=== PATIENT | female | born 1955 | race Caucasian/White ===

== ENCOUNTER 2020-03-07 14:26 | Outpatient (REF) | payer MEDICAID, SELFPAY ==
--- NOTE | 2020-03-07 14:34 | XR_ITS ---
EXAMINATION: XR CHEST CLINICAL INFORMATION: COPD. COMPARISON: Prior chest radiographs, most recently 04/24/2019; CT chest dated 03-22. TECHNIQUE: Frontal and lateral views of the chest were obtained. FINDINGS: The heart, great vessels, pulmonary vasculature and mediastinum are stable. No pulmonary vascular congestion or overt pulmonary edema are seen. There is hyperinflation, consistent with the provided history of COPD. Breast artifact again projects over the bases. There are again prominent bilateral pericardial fat pads, consistent with the prior CT findings (6:21 and 4:299). No new infiltrate, effusion or pneumothorax is seen. There is no acute osseous abnormality. There is multi-level thoracic spondylosis. IMPRESSION: 1. Findings are consistent with the provided history of COPD. 2. No new focal infiltrate or congestive heart failure is seen.
== END 2020-03-07 14:27 | disposition home or self-care (01) ==
LOC: HO.HMGCX 14:26
PROVIDERS: PCP Nurse Practitioner Family; Visit Provider Nurse Practitioner Family
DX: J44.1 Chronic obstructive pulmonary disease with (acute) exacerbation (principal)
CPT/HCPCS: 71046

== ENCOUNTER 2020-04-03 10:29 | Outpatient (REF) | payer MEDICAID, SELFPAY | END 2020-04-03 10:30 | disposition home or self-care (01) | LOC: HO.LAB 10:29 | PROVIDERS: Visit Provider Nurse Practitioner Family | DX: Z20.828 Contact with and (suspected) exposure to other viral communicable diseases (principal) | CPT/HCPCS: 87635 ==

== ENCOUNTER 2020-04-03 11:14 | Outpatient (REF) | payer MEDICAID, SELFPAY ==
[2020-04-03 13:54] LABS: MANUAL DIFF FLAG NO
[2020-04-03 13:58] LABS: Basophils Percent Auto 0.4 % (0-2); Eosinophils Absolute Auto 0.5 X10*3/uL (0.0-0.4); Eosinophils Percent Auto 5.2 % (0-4); Hematocrit 40.8 % (37-47); Hemoglobin 13.1 g/dl (12.0-16.0); Imm Gran Abs Auto 0.03 X10*3/uL (0.00-0.03); Imm Gran Pct Auto 0.3 % (0.0-0.4); Lymphocytes Absolute Auto 2.1 X10*3/uL (1.2-4.9); Mean Corpuscular HGB Conc 32.1 g/dl (31.0-35.0); Mean Corpuscular Hemoglobin 32.6 pg (27.0-33.0); Mean Corpuscular Volume 101.5 fL (80-98); Mean Platelet Volume 10.4 fL (9.4-12.3); Monocytes Absolute Auto 0.6 X10*3/uL (0.1-1.2); Monocytes Percent Auto 7.1 % (2-11); Neutrophils Absolute Auto 5.7 X10*3/uL (2.0-8.3); Platelet Count 257 X10*3/uL (160-400); Red Blood Count 4.02 X10*6/uL (4.20-5.50); Red Cell Distribution Width 13.2 % (11.0-16.0); White Blood Count 8.9 X10*3/uL (4.8-10.8)
[2020-04-03 14:25] LABS: Alanine Aminotransferase 13 U/L (0-31); Albumin Level 3.8 g/dL (3.5-5.0); Alkaline Phosphatase 98 U/L (39-117); Anion Gap 11 (12-20); Aspartate Amino Transferase 13 U/L (5-31); Bilirubin Direct 0.2 mg/dL (0.0-0.5); Bilirubin Total 0.7 mg/dL (0.0-1.0); Blood Urea Nitrogen 18 mg/dL (9-16); Calcium 8.7 mg/dL (8.4-10.2); Carbon Dioxide 38 mmol/L (22-29); Chloride 96 mmol/L (96-108); Estimated Glomerular Filt Rate > 60; Glucose Random 126 mg/dL (60-115); Potassium 3.9 mmol/l (3.3-5.1); Sodium 141 mmol/L (135-145); Total Protein 6.9 g/dL (6.5-8.0)
[2020-04-04 15:57] LABS: Absolute CD3 Count 1626 cells/uL (840-3060); Absolute CD4 Count 587 cells/uL (490-1740); Absolute CD8 Count 1110 cells/uL (180-1170); Absolute Lymphocytes 2070 cells/uL (850-3900); CD4 CD8 Ratio 0.53 (0.86-5.00); Percent CD3 Cells 79 % (57-85); Percent CD4 Cells 28 % (30-61); Percent CD8 Cells 54 % (12-42)
[2020-04-05 16:12] LABS: HIV RNA PCR Qn Copies <20 NOT DETECTED copies/mL (NOT DETECTED); HIV RNA PCR Qn Log Copies <1.30 NOT DETECTED (NOT DETECTED)
== END 2020-04-03 11:15 | disposition home or self-care (01) ==
LOC: HO.HMGCLDS 11:14
PROVIDERS: PCP Nurse Practitioner Family; Visit Provider Internal Medicine
DX: B20 Human immunodeficiency virus [HIV] disease (principal)
CPT/HCPCS: 36415; 80048; 80076; 85025; 86359; 86360; 87536

== ENCOUNTER → 2020-04-15 11:23 | Outpatient (BNVA) | payer MEDICAID, SELFPAY | PROVIDERS: PCP Nurse Practitioner Family; Referring Provider Nurse Practitioner Family; Visit Provider Internal Medicine | DX: J44.1 Chronic obstructive pulmonary disease with (acute) exacerbation (principal); J96.91 Respiratory failure, unspecified with hypoxia; G47.33 Obstructive sleep apnea (adult) (pediatric); E66.01 Morbid (severe) obesity due to excess calories; Z68.41 Body mass index [BMI] 40.0-44.9, adult; F17.210 Nicotine dependence, cigarettes, uncomplicated; Z99.81 Dependence on supplemental oxygen | CPT/HCPCS: 99212 ==

== ENCOUNTER → 2020-04-25 10:39 | Outpatient (REF) | payer MEDICAID, SELFPAY ==
--- NOTE | 2020-04-25 10:43 | CA_ITS ---
Transthoracic Echocardiogram Patient (Last, First, Middle): Elida Barry, Gender: Female Date of : 1955 Age: 64 Procedure Date: 04/25/2020 Procedure Type: Transthoracic Echocardiogram Location: OP Height: 177.8 cm Weight: 127.01 kg BSA: 2.41 m2 Heart Rate: bpm BP: 144 / 82 mmHg [employer] Supervisor: AZUL Referring MD: Garret Interiano [facility] Symptoms: R60.0 - Localized edema Study Quality: Fair on Apical views ECG Rhythm: Sinus Conclusions: - The left ventricular systolic function is normal. The visually estimated ejection fraction is between 65-70%. - No obvious valvular pathology seen on this study. - There is mild dilatation of the ascending aorta measuring 4.10 cm. Findings Left Ventricle Normal left ventricular cavity size. There is moderately increased left ventricular wall thickness. The left ventricular systolic function is normal. The visually estimated ejection fraction is between 65-70%. There is no evidence of regional wall motion abnormalities. E/E prime ratio is <8, consistent with normal filling pressures. Evidence suggests grade I (mild) diastolic dysfunction. Right Ventricle Normal right ventricular cavity size and systolic function. Atria Both atria are normal in size. Aortic Valve The aortic valve was not well visualized. There is no aortic valve stenosis. There is no aortic valve regurgitation. Slightly increased aortic valve gradients likely from increased stroke volume. Mitral Valve The mitral valve appears normal. There is no mitral valve regurgitation. There is no mitral valve stenosis. Pulmonic Valve The pulmonic valve was not well visualized. Tricuspid Valve There is trace tricuspid valve regurgitation. The pulmonary artery systolic pressure is normal. Great Vessels There is mild dilatation of the ascending aorta measuring 4.10 cm. Venous The inferior vena cava is normal in size and collapses greater than 50% with inspiration. Pericardium/Pleural There is no evidence of pericardial effusion. Prior Study Comparison No significant change compared to prior study dated: 12/22/2018. Recommendations, Care & Conclusions No obvious valvular pathology seen on this study. Measurements 2D Linear Measurements IVSd: 1.55 0.6-0.9/0.6-1.0 cm LVIDd: 5.13 3.9-5.3/4.2-5.9 cm LVIDd Index: 2.13 2.4-3.2/2.2-3.1 cm/m2 LVIDs: 3.29 2.0-3.6 cm LVPWd: 1.45 0.7-1.1 cm Ao Root: 3.60 2.1-3.5 cm LA Diam: 4.50 2.7-3.8/3.0-4.0 cm LAIDs Index: 1.87 1.5-2.3 cm/m2 LV Mass: 418.46 67-162/88-224 g LV Mass Index: 173.63 43-95/49-115 g/m2 LVOT Diam: 2.30 3.0+(-)1.3 cm 2D Systolic Function EF 4C: 74.70 >55% EF 2C: 61.50 >55% EF BiP: 68.30 >55% Mitral Valve MV Pk E: 0.48 MV PK A: 1.02 MV Decel Time: 289.00 E/A: 0.50 E'Lateral: 9.86 E'Medial: 7.35 E/E' Med: 6.50 E/E' Lat: 4.80 PHT: 85.00 MVA PHT: 2.59 Decel [place]: 1.65 Aortic Valve AoV Pk Rashaun: 2.08 AoV Mn Rashaun: 1.43 AoV VTI: 0.43 AoV Pk Grad: 17.00 Aov Mn Grad: 10.00 ANSHUL Cont.VTI: 3.05 LVOT LVOT Pk [place]asha[place]: 1.47 LVOT Mn Rashaun: 0.98 LVOT VTI: 0.32 LVOT Pk Grad: 9.00 LVOT Mn Grad: 5.00 LVOT Diam: 2.30 LVOT Area: 4.15 Diastolic Function MV Pk E: 0.48 MV Pk A: 1.02 E/A: 0.50 E'Medial: 7.35 E/E' Med: 6.50 E' Laterial: 9.86 E/E' Lat: 4.80 Tricuspid Valve TR Pk Rashaun: 2.23 TR Pk Grad: 20.00 RA Press: 3.00 RVSP: 23.00 Great Vessels Aorta Ao Root-2D: 3.60 2.0-3.7 cm Ao Asc: 4.10 2.1-3.4 cm Pulmonary Valve PV Pk Rashaun: 1.14 Peak PV Grad: 5.00 Updated in Other Vendor System with Status of Final Bolivar Mariee MD electronically signed on 04/27/2020 9:53:34 AM with status of Final
== END ==
LOC: HO.CARD 10:39
PROVIDERS: PCP Nurse Practitioner Family; Visit Provider Nurse Practitioner Family
DX: R60.0 Localized edema (principal)
CPT/HCPCS: 93306

== ENCOUNTER 2020-05-16 09:27 | Outpatient (REF) | payer MEDICARE, MEDICAID, SELFPAY ==
--- NOTE | 2020-05-16 09:34 | XR_ITS ---
EXAMINATION: XR CHEST CLINICAL INFORMATION: COPD COMPARISON: Previous chest x-ray most recent March 2020 TECHNIQUE: 2 views of the chest were obtained. FINDINGS: The cardiac and mediastinal contours are stable. The lung volumes are low. There is scarring or subsegmental atelectasis at the lung bases that appears unchanged. There is no pleural effusion or pneumothorax. There is increased thoracic kyphosis and degenerative changes of the spine. XR/XR chest 2V IMPRESSION: Low lung volumes and scarring or subsegmental atelectasis at the lung bases. No evidence for acute disease in the chest.
== END 2020-05-16 09:28 | disposition home or self-care (01) ==
LOC: HO.HMGCX 09:27
PROVIDERS: PCP Nurse Practitioner Family; Visit Provider Hospitalist
DX: J44.1 Chronic obstructive pulmonary disease with (acute) exacerbation (principal)
CPT/HCPCS: 71046; U0003

== ENCOUNTER 2020-05-16 09:51 | Outpatient (REF) | payer MEDICARE, MEDICAID, SELFPAY | END 2020-05-16 09:52 | disposition home or self-care (01) | LOC: HO.LAB 09:51 | PROVIDERS: Visit Provider Hospitalist | DX: Z20.828 Contact with and (suspected) exposure to other viral communicable diseases (principal) | CPT/HCPCS: U0003 ==

== ENCOUNTER → 2020-05-27 11:01 | Outpatient (BNVA) | payer MEDICARE, MEDICAID, SELFPAY | PROVIDERS: PCP Nurse Practitioner Family; Visit Provider Surgery Vascular Surgery | DX: I83.12 Varicose veins of left lower extremity with inflammation (principal) | CPT/HCPCS: 99212 ==

== ENCOUNTER → 2020-06-09 11:19 | Outpatient (BNVA) | payer MEDICARE, MEDICAID, SELFPAY | PROVIDERS: PCP Nurse Practitioner Family; Visit Provider Internal Medicine | DX: J44.1 Chronic obstructive pulmonary disease with (acute) exacerbation (principal); J96.91 Respiratory failure, unspecified with hypoxia; E66.01 Morbid (severe) obesity due to excess calories; Z68.41 Body mass index [BMI] 40.0-44.9, adult; G47.33 Obstructive sleep apnea (adult) (pediatric); F17.210 Nicotine dependence, cigarettes, uncomplicated; Z99.81 Dependence on supplemental oxygen | CPT/HCPCS: 99212 ==

== ENCOUNTER → 2020-06-23 11:03 | Outpatient (BNVA) | payer MEDICARE, MEDICAID, SELFPAY | PROVIDERS: Visit Provider Internal Medicine | DX: B20 Human immunodeficiency virus [HIV] disease (principal) | CPT/HCPCS: 99212 ==

== ENCOUNTER 2020-06-24 12:25 | Outpatient (REF) | payer MEDICARE, MEDICAID, SELFPAY ==
--- NOTE | 2020-06-24 12:29 | US_ITS ---
EXAMINATION: RIGHT LOWER EXTREMITY VENOUS ULTRASOUND (Reflux Exam) CLINICAL INDICATION: Varicose veins and inflammation COMPARISON: Previous exam December 2018 TECHNIQUE: Color flow triplex imaging and compression Doppler was performed to evaluate both the deep and the superficial systems bilaterally. To evaluate the superficial system, the examination was performed in the upright position. Color-flow Doppler ultrasound and compression ultrasound were utilized. In addition, maneuvers were utilized to demonstrate reflux. FINDINGS: 1. DEEP VENOUS ULTRASOUND OF THE RIGHT LOWER EXTREMITY: Respiratory variation, normal compression and augmented flow are noted in the right common femoral vein as well as the right popliteal vein and there is no evidence of deep venous thrombosis at these locations. There is no evidence of reflux in the deep system in either the common femoral vein or the popliteal vein. There is no evidence of a Muñiz's cyst. 2. SUPERFICIAL ULTRASOUND WITH DOPPLER OF RIGHT LOWER EXTREMITY: The right great saphenous vein at the saphenofemoral junction measures 10 mm, at the mid thigh 7 mm, dikdl-[id number]-[id number] 6 5 mm, wekqh-soj-sofy 5 mm, at mid calf 4 mm and at the ankle measures 3 mm. There is a right greater saphenous vein reflux measuring 2.9 seconds in the proximal thigh, 3 seconds in the mid thigh, 2.5 seconds above the knee and 0.8 seconds at the ankle. There is an accessory lateral greater saphenous vein that measures 6 mm and does not demonstrate reflux. The right small saphenous vein measures 4-5 mm. There is a left lesser saphenous vein reflux measuring between 1.7 and 2.3 seconds. There are perforators in the thigh and calf that measure 2 and 4 mm and do not demonstrate reflux. There are varicosities in the thigh and calf measuring between 3 and 6 millimeters and do not demonstrate reflux. There is right inguinal lymphadenopathy. US/US venous duplex LE BI IMPRESSION: 1. No evidence of reflux or thrombus in the right common femoral or popliteal veins. 2. Right greater saphenous vein reflux. Right lesser saphenous vein reflux.
== END 2020-06-24 12:26 | disposition home or self-care (01) ==
LOC: HO.US 12:25
PROVIDERS: Visit Provider Surgery Vascular Surgery
DX: I83.12 Varicose veins of left lower extremity with inflammation (principal); I83.893 Varicose veins of bilateral lower extremities with other complications
CPT/HCPCS: 93970

== ENCOUNTER → 2020-06-26 10:44 | Outpatient (BNVA) | payer MEDICAID, SELFPAY | PROVIDERS: Visit Provider Surgery Vascular Surgery ==

== ENCOUNTER 2020-07-09 | Outpatient (REF) | payer MEDICARE, MEDICAID, SELFPAY | END 2020-07-09 00:01 | disposition home or self-care (01) | LOC: HO.VC | PROVIDERS: Visit Provider Internal Medicine | DX: Z23 Encounter for immunization (principal) | CPT/HCPCS: 0011A ==

== ENCOUNTER → 2020-07-10 13:49 | Outpatient (BNVA) | payer MEDICARE, MEDICAID, SELFPAY | PROVIDERS: PCP Nurse Practitioner Family; Visit Provider Surgery Vascular Surgery | DX: I83.11 Varicose veins of right lower extremity with inflammation (principal) | CPT/HCPCS: 99212 ==

== ENCOUNTER → 2020-07-18 08:25 | Outpatient (BNVA) | payer MEDICARE, MEDICAID, SELFPAY | PROVIDERS: PCP Nurse Practitioner Family; Visit Provider Surgery Vascular Surgery | DX: I83.11 Varicose veins of right lower extremity with inflammation (principal) | CPT/HCPCS: 36482 ==

== ENCOUNTER 2020-07-21 08:53 | Outpatient (REF) | payer MEDICARE, MEDICAID, SELFPAY ==
--- NOTE | ~2020-07-21 | US_ITS ---
EXAMINATION: US VENOUS ULTRASOUND WITH DOPPLER LOWER EXTREMITY, RIGHT CLINICAL INFORMATION: Right leg pain post venaseal procedure COMPARISON: Previous exam June 2020 TECHNIQUE: Ultrasound of the deep veins is performed from the hip to the calf with compression sonography and color and pulse Doppler assessment. Spectral analysis with color-flow imaging is performed. FINDINGS: There is normal venous compression and respiratory variation and augmented flow. The visualized common femoral vein, superficial femoral vein, profunda femoral vein, popliteal vein, and the trifurcation region shows no evidence of deep venous thrombosis. There is hyperechoic material consistent with thrombus seen in the right greater saphenous vein. This is 4 cm from the saphenofemoral junction. There is a 5.8 x 1.4 x 3 cm complex Muñiz's cyst. US/US venous duplex LE RT IMPRESSION: No DVT demonstrated in the right lower extremity. Echogenic material in the right greater saphenous vein 4 cm from the saphenofemoral junction post venaseal procedure. 5.8 x 1.4 x 3 cm complex Muñiz's cyst.
== END 2020-07-21 08:54 | disposition home or self-care (01) ==
LOC: HO.US 08:53
PROVIDERS: Visit Provider Surgery Vascular Surgery
DX: M79.604 Pain in right leg (principal)
CPT/HCPCS: 93971

== ENCOUNTER 2020-07-29 10:37 | Outpatient (REF) | payer MEDICARE, MEDICAID, SELFPAY ==
--- NOTE | ~2020-07-29 | MM_ITS ---
EXAMINATION: MM SCREENING DIGITAL BREAST TOMOSYNTHESIS, BILATERAL CLINICAL INFORMATION: Screening. Asymptomatic. The lifetime risk of breast cancer based on the Tyrer-Cuzick Model is 8%. COMPARISON: Mammography: 06/27/2018, 01/05/2017 TECHNIQUE: Digital breast tomosynthesis is performed in both the craniocaudal and mediolateral oblique views along with computer-aided detection (CAD). Synthesized 2D images are generated from the tomosynthesis. FINDINGS: There are scattered areas of fibroglandular density (ACR BI-RADS breast composition Category b). There are no significant masses, abnormal calcifications, or other abnormalities. There are some ectatic draining veins upper right breast similar to prior exam. Scattered benign round and dermal calcifications again noted posterior medial breasts. No significant changes. MM/MM tomosynthesis screening BI IMPRESSION: No mammographic evidence of malignancy. ASSESSMENT: BI-RADS 2: Benign RECOMMENDATION: Routine annual mammography screening. This patient's information was entered into a reminder system with a target due date for their next mammogram.
== END 2020-07-29 10:38 | disposition home or self-care (01) ==
LOC: HO.MAMMO 10:37
PROVIDERS: PCP Nurse Practitioner Family; Visit Provider Nurse Practitioner Family
DX: I83.11 Varicose veins of right lower extremity with inflammation (principal); I89.0 Lymphedema, not elsewhere classified; Z12.31 Encounter for screening mammogram for malignant neoplasm of breast
CPT/HCPCS: 77063; 77067; 99212

== ENCOUNTER 2020-08-05 | Outpatient (REF) | payer MEDICARE, MEDICAID, SELFPAY | END 2020-08-05 00:01 | disposition home or self-care (01) | LOC: HO.VC | PROVIDERS: Visit Provider Internal Medicine | DX: Z23 Encounter for immunization (principal) | CPT/HCPCS: 0012A ==

== ENCOUNTER → 2020-08-13 11:01 | Outpatient (BNVA) | payer MEDICARE, MEDICAID, SELFPAY | PROVIDERS: PCP Nurse Practitioner Family; Visit Provider Internal Medicine | DX: J44.9 Chronic obstructive pulmonary disease, unspecified (principal); J96.91 Respiratory failure, unspecified with hypoxia; E66.2 Morbid (severe) obesity with alveolar hypoventilation; Z68.41 Body mass index [BMI] 40.0-44.9, adult; J31.0 Chronic rhinitis; Z71.3 Dietary counseling and surveillance; Z87.891 Personal history of nicotine dependence; Z79.899 Other long term (current) drug therapy; Z79.51 Long term (current) use of inhaled steroids; Z99.81 Dependence on supplemental oxygen | CPT/HCPCS: 99212 ==

== ENCOUNTER → 2020-09-09 13:14 | Outpatient (BNVA) | payer MEDICARE, MEDICAID, SELFPAY | PROVIDERS: PCP Nurse Practitioner Family; Visit Provider Surgery Vascular Surgery | DX: I83.12 Varicose veins of left lower extremity with inflammation (principal); I89.0 Lymphedema, not elsewhere classified | CPT/HCPCS: 99212 ==

== ENCOUNTER → 2020-10-10 07:21 | Outpatient (BNVA) | payer MEDICARE, MEDICAID, SELFPAY | PROVIDERS: PCP Nurse Practitioner Family; Visit Provider Surgery Vascular Surgery | DX: I83.12 Varicose veins of left lower extremity with inflammation (principal) | CPT/HCPCS: 37765 ==

== ENCOUNTER → 2020-10-23 09:42 | Outpatient (BNVA) | payer MEDICARE, MEDICAID, SELFPAY | PROVIDERS: PCP Nurse Practitioner Family; Visit Provider Surgery Vascular Surgery | DX: Z98.890 Other specified postprocedural states (principal); Z87.891 Personal history of nicotine dependence | CPT/HCPCS: 99212 ==

== ENCOUNTER 2020-11-14 09:28 | Outpatient (REF) | payer MEDICARE, MEDICAID, SELFPAY ==
[2020-11-14 11:32] LABS: Hematocrit 40.5 % (37-47); Hemoglobin 12.9 g/dl (12.0-16.0); Mean Corpuscular HGB Conc 31.9 g/dl (31.0-35.0); Mean Corpuscular Hemoglobin 31.6 pg (27.0-33.0); Mean Corpuscular Volume 99.3 fL (80-98); Mean Platelet Volume 9.9 fL (9.4-12.3); Platelet Count 305 X10*3/uL (160-400); Red Blood Count 4.08 X10*6/uL (4.20-5.50); Red Cell Distribution Width 13.2 % (11.0-16.0); White Blood Count 8.2 X10*3/uL (4.8-10.8)
[2020-11-14 12:16] LABS: TSH reflex Free T4 0.32 uIU/mL (0.32-4.0)
[2020-11-14 12:33] LABS: Alanine Aminotransferase 12 U/L (0-31); Albumin Level 3.7 g/dL (3.5-5.0); Alkaline Phosphatase 116 U/L (39-117); Anion Gap 12 (12-20); Aspartate Amino Transferase 16 U/L (5-31); Bilirubin Direct 0.2 mg/dL (0.0-0.5); Bilirubin Total 0.4 mg/dL (0.0-1.0); Blood Urea Nitrogen 16 mg/dL (9-16); Calcium 8.6 mg/dL (8.4-10.2); Carbon Dioxide 35 mmol/L (22-29); Chloride 98 mmol/L (96-108); Estimated Glomerular Filt Rate > 60; Glucose Fasting 119 mg/dL (60-99); Potassium 4.3 mmol/L (3.3-5.1); Sodium 141 mmol/L (135-145); Total Protein 7.3 g/dL (6.5-8.0)
[2020-11-15 12:31] LABS: HIV RNA PCR Qn Copies <20 DETECTED copies/mL (NOT DETECTED); HIV RNA PCR Qn Log Copies <1.30 DETECTED (NOT DETECTED)
[2020-11-17 03:47] LABS: ~HepC Num1 1.95 S/CO (0.00-0.79); ~Hepatitis C Antibody Reactive (Nonreactive)
[2020-11-17 13:52] LABS: Absolute CD3 Count 791 cells/uL (840-3060); Absolute CD4 Count 283 cells/uL (490-1740); Absolute CD8 Count 540 cells/uL (180-1170); Absolute Lymphocytes 1113 cells/uL (850-3900); CD4 CD8 Ratio 0.52 (0.86-5.00); Percent CD3 Cells 71 % (57-85); Percent CD4 Cells 25 % (30-61); Percent CD8 Cells 48 % (12-42)
== END 2020-11-14 09:29 | disposition home or self-care (01) ==
LOC: HO.HMGCLDS 09:28
PROVIDERS: PCP Nurse Practitioner Family; Visit Provider Internal Medicine
DX: B20 Human immunodeficiency virus [HIV] disease (principal); R60.0 Localized edema
CPT/HCPCS: 36415; 80048; 80053; 80076; 82248; 84443; 85027; 86359; 86360; 86803; 87536

== ENCOUNTER 2020-11-28 10:26 | Outpatient (REF) | payer MEDICARE, MEDICAID, SELFPAY ==
--- NOTE | ~2020-11-28 | XR_ITS ---
EXAMINATION: XR KNEE, BILATERAL CLINICAL INFORMATION: Bilateral knee pain. COMPARISON: 09/08/2016 TECHNIQUE: AP and lateral views of each knee. FINDINGS: LEFT KNEE: There is severe disease of the medial joint space compartment with loss of joint space and marginal spurring and sclerosis. No significant narrowing of the lateral joint space compartment is seen where there is mild marginal spurring. There is some degenerative change with spurring seen involving the patellofemoral joint inferiorly. No effusion is appreciated. Calcific density seen in the region of the popliteal fossa consistent with loose body. RIGHT KNEE: There is a small right knee effusion. There is some moderate narrowing of the medial joint space compartment with mild spurring and some sclerosis. There is some spurring seen about the inferior aspect of the patellofemoral joint. No acute fracture or dislocation evident. XR/XR knee RT 2V IMPRESSION: Degenerative change of both knees without significant change from study of 09/08/2016.
--- NOTE | ~2020-11-28 | XR_ITS ---
EXAMINATION: XR KNEE, BILATERAL CLINICAL INFORMATION: Bilateral knee pain. COMPARISON: 09/08/2016 TECHNIQUE: AP and lateral views of each knee. FINDINGS: LEFT KNEE: There is severe disease of the medial joint space compartment with loss of joint space and marginal spurring and sclerosis. No significant narrowing of the lateral joint space compartment is seen where there is mild marginal spurring. There is some degenerative change with spurring seen involving the patellofemoral joint inferiorly. No effusion is appreciated. Calcific density seen in the region of the popliteal fossa consistent with loose body. RIGHT KNEE: There is a small right knee effusion. There is some moderate narrowing of the medial joint space compartment with mild spurring and some sclerosis. There is some spurring seen about the inferior aspect of the patellofemoral joint. No acute fracture or dislocation evident. XR/XR knee LT 2V IMPRESSION: Degenerative change of both knees without significant change from study of 09/08/2016.
== END 2020-11-28 10:27 | disposition home or self-care (01) ==
LOC: HO.HMGCX 10:26
PROVIDERS: PCP Nurse Practitioner Family; Visit Provider Nurse Practitioner Family
DX: M25.561 Pain in right knee (principal); M25.562 Pain in left knee
CPT/HCPCS: 73560

== ENCOUNTER → 2020-12-15 10:46 | Outpatient (BNVA) | payer MEDICARE, MEDICAID, SELFPAY | PROVIDERS: Visit Provider Physician Assistant | DX: M17.0 Bilateral primary osteoarthritis of knee (principal) | CPT/HCPCS: 20610; 99202; J1040 ==

== ENCOUNTER → 2021-02-06 13:01 | Outpatient (BNVA) | payer MEDICARE, MEDICAID, SELFPAY | PROVIDERS: Visit Provider Internal Medicine | DX: B20 Human immunodeficiency virus [HIV] disease (principal) | CPT/HCPCS: 99212 ==

== ENCOUNTER → 2021-03-03 14:34 | Outpatient (BNVA) | payer MEDICARE, MEDICAID, SELFPAY | PROVIDERS: PCP Nurse Practitioner Family; Visit Provider Surgery Vascular Surgery | DX: I83.12 Varicose veins of left lower extremity with inflammation (principal) | CPT/HCPCS: 99212 ==

== ENCOUNTER 2021-03-23 12:50 | Outpatient (REF) | payer MEDICARE, MEDICAID, SELFPAY ==
--- NOTE | ~2021-03-23 | US_ITS ---
EXAMINATION: US LOWER EXTREMITY VENOUS ULTRASOUND (REFLUX EXAM), BILATERAL CLINICAL INDICATION: Varicose veins left lower extremity with inflammation. Status post right VenaSeal. COMPARISON: 07/21/2020, 06/24/2020 and 07/02/2016 TECHNIQUE: Color-flow triplex imaging and compression Doppler was performed to evaluate both the deep and the superficial systems bilaterally. To evaluate the superficial system, the examination was performed in the upright position. Color-flow Doppler ultrasound and compression ultrasound were utilized. In addition, maneuvers were utilized to demonstrate reflux. FINDINGS: 1. DEEP VENOUS ULTRASOUND OF THE RIGHT LOWER EXTREMITY: Respiratory variation, normal compression and augmented flow are noted in the right common femoral vein as well as the right popliteal vein, and there is no evidence of deep venous thrombosis at these locations. There is no evidence of reflux in the deep system in either the common femoral vein or the popliteal vein. There is a right popliteal fossa cyst measuring approximately 5.4 x 1.9 x 2.5 cm in size. 2. SUPERFICIAL ULTRASOUND WITH DOPPLER OF RIGHT LOWER EXTREMITY: The right great saphenous vein at the saphenofemoral junction measures 6 mm, at the midthigh and knee there is occlusion from ablation, oydvd-dlg-lkfo 4 mm, at mid calf 4 mm and at the ankle measures 3 mm. The only reflux seen in the greater saphenous vein is at the ankle with reflux times of approximately 1.7 seconds. The right small saphenous vein measures 4 mm and demonstrates reflux within the mid calf and distal calf of up to approximately 3 seconds' duration. Varicosities and perforators within the right leg are 3 mm or smaller in size. 3. DEEP VENOUS ULTRASOUND OF THE LEFT LOWER EXTREMITY: Respiratory variation, normal compression and augmented flow are noted in the left common femoral vein as well as the left popliteal vein, and there is no evidence of deep venous thrombosis at these locations. There is evidence of reflux in the deep system in the popliteal vein up to 3 seconds in duration. There is no evidence of a Muñiz's cyst. No popliteal artery aneurysm. 4. SUPERFICIAL ULTRASOUND WITH DOPPLER OF LEFT LOWER EXTREMITY: Left great saphenous vein at the saphenofemoral junction measures 11 mm, at the midthigh 3 mm, htthr-zmv-tgqu 4 mm, oflfl-ykq-cfls 4 mm, at mid calf 3 mm and at the ankle measures 3 mm. There is reflux demonstrated within the mid calf and ankle greater than 3 seconds in duration. The left small saphenous vein measures 5 mm and shows reflux at the saphenofemoral junction of greater than 3 seconds' duration. Within the left mid calf region, there is a varicose vein with reflux within it greater than 3 seconds' duration. US/US venous duplex LE BI IMPRESSION: 1. No evidence of acute deep venous thrombosis within the deep venous systems bilaterally. 2. Deep left venous insufficiency seen in the popliteal vein of greater than 3 seconds' duration. 3. Greater saphenous vein reflux at the ankle on the right of approximately 1.7 seconds' duration. 4. Greater saphenous venous insufficiency seen in the mid calf and ankle of greater than 3 seconds' duration. 5. No reflux is seen at either the right or left saphenofemoral junctions.
== END 2021-03-23 12:51 | disposition home or self-care (01) ==
LOC: HO.US 12:50
PROVIDERS: PCP Nurse Practitioner Family; Visit Provider Surgery Vascular Surgery
DX: I83.893 Varicose veins of bilateral lower extremities with other complications (principal); I83.12 Varicose veins of left lower extremity with inflammation
CPT/HCPCS: 93970

== ENCOUNTER → 2021-03-30 12:56 | Outpatient (BNVA) | payer MEDICARE, MEDICAID, SELFPAY | PROVIDERS: PCP Nurse Practitioner Family; Visit Provider Internal Medicine | DX: J44.9 Chronic obstructive pulmonary disease, unspecified (principal); J96.91 Respiratory failure, unspecified with hypoxia; J31.0 Chronic rhinitis; G47.33 Obstructive sleep apnea (adult) (pediatric); E66.2 Morbid (severe) obesity with alveolar hypoventilation | CPT/HCPCS: 99212 ==

== ENCOUNTER → 2021-04-02 14:05 | Outpatient (BNVA) | payer MEDICARE, MEDICAID, SELFPAY | PROVIDERS: PCP Nurse Practitioner Family; Visit Provider Surgery Vascular Surgery | DX: I83.12 Varicose veins of left lower extremity with inflammation (principal) | CPT/HCPCS: 99212 ==

== ENCOUNTER 2021-04-03 16:12 | Outpatient (REF) | payer MEDICARE, MEDICAID, SELFPAY ==
[2021-04-03 17:06] LABS: Influenza A PCR NEGATIVE (Negative); Influenza B PCR NEGATIVE (Negative); Resp Syncy Virus RNA Qual PCR NEGATIVE (Negative); SARS COV2 PCR INHOUSE NEGATIVE (Negative)
== END 2021-04-03 16:13 | disposition home or self-care (01) ==
LOC: HO.LNP 16:12
PROVIDERS: Visit Provider Internal Medicine
DX: Z20.822 Contact with and (suspected) exposure to COVID-19 (principal); R43.9 Unspecified disturbances of smell and taste
CPT/HCPCS: 0241U

== ENCOUNTER 2021-04-17 | Outpatient (REF) | payer MEDICARE, MEDICAID, SELFPAY | END 2021-04-17 00:01 | disposition home or self-care (01) | LOC: CF | PROVIDERS: Visit Provider Surgery Vascular Surgery | DX: I83.12 Varicose veins of left lower extremity with inflammation (principal); E66.2 Morbid (severe) obesity with alveolar hypoventilation; J96.11 Chronic respiratory failure with hypoxia; I50.30 Unspecified diastolic (congestive) heart failure; B20 Human immunodeficiency virus [HIV] disease; F17.210 Nicotine dependence, cigarettes, uncomplicated; Z68.41 Body mass index [BMI] 40.0-44.9, adult | CPT/HCPCS: 36482 ==

== ENCOUNTER 2021-04-20 14:46 | Outpatient (REF) | payer MEDICARE, MEDICAID, SELFPAY ==
--- NOTE | ~2021-04-20 | US_ITS ---
EXAMINATION: US VENOUS ULTRASOUND WITH DOPPLER LOWER EXTREMITY, LEFT CLINICAL INFORMATION: Pain and swelling left lower leg. Status post VenaSeal. COMPARISON: None TECHNIQUE: Ultrasound of the deep veins is performed from the hip to the calf with compression sonography and color and pulse Doppler assessment. Spectral analysis with color-flow imaging is performed. FINDINGS: There is normal venous compression and respiratory variation and augmented flow. The visualized common femoral vein, superficial femoral vein, profunda femoral vein, popliteal vein, and the trifurcation region shows no evidence of deep venous thrombosis. There is no significant popliteal fossa cyst. The peroneal vein is not well visualized. There is a VenaSeal/thrombus visualized left greater saphenous femoral vein just before the confluence to common femoral artery. There is a small popliteal fossa cyst. If the patient's symptoms persist, followup ultrasound in 5-7 days might be of value to exclude proximal propagation from a non-visualized calf vein. US/US venous duplex LE LT IMPRESSION: No DVT demonstrated in the left lower extremity. Left peroneal vein is not completely visualized due to body habitus. Thrombus visualized in greater saphenous vein status post VenaSeal approximately 0.39 cm from the common femoral venous junction.
== END 2021-04-20 14:47 | disposition home or self-care (01) ==
LOC: HO.HMGCX 14:46
PROVIDERS: PCP Nurse Practitioner Family; Visit Provider Surgery Vascular Surgery
DX: M79.605 Pain in left leg (principal)
CPT/HCPCS: 93971

== ENCOUNTER → 2021-05-05 08:55 | Outpatient (BNVA) | payer MEDICARE, MEDICAID, SELFPAY | PROVIDERS: PCP Nurse Practitioner Family; Visit Provider Surgery Vascular Surgery | DX: I83.12 Varicose veins of left lower extremity with inflammation (principal) | CPT/HCPCS: 99212 ==

== ENCOUNTER → 2021-05-22 10:20 | Outpatient (BNVA) | payer MEDICARE, MEDICAID, SELFPAY | PROVIDERS: PCP Nurse Practitioner Family; Visit Provider Physician Assistant | DX: M17.0 Bilateral primary osteoarthritis of knee (principal) | CPT/HCPCS: 20610; 99212; J7318 ==

== ENCOUNTER 2021-07-21 07:10 | Outpatient (REF) | payer MEDICARE, MEDICAID, SELFPAY ==
--- NOTE | ~2021-07-21 | XR_ITS ---
EXAMINATION: BILATERAL KNEE X-RAY CLINICAL INFORMATION: Pain COMPARISON: Previous x-rays most recent November 2020 TECHNIQUE: Standing, lateral and sunrise views of both knees FINDINGS: Right: There is varus angulation. Bone alignment is otherwise normal. No fracture or dislocation is seen. There is arthritis at the medial femoral tibial and patellofemoral joints. There is a large joint effusion. Left: There is varus angulation. Bone alignment is otherwise normal. No fracture or dislocation is seen. There is arthritis at the femoral tibial and patellofemoral joints. There is a small joint effusion. XR/XR knee RT 2V IMPRESSION: Bilateral varus angulation and arthritis. Large right joint effusion. Small left joint effusion.
--- NOTE | ~2021-07-21 | XR_ITS ---
EXAMINATION: BILATERAL KNEE X-RAY CLINICAL INFORMATION: Pain COMPARISON: Previous x-rays most recent November 2020 TECHNIQUE: Standing, lateral and sunrise views of both knees FINDINGS: Right: There is varus angulation. Bone alignment is otherwise normal. No fracture or dislocation is seen. There is arthritis at the medial femoral tibial and patellofemoral joints. There is a large joint effusion. Left: There is varus angulation. Bone alignment is otherwise normal. No fracture or dislocation is seen. There is arthritis at the femoral tibial and patellofemoral joints. There is a small joint effusion. XR/XR knee standing BI IMPRESSION: Bilateral varus angulation and arthritis. Large right joint effusion. Small left joint effusion.
--- NOTE | ~2021-07-21 | XR_ITS ---
EXAMINATION: BILATERAL KNEE X-RAY CLINICAL INFORMATION: Pain COMPARISON: Previous x-rays most recent November 2020 TECHNIQUE: Standing, lateral and sunrise views of both knees FINDINGS: Right: There is varus angulation. Bone alignment is otherwise normal. No fracture or dislocation is seen. There is arthritis at the medial femoral tibial and patellofemoral joints. There is a large joint effusion. Left: There is varus angulation. Bone alignment is otherwise normal. No fracture or dislocation is seen. There is arthritis at the femoral tibial and patellofemoral joints. There is a small joint effusion. XR/XR knee LT 2V IMPRESSION: Bilateral varus angulation and arthritis. Large right joint effusion. Small left joint effusion.
== END 2021-07-21 07:11 | disposition home or self-care (01) ==
LOC: HO.HOSX 07:10
PROVIDERS: Visit Provider Physician Assistant
DX: M17.0 Bilateral primary osteoarthritis of knee (principal)
CPT/HCPCS: 73560; 73565; 99212

== ENCOUNTER → 2021-07-28 10:16 | Outpatient (BNVA) | payer MEDICARE, MEDICAID, SELFPAY | PROVIDERS: PCP Nurse Practitioner Family; Visit Provider Physician Assistant | DX: M17.0 Bilateral primary osteoarthritis of knee (principal) | CPT/HCPCS: 20610; J1040 ==

== ENCOUNTER 2021-07-30 10:56 | Outpatient (REF) | payer MEDICARE, MEDICAID, SELFPAY ==
--- NOTE | ~2021-07-30 | MM_ITS ---
EXAMINATION: MM SCREENING DIGITAL BREAST TOMOSYNTHESIS, BILATERAL CLINICAL INFORMATION: Screening. Asymptomatic. The lifetime risk of breast cancer based on the Tyrer-Cuzick Model is 7.6%. COMPARISON: Mammography: July 29, 2020 and studies dating back to September 27, 2012 TECHNIQUE: Digital breast tomosynthesis is performed in both the craniocaudal and mediolateral oblique views along with computer-aided detection (CAD). Synthesized 2D images are generated from the tomosynthesis. Additional cleavage view performed. FINDINGS: There are scattered areas of fibroglandular density (ACR BI-RADS breast composition Category b). There are no significant masses, abnormal calcifications, or other abnormalities. MM/MM tomosynthesis screening BI IMPRESSION: There are no significant changes from prior study. ASSESSMENT: BI-RADS 1: Negative RECOMMENDATION: Routine annual mammography screening. This patient's information was entered into a reminder system with a target due date for their next mammogram.
== END 2021-07-30 10:57 | disposition home or self-care (01) ==
LOC: HO.MAMMO 10:56
PROVIDERS: PCP Nurse Practitioner Family; Visit Provider Nurse Practitioner Family
DX: Z12.31 Encounter for screening mammogram for malignant neoplasm of breast (principal)
CPT/HCPCS: 77063; 77067

== ENCOUNTER 2021-08-07 12:55 | Outpatient (REF) | payer MEDICARE, MEDICAID, SELFPAY ==
[2021-08-07 14:51] LABS: Alanine Aminotransferase 14 U/L (0-31); Albumin Level 3.6 g/dL (3.5-5.0); Alkaline Phosphatase 92 U/L (39-117); Aspartate Amino Transferase 12 U/L (5-31); Bilirubin Direct 0.2 mg/dL (0.0-0.5); Bilirubin Total 0.4 mg/dL (0.0-1.0); Total Protein 6.6 g/dL (6.5-8.0)
[2021-08-08 15:11] LABS: Absolute CD3 Count 1658 cells/uL (840-3060); Absolute CD4 Count 655 cells/uL (490-1740); Absolute CD8 Count 1056 cells/uL (180-1170); Absolute Lymphocytes 2151 cells/uL (850-3900); CD4 CD8 Ratio 0.62 (0.86-5.00); Percent CD3 Cells 77 % (57-85); Percent CD4 Cells 30 % (30-61); Percent CD8 Cells 49 % (12-42)
[2021-08-11 15:12] LABS: HIV RNA PCR Qn Copies <20 DETECTED copies/mL (NOT DETECTED); HIV RNA PCR Qn Log Copies <1.30 DETECTED (NOT DETECTED)
[2021-08-12 09:01] LABS: HCV Log PCR <1.18 NOT DETECTED Log IU/mL (NOT DETECTED); HepC Viral Load <15 NOT DETECTED IU/mL (NOT DETECTED)
== END 2021-08-07 12:56 | disposition home or self-care (01) ==
LOC: HO.LAB 12:55
PROVIDERS: PCP Nurse Practitioner Family; Visit Provider Internal Medicine
DX: B20 Human immunodeficiency virus [HIV] disease (principal)
CPT/HCPCS: 36415; 80076; 86359; 86360; 87522; 87536; 99212

== ENCOUNTER → 2021-08-17 10:41 | Outpatient (BNVA) | payer MEDICARE, MEDICAID, SELFPAY | PROVIDERS: PCP Nurse Practitioner Family; Visit Provider Internal Medicine | DX: M17.0 Bilateral primary osteoarthritis of knee (principal) | CPT/HCPCS: 99202 ==

== ENCOUNTER → 2021-08-19 12:52 | Outpatient (BNVA) | payer MEDICARE, MEDICAID, SELFPAY | PROVIDERS: PCP Nurse Practitioner Family; Visit Provider Internal Medicine | DX: B20 Human immunodeficiency virus [HIV] disease (principal) | CPT/HCPCS: 99212 ==

== ENCOUNTER 2021-09-02 05:57 | Outpatient (REF) | payer MEDICARE, MEDICAID, SELFPAY | END 2021-09-02 05:58 | disposition home or self-care (01) | LOC: HO.RADIR 05:57 | PROVIDERS: Visit Provider Internal Medicine | DX: M25.561 Pain in right knee (principal) | CPT/HCPCS: 64450 ==

== ENCOUNTER → 2021-09-04 10:50 | Outpatient (BNVA) | payer MEDICARE, MEDICAID, SELFPAY | PROVIDERS: PCP Nurse Practitioner Family; Visit Provider Internal Medicine | DX: M17.0 Bilateral primary osteoarthritis of knee (principal) | CPT/HCPCS: Q3014 ==

== ENCOUNTER → 2021-09-09 13:49 | Outpatient (BNVA) | payer MEDICARE, MEDICAID, SELFPAY | PROVIDERS: PCP Nurse Practitioner Family; Referring Provider Nurse Practitioner Family; Visit Provider Nurse Practitioner Family | DX: I11.0 Hypertensive heart disease with heart failure (principal); I50.30 Unspecified diastolic (congestive) heart failure; I77.810 Thoracic aortic ectasia; E66.01 Morbid (severe) obesity due to excess calories; G47.33 Obstructive sleep apnea (adult) (pediatric) | CPT/HCPCS: 99212 ==

== ENCOUNTER 2021-09-22 14:13 | Outpatient (REF) | payer MEDICARE, MEDICAID, SELFPAY ==
--- NOTE | ~2021-09-22 | MM_ITS ---
EXAMINATION: BONE DENSITOMETRY CLINICAL INDICATION: Menopause. COMPARISON: This is the patient's baseline examination. TECHNIQUE: Using a LATTO DXA System (software version: 13.1) manufactured by [employer], dual-energy x-ray absorptiometry was performed of the lumbar spine and left hip. The images are of good technical quality. Summary results are attached. FINDINGS: AP SPINE L2-L3 (excluding L1 and L4): The data of L1-L4 has been changed to exclude the L1 and L4 vertebral bodies, because degenerative changes at these levels may cause overestimation of lumbar spine density. BMD 1.420 g/cm2, Z-score 2.3, T-score 1.8, normal. LEFT FEMUR, NECK: BMD 0.786 g/cm2, Z-score -1.1, T-score -1.8, osteopenia. LEFT FEMUR, TOTAL: BMD 0.763 g/cm2, Z-score -1.5, T-score -1.9, osteopenia. IDENTIFIED RISK FACTORS: Menopause, rheumatoid arthritis, Thiazide, tobacco use (current smoker). HISTORY OF FRACTURE: None listed. MEDICATIONS: Vitamin D. MM/XR DEXA axial skeleton IMPRESSION: 1. DIAGNOSIS: Osteopenia based on the lowest T-score value of -1.9 in the total femur applying World Health Organization criteria. 2. 10-YEAR FRACTURE RISK PREDICTION, FRAX: Major osteoporotic fracture (clinical spine, forearm, hip or shoulder) 12.1%. Hip fracture 2.8%. 3. Treatment Recommendations: NOF guidelines recommend consideration for treatment in postmenopausal women and men age 50 and older presenting with the following: -A hip or vertebral (clinical or morphometric) fracture. -T-score less than or equal to -2.5 at the femoral neck or spine after appropriate evaluation to exclude secondary causes. -Low bone mass at the hip or spine and a 10-year fracture probability by FRAX of greater than or equal to 3% for hip fracture or greater than or equal to 20% for major osteoporotic fracture based on the [place] adapted WHO algorithm. 4. Other Recommendations: All treatment decisions require clinical judgment and consideration of individual patient factors, including patient preferences, comorbidities, previous drug use, risk factors not captured in the FRAX model (e.g. frailty, falls, vitamin D deficiency, increased bone turnover, interval significant decline in bone density) and possible under or overestimation of fracture risk by FRAX. Additional medical evaluation for secondary cause of low bone mineral density may be appropriate. FUTURE SCAN RECOMMENDATION: People with diagnosed cases of osteoporosis or at high risk for fracture should have regular bone mineral density tests. For patients eligible for Medicare, routine testing is allowed once every 2 years. The testing frequency can be increased to one year for patients who have rapidly progressing disease, those who are receiving or discontinuing medical therapy to restore bone mass, or have additional risk factors.
== END 2021-09-22 14:14 | disposition home or self-care (01) ==
LOC: HO.MAMMO 14:13
PROVIDERS: Visit Provider Nurse Practitioner Family
DX: Z13.820 Encounter for screening for osteoporosis (principal); Z78.0 Asymptomatic menopausal state; M85.80 Other specified disorders of bone density and structure, unspecified site
CPT/HCPCS: 77080

== ENCOUNTER → 2021-09-29 12:55 | Outpatient (BNVA) | payer MEDICARE, MEDICAID, SELFPAY | PROVIDERS: PCP Nurse Practitioner Family; Visit Provider Internal Medicine | DX: J44.9 Chronic obstructive pulmonary disease, unspecified (principal); G47.33 Obstructive sleep apnea (adult) (pediatric); E66.2 Morbid (severe) obesity with alveolar hypoventilation; J31.0 Chronic rhinitis; F17.210 Nicotine dependence, cigarettes, uncomplicated; Z79.899 Other long term (current) drug therapy; Z99.81 Dependence on supplemental oxygen | CPT/HCPCS: 99212 ==

== ENCOUNTER 2021-10-21 06:12 | Outpatient (REF) | payer MEDICARE, MEDICAID, SELFPAY | END 2021-10-21 06:13 | disposition home or self-care (01) | LOC: HO.RADIR 06:12 | PROVIDERS: Visit Provider Internal Medicine | DX: M17.0 Bilateral primary osteoarthritis of knee (principal); M25.562 Pain in left knee; F17.210 Nicotine dependence, cigarettes, uncomplicated | CPT/HCPCS: 64447 ==

== ENCOUNTER → 2021-10-26 13:09 | Outpatient (BNVA) | payer MEDICARE, MEDICAID, SELFPAY | PROVIDERS: PCP Nurse Practitioner Family; Visit Provider Internal Medicine | DX: M25.561 Pain in right knee (principal) | CPT/HCPCS: Q3014 ==

== ENCOUNTER → 2021-10-29 13:44 | Outpatient (BNVA) | payer MEDICARE, MEDICAID, SELFPAY | PROVIDERS: PCP Nurse Practitioner Family; Visit Provider Surgery Vascular Surgery | DX: I89.0 Lymphedema, not elsewhere classified (principal) | CPT/HCPCS: 99212 ==

== ENCOUNTER 2021-12-01 14:50 | Outpatient (REF) | payer MEDICARE, MEDICAID, SELFPAY ==
--- NOTE | ~2021-12-01 | US_ITS ---
EXAMINATION: US VENOUS ULTRASOUND WITH DOPPLER LOWER EXTREMITY, RIGHT CLINICAL INFORMATION: Edema. Calf pain. History of right-sided venoseal COMPARISON: Venous Doppler ultrasound exam 03/23/2021 TECHNIQUE: Ultrasound of the deep veins is performed from the hip to the calf with compression sonography and color and pulse Doppler assessment. Spectral analysis with color-flow imaging is performed. FINDINGS: Exam limited by body habitus. There is normal venous compression and respiratory variation and augmented flow. The visualized common femoral vein, superficial femoral vein, profunda femoral vein, popliteal vein, and the trifurcation region shows no evidence of deep venous thrombosis. The calf veins are not well seen. Right-sided popliteal fossa cyst measuring 6 x 2.3 cm. If the patient's symptoms persist, followup ultrasound in 5 days 7 days might be of value to exclude proximal propagation from a non-visualized calf vein. US/US venous duplex LE RT IMPRESSION: No DVT demonstrated in the right lower extremity.
== END 2021-12-01 14:51 | disposition home or self-care (01) ==
LOC: HO.HMGCX 14:50
PROVIDERS: Visit Provider Nurse Practitioner Family
DX: M79.661 Pain in right lower leg (principal); M79.89 Other specified soft tissue disorders
CPT/HCPCS: 93971

== ENCOUNTER 2022-01-02 11:19 | Outpatient (REF) | payer MEDICARE, MEDICAID, SELFPAY ==
[2022-01-02 12:27] LABS: Influenza A PCR NEGATIVE (Negative); Influenza B PCR NEGATIVE (Negative); Resp Syncy Virus RNA Qual PCR NEGATIVE (Negative); SARS COV2 PCR INHOUSE NEGATIVE (Negative)
== END 2022-01-02 11:20 | disposition home or self-care (01) ==
LOC: HO.LNP 11:19
PROVIDERS: Visit Provider Physician Assistant Medical
DX: Z20.822 Contact with and (suspected) exposure to COVID-19 (principal); R05.9 Cough, unspecified
CPT/HCPCS: 0241U

== ENCOUNTER 2022-01-26 09:16 | Outpatient (REF) | payer MEDICARE, MEDICAID, SELFPAY ==
[2022-01-28 13:56] LABS: HIV RNA PCR Qn Copies NOT DETECTED copies/mL (NOT DETECTED); HIV RNA PCR Qn Log Copies NOT DETECTED (NOT DETECTED)
[2022-01-28 14:32] LABS: Absolute CD3 Count 823 cells/uL (840-3060); Absolute CD4 Count 340 cells/uL (490-1740); Absolute CD8 Count 515 cells/uL (180-1170); Absolute Lymphocytes 1100 cells/uL (850-3900); CD4 CD8 Ratio 0.66 (0.86-5.00); Percent CD3 Cells 75 % (57-85); Percent CD4 Cells 31 % (30-61); Percent CD8 Cells 47 % (12-42)
== END 2022-01-26 09:17 | disposition home or self-care (01) ==
LOC: HO.LAB 09:16
PROVIDERS: PCP Nurse Practitioner Family; Visit Provider Internal Medicine
DX: B20 Human immunodeficiency virus [HIV] disease (principal)
CPT/HCPCS: 36415; 86359; 86360; 87536

== ENCOUNTER 2022-02-03 11:07 | Day surgery (SDC) | payer MEDICARE, MEDICAID, SELFPAY ==
[2022-02-03 12:01] VITALS: BP 141/77; PULSE 73; RESP 22; TEMP 36.9; O2SAT 90; BMI 40.1
[2022-02-03 13:43] VITALS: BP 174/95; PULSE 76; RESP 20; TEMP 36.6; O2SAT 97
--- NOTE | 2022-02-05 12:08 | MHC.SHP ---
Pre-Procedural Eval Section A Date of Service: 02/03/22 The patient is an INPATIENT: No Changes since office visit: Yes New Medical Problems and Yes Patient answered all questions The History & Physical has been completed within 30 days and I have reviewed it.: No Section B Chief Complaint: Chronic right knee pain Relevant Family History (Specify if Yes): No Relevant Social History: None Present Medications: see Short Stay Collaborative assessment Medical History: Significant History (Patient has developed significant lymphedema since last visit) Allergies: Allergies Allergy/AdvReac Type Severity Reaction Status Date / Time Horse/Equine Containing Allergy Intermediate SWELLING Verified 01/20/22 13:07 Products [Horse/Equine Product Derivatives] Iodinated Contrast Media Allergy Unknown HIVES Verified 01/20/22 13:07 [IV CONTRAST] Review of Systems Sugical H&P ROS: Negative: Constitution, Cardiovascular and Respiratory Review of Systems Comment: Plan for pressure wrap application for lymphedema. Will plan to place PNS device superior to the most proximal extent of lymphedema based on palpation Exam Surgical H&P Exam: Normal: HEENT, Normal: Heart and Normal: Lungs and Significant Findings: Extremities (Lymphedema) Plan Diagnosis/Plan: Unchanged I have reviewed the history and physical and performed a pertinent physical examination on my patient. No changes have occurred unless specified.
--- NOTE | 2022-02-05 12:09 | PM.OP ---
Brief Operative Note Date of Service: 02/03/22 Pre-op diagnosis: Chronic right knee pain Post-op diagnosis: same Procedure: Temporary peripheral nerve stimulator placement at the right saphenous nerve at the level of the adductor canal Implants: Sprint temporary peripheral nerve stimulator system placement Surgeon: Guerrero Aguirre MD Anesthesia: local Was an Assessment Director used for this Procedure?: No Estimated blood loss (mL): 2 Pathology: none sent Condition: stable Disposition: same day
--- NOTE | 2022-02-05 12:10 | P.OP_ITS ---
Operative Note Operative Note Date of Service: 02/03/22 Narrative: Peripheral Nerve Stimulation Temporary Lead Placement, Ultrasound-Guided, Saphenous Nerve, Right ? After the risks, benefits and alternatives were discussed with the patient and informed consentwas obtained, patient was placed in the supine position and padded to foster comfort. Appropriate skin and bony landmarks were identified, and pertinent vascular structures were located. The skin overlying the needle entry site was prepped and draped in sterile fashion. Ultrasound was used to identify the femoral artery, the femoral vein and the saphenous nerve. After identifying and marking the intended target along the course of the Saphenous nerve, the skin around the planned entry point and the subcutaneous tissues was injected with local anesthetic. An introducer needle and stimulating probe were assembled, inserted and advanced along the intended course of the saphenous; nerve, taking care to maintain the proper depth of insertion as the introducer was advanced under ultrasound guidance. The introducer needle was delivered to a location in proximity to the nerve taking care not to puncture the femoral artery or the vein. Multiple stimulation parameters were used to deliver stimulation to the saphenous nerve in concert with stimulating at multiple positions around the nerve. Nerve target acquisition was confirmed noting generation of sensory and mild motor effects (paresthesia, muscle tension, etc) in the medial knee, leg and ankle; corresponding to the distribution of the saphenous nerve. Various electrical parameter combinations were tested, and the lead location was adjusted (physica lly relocated under ultrasound guidance) until the patient indicated medial knee paresthesia and tension overlapping the distribution of the patient?s typical region of pain. The stimulating probe was removed from the introducer and a percutaneous lead was guided through the needle and delivered to a location in similar proximity to the nerve. Final location was verified with electrical stimulation and documented. The introducer needle was removed, and the exposed end of the percutaneous lead was attached to an external stimulator unit. Various electrical parameter combinations were again tested until the patient indicated paresthesia and muscle tension overlapping the distribution of the patient?s typical region of pain. After confirming that lead impedance was in the normal range, the external unit was detached, the needle was removed, and the lead was anchored at the skin. The lead was threaded into the connector block and electrical continuity and desired patient response was confirmed. The connector block was attached to the external stimulator unit. The site was covered with a sterile occlusive dressing. A final ultrasound image was taken to document final placement. The patient was observed for stability of vital signs and comfort.
== END 2022-02-03 14:27 | disposition home or self-care (01) ==
PROVIDERS: PCP Nurse Practitioner Family; Visit Provider Internal Medicine
PROC: (CPT 64555; principal; 2022-02-03 12:40)
DX: M25.561 Pain in right knee (principal); G89.29 Other chronic pain; B20 Human immunodeficiency virus [HIV] disease; J44.9 Chronic obstructive pulmonary disease, unspecified; I50.30 Unspecified diastolic (congestive) heart failure; E66.2 Morbid (severe) obesity with alveolar hypoventilation; E78.5 Hyperlipidemia, unspecified; Z79.899 Other long term (current) drug therapy; F11.90 Opioid use, unspecified, uncomplicated; Z91.041 Radiographic dye allergy status; F17.210 Nicotine dependence, cigarettes, uncomplicated
CPT/HCPCS: 64555; C1778

== ENCOUNTER → 2022-02-12 08:21 | Outpatient (BNVA) | payer MEDICARE, MEDICAID, SELFPAY | PROVIDERS: PCP Nurse Practitioner Family; Visit Provider Internal Medicine | DX: Z96.82 Presence of neurostimulator (principal) | CPT/HCPCS: 99212 ==

== ENCOUNTER → 2022-02-15 13:17 | Outpatient (BNVA) | payer MEDICARE, MEDICAID, SELFPAY | PROVIDERS: Visit Provider Internal Medicine | DX: B20 Human immunodeficiency virus [HIV] disease (principal); Z79.899 Other long term (current) drug therapy | CPT/HCPCS: 99212 ==

== ENCOUNTER 2022-03-25 12:22 | Outpatient (REF) | payer MEDICARE, MEDICAID, SELFPAY ==
[2022-03-25 13:02] LABS: Influenza A PCR NEGATIVE (Negative); Influenza B PCR NEGATIVE (Negative); Resp Syncy Virus RNA Qual PCR NEGATIVE (Negative); SARS COV2 PCR INHOUSE NEGATIVE (Negative)
== END 2022-03-25 12:23 | disposition home or self-care (01) ==
LOC: HO.LNP 12:22
PROVIDERS: Visit Provider Internal Medicine
DX: Z20.822 Contact with and (suspected) exposure to COVID-19 (principal); R09.89 Other specified symptoms and signs involving the circulatory and respiratory systems
CPT/HCPCS: 0241U

== ENCOUNTER → 2022-03-26 09:54 | Outpatient (BNVA) | payer MEDICARE, MEDICAID, SELFPAY | PROVIDERS: PCP Nurse Practitioner Family; Visit Provider Internal Medicine | DX: M17.0 Bilateral primary osteoarthritis of knee (principal) | CPT/HCPCS: Q3014 ==

== ENCOUNTER → 2022-03-30 13:14 | Outpatient (BNVA) | payer MEDICARE, MEDICAID, SELFPAY | PROVIDERS: PCP Nurse Practitioner Family; Visit Provider Internal Medicine | DX: J44.1 Chronic obstructive pulmonary disease with (acute) exacerbation (principal); J96.91 Respiratory failure, unspecified with hypoxia; G47.33 Obstructive sleep apnea (adult) (pediatric); R06.89 Other abnormalities of breathing; J31.0 Chronic rhinitis; F17.210 Nicotine dependence, cigarettes, uncomplicated; Z71.6 Tobacco abuse counseling | CPT/HCPCS: 99212 ==

== ENCOUNTER → 2022-04-09 13:02 | Outpatient (BNVA) | payer MEDICARE, MEDICAID, SELFPAY | PROVIDERS: PCP Nurse Practitioner Family; Visit Provider Physician Assistant | DX: M17.0 Bilateral primary osteoarthritis of knee (principal) | CPT/HCPCS: 20610; J7323 ==

== ENCOUNTER → 2022-04-16 10:59 | Outpatient (BNVA) | payer MEDICARE, MEDICAID, SELFPAY | PROVIDERS: PCP Nurse Practitioner Family; Visit Provider Physician Assistant | DX: M17.0 Bilateral primary osteoarthritis of knee (principal); E66.01 Morbid (severe) obesity due to excess calories | CPT/HCPCS: 20610; J7323 ==

== ENCOUNTER → 2022-04-23 13:14 | Outpatient (BNVA) | payer MEDICARE, MEDICAID, SELFPAY | PROVIDERS: PCP Nurse Practitioner Family; Visit Provider Physician Assistant | DX: M17.0 Bilateral primary osteoarthritis of knee (principal) | CPT/HCPCS: 20610; J7323 ==

== ENCOUNTER 2022-05-04 11:15 | Outpatient (REF) | payer MEDICARE, MEDICAID, SELFPAY ==
--- NOTE | ~2022-05-04 | XR_ITS ---
EXAMINATION: XR FEMUR, RIGHT CLINICAL INFORMATION: Presence of neurostimulator COMPARISON: None TECHNIQUE: AP and lateral views of the right femur were obtained. FINDINGS: There is arthritis at the hip, patellofemoral and medial femoral tibial joints. No fracture or dislocation. Small knee joint effusion. Soft tissue calcification projecting over the the upper lateral thigh or buttock. XR/XR femur RT 2V IMPRESSION: Arthritis at the knee and right hip joints.
== END 2022-05-04 11:16 | disposition home or self-care (01) ==
LOC: HO.HMGCX 11:15
PROVIDERS: PCP Nurse Practitioner Family; Visit Provider Internal Medicine
DX: J44.9 Chronic obstructive pulmonary disease, unspecified (principal); E66.2 Morbid (severe) obesity with alveolar hypoventilation; F17.200 Nicotine dependence, unspecified, uncomplicated; Z96.82 Presence of neurostimulator
CPT/HCPCS: 73552; 99212

== ENCOUNTER 2022-05-24 14:30 | Outpatient (RCR) | payer MEDICARE, MEDICAID, SELFPAY ==
--- NOTE | 2021-11-25 16:08 | MHC.OT.OLE ---
[address] [phone] F: [phone] Occupational Therapy Lymphedema Evaluation Diagnosis: Bilateral LE lymphedema Date of Onset: 04/20/22 Attending Provider: Dr. Merida Prescribed Treatment: Gloria and ricki MD Follow Up Appointment: History of Current Condition: Pt has multiple issues leading to her lower extremity swelling inclusive of morbid obesity, COPD and fluid overload. She report worsening of LE edema and recent onset of small lymph blisters on the right lower leg. She report using the pneumatic compression pump , but it is less effective. She is waiting for a call back from the [employer]. She reports non compliance with compression knee highs because they dig into her leg below the knee. Significant Medical History: Precautions/Contraindications: Patient Goals: To walk without pain (knee OA) Hand Dominance: Right Observations: Outcome Measures: Prior Level of Function and Occupation Living Situation: 2 story home, bedroom on first floor Family and/or Social Report: Nephew lives with her. Sister in law is close by and supportive Self-Mcc Support: Reports indep with all ADL with modifications. 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 Wearing slip ons and no socks Inc difficulty walking and lifting legs Inc difficulty putting foot on knee today , bilaterally Employment Status: NA Leisure Activites/Hobbies: Inc difficulty with mobility Driving: Sleeping: Vision: Balance: Pain Assessment Pain Score: 7 Pain Scale Used: Numeric (0 - 10) Pain Location and Description: 7-10 left knee Aggravating Factors: Alleviating Factors: Skin and Soft Tissue Assessment Skin and Soft Tissue: Fibrosis Hair Growth Nail Changes Trophic Changes Comments: Bilateral lower legs Nerve assessment Ulnar Nerve: Median Nerve: Radial Nerve: Comments: Sensory Assessment Temperature: Light Touch: Proprioception: Vibration: Comments: Edema foot to below knee R 265 cm L 245 cm Edema Assessment Upper Extremity: Lower Extremity: Right Impaired Left Impaired Comments: See edema form RLE vol 265 cm , LLE 245 cm Dexterity Assessment Dexterity: WFL Comments: Special Tests Comments: AROM (PROM) Strength Lower Extremity Hip Flexion: Knee Flexion: Knee Extension: Ankle Dorsiflexion: Ankle Plantarflexion: Ankle Eversion: Ankle Inversion: Comments: Difficulty reaching feet due to body habitus and COPD sx Cervical Flexion: Extension: Lateral Flexion: Rotation: Comments: Shoulder Flexion: Extension: Abduction: Internal Rotation: External Rotation: Comments: Flexion: Extension: Abduction: Internal Rotation: External Rotation: Comments: WFL Elbow Flexion: Extension: Forearm Pronation: Forearm Supination: Comments: Flexion: Extension: Forearm Pronation: Forearm Supination: Comments: Wrist Flexion: Extension: Ulnar Deviation: Radial Deviation: Comments: Flexion: Extension: Ulnar Deviation: Radial Deviation: Comments: Thumb Thumb CMC Flexion: Thumb MCP Flexion: Thumb IP Flexion: Radial Abduction: Palmar Abduction: Opposition: Comments: Digits Index MCP: PIP: DIP: Long MCP: PIP: DIP: Ring MCP: PIP: DIP: Small MCP: PIP: DIP: Comments: Gross Grasp: Lateral Pinch: Two-Point Pinch: Three-Jaw Pee: Comments: WFL Patient Education Primary Language: Scottish Senior Consultant Required: No Current Knowledge: Minimal, needs reinforcement Teaching Method: Handouts Education Needs Identified on Evaluation: ADL's Disease Information Exercise How did patient/family demonstrate learning? Patient demonstrates Patient verbalizes Family/SO verbalizes Barriers to Learning: None Readiness for Learning: Accepting Who was educated? Patient Comments: Plan of Care Assessment: Pt is a 66 yo female with worsening bilateral lower extremity edema over the past 4 yrs with DVT ro with doppler US. Pt reports she is essentially non ambulatory over the past 3 months. Pt now on 2 L via nasal canula and using a walker in the home and a wheelchair for distances. She has a good support system however self management of LE lymphedema will be difficult due to pt body habitus , COPD and ho OA affecting multiple joints. Pt will benefit from lymphedema treatment with modification using a velcro closure compression wrap for ease in application. STG Duration: 2 wks Short Term Goals: Pt and her caregiver with understand lymphedema precautions to decrease the risk of infection worsening of lymphedema Pt with develop tolerance for velcro closure compression wrap to facilitate limb decongestion Pt with perform HEP with minimal assistance to help improve lymphatic flow and venous return Reduce leg circumference by 10 cm LTG Duration: 4 wks Pasting Machine Operator Goals: Pt and her caregiver with be indep with compression wrap and or compression stockings for continued volume reduction and prevention of re accumulation of lulu fluid Reduce leg circumference by 20 cm Pt will report inc ease with mobility Pt and her day care assistant will be indep with HEP and lymphedema management to help prevent edema relapse and reduce risk of infection Frequency and Duration: The patient will be seen 3x wk x 4 wks Treatment Plan: Treatment Plan Comments: Lymphedema Treatment Plan: Compression Bandaging Exercise: Stretching, strengthening, manual therapy Manual Lymphatic Drainage Referral for compression garment and instructions for donning/doffing Self Care Training: bandaging, skin care, self massage Skin Care Education Lymphedema Treatment Plan Comments: Pt agreeable to velcro closure wrap thigh high for RLE and progress to thigh high compression stocking Electronically Signed By: Bernie Stokes OT CHT CLT Reviewed/agree with student documentation: N/A Therapist: Please sign and return to therapist, thank you for your referral.
--- NOTE | 2022-05-24 16:46 | MHC.OT.OP ---
[address] [phone] F: [phone] Occupational Therapy Progress Note Diagnosis: Bilateral lower extremity lymphedema Date of Surgery: Date of Evaluation: 11/20/21 Treatments to Date: 11 Cancellations to Date: No Shows to Date: Subjective: Pt requesting transition from Farrow wraps to compression thigh highs for day wear Pain Score: 5 Pain Location: Right niee Objective Measures: See edema form LLIS 11/20/21 89 points 05/11/22 30 points Status: Progressing Assessment: See edema form RLE vol 265 cm , LLE 245 cm Patient has been seen with a diagnosis of bilateral lower extremity secondary Lymphedema (Q82.0). In addition she has a complicated medical history ,including Morbid obesity , COPD , OA, Diastolic heart failure. She continues to wear her compression garments daily , Farrow wraps, elevates her legs and adheres to a HEP including MDL. Pt reports some discomfort with Farrow wraps and now requesting Rx for compression knee highs for day wear. Short Term Goals: Pt and her caregiver with understand lymphedema precautions to decrease the risk of infection worsening of lymphedema MET Pt with develop tolerance for velcro closure compression wrap to facilitate limb decongestion MET Pt with perform HEP with minimal assistance to help improve lymphatic flow and venous return MET Reduce leg circumference by 10 cm MET Field Spec Goals: Pt and her caregiver with be indep with compression wrap and or compression stockings for continued volume reduction and prevention of re accumulation of lulu fluid MET Reduce leg circumference by 20 cm MET Pt will report inc ease with mobility MEt Pt and her care associate will be indep with HEP and lymphedema management to help prevent edema relapse and reduce risk of infection Frequency and Duration: The patient will be seen 1x wk x 2 wks Treatment Plan: Home Exercise Program Weaning to self management Pt waiting for new pneumatic compression pump Requesting for RX for compression thigh highs 30-40 mmHG (2 pairs) Electronically Signed By: Bernie Stokes OT CHT CLT Reviewed/agree with student documentation: N/A Therapist:
--- NOTE | 2022-06-11 13:55 | MHC.OT.DC ---
[address] [phone] F: [phone] Occupational Therapy Discharge Note Provider: Chaitanya Merida Diagnosis: Bilateral lower extremity lymphedema Date of Surgery: Date of Evaluation: 11/20/21 Date of Discharge: 06/11/22 Treatments to Date: 11 Cancellations to Date: 1 No Shows to Date: 0 Discharge Status: Achieved Goals Improved Function Independent with HEP Discharge Summary: RLE vol 265 cm , LLE 245 cm Patient has been seen with a diagnosis of bilateral lower extremity secondary Lymphedema (Q82.0). In addition she has a complicated medical history ,including Morbid obesity , COPD , OA, Diastolic heart failure. She continues to wear her compression garments daily , Farrow wraps, elevates her legs and adheres to a HEP . Flexitouch sequential pneumatic pump was delivered and the co rep will set up and train Malia next week Pt plans to purchase the compression thigh highs due to insurance denial Electronically Signed By: Bernie Stokes OT CHT CLT Reviewed/agree with student documentation: N/A Therapist: Please Sign and return to therapist, thank you for your referral.
== END 2023-03-30 10:41 | disposition home or self-care (01) ==
LOC: HO.OT 14:30
PROVIDERS: Visit Provider Surgery Vascular Surgery
DX: I89.0 Lymphedema, not elsewhere classified (principal)
CPT/HCPCS: 97140; 97535

== ENCOUNTER 2022-06-04 11:48 | Outpatient (REF) | payer MEDICARE, MEDICAID, SELFPAY ==
[2022-06-04 14:05] LABS: Estimated Average Glucose 126 mg/dL
[2022-06-04 14:17] LABS: Alanine Aminotransferase 13 U/L (0-31); Albumin Level 3.8 g/dL (3.5-5.0); Alkaline Phosphatase 93 U/L (39-117); Anion Gap 10 (12-20); Aspartate Amino Transferase 13 U/L (5-31); Bilirubin Total 0.4 mg/dL (0.0-1.0); Blood Urea Nitrogen 14 mg/dL (9-16); Carbon Dioxide 35 mmol/L (22-29); Chloride 101 mmol/L (96-108); Cholesterol 135 mg/dL; Estimated Glomerular Filt Rate > 60; Glucose Fasting 103 mg/dL (60-99); HDL Cholesterol 46 mg/dL; LDL Cholesterol Calculated 76 mg/dl; Potassium 4.1 mmol/L (3.3-5.1); Sodium 142 mmol/L (135-145); Triglycerides 66 mg/dL
[2022-06-04 14:36] LABS: TSH reflex Free T4 0.26 uIU/mL (0.32-4.0); Vitamin D 25-OH Total 20.6 ng/mL (>30)
[2022-06-04 15:44] LABS: Free T4 (Free Thyroxine) 0.97 ng/dL (0.71-1.85)
[2022-06-04 16:43] LABS: Appearance Urine Clear; Color Urine Yellow; Glucose Urine UA Negative (Negative); Leukocyte Esterase Urine Small (1+) (Negative); Nitrite Urine Negative (Negative); Specific Gravity - Urine 1.015 (1.005-1.025); UMIC TRIGGER UACC YES; Urine Blood Negative (Negative); Urine Ketones Negative (Negative); Urine Protein Trace mg/dL (Neg-Trace)
[2022-06-04 16:53] LABS: Bacteria Urine None Seen (None Seen); Creatinine Urine 84.56 mg/dL; Hyaline Casts Urine 0-2 /LPF (0-2); Microalbum/Creatinine Ratio Ur 56.7 ug/mg cr; RBC Urine 0-2 /HPF (0-2); UACC Culture Trigger YES; WBC Urine 0-5 /HPF (0-5)
== END 2022-06-04 11:49 | disposition home or self-care (01) ==
LOC: HO.HMGCLDS 11:48
PROVIDERS: PCP Nurse Practitioner Family; Visit Provider Nurse Practitioner Family
DX: I10 Essential (primary) hypertension (principal); E11.9 Type 2 diabetes mellitus without complications; Z78.0 Asymptomatic menopausal state
CPT/HCPCS: 36415; 80053; 80061; 81001; 82043; 82306; 83036; 84439; 84443; 87086

== ENCOUNTER 2022-06-12 13:44 | Outpatient (REF) | payer MEDICARE, MEDICAID, SELFPAY ==
--- NOTE | ~2022-06-12 | XR_ITS ---
EXAMINATION: XR CHEST CLINICAL INFORMATION: Cough. COMPARISON: None TECHNIQUE: 2 views of the chest were obtained. FINDINGS: The lungs are well-expanded and clear of acute pneumonic process. The heart size and pulmonary vascularity is normal. No gross bony abnormality seen. XR/XR chest 2V IMPRESSION: Unremarkable chest exam.
[2022-06-12 16:34] LABS: Influenza A PCR NEGATIVE (Negative); Influenza B PCR NEGATIVE (Negative); Resp Syncy Virus RNA Qual PCR NEGATIVE (Negative); SARS COV2 PCR INHOUSE POSITIVE (Negative)
== END 2022-06-12 13:45 | disposition home or self-care (01) ==
LOC: HO.HMGCX 13:44
PROVIDERS: PCP Nurse Practitioner Family; Visit Provider Physician Assistant Medical
DX: Z20.822 Contact with and (suspected) exposure to COVID-19 (principal); R05.9 Cough, unspecified
CPT/HCPCS: 0241U; 71046

== ENCOUNTER 2022-06-12 14:03 | Outpatient (REF) | payer MEDICARE, MEDICAID, SELFPAY | END 2022-06-12 14:04 | disposition home or self-care (01) | LOC: HO.LAB 14:03 | PROVIDERS: Visit Provider Physician Assistant Medical | DX: Z13.89 Encounter for screening for other disorder (principal) ==

== ENCOUNTER 2022-08-24 14:00 | Outpatient (RCR) | payer MEDICARE, MEDICAID, SELFPAY ==
--- NOTE | 2022-07-28 15:03 | MHC.PT.EP ---
[facility] [place] Office [place] Office [place] Office [address] Ayan Cordoba [address] [phone] F: [phone] F: [phone] F: [phone] F: [phone] Physical Therapy Plan of Care Date of Evaluation: Date of Surgery: n/a Diagnosis: B primary OA of knee Assessment: Patient is a 67 year old female presenting to PT with complaints of pain in her B knees. Pt reports onset of pain began about 2 years ago due to insidious onset. She presents today with impairments in pain, knee ROM, knee strength, hip strength, gait mechanics. Pt's current occupation is none, with baseline physical activities including ambulating, ADLs. Pt expresses supervisor intermediates goal of reducing pain, and is motivated to work towards this in PT. Clinical presentation today is most consistent with signs and sx associated with B knee arthritis and pt will benefit from skilled PT 2 week x 4 weeks to address the following problems and impairments noted upon evaluation: pain, knee ROM, knee strength, hip strength, gait mechanics. Her rehab potential is fair due high pain levels, severe functional limitations and due to multiple unsuccessful pain management techniques at this time including pain stimulator and injections. These problems limit the patient with the following functional activities: ADLs, ambulating. The prescribed treatment plan of care is medically necessary. Co-morbidities of methadone use, HIV, diastolic HF, COPD, respiratory failure with hypoxia, on oxygen were identified and taken into considerations of plan of care. Pt was educated on HEP, role of PT, prognosis, POC. Frequency and Duration: The patient will be seen 2 x week x 4 weeks Short Term Goals: Pt will demonstrate ability to move through available ROM with minimal pain in 2 weeks. Pt will demonstrate improved knee MMT strength by 1/3 grade in 2 weeks. Pt will demonstrate compliance with initial HEP in 2 visits. Care Home Goals: Pt will demonstrate improved LEFI score by 9 points in 4 weeks for improved functional mobility. Pt will demonstrate ability to ambulate with minimal pain in 4 weeks for improved access to her home. Pt will demonstrate ability to complete ADLs with less difficulty and pain in 4 weeks for improved return to independence. Treatment Plan: Modalities to reduce pain, spasms and effusion. Manual therapy to restore motion and function. Therapeutic exercise to improve strength and flexibility. Neuromuscular re-education for posture and balance. Therapeutic activities to return to functional activities of daily living. Electronically signed by: Vaishnavi Robert PT, DPT, ATC Please sign and return to therapist. Thank you for your referral.
--- NOTE | 2022-09-07 07:59 | MHC.PT.DC ---
[facility] [place] Office [place] Office [place] Office [address] Ayan Cordoba [address] [phone] F: [phone] F: [phone] F: [phone] F: [phone] Physical Therapy Discharge Report Diagnosis: B primary OA of knee Date of Surgery: n/a Date of Evaluation: 07/28/22 Date of Discharge: 09/07/22 Treatments to Date: 5 Cancellations to Date: 2 No Shows to Date: Discharge Status: Visit Non-compliance Discharge Summary: Pt self d/c from skilled PT. Electronically signed by: Vaishnavi Robert, PT, DPT, ATC Please sign and return to therapist. Thank you for your referral.
== END 2022-09-07 07:59 | disposition home or self-care (01) ==
LOC: HO.PTCHIC 14:00
PROVIDERS: PCP Nurse Practitioner Family; Visit Provider Physician Assistant
DX: M17.0 Bilateral primary osteoarthritis of knee (principal)
CPT/HCPCS: 97110; 97162

== ENCOUNTER 2022-08-25 12:38 | Outpatient (REF) | payer MEDICARE, MEDICAID, SELFPAY ==
[2022-08-25 13:29] LABS: Appearance Urine Clear; Color Urine Yellow; Glucose Urine UA Negative (Negative); Leukocyte Esterase Urine Small (1+) (Negative); Nitrite Urine Negative (Negative); PH 5.5 (5.0-9.0); UMIC TRIGGER UACC YES; Urine Blood Negative (Negative); Urine Ketones Negative (Negative); Urine Protein Trace mg/dL (Neg-Trace)
[2022-08-25 14:00] LABS: Alanine Aminotransferase 15 U/L (0-31); Albumin Level 3.8 g/dL (3.5-5.0); Alkaline Phosphatase 87 U/L (39-117); Aspartate Amino Transferase 15 U/L (5-31); Bilirubin Direct 0.2 mg/dL (0.0-0.5); Bilirubin Total 0.5 mg/dL (0.0-1.0); Total Protein 7.8 g/dL (6.5-8.0)
[2022-08-25 14:02] LABS: Bacteria Urine None Seen (None Seen); Calcium Oxalate Crystals Urine Present; Hyaline Casts Urine 0-2 /LPF (0-2); UACC Culture Trigger YES; WBC Urine 0-5 /HPF (0-5)
[2022-08-25 14:09] LABS: TSH reflex Free T4 0.35 uIU/mL (0.32-4.0)
[2022-08-27 01:40] LABS: Triiodothyronine T3 Free 3.5 pg/mL (2.3-4.2)
[2022-08-27 15:29] LABS: HIV RNA PCR Qn Copies NOT DETECTED copies/mL (NOT DETECTED); HIV RNA PCR Qn Log Copies NOT DETECTED (NOT DETECTED)
[2022-08-27 15:33] LABS: Absolute CD3 Count 1317 cells/uL (840-3060); Absolute CD4 Count 513 cells/uL (490-1740); Absolute CD8 Count 858 cells/uL (180-1170); Absolute Lymphocytes 1744 cells/uL (850-3900); Percent CD3 Cells 76 % (57-85); Percent CD4 Cells 29 % (30-61); Percent CD8 Cells 49 % (12-42)
[2022-08-28 21:43] LABS: HCV Log PCR <1.18 NOT DETECTED Log IU/mL (NOT DETECTED); HepC Viral Load <15 NOT DETECTED IU/mL (NOT DETECTED)
[2022-08-29 19:43] LABS: Thyrotropin Receptor Antibody <1.00 IU/L (<=2.00)
[2022-08-31 11:25] LABS: Thyroid Peroxidase Antibodies 1 IU/mL (<9)
== END 2022-08-25 12:39 | disposition home or self-care (01) ==
LOC: HO.LAB 12:38
PROVIDERS: Absent Provider Internal Medicine; PCP Nurse Practitioner Family; Visit Provider Nurse Practitioner Family
DX: R79.89 Other specified abnormal findings of blood chemistry (principal); B20 Human immunodeficiency virus [HIV] disease; Z79.899 Other long term (current) drug therapy
CPT/HCPCS: 36415; 80076; 81001; 83520; 84443; 84481; 86359; 86360; 86376; 87086; 87522; 87536

== ENCOUNTER → 2022-08-31 13:17 | Outpatient (BNVA) | payer MEDICARE, MEDICAID, SELFPAY | PROVIDERS: PCP Nurse Practitioner Family; Visit Provider Internal Medicine | DX: J44.9 Chronic obstructive pulmonary disease, unspecified (principal); E66.2 Morbid (severe) obesity with alveolar hypoventilation; J96.91 Respiratory failure, unspecified with hypoxia; G47.33 Obstructive sleep apnea (adult) (pediatric); F17.210 Nicotine dependence, cigarettes, uncomplicated; Z68.34 Body mass index [BMI] 34.0-34.9, adult; Z99.81 Dependence on supplemental oxygen | CPT/HCPCS: 99212 ==

== ENCOUNTER → 2022-09-06 13:52 | Outpatient (REF) | payer MEDICARE, MEDICAID, SELFPAY ==
--- NOTE | 2022-09-06 13:55 | CA_ITS ---
Transthoracic Echocardiogram Patient (Last, First, Middle): Elida Barry, Gender: Female Date of : 1955 Age: 67 Procedure Date: 09/06/2022 Procedure Type: Transthoracic Echocardiogram Location: OP Height: 177.8 cm Weight: 109.77 kg BSA: 2.26 m2 Heart Rate: 70 bpm BP: 165 / 90 mmHg Middleware Systems Architect: DON Referring MD: Meli Solorio [employer] TE[employer] Symptoms: I77.810 - Thoracic aortic ectasia Study Quality: Technically Difficult ECG Rhythm: Sinus Conclusions: - The left ventricular systolic function is normal. The calculated ejection fraction is 62% by biplane method. - No obvious valvular pathology seen on this study. - The aorta was not well visualized. Findings Left Ventricle Normal left ventricular cavity size. There is mildly increased left ventricular wall thickness. The left ventricular systolic function is normal. The calculated ejection fraction is 62% by biplane method. There is no evidence of regional wall motion abnormalities. Evidence suggests grade I (mild) diastolic dysfunction. Right Ventricle Normal right ventricular cavity size and systolic function. Atria Both atria are normal in size. Aortic Valve The aortic valve was not well visualized. There is no aortic valve stenosis. There is no aortic valve regurgitation. Mitral Valve The mitral valve appears normal. There is no mitral valve regurgitation. There is no mitral valve stenosis. Pulmonic Valve The pulmonic valve is likely normal. Tricuspid Valve There is no tricuspid valve regurgitation. Tricuspid regurgitation envelope is inadequate for calculation of right ventricular systolic pressure. Great Vessels The aorta was not well visualized. Venous The inferior vena cava is normal in size and collapses greater than 50% with inspiration. Pericardium/Pleural There is no evidence of pericardial effusion. Prior Study Comparison No significant change compared to prior study dated: 04/25/2020. If clinically indicated, consider CTA or non-contrast CT to assess ascending aortic size. Recommendations, Care & Conclusions No obvious valvular pathology seen on this study. Measurements 2D Linear Measurements IVSd: 1.25 0.6-0.9/0.6-1.0 cm LVIDd: 5.58 3.9-5.3/4.2-5.9 cm LVIDd Index: 2.47 2.4-3.2/2.2-3.1 cm/m2 LVIDs: 4.72 2.0-3.6 cm LVPWd: 1.07 0.7-1.1 cm LA Diam: 3.90 2.7-3.8/3.0-4.0 cm LAIDs Index: 1.73 1.5-2.3 cm/m2 LV Mass: 332.07 67-162/88-224 g LV Mass Index: 146.93 43-95/49-115 g/m2 LVOT Diam: 2.20 3.0+(-)1.3 cm 2D Systolic Function EF 4C: 61.30 >55% EF 2C: 64.80 >55% EF BiP: 62.00 >55% Mitral Valve MV Pk E: 0.88 MV PK A: 1.26 MV Decel Time: 308.00 E/A: 0.70 E'Lateral: 9.68 E'Medial: 7.07 E/E' Med: 12.40 E/E' Lat: 9.00 PHT: 90.00 MVA PHT: 2.44 Decel Garrett: 2.84 Aortic Valve AoV Pk Rashaun: 1.94 AoV Mn Rashaun: 1.43 AoV VTI: 0.40 AoV Pk Grad: 15.00 Aov Mn Grad: 9.00 ANSHUL Cont.VTI: 2.81 LVOT LVOT Pk Rashaun: 1.42 LVOT Mn Rashaun: 1.11 LVOT VTI: 0.30 LVOT Pk Grad: 8.00 LVOT Mn Grad: 5.00 LVOT Diam: 2.20 LVOT Area: 3.80 Diastolic Function MV Pk E: 0.88 MV Pk A: 1.26 E/A: 0.70 E'Medial: 7.07 E/E' Med: 12.40 E' Laterial: 9.68 E/E' Lat: 9.00 Right Ventricle TAPSE (mm): 19.90 TVS' Rashaun: 11.90 Tricuspid Valve RA Press: 3.00 Great Vessels Aorta Sinus of Valsalva: 3.60 2.0-3.5 cm Ao Asc: 3.70 2.1-3.4 cm Pulmonary Valve PV Pk Rashaun: 1.10 Peak PV Grad: 5.00 Updated in Other Vendor System with Status of Final Bolivar Mariee MD electronically signed on 09/07/2022 12:23:13 PM with status of Final
== END ==
LOC: HO.CARD 13:52
PROVIDERS: PCP Nurse Practitioner Family; Visit Provider Nurse Practitioner Family
DX: I51.89 Other ill-defined heart diseases (principal); I77.810 Thoracic aortic ectasia; I51.7 Cardiomegaly; B20 Human immunodeficiency virus [HIV] disease
CPT/HCPCS: 93306; 99212

== ENCOUNTER 2022-09-11 12:03 | Outpatient (REF) | payer MEDICARE, MEDICAID, SELFPAY ==
--- NOTE | ~2022-09-11 | XR_ITS ---
EXAMINATION: XR shoulder RT min 2V, XR shoulder LT min 2V CLINICAL INFORMATION: Reason for Exam M25.511 - Pain in right shoulder COMPARISON: None. TECHNIQUE: Two views of the bilateral shoulders XR/XR shoulder RT min 2V FINDINGS/IMPRESSION: * No acute fracture or dislocation. * Mild bilateral degenerative changes of the acromioclavicular joints. * No soft tissue abnormality.
--- NOTE | ~2022-09-11 | XR_ITS ---
EXAMINATION: XR shoulder RT min 2V, XR shoulder LT min 2V CLINICAL INFORMATION: Reason for Exam M25.511 - Pain in right shoulder COMPARISON: None. TECHNIQUE: Two views of the bilateral shoulders XR/XR shoulder LT min 2V FINDINGS/IMPRESSION: * No acute fracture or dislocation. * Mild bilateral degenerative changes of the acromioclavicular joints. * No soft tissue abnormality.
== END 2022-09-11 12:04 | disposition home or self-care (01) ==
LOC: HO.HMGCX 12:03
PROVIDERS: PCP Nurse Practitioner Family; Visit Provider Nurse Practitioner Family
DX: M25.511 Pain in right shoulder (principal); M25.512 Pain in left shoulder
CPT/HCPCS: 73030

== ENCOUNTER → 2022-09-13 13:39 | Outpatient (BNVA) | payer MEDICARE, MEDICAID, SELFPAY | PROVIDERS: PCP Nurse Practitioner Family; Referring Provider Nurse Practitioner Family; Visit Provider Internal Medicine Cardiovascular Disease | DX: I11.0 Hypertensive heart disease with heart failure (principal); I50.30 Unspecified diastolic (congestive) heart failure | CPT/HCPCS: 93005; 99212 ==

== ENCOUNTER 2022-09-17 15:30 | Outpatient (REF) | payer MEDICARE, MEDICAID, SELFPAY ==
--- NOTE | ~2022-09-17 | MM_ITS ---
EXAMINATION: MM SCREENING DIGITAL BREAST TOMOSYNTHESIS, BILATERAL CLINICAL INFORMATION: Screening. Asymptomatic. The lifetime risk of breast cancer based on the Tyrer-Cuzick Model is 10%. COMPARISON: Mammography: July 30, 2021 and studies dating back to March 04, 2015 TECHNIQUE: Digital breast tomosynthesis is performed in both the craniocaudal and mediolateral oblique views along with computer-aided detection (CAD). Synthesized 2D images are generated from the tomosynthesis. FINDINGS: There are scattered areas of fibroglandular density (ACR BI-RADS breast composition Category b). There are no significant masses, abnormal calcifications, or other abnormalities. MM/MM tomosynthesis screening BI IMPRESSION: No significant changes from prior exam. ASSESSMENT: BI-RADS 1: Negative RECOMMENDATION: Routine annual mammography screening. This patient's information was entered into a reminder system with a target due date for their next mammogram.
== END 2022-09-17 15:31 | disposition home or self-care (01) ==
LOC: HO.MAMMO 15:30
PROVIDERS: PCP Nurse Practitioner Family; Visit Provider Nurse Practitioner Family
DX: Z12.31 Encounter for screening mammogram for malignant neoplasm of breast (principal)
CPT/HCPCS: 77063; 77067

== ENCOUNTER 2022-09-24 12:46 | Outpatient (REF) | payer MEDICARE, MEDICAID, SELFPAY ==
--- NOTE | ~2022-09-24 | CT_ITS ---
EXAMINATION: CT CHEST WITHOUT CONTRAST CLINICAL INFORMATION: Ectatic aorta COMPARISON: Previous chest CT from 2016 and chest x-ray June 2022 and thyroid ultrasound May 2019 TECHNIQUE: Multidetector volumetric CT imaging of the chest was done. Axial MIP volume rendering provided. Sagittal and coronal reformatted images were obtained. This CT examination was performed using dose optimization techniques as appropriate, variously including the following: *Automated exposure control *Adjustment of mA and/or kV according to patient size (this includes techniques or standardized protocols for targeted exams where dose is matched to indication/reason for exam; i.e. extremities or head) *Use of iterative reconstruction technique DLP: 271 mGy-cm FINDINGS: LUNGS: Emphysema. Scarring or subsegmental atelectasis at the lung bases, right greater than left. Otherwise clear. MEDIASTINUM: The thyroid gland is enlarged, particularly the left lobe There is calcification in the left lobe and question nodule. This displaces the trachea to the right. This does not appear appreciably changed from previous exams. The proximal ascending thoracic aorta is normal in caliber measuring 3.9 cm. The distal ascending thoracic aorta is slightly dilated measuring up to 4.3 cm. The aortic arch and descending thoracic aorta are normal in caliber. The thoracic aorta is tortuous. The heart size is normal. No aortic valve calcification seen. No coronary artery calcification. No enlarged hilar or mediastinal lymph nodes. CORONARY ARTERY CALCIFICATION: None visualized on this study. PLEURA: There is no pleural effusion. No pleural mass or thickening. AXILLA: No lymphadenopathy. UPPER ABDOMEN: Bilateral renal cysts. Small calcification in the cortex of the upper pole of the right kidney. Fatty infiltration of the pancreas. Contracted gallbladder and question of gallstones. OSSEOUS STRUCTURES: Degenerative changes of the spine and scoliosis.. L1 vertebral body compression fracture.. CT/CT chest wo IV con IMPRESSION: Slightly dilated distal aortic arch measuring 4.3 cm. This does not appear appreciably changed from 2017 exam. The remainder of the thoracic aorta is normal in caliber. The thoracic aorta is tortuous. Emphysema. Scarring or subsegmental atelectasis at the lung bases. Fleischner guidelines were followed.
== END 2022-09-24 12:47 | disposition home or self-care (01) ==
LOC: HO.CT 12:46
PROVIDERS: PCP Nurse Practitioner Family; Visit Provider Nurse Practitioner Family
DX: I77.819 Aortic ectasia, unspecified site (principal)
CPT/HCPCS: 71250

== ENCOUNTER → 2022-10-14 13:59 | Outpatient (BNVA) | payer MEDICARE, MEDICAID, SELFPAY | PROVIDERS: PCP Nurse Practitioner Family; Visit Provider Orthopaedic Surgery | DX: M17.0 Bilateral primary osteoarthritis of knee (principal); J44.9 Chronic obstructive pulmonary disease, unspecified; F17.210 Nicotine dependence, cigarettes, uncomplicated; Z99.81 Dependence on supplemental oxygen | CPT/HCPCS: 20610; 99212; J7323 ==

== ENCOUNTER → 2022-10-21 13:46 | Outpatient (BNVA) | payer MEDICARE, MEDICAID, SELFPAY | PROVIDERS: PCP Nurse Practitioner Family; Visit Provider Orthopaedic Surgery | DX: M17.0 Bilateral primary osteoarthritis of knee (principal) | CPT/HCPCS: 20610; 99212; J7323 ==

== ENCOUNTER 2022-10-22 10:53 | Outpatient (REF) | payer MEDICARE, MEDICAID, SELFPAY | END 2022-10-22 10:54 | disposition home or self-care (01) | LOC: HO.MRI 10:53 | PROVIDERS: PCP Nurse Practitioner Family; Visit Provider Nurse Practitioner Family | DX: Z13.89 Encounter for screening for other disorder (principal) ==

== ENCOUNTER → 2022-10-28 14:03 | Outpatient (BNVA) | payer MEDICARE, MEDICAID, SELFPAY | PROVIDERS: PCP Nurse Practitioner Family; Visit Provider Orthopaedic Surgery | DX: M17.0 Bilateral primary osteoarthritis of knee (principal) | CPT/HCPCS: 20610; 99212; J7323 ==

== ENCOUNTER 2022-12-15 13:55 | Outpatient (AMB) | payer MEDICARE, MEDICAID, SELFPAY ==
[2022-12-15 14:03] VITALS: BP 160/92; PULSE 76; O2SAT 94
--- NOTE | 2022-12-15 14:03 | MHC.PC.OV ---
Vital Signs 12/15/22 14:03 Height 5 ft 10 in BMI Reason not done Patient refused/unable BP 160/92 H Blood Pressure Location Lt brachial Position Sitting Pulse 76 Pulse Source Pulse Oximeter Pulse Oximetry (%) 94 Oxygen Delivery Method Nasal Cannula Intake Visit Reasons: 3m follow up Allergies Horse/Equine Containing Products [Horse/Equine Product Derivatives] Allergy (Intermediate, Verified 12/15/22 14:05) SWELLING Iodinated Contrast Media [IV CONTRAST] Allergy (Unknown, Verified 12/15/22 14:05) HIVES Medication List - Last Reconciled 12/15/22 by Garret Interiano, AMPOULE EXAMINER- albuterol sulfate 2.5 mg inhalation Q6H PRN albuterol sulfate 90 mcg/actuation inhalation Anoro Ellipta 62.5-25 mcg/actuation (umeclidinium-vilanterol) 1 ea PO DAILY NS atorvastatin 40 mg PO DAILY 90 days sacaxcjrr-eqldvwvm-tnuadys ala 50-200-25 mg (Biktarvy) 1 tab PO DAILY 30 days blood pressure kit med and lrg Use to check blood pressure daily calcium carbonate-vitamin D3 600 mg-10 mcg (400 unit) (Calcium with Vitamin D) 1 tab PO BID 90 days diclofenac sodium 75 mg PO BID PRN 30 days fluticasone propionate 50 mcg/actuation 2 sprays intranasal DAILY furosemide (Lasix) 40 mg PO DAILY ibuprofen 800 mg PO TID PRN 30 days lisinopril 20 mg PO DAILY 90 days methadone 70 mg PO Q12H Oxygen Home Use 2lpm via NC at night and PRN sob Tobacco use date assessed: 12/15/22 Fall risk assessment: No Falls in past year Last assessed Fall Risk: 12/15/22 Dental Screening Dental Screen Date: 12/15/22 Did you have a dental visit in the last 12 months?: No Did you have a dental problem in the last 6 months where you did not have access to dental care?: No Was dental information given to patient?: Patient has dentist HPI 3m follow up HPI Details HTN: Blood pressure is managed with lisinopril 20mg, will increase to 40mg. Pt does not check her blood pressure at home, encouraged her to do so, writing down values for me. Denies chest pain, shortness of breath, headache, dizziness, and blurred vision. Pt reports ongoing bilat shoulder pain. Awaiting MRIs of bilat shoulders. PFSH Medical History Aortic dilatation COPD (chronic obstructive pulmonary disease) Diastolic heart failure HIV (human immunodeficiency virus infection) HIV (human immunodeficiency virus infection) Hyperlipidemia Hypoventilation associated with obesity Hypoventilation syndrome Lower extremity edema Methadone use Morbid obesity Morbid obesity LAURENCE (obstructive sleep apnea) Respiratory failure with hypoxia Retinopathy Rhinitis Smoker Surgical History History of colonoscopy History of tonsillectomy Family History Father No problems noted. Mother No problems noted. Brother Asthma Maternal Grandfather No problems noted. Maternal Grandmother No problems noted. Paternal Grandfather No problems noted. Paternal Grandmother No problems noted. Brother No problems noted. Brother Substance use disorder Social History Housing: House Alcohol intake: never Patient Tobacco Use Status: Current someday Tobacco user Tobacco use type: Cigarette Cigarette Packs Per Day: 0.5 Cigarettes Per Day: 10 Years Smoked: 30 +/- Packs Per Year: 0 Packs per year/per ci.00 e-Cigarette/Vaping Use: Never Used Second Hand Smoke Exposure: Yes service: No Current occupational status: disabled Current occupation: rt hand Cognitive needs: No Hearing needs: No Vision needs: No Questionnaire Thrive Questionnaire Date Thrive assessed: 06/22/22 JAJA-7 AMB Questionnaire JAJA-7 Date JAJA - 7 assessed: 06/22/22 Source: Developed by Drs. Artem Juarez, Aishwarya Voss, Jorge Schilling and colleagues, with an educational shawn from [employer]. Review of Systems Const Reports as per HPI Physical exam (Primary Care) Vital Signs: Last Vital Signs Pulse 76 12/15/22 14:03 BP 160/92 H 12/15/22 14:03 Pulse Ox 94 12/15/22 14:03 Oxygen Delivery Method Nasal Cannula 12/15/22 14:03 Tobacco/Smoking Status: Tobacco use Status Tobacco use date assessed 12/15/22 12/15/22 14:09 Patient Tobacco Use Status Current someday Tobacco 12/15/22 14:09 Tobacco use type Cigarette 12/15/22 14:09 e-Cigarette/Vaping Use Never Used 12/15/22 14:09 Thrive Assessment: Date of Thrive Assessment Date Thrive assessed 06/22/22 12/15/22 14:09 Const General: cooperative Orientation/consciousness: patient oriented x3 Limitations: ambulation with walker Resp Effort & Inspection: normal respiratory effort Auscultation: diminished lung sounds Cardio Rate: regular rate Rhythm: regular rhythm Heart sounds: S1 normal heart sound present, S2 normal heart sound present and Murmur heart sound present systolic Neuro General: patient oriented x3 Psych Appearance: grossly normal Mental Status: mental status grossly normal Speech and movement: Normal speech and movement present Affect: normal affect Attitude: cooperative Thought process: Normal thought process present Thought content: Normal thought content present Insight: Good insight present (Psych) Judgement: Good judgement present (Psych) Assessment and Plan Assessment & Plan (1) Bilateral shoulder pain: Code(s): M25.511 - Pain in right shoulder; M25.512 - Pain in left shoulder (2) HTN (hypertension): Code(s): I10 - Essential (primary) hypertension Plan: monitor BP at home (3) Vitamin D deficiency: Code(s): E55.9 - Vitamin D deficiency, unspecified Orders: Orders Comprehensive [place]. Panel Fast Today I10 - Essential (primary) hypertension Lipid Panel Today I10 - Essential (primary) hypertension TSH reflex Free T4 Today I10 - Essential (primary) hypertension Complete Blood Count Auto Diff Today I10 - Essential (primary) hypertension UA CC w/rflx Micro + Cult Today I10 - Essential (primary) hypertension Vitamin D 25-OH Total Today E55.9 - Vitamin D deficiency, unspecified Medications: New lidocaine 4% 1 patch topical DAILY PRN 15 ea 1RF pain Changed From lisinopril 20 mg PO DAILY 90 days 90 tabs 0RF To lisinopril 40 mg PO DAILY 90 tabs 0RF 90 days Coding Level of Care Code Est Pt Level 3 (97462) Diagnoses Bilateral shoulder pain M25.511; M25.512 HTN (hypertension) I10 Vitamin D deficiency E55.9
== END 2022-12-15 15:06 | disposition home or self-care (01) ==
PROVIDERS: Visit Provider Nurse Practitioner Family
DX: M25.511 Pain in right shoulder (principal); M25.512 Pain in left shoulder; I10 Essential (primary) hypertension; E55.9 Vitamin D deficiency, unspecified
CPT/HCPCS: 99213

== ENCOUNTER 2022-12-27 10:49 | Outpatient (REF) | payer MEDICARE, MEDICAID, SELFPAY ==
--- NOTE | ~2022-12-27 | XR_ITS ---
EXAMINATION: XR SHOULDER, RIGHT CLINICAL INFORMATION: Right shoulder pain. COMPARISON: None available. TECHNIQUE: Three views of the right shoulder. FINDINGS: There is maintained AC and glenohumeral joint space without bony erosive changes. No visible acute fracture, dislocation or subluxation seen. There is a small bone fragment or soft tissue calcification in the lateral humeral head since the previous study. 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 On crosstable lateral view, there is suspicion for irregularity involving the humeral head. XR/XR shoulder RT min 2V IMPRESSION: 1. No visible acute fracture or dislocation. 2. There is soft tissue calcification lateral to the proximal humerus likely myositis ossificans. 3. There is a small bone fragment or soft tissue calcification lateral to the humeral head since the previous study. Question avulsion fracture. 4. On crosstable lateral view there is suspicion for irregularity involving humeral head. If patient has continuous right shoulder pain, a CT or MRI of the right shoulder can be performed.
== END 2022-12-27 10:50 | disposition home or self-care (01) ==
LOC: HO.HOSX 10:49
PROVIDERS: Visit Provider Physician Assistant
DX: M19.011 Primary osteoarthritis, right shoulder (principal)
CPT/HCPCS: 20610; 73030

== ENCOUNTER 2022-12-28 09:30 | Outpatient (AMB) | payer MEDICARE, MEDICAID, SELFPAY ==
[2022-12-28 09:32] VITALS: BMI 34.4
--- NOTE | 2022-12-28 09:32 | A.OFFVIS_ITS ---
Intake Vital Signs 12/28/22 09:32 Height 5 ft 10 in Weight 240 lb BMI 34.4 Handedness Right Intake Visit Reasons: New prob- B/L shoulder pain Intake Note: Elida is a 67 year old right hand dominant female who presents today for a evaluation for her bilateral knee pain, DOI 06/2022. No hx of injections. No hx of PT. Patient reports having ongoing pain since her injruy. She states she tripped over her oxygen tube and landed on her right shoulder. Her right shoulder is worse than her left shoulder per patient. Patient states that her ROM is limited. Pain is more focuesd on the anterior aspect of the shoulder and it moves down to her elbow. Allergies Horse/Equine Containing Products [Horse/Equine Product Derivatives] Allergy (Intermediate, Verified 12/28/22 09:47) SWELLING Iodinated Contrast Media [IV CONTRAST] Allergy (Unknown, Verified 12/28/22 09:47) HIVES HPI New prob- B/L shoulder pain HPI Details 67-year-old right hand dominant female who presents in the office today for an evaluation of right shoulder pain. The patient confirms an injury in 06/2022, with ongoing pain. She states she tripped over her oxygen tube and landed on her right shoulder. She confirms the right shoulder is worse then the left shoulder. She claims her ROM is limited due to pain. She states the pain is on the anterior aspect of the right shoulder that radiates to her elbow. Patient denies a history of cortisone injection. Patient denies a history of physical therapy. PFSH Medical History Aortic dilatation COPD (chronic obstructive pulmonary disease) Diastolic heart failure HIV (human immunodeficiency virus infection) HIV (human immunodeficiency virus infection) Hyperlipidemia Hypoventilation associated with obesity Hypoventilation syndrome Lower extremity edema Methadone use Morbid obesity Morbid obesity LAURENCE (obstructive sleep apnea) Respiratory failure with hypoxia Retinopathy Rhinitis Smoker Surgical History History of colonoscopy History of tonsillectomy Family History Father No problems noted. Mother No problems noted. Brother Asthma Maternal Grandfather No problems noted. Maternal Grandmother No problems noted. Paternal Grandfather No problems noted. Paternal Grandmother No problems noted. Brother No problems noted. Brother Substance use disorder Social History Housing: House Alcohol intake: never Patient Tobacco Use Status: Current someday Tobacco user Tobacco use type: Cigarette Cigarette Packs Per Day: 0.5 Cigarettes Per Day: 10 Years Smoked: 30 +/- e-Cigarette/Vaping Use: Never Used Second Hand Smoke Exposure: Yes service: No Current occupational status: disabled Current occupation: rt hand Cognitive needs: No Hearing needs: No Vision needs: No Review of Systems Const All systems reviewed & are unremarkable except as noted in HPI and below Physical Exam Vital Signs: BMI result Body Mass Index 34.4 Const General: cooperative, healthy appearing, comfortable, no acute distress, well developed and alert Orientation/consciousness: patient oriented x3 HEENT Head: Yes normal to inspection, Yes normocephalic and Yes atraumatic Eyes General: appearance normal, both eyes and all related structures Resp Effort & Inspection: normal respiratory effort and able to speak in complete sentences Cardio Rate: regular rate Peripheral pulses: Peripheral pulses 2+ throughout GI Palpation (GI): Soft to palpation Skin Lesions: no lesions Rashes: no rashes Neuro General: patient oriented x3 Extrem Other: Right shoulder: 90 degrees forward flexion and abduction. Pain with cross-body reach. Unable to adequately assess empty can and drop arm due to pain. NVI. Office Procedures Joint Injection/Drain Joint Injection/Drain Primary Site: right shoulder Prep: site was prepped using aseptic technique, ethochloride spray was applied and injection warnings given Injected: 80 mg of, DepoMedrol, with 8 mL of (2% plain lido) and in the subcromial space Approach Used: posterolateral Procedure: The patient tolerated the procedure well, but had some pain with the injection and there was some relief with the local anesthesia Coding 24901 - Large joint Procedure code (CPT) selection complete Results Reviewed Results Reviewed: 12/28/22 10:01 Lidocaine HCl 2 % MPF [Xylocaine 2 % MPF] 5 ml .ROUTE .STK-MED ONE methylPREDNISolone acetate [DEPO-MedroL] 80 mg .ROUTE .STK-MED ONE Assessment & Plan Assessment & Plan (1) Osteoarthritis of right shoulder: Code(s): M19.011 - Primary osteoarthritis, right shoulder Plan Ms. Barry is a 67-year-old right hand dominant female who presents in the office today for an evaluation of right shoulder pain. The patient confirms an injury in 06/2022, with ongoing pain. She states she tripped over her oxygen tube and landed on her right shoulder. She confirms the right shoulder is worse then the left shoulder. She claims her ROM is limited due to pain. She states the pain is on the anterior aspect of the right shoulder that radiates to her elbow. Patient denies a history of cortisone injection. Patient denies a history of physical therapy. The patient was offered a cortisone injection in the right shoulder with 80 mg of DepoMedrol. The patient was explained the risk, benefits, and alternatives to receiving this injection. After receiving consent for the injection, the patient had the procedure done while in office today. The patient tolerated the procedure well with no complications. In the event this injection does not give the patient relief then we will order a cortisone injection under ultrasound guidance. Follow up will be PRN, or sooner if needed. X-rays of the right shoulder which were obtained while in the office today and were reviewed by me, Alysha Youngblood PA-C, revealed right shoulder osteoart hritis. Patient Instructions: Scribed for Alysha Youngblood PA-C by Karine Guzman medical record librarians teacher, on 12/28/2022 at 9:37 am, EST. Your attestation Coding Level of Care Code Est Pt Level 3 (58952) Diagnoses Osteoarthritis of right shoulder M19.011 CPT Codes Coding - 19885 Large joint: 72380 - Large joint ([id number])
== END 2022-12-28 11:46 | disposition home or self-care (01) ==
PROVIDERS: PCP Nurse Practitioner Family; Visit Provider Physician Assistant
DX: M19.011 Primary osteoarthritis, right shoulder (principal)
CPT/HCPCS: 20610; 99214

== ENCOUNTER 2023-01-05 06:19 | Outpatient (REF) | payer MEDICARE, MEDICAID, SELFPAY ==
[2023-01-05 11:26] LABS: MANUAL DIFF FLAG NO
[2023-01-05 11:45] LABS: Appearance Urine Cloudy; Color Urine Yellow; Glucose Urine UA Negative (Negative); Leukocyte Esterase Urine Negative (Negative); Nitrite Urine Negative (Negative); PH 6.5 (5.0-9.0); Specific Gravity - Urine >= 1.030 (1.005-1.025); UMIC TRIGGER UACC YES; Urine Blood Negative (Negative); Urine Ketones Negative (Negative); Urine Protein 30 (1+) mg/dL (Neg-Trace)
[2023-01-05 11:48] LABS: Basophils Absolute Auto 0.1 X10*3/uL (0.0-0.2); Basophils Percent Auto 0.5 % (0-2); Eosinophils Absolute Auto 0.7 X10*3/uL (0.0-0.4); Eosinophils Percent Auto 6.5 % (0-4); Hemoglobin 13.6 g/dl (12.0-16.0); Imm Gran Abs Auto 0.03 X10*3/uL (0.00-0.03); Imm Gran Pct Auto 0.3 % (0.0-0.4); Lymphocytes Absolute Auto 2.4 X10*3/uL (1.2-4.9); Lymphocytes Percent Auto 21.4 % (20-40); Mean Corpuscular HGB Conc 31.6 g/dl (31.0-35.0); Mean Corpuscular Hemoglobin 30.9 pg (27.0-33.0); Mean Corpuscular Volume 97.7 fL (80.0-98.0); Mean Platelet Volume 10.4 fL (9.4-12.3); Monocytes Percent Auto 8.6 % (2-11); Neutrophils Absolute Auto 6.9 x10*3/uL (2.0-8.3); Neutrophils Percent Auto 62.7 % (45-73); Platelet Count 303 X10*3/uL (160-400); Red Cell Distribution Width 13.9 % (11.0-16.0)
[2023-01-05 12:11] LABS: Bacteria Urine None Seen (None Seen); Calcium Oxalate Crystals Urine Present; Hyaline Casts Urine 0-2 /LPF (0-2); RBC Urine 0-2 /HPF (0-2); WBC Urine 0-5 /HPF (0-5)
[2023-01-05 12:18] LABS: Alanine Aminotransferase 21 U/L (0-31); Albumin Level 3.7 g/dL (3.5-5.0); Alkaline Phosphatase 99 U/L (39-117); Anion Gap 17 (12-20); Aspartate Amino Transferase 18 U/L (5-31); Bilirubin Total 0.4 mg/dL (0.0-1.0); Blood Urea Nitrogen 23 mg/dL (9-16); Calcium 9.1 mg/dL (8.4-10.2); Carbon Dioxide 26 mmol/L (22-29); Chloride 103 mmol/L (96-108); Cholesterol 121 mg/dL; Estimated Glomerular Filt Rate > 60; Glucose Fasting 95 mg/dL (60-99); HDL Cholesterol 48 mg/dL; LDL Cholesterol Calculated 64 mg/dl; Sodium 142 mmol/L (135-145); Total Protein 7.6 g/dL (6.5-8.0); Triglycerides 47 mg/dL
[2023-01-05 12:23] LABS: Vitamin D 25-OH Total 17.9 ng/mL (>30)
== END 2023-01-05 06:20 | disposition home or self-care (01) ==
LOC: HO.HMGCLDS 06:19
PROVIDERS: PCP Nurse Practitioner Family; Visit Provider Nurse Practitioner Family
DX: I10 Essential (primary) hypertension (principal); E55.9 Vitamin D deficiency, unspecified
CPT/HCPCS: 36415; 80053; 80061; 81001; 82306; 84443; 85025

== ENCOUNTER 2023-01-24 13:52 | Outpatient (AMB) | payer MEDICARE, MEDICAID, SELFPAY ==
[2023-01-24 14:14] VITALS: BP 158/80; PULSE 72; O2SAT 94; BMI 34.2
--- NOTE | 2023-01-24 14:14 | A.OFFVIS_ITS ---
Intake Vital Signs 01/24/23 14:14 Height 5 ft 10 in Weight 238 lb 1.588 oz BMI 34.2 BP 158/80 H Blood Pressure Location Lt brachial Position Sitting Pulse 72 Pulse Source Pulse Oximeter Pulse Oximetry (%) 94 Oxygen Delivery Method Nasal Cannula Oxygen Flow Rate 2 Intake Visit Reasons: 3 mth fu Intake Note: 3 month follow up. Wood Processing Worker Required: No Accompanied by: Self / Same As Patient Allergies Horse/Equine Containing Products [Horse/Equine Product Derivatives] Allergy (Intermediate, Verified 01/24/23 14:16) SWELLING Iodinated Contrast Media [IV CONTRAST] Allergy (Unknown, Verified 01/24/23 14:16) HIVES Medication List - Last Reconciled 01/24/23 by Tal Danielle MD albuterol sulfate 2.5 mg inhalation Q6H PRN albuterol sulfate 90 mcg/actuation inhalation Anoro Ellipta 62.5-25 mcg/actuation (umeclidinium-vilanterol) 1 ea PO DAILY NS atorvastatin 40 mg PO DAILY 90 days nweqrfzqc-coozvowh-psphxts ala 50-200-25 mg (Biktarvy) 1 tab PO DAILY 30 days blood pressure kit med and lrg Use to check blood pressure daily calcium carbonate-vitamin D3 600 mg-10 mcg (400 unit) (Calcium with Vitamin D) 1 tab PO BID 90 days diclofenac sodium 75 mg PO BID PRN 30 days fluticasone propionate 50 mcg/actuation 2 sprays intranasal DAILY furosemide (Lasix) 40 mg PO DAILY ibuprofen 800 mg PO TID PRN 30 days lidocaine 4% 1 patch topical DAILY PRN lisinopril 40 mg PO DAILY 90 days methadone 70 mg PO Q12H Oxygen Home Use 2lpm via NC at night and PRN sob HPI HPI Comments History of Present Illness Details 67 female here for f/u. She has h/o HTN, ascending aorta dilation and severe COPD. Her BP is elevated. She was on HCTZ which was previously stopped and she was taking Lasix PRN which she is not using anymore. She has peripheral edema. She has arthritis. 01/24/23: She returns for follow-up. She is on lisinopril 40 mg and Lasix 40 mg daily. Blood pressure is 158/80. She has dyspnea due to severe COPD and she is on supplemental oxygen. She has significant arthritis involving the knees but she is not a surgical candidate. [facility] Medical History Aortic dilatation COPD (chronic obstructive pulmonary disease) Diastolic heart failure HIV (human immunodeficiency virus infection) HIV (human immunodeficiency virus infection) Hyperlipidemia Hypoventilation associated with obesity Hypoventilation syndrome Lower extremity edema Methadone use Morbid obesity Morbid obesity LAURENCE (obstructive sleep apnea) Respiratory failure with hypoxia Retinopathy Rhinitis Smoker Surgical History History of colonoscopy History of tonsillectomy Family History Father No problems noted. Mother No problems noted. Brother Asthma Maternal Grandfather No problems noted. Maternal Grandmother No problems noted. Paternal Grandfather No problems noted. Paternal Grandmother No problems noted. Brother No problems noted. Brother Substance use disorder Social History (Updated 01/24/23 @ 14:17 by RACHEL Ram) Housing: House Alcohol intake: never Patient Tobacco Use Status: Current everyday Tobacco user Tobacco use type: Cigarette Cigarette Packs Per Day: 0.5 Cigarettes Per Day: 10 Years Smoked: 30 +/- e-Cigarette/Vaping Use: Never Used Second Hand Smoke Exposure: Yes service: No Current occupational status: disabled Current occupation: rt hand Cognitive needs: No Hearing needs: No Vision needs: No Review of Systems Const Denies weakness ENT Denies dizziness Card Denies chest pain, Denies chest pain with activity, Denies syncope, Denies rapid heart rate, Denies pedal edema, Denies edema, Denies leg edema, Denies lightheadedness, Denies palpitations, Denies dyspnea, Denies dyspnea on exertion and Denies orthopnea Resp Denies cough, Denies dyspnea and Denies dyspnea on exertion GI Denies hematochezia and Denies change in stool character Musc Denies abnormal gait, Denies muscle cramps, Denies muscle weakness, Denies numbness, Denies radiating pain into limb and Denies tingling Neuro Denies abnormal gait, Denies dizziness, Denies syncope, Denies numbness, Denies tingling and Denies weakness Endo Denies palpitations Physical Exam Vital Signs: Last Vital Signs Pulse 72 01/24/23 14:14 BP 158/80 H 01/24/23 14:14 Pulse Ox 94 01/24/23 14:14 Oxygen Delivery Method Nasal Cannula 01/24/23 14:14 Oxygen Flow Rate 2 01/24/23 14:14 BMI result Body Mass Index 34.2 GENERAL APPEARANCE: in no acute distress, pleasant. on supplemental oxygen SKIN: no suspicious lesions, warm and dry. HEART: no murmurs, regular rate and rhythm. LUNGS: clear to auscultation bilaterally. ABDOMEN: soft, nontender. EXTREMITIES: 1+ edema. Compression stockings. PERIPHERAL PULSES: equal. NEUROLOGIC: No gross deficits, AAO X 3 Assessment & Plan Assessment & Plan (1) Diastolic heart failure: Code(s): I50.30 - Unspecified diastolic (congestive) heart failure (2) HTN (hypertension): Code(s): I10 - Essential (primary) hypertension Plan 67-year-old female who is here for follow-up. She has severe COPD and she is on home oxygen. She also has background diastolic heart failure. Clinically appears to be stable. Blood pressure is elevated. She is taking lisinopril 40 mg Lasix 40 mg daily. She had lower extremity edema requiring David wraps in the past and she currently is wearing compression stocking so I will avoid calcium channel blockers. Adding carvedilol 6.25 mg twice a day. She was he is back in few months. Thank you for allowing me to participate in the care of your patient. Please feel free to contact me if you have any questions. Medications: New carvedilol must administer with a meal/food 6.25 mg PO Q12H 100 tabs 3RF I10 - Essential (primary) hypertension Coding Level of Care Code Est Pt Level 4 (29016) Diagnoses Diastolic heart failure I50.30 HTN (hypertension) I10
== END 2023-01-24 14:37 | disposition home or self-care (01) ==
PROVIDERS: PCP Nurse Practitioner Family; Referring Provider Nurse Practitioner Family; Visit Provider Internal Medicine Cardiovascular Disease
DX: I50.30 Unspecified diastolic (congestive) heart failure (principal); I10 Essential (primary) hypertension
CPT/HCPCS: 99214

== ENCOUNTER → 2023-01-24 13:52 | Outpatient (BNVA) | payer MEDICARE, MEDICAID, SELFPAY | PROVIDERS: PCP Nurse Practitioner Family; Referring Provider Nurse Practitioner Family; Visit Provider Internal Medicine Cardiovascular Disease | DX: I11.0 Hypertensive heart disease with heart failure (principal); I50.30 Unspecified diastolic (congestive) heart failure; I77.810 Thoracic aortic ectasia; J44.9 Chronic obstructive pulmonary disease, unspecified; R60.9 Edema, unspecified; B20 Human immunodeficiency virus [HIV] disease; Z99.81 Dependence on supplemental oxygen | CPT/HCPCS: 99212 ==

== ENCOUNTER 2023-01-25 13:52 | Outpatient (AMB) | payer MEDICARE, MEDICAID, SELFPAY ==
[2023-01-25 14:02] VITALS: BP 152/94; PULSE 77; O2SAT 96; BMI 34.6
--- NOTE | 2023-01-25 14:02 | MHC.PC.OV ---
Vital Signs 01/25/23 14:02 Height 5 ft 10 in Weight 241 lb 2 oz BMI 34.6 BP 152/94 H Blood Pressure Location Lt brachial Position Sitting Pulse 77 Pulse Source Pulse Oximeter Pulse Oximetry (%) 96 Oxygen Delivery Method Nasal Cannula Intake Visit Reasons: 3 month follow up Allergies Horse/Equine Containing Products [Horse/Equine Product Derivatives] Allergy (Intermediate, Verified 01/25/23 14:06) SWELLING Iodinated Contrast Media [IV CONTRAST] Allergy (Unknown, Verified 01/25/23 14:06) HIVES Tobacco use date assessed: 01/25/23 Fall risk assessment: 1 Fall in past year Last assessed Fall Risk: 01/25/23 Dental Screening Dental Screen Date: 01/25/23 Did you have a dental visit in the last 12 months?: No Did you have a dental problem in the last 6 months where you did not have access to dental care?: No Was dental information given to patient?: Patient has dentist HPI 3 month follow up HPI Details HTN: Blood pressure is managed with carvedilol 6.25mg bid, lasix 40mg, and lisinopril 40mg. Pt was started on carvedilol yesterday by her sustainability project manager, she has not started this yet. Denies chest pain, shortness of breath, headache, dizziness, and blurred vision. Pt had a right shoulder MRI but was unable to tolerate the procedure due to claustrophobia. Only axial sequence was obtained which showed advanced arthritic changes which are new since 09/11/22 as well as completely torn and retracted subscapularis tendon and likely supraspinatus tendon, large joint effusion and marked marrow edema, completely torn and retracted biceps tendon. Pt has an appointment with ortho on 02/03. PFSH Medical History Aortic dilatation COPD (chronic obstructive pulmonary disease) Diastolic heart failure HIV (human immunodeficiency virus infection) HIV (human immunodeficiency virus infection) Hyperlipidemia Hypoventilation associated with obesity Hypoventilation syndrome Lower extremity edema Methadone use Morbid obesity Morbid obesity LAURENCE (obstructive sleep apnea) Respiratory failure with hypoxia Retinopathy Rhinitis Smoker Surgical History History of colonoscopy History of tonsillectomy Family History Father No problems noted. Mother No problems noted. Brother Asthma Maternal Grandfather No problems noted. Maternal Grandmother No problems noted. Paternal Grandfather No problems noted. Paternal Grandmother No problems noted. Brother No problems noted. Brother Substance use disorder Social History Housing: House Alcohol intake: never Patient Tobacco Use Status: Current everyday Tobacco user Tobacco use type: Cigarette Cigarette Packs Per Day: 0.5 Cigarettes Per Day: 10 Years Smoked: 30 +/- e-Cigarette/Vaping Use: Never Used Second Hand Smoke Exposure: Yes service: No Current occupational status: disabled Current occupation: rt hand Cognitive needs: No Hearing needs: No Vision needs: No Questionnaire Thrive Questionnaire Date Thrive assessed: 06/22/22 JAJA-7 AMB Questionnaire JAJA-7 Date JAJA - 7 assessed: 06/22/22 Source: Developed by Drs. Artem Juarez, Aishwarya Voss, Jorge Schilling and colleagues, with an educational shawn from [employer]. Review of Systems Const Reports as per HPI Physical exam (Primary Care) Vital Signs: Last Vital Signs Pulse 77 01/25/23 14:02 BP 152/94 H 01/25/23 14:02 Pulse Ox 96 01/25/23 14:02 Oxygen Delivery Method Nasal Cannula 01/25/23 14:02 BMI result Body Mass Index 34.6 Tobacco/Smoking Status: Tobacco use Status Tobacco use date assessed 01/25/23 01/25/23 14:10 Patient Tobacco Use Status Current everyday Tobacco 01/25/23 14:10 Tobacco use type Cigarette 01/25/23 14:10 e-Cigarette/Vaping Use Never Used 01/25/23 14:10 Thrive Assessment: Date of Thrive Assessment Date Thrive assessed 06/22/22 01/25/23 14:10 Const Other: using rolling walker General: cooperative Nutritional Appearance: obese Orientation/consciousness: patient oriented x3 Limitations: ambulation with walker Resp Effort & Inspection: normal respiratory effort Auscultation: diminished lung sounds (left>right) Cardio Rate: regular rate Rhythm: regular rhythm Heart sounds: S1 normal heart sound present and S2 normal heart sound present Back/Spine/Pelvis Other: limited ROM to RUE Neuro General: patient oriented x3 Extrem Other: wearing compression stockings Right lower extremity: edema Details: 1+ Left lower extremity: edema Details: 1+ Psych Appearance: grossly normal Mental Status: mental status grossly normal Speech and movement: Normal speech and movement present Affect: normal affect Attitude: cooperative Thought process: Normal thought process present Thought content: Normal thought content present Insight: Good insight present (Psych) Judgement: Good judgement present (Psych) Assessment and Plan Assessment & Plan (1) Osteoarthritis of right shoulder: Code(s): M19.011 - Primary osteoarthritis, right shoulder (2) Left shoulder pain: Code(s): M25.512 - Pain in left shoulder (3) Rotator cuff tear, right: Code(s): M75.101 - Unspecified rotator cuff tear or rupture of right shoulder, not specified as traumatic Plan The patient agreed to the use of a medical affairs specialist for this encounter. Scribed for ADRIANA Hahn by Maureen Euceda medical affairs specialist, on 01/25/2023 at 14:20 EST. Coding Level of Care Code Est Pt Level 3 (89981) Diagnoses Osteoarthritis of right shoulder M19.011 Left shoulder pain M25.512 Rotator cuff tear, right M75.101
== END 2023-01-25 14:44 | disposition home or self-care (01) ==
PROVIDERS: PCP Nurse Practitioner Family; Visit Provider Nurse Practitioner Family
DX: M19.011 Primary osteoarthritis, right shoulder (principal); M25.512 Pain in left shoulder; M75.101 Unspecified rotator cuff tear or rupture of right shoulder, not specified as traumatic
CPT/HCPCS: 99213

== ENCOUNTER 2023-02-03 15:00 | Outpatient (AMB) | payer MEDICARE, MEDICAID, SELFPAY ==
--- NOTE | 2023-02-03 15:10 | A.OFFVIS_ITS ---
Intake Intake Visit Reasons: OV- RT Shoulder MRI Review Intake Note: Elida is a 67 year old female who presents today for an MRI follow up of her right shoulder. MRI was done at [facility], imaging was not complete due to claustrophobia. Last injection was done with Alysha on 12/28/22, 80MG Depo. Allergies Horse/Equine Containing Products [Horse/Equine Product Derivatives] Allergy (Intermediate, Verified 01/25/23 14:06) SWELLING Iodinated Contrast Media [IV CONTRAST] Allergy (Unknown, Verified 01/25/23 14:06) HIVES HPI OV- RT Shoulder MRI Review HPI Details Elida is a 67 year old woman who presents for an MRI review of her right shoulder pain. This was not fully completed due to patients' Claustrophobia. She complains of pain in her shoulder with daily activity, along with limited ROM. She says she injured her shoulder sometime in 06/2022 when she tripped over her home oxygen tube and fell onto her shoulder. Her arm was apparently doing better after this injury, but in the last few weeks she may have re-injured her shoulder when lifting something heavy She had a steroid injection on 12/28/22 by TRACY Youngblood, which she says was not helpful. She denies any other treatment except NSAIDs. She is on Lasix, methadone, and home oxygen use. PFSH Medical History Aortic dilatation COPD (chronic obstructive pulmonary disease) Diastolic heart failure HIV (human immunodeficiency virus infection) HIV (human immunodeficiency virus infection) Hyperlipidemia Hypoventilation associated with obesity Hypoventilation syndrome Lower extremity edema Methadone use Morbid obesity Morbid obesity LAURENCE (obstructive sleep apnea) Respiratory failure with hypoxia Retinopathy Rhinitis Smoker Surgical History History of colonoscopy History of tonsillectomy Family History Father No problems noted. Mother No problems noted. Brother Asthma Maternal Grandfather No problems noted. Maternal Grandmother No problems noted. Paternal Grandfather No problems noted. Paternal Grandmother No problems noted. Brother No problems noted. Brother Substance use disorder Social History Housing: House Alcohol intake: never Patient Tobacco Use Status: Current everyday Tobacco user Tobacco use type: Cigarette Cigarette Packs Per Day: 0.5 Cigarettes Per Day: 10 Years Smoked: 30 +/- e-Cigarette/Vaping Use: Never Used Second Hand Smoke Exposure: Yes service: No Current occupational status: disabled Current occupation: rt hand Cognitive needs: No Hearing needs: No Vision needs: No Review of Systems Const All systems reviewed & are unremarkable except as noted in HPI and below Physical Exam Const General: no acute distress, alert and awake Orientation/consciousness: patient oriented x3 HEENT Head: Yes normocephalic and Yes atraumatic Eyes EOM: EOMs intact bilaterally Resp Effort & Inspection: normal respiratory effort and able to speak in complete sentences Cardio Jugular venous distension: no JVD Skin General skin exam: turgor normal Rashes: no rashes Neuro General: patient oriented x3 Extrem Other: Right Shoulder: 15 deg ER and + drop arm Psych Appearance: grossly normal Affect: normal affect Attitude: cooperative Results Reviewed Results Reviewed: I personally reviewed relevant radiographs & MR images Only Axial sequence obtained due to patient claustrophobia Completely torn and retracted subscapularis tendon and likely supraspinatus tendon Completely torn and retracted biceps tendon Advanced arthritic changes Large joint effusion 1. No visible acute fracture or dislocation. 2. There is soft tissue calcification lateral to the proximal humerus likely myositis ossificans. 3. There is a small bone fragment or soft tissue calcification lateral to the humeral head since the previous study. Question avulsion fracture. 4. On crosstable lateral view there is suspicion for irregularity involving humeral head. If patient has continuous right shoulder pain, a CT or MRI of the right shoulder can be performed Assessment & Plan Assessment & Plan (1) Osteoarthritis of right shoulder: Code(s): M19.011 - Primary osteoarthritis, right shoulder Plan: This is a 67 year old woman with right shoulder OA & full-thickness tears of the subscapularis and biceps tendons, with retraction. She has pain with daily activity and I am concerned her shoulder may unstable. She is not a candidate for surgery but I would still recommend a CT. She fell onto her shoulder on 06/2022, and when comparing radiographs from 09/11/22 & 12/28/22, along with her MRI, there is a change in alignment. I ordered a CT scan of her shoulder, she will follow up when completed for review. (2) Rotator cuff tear, right: Code(s): M75.101 - Unspecified rotator cuff tear or rupture of right shoulder, not specified as traumatic (3) Diabetes: Code(s): E11.9 - Type 2 diabetes mellitus without complications (4) Severe chronic obstructive pulmonary disease: Code(s): J44.9 - Chronic obstructive pulmonary disease, unspecified (5) Methadone use: Code(s): F11.90 - Opioid use, unspecified, uncomplicated (6) HIV (human immunodeficiency virus infection): Comment: She is doing well She has no complaints Her CD4 count has increased and she takes Biktarvy regularly. Code(s): B20 - Human immunodeficiency virus [HIV] disease Plan Scribed for Luis Weber MD by Wilner Medina, medical records assistant, on 02/03/23 at 3:40 PM, EST. Orders: Orders CT shoulder RT wo IV con 02/03/23 M75.101 - Unspecified rotator cuff tear or rupture of right shoulder, not specified as traumatic Coding Level of Care Code Est Pt Level 4 (97635) Diagnoses Osteoarthritis of right shoulder M19.011 Rotator cuff tear, right M75.101 Diabetes E11.9 Severe chronic obstructive pulmonary disease J44.9 Methadone use F11.90 HIV (human immunodeficiency virus infection) B20
== END 2023-02-03 16:00 ==
PROVIDERS: PCP Nurse Practitioner Family; Visit Provider Orthopaedic Surgery
DX: M19.011 Primary osteoarthritis, right shoulder (principal); M75.101 Unspecified rotator cuff tear or rupture of right shoulder, not specified as traumatic
CPT/HCPCS: 99214

== ENCOUNTER → 2023-02-03 15:00 | Outpatient (BNVA) | payer MEDICARE, MEDICAID, SELFPAY | PROVIDERS: PCP Nurse Practitioner Family; Visit Provider Orthopaedic Surgery | DX: M19.011 Primary osteoarthritis, right shoulder (principal); M75.101 Unspecified rotator cuff tear or rupture of right shoulder, not specified as traumatic; E11.9 Type 2 diabetes mellitus without complications; J44.9 Chronic obstructive pulmonary disease, unspecified; B20 Human immunodeficiency virus [HIV] disease; F11.20 Opioid dependence, uncomplicated | CPT/HCPCS: 99212 ==

== ENCOUNTER 2023-02-16 13:43 | Outpatient (REF) | payer MEDICARE, MEDICAID, SELFPAY ==
[2023-02-17 10:03] LABS: Absolute CD3 Count 1034 cells/uL (840-3060); Absolute CD4 Count 382 cells/uL (490-1740); Absolute CD8 Count 675 cells/uL (180-1170); Absolute Lymphocytes 1476 cells/uL (850-3900); CD4 CD8 Ratio 0.57 (0.86-5.00); Percent CD3 Cells 70 % (57-85); Percent CD4 Cells 26 % (30-61); Percent CD8 Cells 46 % (12-42)
[2023-02-18 14:23] LABS: HIV RNA PCR Qn Copies NOT DETECTED copies/mL (NOT DETECTED); HIV RNA PCR Qn Log Copies NOT DETECTED (NOT DETECTED)
== END 2023-02-16 13:44 | disposition home or self-care (01) ==
LOC: HO.LAB 13:43
PROVIDERS: PCP Nurse Practitioner Family; Visit Provider Internal Medicine
DX: J44.9 Chronic obstructive pulmonary disease, unspecified (principal); J96.91 Respiratory failure, unspecified with hypoxia; G47.33 Obstructive sleep apnea (adult) (pediatric); F17.200 Nicotine dependence, unspecified, uncomplicated; J31.0 Chronic rhinitis; E66.01 Morbid (severe) obesity due to excess calories; B20 Human immunodeficiency virus [HIV] disease
CPT/HCPCS: 36415; 86359; 86360; 87536; 99212

== ENCOUNTER 2023-02-16 14:13 | Outpatient (AMB) | payer MEDICARE, MEDICAID, SELFPAY ==
--- NOTE | 2023-02-16 14:18 | MHC.OFFVIS ---
Intake Vital Signs 02/16/23 14:22 Height 5 ft 10 in BP 152/88 H Blood Pressure Location Lt brachial Position Sitting Pulse 66 Pulse Source Pulse Oximeter Pulse Oximetry (%) 95 Oxygen Delivery Method Nasal Cannula Oxygen Flow Rate 4 Intake Visit Reasons: COPD Intake Note: pt is here for follow up and states the weather gets to her, no wheezing or coughing, she is mostly 4 with walking and 2 with rest. Junior Accountant Required: No Allergies Horse/Equine Containing Products [Horse/Equine Product Derivatives] Allergy (Intermediate, Verified 02/16/23 14:55) SWELLING Iodinated Contrast Media [IV CONTRAST] Allergy (Unknown, Verified 02/16/23 14:55) HIVES Medication List - Last Reconciled 02/16/23 by Judy Sheridan MD albuterol sulfate 2.5 mg inhalation Q6H PRN albuterol sulfate 90 mcg/actuation inhalation Anoro Ellipta 62.5-25 mcg/actuation (umeclidinium-vilanterol) 1 ea PO DAILY NS atorvastatin 40 mg PO DAILY 90 days mylsfkbhm-yhlrknor-eezkdvi ala 50-200-25 mg (Biktarvy) 1 tab PO DAILY 30 days blood pressure kit med and lrg Use to check blood pressure daily calcium carbonate-vitamin D3 600 mg-10 mcg (400 unit) (Calcium with Vitamin D) 1 tab PO BID 90 days carvedilol 6.25 mg PO Q12H diclofenac sodium 75 mg PO BID PRN 30 days fluticasone propionate 50 mcg/actuation 2 sprays intranasal DAILY furosemide (Lasix) 40 mg PO DAILY ibuprofen 800 mg PO TID PRN 30 days lidocaine 4% 1 patch topical DAILY PRN lisinopril 40 mg PO DAILY 90 days methadone 70 mg PO Q12H Oxygen Home Use 2lpm via NC at night and PRN sob Do you need a note to return to daycare/school/sports/work: No HPI COPD HPI Details 67 YEARS OLD FEMALE MORBIDLY OBESE WITH DIAGNOSIS OF LAURENCE AND CHRONIC HYPOVENTILATION SYNDROME. SHE HAS CHRONIC RESPIRATORY FAILURE WITH HYPOXEMIA AND HYPERCAPNIA. PATIENT WAS NOT ABLE TO USE BIPAP SO SHE STAYS MOSTLY ON OXYGEN 2 L/MINUTE AT NIGHT. AND P.R.N. DURING THE DAYTIME. SHE IS MOSTLY CONFINED TO THE HOUSE DOES NOT WALK AROUND SO VERY DIFFICULT FOR HER TO LOSE WEIGHT. SHE HAS HER USUAL INTERMITTENT COUGH WITH SOME EXPECTORATION OFF AND ON. LUCKILY SHE HAS HAD NO RESPIRATORY INFECTION. SHE DOES DO THE BREATHING EXERCISES. [facility]LY [facility] Medical History Retinopathy Methadone use Morbid obesity HIV (human immunodeficiency virus infection) Rhinitis Hypoventilation associated with obesity COPD (chronic obstructive pulmonary disease) HIV (human immunodeficiency virus infection) Smoker Morbid obesity Aortic dilatation Hypoventilation syndrome LAURENCE (obstructive sleep apnea) Respiratory failure with hypoxia Lower extremity edema Diastolic heart failure Hyperlipidemia Surgical History History of colonoscopy History of tonsillectomy Family History Father No problems noted. Mother No problems noted. Brother Asthma Maternal Grandfather No problems noted. Maternal Grandmother No problems noted. Paternal Grandfather No problems noted. Paternal Grandmother No problems noted. Brother No problems noted. Brother Substance use disorder Social History Housing: House Alcohol intake: never Patient Tobacco Use Status: Current everyday Tobacco user Tobacco use type: Cigarette Cigarette Packs Per Day: 0.5 Cigarettes Per Day: 10 Years Smoked: 30 +/- e-Cigarette/Vaping Use: Never Used Second Hand Smoke Exposure: Yes service: No Current occupational status: disabled Current occupation: rt hand Cognitive needs: No Hearing needs: No Vision needs: No Review of Systems Const All systems reviewed & are unremarkable except as noted in HPI and below Eyes Reports no additional complaints ENT Reports no additional complaints and Reports nasal congestion (OFF AND ON) Card Denies chest pain, Reports leg edema and Reports dyspnea on exertion Resp Reports as per HPI and Reports dyspnea on exertion GI Reports no additional complaints Reports nocturia Musc Reports back pain and Reports arthralgias (BOTH KNEES) Skin/Breast Reports system reviewed and no additional complaints, except as documented Neuro Reports no additional complaints Psych Reports no additional complaints Physical Exam Vital Signs: Last Vital Signs Pulse 66 02/16/23 14:22 BP 152/88 H 02/16/23 14:22 Pulse Ox 95 02/16/23 14:22 Oxygen Delivery Method Nasal Cannula 02/16/23 14:22 Oxygen Flow Rate 4 02/16/23 14:22 Const General: comfortable (BUT SLOW IN WALKING), no acute distress, alert and awake Orientation/consciousness: patient oriented x3 HEENT Head: Yes normal to inspection General nose exam: No nasal polyps present and No nasal discharge present Face and sinus: Yes sinuses nontender Mouth: oropharynx abnormals (OROPHARYNX IS EXTREMELY CROWDED MALLAMPATI SCALE 4) Eyes General: appearance normal, both eyes and all related structures Neck Neck: Yes normal visual inspection, Yes no lymphadenopathy, Yes trachea midline and Yes no JVD Thyroid: Thyroid normal Chest Chest palpation & inspection: normal inspection of the chest, normal palpation of entire chest wall and no tenderness Resp Other: HER BREATH SOUNDS ARE DISTANT, WITH PROLONGED EXPIRATORY PHASE. There are a few wheezes that mid chest level on both sides. NO CREPITATIONS. Cardio Palpation: PMI not normal (NOT PALPABLE) Rate: regular rate Rhythm: regular rhythm Heart sounds: no gallops and no murmurs GI Palpation (GI): Soft to palpation, nontender, No hepatosplenomegaly present, Hernia present (VENTRAL HERNIATION), no masses and Other GI palpation findings present (ABDOMEN IS OBESE AND PROTUBERANT) Auscultation: normal bowel sounds Back/Spine/Pelvis Thoracic/Lumbar Spine: thoracic and lumbar spine normal to inspection and thoraco-lumbar ROM limited Skin General skin exam: no rashes or lesions noted Neuro General: patient oriented x3 and no focal motor deficits Cranial nerves: Yes CN's II-XII intact bilaterally Extrem General: Yes normal to inspection, Yes no calf tenderness and Yes edema (1+ EDEMA AROUND THE ANKLES) Psych Appearance: grossly normal Speech and movement: Normal speech and movement present Assessment & Plan Assessment & Plan (1) Morbid obesity: Comment: THIS IS A CHRONIC PROBLEM, SHE IS NOT VERY MOBILE, IT IS ON EXPECTED IN HER CASE TO LOSE WEIGHT. Code(s): E66.01 - Morbid (severe) obesity due to excess calories (2) Rhinitis: Comment: Has ongoing nasal congestion especially at nights , probably Allergic Rhinitis . Advised to use Flonase 2 sprays in each nostril daily , Code(s): J31.0 - Chronic rhinitis (3) Hypoventilation associated with obesity: Comment: Patient is known case of LAURENCE/hypoventilation syndrome. The Best treatment would be Weight reduction ,, and use of CPAP at night .but both are difficult to achieve . Advised to continue Deep Breathing exercises with Purse lip technique TID . Code(s): E66.2 - Morbid (severe) obesity with alveolar hypoventilation (4) COPD (chronic obstructive pulmonary disease): Comment: Patient has chronic and advanced obstructive pulmonary disease. She seems to be at her baseline at this time. TX : Anoro Ellipta 1 inhalation daily Albuterol solution in the nebulizer 2.5 mg Q 6 hours p.r.n.. Alternatively uses albuterol HFA 2 puffs Q 4-6 hours p.r.n. Code(s): J44.9 - Chronic obstructive pulmonary disease, unspecified (5) Smoker: Comment: Continues to smoke, currently bouts 3-4 cigarettes a day. Counseled to quit completely but in her case I do not think she is going to stop completely. Code(s): F17.200 - Nicotine dependence, unspecified, uncomplicated (6) Hypoventilation syndrome: Comment: This is in relation to UN-treated LAURENCE and continued morbid obesity. Avoid using any extra conc. of oxygen. Avoid using any narcotic meds. and do deep breathing exercises with pursed lip technique 2 to 3 times a day. Code(s): R06.89 - Other abnormalities of breathing (7) LAURENCE (obstructive sleep apnea): Comment: Known to have LAURENCE but unfortunately she has not been able to use CPAP. Uses oxygen 2 L/minute at .night advised to try to lose some weight, which does not seem to be possible in her case. Code(s): G47.33 - Obstructive sleep apnea (adult) (pediatric) (8) Respiratory failure with hypoxia: Comment: Continue to use oxygen 2 L/minute around the clock , May use up to 4 L/mt , when ambulating . Avoid any narcotic meds. Do deep breathing exercises during the daytime frequently, Code(s): J96.91 - Respiratory failure, unspecified with hypoxia Coding Level of Care Code Est Pt Level 4 (73223) Diagnoses Morbid obesity E66.01 Rhinitis J31.0 Hypoventilation associated with obesity E66.2 COPD (chronic obstructive pulmonary disease) J44.9 Smoker F17.200 Hypoventilation syndrome R06.89 LAURENCE (obstructive sleep apnea) G47.33 Respiratory failure with hypoxia J96.91
[2023-02-16 14:22] VITALS: BP 152/88; PULSE 66; O2SAT 95
== END 2023-02-16 14:54 | disposition home or self-care (01) ==
PROVIDERS: PCP Nurse Practitioner Family; Visit Provider Internal Medicine
DX: J44.9 Chronic obstructive pulmonary disease, unspecified (principal); F17.210 Nicotine dependence, cigarettes, uncomplicated; J96.91 Respiratory failure, unspecified with hypoxia; G47.33 Obstructive sleep apnea (adult) (pediatric); R06.89 Other abnormalities of breathing
CPT/HCPCS: 99214

== ENCOUNTER 2023-03-03 07:39 | Outpatient (REF) | payer MEDICARE, MEDICAID, SELFPAY ==
--- NOTE | ~2023-03-03 | CT_ITS ---
EXAMINATION: CT SHOULDER WITHOUT CONTRAST, RIGHT CLINICAL INFORMATION: Rotator cuff tendon tear. COMPARISON: Right shoulder radiographs dated 12/28/2022. TECHNIQUE: Contiguous axial CT images of the right shoulder were obtained without contrast. Multiplanar reformats were provided and reviewed. This CT examination was performed using dose optimization techniques as appropriate, variously including the following: *Automated exposure control *Adjustment of mA and/or kV according to patient size (this includes techniques or standardized protocols for targeted exams where dose is matched to indication/reason for exam; i.e. extremities or head) *Use of iterative reconstruction technique DLP: 601 mGy-cm FINDINGS: Chronic anterosuperior subluxation of the humeral head with associated bony remodeling including cortical impaction/step-off at the anterior aspect of the humeral head articular surface measuring up to 1.0 cm in ML dimension. Depression/bony remodeling of the anterior glenoid with underlying subchondral cystic change. Additional bony remodeling of the coracoid which is seen to articulate with the subluxed humeral head. Prominent marginal osteophytes throughout the glenohumeral joint. No acute fracture or dislocation. Mild acromioclavicular joint osteoarthritis. No concerning lytic or blastic osseous lesion. Significant attenuation of the supraspinatus and subscapularis tendons with associated muscle atrophy, likely indicating a high-grade partial versus complete tearing. Evaluation significantly limited on CT examination. Complex fluid collection in the region of the subacromial subdeltoid bursa with peripheral calcifications and associated calcification measuring up to 1.4 cm. Moderate glenohumeral joint effusion with faint peripheral calcifications. Findings likely represent a chronic joint effusion with chondrocalcinosis and dystrophic calcification. No additional soft tissue mass or fluid collection. No significant axillary lymphadenopathy. Emphysematous changes within the right lung. The visualized right lung apex is otherwise clear. CT/CT shoulder RT wo IV con IMPRESSION: Chronic anterosuperior subluxation of the humeral head with associated bony remodeling. Depression/bony remodeling of the anterior glenoid with underlying subchondral cystic change. Additional bony remodeling of the coracoid which is seen to articulate with the subluxed humeral head. Significant attenuation of the supraspinatus and subscapularis tendons with associated muscle atrophy, likely indicating a high-grade partial versus complete tearing. Evaluation significantly limited on CT examination. Complex fluid collection in the region of the subacromial subdeltoid bursa with peripheral calcifications measuring up to 1.4 cm. Findings likely represent a chronic joint effusion with chondrocalcinosis and dystrophic calcification. Mild acromioclavicular joint osteoarthritis. Emphysematous changes within the right lung.
== END 2023-03-03 07:40 | disposition home or self-care (01) ==
LOC: HO.CT 07:39
PROVIDERS: PCP Nurse Practitioner Family; Visit Provider Orthopaedic Surgery
DX: M75.101 Unspecified rotator cuff tear or rupture of right shoulder, not specified as traumatic (principal)
CPT/HCPCS: 73200

== ENCOUNTER 2023-03-07 10:52 | Outpatient (AMB) | payer MEDICARE, MEDICAID, SELFPAY ==
--- NOTE | 2023-03-07 11:04 | A.OFFVIS_ITS ---
Intake Vital Signs 03/07/23 11:05 Height 5 ft 10 in BP 138/78 Pulse 56 Pulse Oximetry (%) 97 Oxygen Delivery Method Nasal Cannula Intake Visit Reasons: F/U- 6 mth. Allergies Horse/Equine Containing Products [Horse/Equine Product Derivatives] Allergy (Intermediate, Verified 03/07/23 11:05) SWELLING Iodinated Contrast Media [IV CONTRAST] Allergy (Unknown, Verified 03/07/23 11:05) HIVES HPI F/U- 6 mth. HPI Details She is feeling well. She has no complaints She is taking Biktarvy and has viral load undetectable on 02/16 with CD4 count of 382. She has creatinine unremarkable. [facility] Medical History Retinopathy Methadone use Morbid obesity HIV (human immunodeficiency virus infection) Rhinitis Hypoventilation associated with obesity COPD (chronic obstructive pulmonary disease) HIV (human immunodeficiency virus infection) Smoker Morbid obesity Aortic dilatation Hypoventilation syndrome LAURENCE (obstructive sleep apnea) Respiratory failure with hypoxia Lower extremity edema Diastolic heart failure Hyperlipidemia Surgical History History of colonoscopy History of tonsillectomy Family History Father No problems noted. Mother No problems noted. Brother Asthma Maternal Grandfather No problems noted. Maternal Grandmother No problems noted. Paternal Grandfather No problems noted. Paternal Grandmother No problems noted. Brother No problems noted. Brother Substance use disorder Social History Housing: House Alcohol intake: never Patient Tobacco Use Status: Current everyday Tobacco user Tobacco use type: Cigarette Cigarette Packs Per Day: 0.5 Cigarettes Per Day: 10 Years Smoked: 30 +/- e-Cigarette/Vaping Use: Never Used Second Hand Smoke Exposure: Yes service: No Current occupational status: disabled Current occupation: rt hand Cognitive needs: No Hearing needs: No Vision needs: No Physical Exam Vital Signs: Last Vital Signs Pulse 56 03/07/23 11:05 BP 138/78 03/07/23 11:05 Pulse Ox 97 03/07/23 11:05 Oxygen Delivery Method Nasal Cannula 03/07/23 11:05 Const General: cooperative Orientation/consciousness: patient oriented x3 HEENT Head: Yes normal to inspection Mouth: Normal oral and palatal mucosa present Eyes General: appearance normal, both eyes and all related structures Pupils: Equal, round and reactive pupils present Resp Effort & Inspection: normal respiratory effort Cardio Rate: regular rate Rhythm: regular rhythm GI Palpation (GI): Soft to palpation and nontender General: Yes no CVA tenderness Back/Spine/Pelvis Back: no CVA tenderness Skin General skin exam: no rashes or lesions noted Neuro General: patient oriented x3 Cranial nerves: Yes CN's II-XII intact bilaterally and Yes Equal, round and reactive pupils present Extrem General: Yes normal to inspection Psych Appearance: grossly normal Assessment & Plan Assessment & Plan (1) HIV (human immunodeficiency virus infection): Comment: She is doing well She has no complaints Her CD4 count has increased and she takes Biktarvy regularly and viral load undetectable. Code(s): B20 - Human immunodeficiency virus [HIV] disease Plan: Continue Biktarvy. See in six months and Biktarvy renewed for six months and labs in. She was counseled to get flu shot,RSV shot and COVID shot . Orders: Orders HIV-1 RNA QN PCR Expanded 5 Months B20 - Human immunodeficiency virus [HIV] disease Lymphocyte Subset Panel 3 5 Months B20 - Human immunodeficiency virus [HIV] disease Complete Blood Count Auto Diff 5 Months B20 - Human immunodeficiency virus [HIV] disease Basic Metabolic Panel 5 Months B20 - Human immunodeficiency virus [HIV] disease Liver Panel 5 Months B20 - Human immunodeficiency virus [HIV] disease Medications: Refilled hopbfsuqs-iixyvjrj-qmvrxkn ala 50-200-25 mg (Biktarvy) 1 tab PO DAILY 30 days 30 tabs 5RF nlbzgqzkd-taxnfleg-ikioltw ala 50-200-25 mg (Biktarvy) 1 tab PO DAILY 30 days 30 tabs 5RF Coding Level of Care Code Est Pt Level 3 (41189) Diagnoses HIV (human immunodeficiency virus infection) B20
[2023-03-07 11:05] VITALS: BP 138/78; PULSE 56; O2SAT 97
== END 2023-03-07 11:45 | disposition home or self-care (01) ==
PROVIDERS: PCP Nurse Practitioner Family; Visit Provider Internal Medicine
DX: B20 Human immunodeficiency virus [HIV] disease (principal)
CPT/HCPCS: 99213

== ENCOUNTER → 2023-03-07 10:52 | Outpatient (BNVA) | payer MEDICARE, MEDICAID, SELFPAY | PROVIDERS: Visit Provider Internal Medicine | DX: Z21 Asymptomatic human immunodeficiency virus [HIV] infection status (principal); Z79.899 Other long term (current) drug therapy; Z79.891 Long term (current) use of opiate analgesic | CPT/HCPCS: 99212 ==

== ENCOUNTER 2023-03-17 11:13 | Outpatient (AMB) | payer MEDICARE, MEDICAID, SELFPAY ==
[2023-03-17 11:53] VITALS: BMI 35.6
--- NOTE | 2023-03-17 11:53 | A.OFFVIS_ITS ---
Intake Vital Signs 03/17/23 11:53 Height 5 ft 10 in Weight 248 lb BMI 35.6 Intake Visit Reasons: ov- CT Shoulder RT review Intake Note: 67 year old woman with right shoulder OA & full-thickness tears of the subscapularis and biceps tendons, with retraction. She presents today for a CT Scan Follow up to assess changes in alignment Allergies Horse/Equine Containing Products [Horse/Equine Product Derivatives] Allergy (Intermediate, Verified 03/17/23 11:53) SWELLING Iodinated Contrast Media [IV CONTRAST] Allergy (Unknown, Verified 03/17/23 11:53) HIVES HPI ov- CT Shoulder RT review HPI Details Elida is a 67 year old woman who presents for a CT scan review of her right shoulder OA and RTC tear. Her previous MRI was not fully completed due to patients' Claustrophobia. She continues to complain of pain in her shoulder with daily activity, along with limited ROM. She says she injured her shoulder sometime in 06/28 when she tripped over her home oxygen tube and fell onto her shoulder. She had a steroid injection on 12/28/22 by TRACY Youngblood, which she says was not helpful. She denies any other treatment except NSAIDs. She also complains of bilateral knee pain with activity. She has a hx of relief from gel injections and would like to repeat this. She is on Lasix, methadone, and home oxygen use. She has HIV and is on medication for this. [facility] Medical History (Updated 03/17/23 @ 15:49 by Luis Weber MD) Other instability, right shoulder Retinopathy Methadone use Morbid obesity HIV (human immunodeficiency virus infection) Rhinitis Hypoventilation associated with obesity COPD (chronic obstructive pulmonary disease) HIV (human immunodeficiency virus infection) Smoker Morbid obesity Aortic dilatation Hypoventilation syndrome LAURENCE (obstructive sleep apnea) Respiratory failure with hypoxia Lower extremity edema Diastolic heart failure Hyperlipidemia Surgical History History of colonoscopy History of tonsillectomy Family History Father No problems noted. Mother No problems noted. Brother Asthma Maternal Grandfather No problems noted. Maternal Grandmother No problems noted. Paternal Grandfather No problems noted. Paternal Grandmother No problems noted. Brother No problems noted. Brother Substance use disorder Social History Housing: House Alcohol intake: never Patient Tobacco Use Status: Current everyday Tobacco user Tobacco use type: Cigarette Cigarette Packs Per Day: 0.5 Cigarettes Per Day: 10 Years Smoked: 30 +/- e-Cigarette/Vaping Use: Never Used Second Hand Smoke Exposure: Yes service: No Current occupational status: disabled Current occupation: rt hand Cognitive needs: No Hearing needs: No Vision needs: No Review of Systems Const All systems reviewed & are unremarkable except as noted in HPI and below Physical Exam Vital Signs: BMI result Body Mass Index 35.6 Const General: no acute distress, alert and awake Orientation/consciousness: patient oriented x3 HEENT Head: Yes normocephalic and Yes atraumatic Eyes EOM: EOMs intact bilaterally Resp Effort & Inspection: normal respiratory effort and able to speak in complete sentences Cardio Jugular venous distension: no JVD Skin General skin exam: turgor normal Rashes: no rashes Neuro General: patient oriented x3 Extrem Other: Right Shoulder: 15 deg ER and + drop arm Psych Appearance: grossly normal Affect: normal affect Attitude: cooperative Office Procedures Joint Injection/Drain Joint Injection/Drain Details: Injected 1 mL of Decadron and 3 mL 1% lidocaine and 3 mL of 0.25% Marcaine. Site was prepped using aseptic technique. Patient tolerated the procedure well. Primary Site: right shoulder Approach Used: posterolateral Coding 58571 - Large joint Procedure code (CPT) selection complete Results Reviewed Results Reviewed: 03/17/23 12:06 BUPivacaine MPF 0.25 % [Sensorcaine-MPF 0.25% 10 ML] 10 ml .ROUTE .[facility]-MED ONE Lidocaine HCl 2 % MPF [Xylocaine 2 % MPF] 5 ml .ROUTE .[facility]-MED ONE dexAMETHasone sod phosphate [Decadron] 4 mg .ROUTE .STK-MED ONE I personally reviewed relevant radiographs, MR, and CT images Only Axial sequence obtained due to patient claustrophobia Completely torn and retracted subscapularis tendon and likely supraspinatus tendon Completely torn and retracted biceps tendon Advanced arthritic changes Large joint effusion 1. No visible acute fracture or dislocation. 2. There is soft tissue calcification lateral to the proximal humerus likely myositis ossificans. 3. There is a small bone fragment or soft tissue calcification lateral to the humeral head since the previous study. Question avulsion fracture. 4. On crosstable lateral view there is suspicion for irregularity involving humeral head. If patient has continuous right shoulder pain, a CT or MRI of the right shoulder can be performed Chronic anterosuperior subluxation of the humeral head with associated bony remodeling. Depression/bony remodeling of the anterior glenoid with underlying subchondral cystic change. Additional bony remodeling of the coracoid which is seen to articulate with the subluxed humeral head. Significant attenuation of the supraspinatus and subscapularis tendons with associated muscle atrophy, likely indicating a high-grade partial versus complete tearing. Evaluation significantly limited on CT examination. Complex fluid collection in the region of the subacromial subdeltoid bursa with peripheral calcifications measuring up to 1.4 cm. Findings likely represent a chronic joint effusion with chondrocalcinosis and dystrophic calcification. Mild acromioclavicular joint osteoarthritis. Emphysematous changes within the right lung. Assessment & Plan Assessment & Plan (1) Osteoarthritis of right shoulder: Code(s): M19.011 - Primary osteoarthritis, right shoulder Plan: This is a 67 year old woman with right shoulder OA & full-thickness tears of the subscapularis and biceps tendons, with retraction. She has pain with daily activity and has chronic subluxation. She is not a candidate for surgery and she is not interested in this option. She fell onto her shoulder on 06/28, and when comparing radiographs from 09/11/22 & 12/28/22, along with her MRI, there is a change in alignment. I injected her right shoulder today, which she tolerated well. She can follow up prn, and contact the clinic if she would like to attend PT. (2) Bilateral primary osteoarthritis of knee: Code(s): M17.0 - Bilateral primary osteoarthritis of knee Plan: This is a 67 year old woman with bilateral knee OA. She has pain with daily activity, and a hx of relief from viscosupplementation. She would like to repeat the Euflexxa injections. We will contact her insurance provider and she will follow up when approved. (3) Rotator cuff tear, right: Code(s): M75.101 - Unspecified rotator cuff tear or rupture of right shoulder, not specified as traumatic (4) Severe chronic obstructive pulmonary disease: Code(s): J44.9 - Chronic obstructive pulmonary disease, unspecified (5) Methadone use: Code(s): F11.90 - Opioid use, unspecified, uncomplicated (6) HIV (human immunodeficiency virus infection): Comment: She is doing well She has no complaints Her CD4 count has increased and she takes Biktarvy regularly and viral load undetectable. Code(s): B20 - Human immunodeficiency virus [HIV] disease Plan Scribed for Luis Weber MD by Wilner Medina, medical records library professor, on 03/17/23 at 12:10 PM, EST. Orders: Orders PT Evaluation and Treatment 03/17/23 M19.011 - Primary osteoarthritis, right shoulder, M25.311 - Other instability, right shoulder, M75.101 - Unspecified rotator cuff tear or rupture of right shoulder, not specified as traumatic Coding Level of Care Code Est Pt Level 4 (21255) Diagnoses Osteoarthritis of right shoulder M19.011 Bilateral primary osteoarthritis of knee M17.0 Rotator cuff tear, right M75.101 Severe chronic obstructive pulmonary disease J44.9 Methadone use F11.90 HIV (human immunodeficiency virus infection) B20 CPT Codes Coding - 08797 Large joint: 40914 - Large joint ([id number])
== END 2023-03-17 12:21 | disposition home or self-care (01) ==
PROVIDERS: PCP Nurse Practitioner Family; Visit Provider Orthopaedic Surgery
DX: M19.011 Primary osteoarthritis, right shoulder (principal); M75.101 Unspecified rotator cuff tear or rupture of right shoulder, not specified as traumatic; M17.0 Bilateral primary osteoarthritis of knee; B20 Human immunodeficiency virus [HIV] disease
CPT/HCPCS: 20610; 99214

== ENCOUNTER → 2023-03-17 11:13 | Outpatient (BNVA) | payer MEDICARE, MEDICAID, SELFPAY | PROVIDERS: PCP Nurse Practitioner Family; Visit Provider Orthopaedic Surgery | DX: M19.011 Primary osteoarthritis, right shoulder (principal); M75.101 Unspecified rotator cuff tear or rupture of right shoulder, not specified as traumatic; M17.0 Bilateral primary osteoarthritis of knee; J44.9 Chronic obstructive pulmonary disease, unspecified; B20 Human immunodeficiency virus [HIV] disease; F11.20 Opioid dependence, uncomplicated | CPT/HCPCS: 20610; 99212; J1100 ==

== ENCOUNTER 2023-04-11 13:17 | Outpatient (AMB) | payer MEDICARE, MEDICAID, SELFPAY ==
--- NOTE | 2023-04-11 13:24 | MHC.OFFVIS ---
Intake Intake Visit Reasons: OV - Bilateral Knee Euflexxa #1 Intake Note: Elida is a 67 year old female who presents today for Bilateral Knee Euflexxa #1 Allergies Horse/Equine Containing Products [Horse/Equine Product Derivatives] Allergy (Intermediate, Verified 03/17/23 11:53) SWELLING Iodinated Contrast Media [IV CONTRAST] Allergy (Unknown, Verified 03/17/23 11:53) HIVES HPI OV - Bilateral Knee Euflexxa #1 HPI Details Elida is a 67 year old woman who presents for bilateral Euflexxa injections. She denies any changes in her symptoms or medical history. [facility] Medical History (Updated 03/17/23 @ 15:49 by Luis Weber MD) Other instability, right shoulder Retinopathy Methadone use Morbid obesity HIV (human immunodeficiency virus infection) Rhinitis Hypoventilation associated with obesity COPD (chronic obstructive pulmonary disease) HIV (human immunodeficiency virus infection) Smoker Morbid obesity Aortic dilatation Hypoventilation syndrome LAURENCE (obstructive sleep apnea) Respiratory failure with hypoxia Lower extremity edema Diastolic heart failure Hyperlipidemia Surgical History History of colonoscopy History of tonsillectomy Family History Father No problems noted. Mother No problems noted. Brother Asthma Maternal Grandfather No problems noted. Maternal Grandmother No problems noted. Paternal Grandfather No problems noted. Paternal Grandmother No problems noted. Brother No problems noted. Brother Substance use disorder Social History Housing: House Alcohol intake: never Patient Tobacco Use Status: Current everyday Tobacco user Tobacco use type: Cigarette Cigarette Packs Per Day: 0.5 Cigarettes Per Day: 10 Years Smoked: 30 +/- e-Cigarette/Vaping Use: Never Used Second Hand Smoke Exposure: Yes service: No Current occupational status: disabled Current occupation: rt hand Cognitive needs: No Hearing needs: No Vision needs: No Review of Systems Const All systems reviewed & are unremarkable except as noted in HPI and below Physical Exam Const General: no acute distress, alert and awake Orientation/consciousness: patient oriented x3 HEENT Head: Yes normocephalic and Yes atraumatic Eyes EOM: EOMs intact bilaterally Resp Effort & Inspection: normal respiratory effort and able to speak in complete sentences Cardio Jugular venous distension: no JVD Skin General skin exam: turgor normal Rashes: no rashes Neuro General: patient oriented x3 Extrem Other: Bilateral Knees: Skin C/D/I No effusion Psych Appearance: grossly normal Affect: normal affect Attitude: cooperative Office Procedures Joint Injection/Drain Joint Injection/Drain Details: Injected Euflexxa. Site was prepped using aseptic technique. Patient tolerated the procedure well. Primary Site: right knee Secondary Site: left knee Coding - Large joint 17683 - Glenohumeral/Tronchanteric Bursa/Intraarticular Procedure code (CPT) selection complete Results Reviewed Results Reviewed: 04/11/23 13:17 Hyaluronate Sodium [Euflexxa] 20 mg INTRAARTIC .[facility] Assessment & Plan Assessment & Plan (1) Bilateral primary osteoarthritis of knee: Code(s): M17.0 - Bilateral primary osteoarthritis of knee Plan: This is a 67 year old woman with bilateral knee OA. She has pain with daily activity, and a hx of relief from viscosupplementation. I injected her bilateral knees with her first Euflexxa dose. She will follow up in 1 week for her 2nd bilateral dose. (2) Methadone use: Code(s): F11.90 - Opioid use, unspecified, uncomplicated (3) HIV (human immunodeficiency virus infection): Comment: She is doing well She has no complaints Her CD4 count has increased and she takes Biktarvy regularly and viral load undetectable. Code(s): B20 - Human immunodeficiency virus [HIV] disease Plan Scribed for Luis Weber MD by Wilner Medina, medical research tech, on 04/11/23 at 1:35 PM, EST. Coding Level of Care Code Est Pt Level 2 (23032) Diagnoses Bilateral primary osteoarthritis of knee M17.0 Methadone use F11.90 HIV (human immunodeficiency virus infection) B20 CPT Codes Coding - 78140 Large joint: 59190 - Large joint ([id number]) Coding - Joint 7: 71222 - Glenohumeral/Tronchanteric Bursa/Intraarticular ([id number])
== END 2023-04-11 14:22 | disposition home or self-care (01) ==
PROVIDERS: PCP Nurse Practitioner Family; Visit Provider Orthopaedic Surgery
DX: M17.0 Bilateral primary osteoarthritis of knee (principal); F11.90 Opioid use, unspecified, uncomplicated; B20 Human immunodeficiency virus [HIV] disease
CPT/HCPCS: 20610

== ENCOUNTER → 2023-04-11 13:17 | Outpatient (BNVA) | payer MEDICARE, MEDICAID, SELFPAY | PROVIDERS: PCP Nurse Practitioner Family; Visit Provider Orthopaedic Surgery | DX: M17.0 Bilateral primary osteoarthritis of knee (principal); B20 Human immunodeficiency virus [HIV] disease; F11.90 Opioid use, unspecified, uncomplicated | CPT/HCPCS: 20610; J7323 ==

== ENCOUNTER 2023-04-18 13:14 | Outpatient (AMB) | payer MEDICARE, MEDICAID, SELFPAY ==
--- NOTE | 2023-04-18 13:22 | A.OFFVIS_ITS ---
Intake Intake Visit Reasons: Bilateral Knee Euflexxa #2 Intake Note: Elida is a 67 year old female who presnets today for Bilateral Knee Euflexxa #2 Allergies Horse/Equine Containing Products [Horse/Equine Product Derivatives] Allergy (Intermediate, Verified 03/17/23 11:53) SWELLING Iodinated Contrast Media [IV CONTRAST] Allergy (Unknown, Verified 03/17/23 11:53) HIVES HPI Bilateral Knee Euflexxa #2 HPI Details Elida is a 67 year old woman who presents for her second bilateral Euflexxa injections. She denies any changes in her symptoms or medical history. [facility] Medical History (Updated 03/17/23 @ 15:49 by Luis Weber MD) Other instability, right shoulder Retinopathy Methadone use Morbid obesity HIV (human immunodeficiency virus infection) Rhinitis Hypoventilation associated with obesity COPD (chronic obstructive pulmonary disease) HIV (human immunodeficiency virus infection) Smoker Morbid obesity Aortic dilatation Hypoventilation syndrome LAURENCE (obstructive sleep apnea) Respiratory failure with hypoxia Lower extremity edema Diastolic heart failure Hyperlipidemia Surgical History History of colonoscopy History of tonsillectomy Family History Father No problems noted. Mother No problems noted. Brother Asthma Maternal Grandfather No problems noted. Maternal Grandmother No problems noted. Paternal Grandfather No problems noted. Paternal Grandmother No problems noted. Brother No problems noted. Brother Substance use disorder Social History Housing: House Alcohol intake: never Patient Tobacco Use Status: Current everyday Tobacco user Tobacco use type: Cigarette Cigarette Packs Per Day: 0.5 Cigarettes Per Day: 10 Years Smoked: 30 +/- e-Cigarette/Vaping Use: Never Used Second Hand Smoke Exposure: Yes service: No Current occupational status: disabled Current occupation: rt hand Cognitive needs: No Hearing needs: No Vision needs: No Physical Exam Const General: no acute distress, alert and awake Orientation/consciousness: patient oriented x3 HEENT Head: Yes normocephalic and Yes atraumatic Eyes EOM: EOMs intact bilaterally Resp Effort & Inspection: normal respiratory effort and able to speak in complete sentences Cardio Jugular venous distension: no JVD Skin General skin exam: turgor normal Rashes: no rashes Neuro General: patient oriented x3 Extrem Other: Bilateral Knees: Skin C/D/I No effusion Psych Appearance: grossly normal Affect: normal affect Attitude: cooperative Office Procedures Joint Injection/Drain Joint Injection/Drain Details: Euflexxa. Site was prepped using aseptic technique. Patient tolerated the procedure well. Primary Site: right knee Secondary Site: left knee Approach Used: anterolateral Coding - Large joint - Glenohumeral/Tronchanteric Bursa/Intraarticular Procedure code (CPT) selection complete Results Reviewed Results Reviewed: 04/18/23 13:14 Hyaluronate Sodium [Euflexxa] 20 mg INTRAARTIC .[facility] ONE Assessment & Plan Assessment & Plan (1) Bilateral primary osteoarthritis of knee: Code(s): M17.0 - Bilateral primary osteoarthritis of knee Plan: This is a 67 year old woman with bilateral knee OA. She has pain with daily activity, and a hx of relief from viscosupplementation. I injected her bilateral knees with her second Euflexxa dose. She will follow up in 1 week for her final bilateral dose. (2) Methadone use: Code(s): F11.90 - Opioid use, unspecified, uncomplicated (3) HIV (human immunodeficiency virus infection): Comment: She is doing well She has no complaints Her CD4 count has increased and she takes Biktarvy regularly and viral load undetectable. Code(s): B20 - Human immunodeficiency virus [HIV] disease Plan Scribed for Luis Weber MD by Wilner Medina, medical secretary teacher, on 04/18/23 at 1:35 PM, EST. Coding Level of Care Code Est Pt Level 2 (62915) Diagnoses Bilateral primary osteoarthritis of knee M17.0 Methadone use F11.90 HIV (human immunodeficiency virus infection) B20 CPT Codes Coding - Large joint: 56422 - Large joint ([id number]) Coding - Joint 7: 58849 - Glenohumeral/Tronchanteric Bursa/Intraarticular ([id number])
== END 2023-04-18 14:26 | disposition home or self-care (01) ==
PROVIDERS: PCP Nurse Practitioner Family; Visit Provider Orthopaedic Surgery
DX: M17.0 Bilateral primary osteoarthritis of knee (principal)
CPT/HCPCS: 20610

== ENCOUNTER → 2023-04-18 13:14 | Outpatient (BNVA) | payer MEDICARE, MEDICAID, SELFPAY | PROVIDERS: PCP Nurse Practitioner Family; Visit Provider Orthopaedic Surgery | DX: M17.0 Bilateral primary osteoarthritis of knee (principal); F11.20 Opioid dependence, uncomplicated; B20 Human immunodeficiency virus [HIV] disease | CPT/HCPCS: 20610; J7323 ==

== ENCOUNTER 2023-04-20 12:47 | Outpatient (RCR) | payer MEDICARE, MEDICAID, SELFPAY ==
--- NOTE | 2023-04-20 13:47 | MHC.PT.EP ---
[facility] [place] Office [place] Office [place] Office [address] Ayan [place] [address] [phone] F: [phone] F: [phone] F: [phone] F: [phone] Physical Therapy Plan of Care Date of Evaluation: 04/20/23 Date of Surgery: n/a Diagnosis: RC tear R Assessment: Patient is a 67 year old female presenting to PT with complaints of pain in R RC tear. Pt reports onset of pain began June 2022 due to falling on her arms. She presents today with impairments in pain, ROM, shoulder strength, posture. Pt's current occupation is none, with baseline physical activities including ADLs. Pt expresses prison goal of reducing pain, and is motivated to work towards this in PT. Clinical presentation today is most consistent with signs and sx associated with R RC tear and pt will benefit from skilled PT 2 week x 4 weeks to address the following problems and impairments noted upon evaluation: pain, ROM, shoulder strength, posture. Her rehab potential is poor due to multiple comorbidities as well as full thickness tears of subscapularis and biceps tendons with retraction. These problems limit the patient with the following functional activities: reaching, lifting, pulling pants up, ADLs, bathing. The prescribed treatment plan of care is medically necessary. Co-morbidities of methadone use, HIV, diastolic HF, COPD, respiratory failure with hypoxia oxygen were identified and taken into considerations of plan of care. Pt was educated on HEP, role of PT, prognosis, POC. Frequency and Duration: The patient will be seen 2 x week x 4 weeks Short Term Goals: Pt will demonstrate improved R shoulder AROM by 10 degrees in 2 weeks. Pt will demonstrate improved R shoulder MMT test by 1/3 grade in 2 weeks. Pt will demonstrate improved postural awareness by sitting with biomechanically correct posture without cues throughout session to improve overall postural function in 2 weeks. Mcfp Goals: Pt will demonstrate improved SPADI score by 13 points in 4 weeks for improved functional mobility. Pt will demonstrate improved ability to wash her hair and pull up her pants in 4 weeks for improved tolerance to ADLs. Pt will demonstrate improved ability to reach and lift house hold items with min to no pain/difficulty in 4 weeks for improved role at home. Treatment Plan: Modalities to reduce pain, spasms and effusion. Manual therapy to restore motion and function. Therapeutic exercise to improve strength and flexibility. Neuromuscular re-education for posture and balance. Therapeutic activities to return to functional activities of daily living. Electronically signed by: Vaishnavi Robert, PT, DPT, ATC Please sign and return to therapist. Thank you for your referral.
--- NOTE | 2023-05-05 14:04 | MHC.PT.DC ---
[facility] [place] Office [place] Office [place] Office [address] [place] [address] [phone] F: [phone] F: [phone] F: [phone] F: [phone] Physical Therapy Discharge Report Diagnosis: RC tear R Date of Surgery: n/a Date of Evaluation: 04/20/23 Date of Discharge: 05/05/23 Treatments to Date: 1 Cancellations to Date: 4 No Shows to Date: 0 Discharge Status: Patient Elected to Stop Discharge Summary: Pt called and stated she is not motivated to do PT and therefore does not want to attend. Pt to be d/c per her request. Electronically signed by: Vaishnavi Robert, PT, DPT, ATC Please sign and return to therapist. Thank you for your referral.
== END 2023-05-05 14:04 | disposition home or self-care (01) ==
LOC: HO.PTCHIC 12:47
PROVIDERS: PCP Nurse Practitioner Family; Visit Provider Orthopaedic Surgery
DX: M25.311 Other instability, right shoulder (principal); M75.101 Unspecified rotator cuff tear or rupture of right shoulder, not specified as traumatic; M19.011 Primary osteoarthritis, right shoulder
CPT/HCPCS: 97110; 97163

== ENCOUNTER 2023-04-25 13:09 | Outpatient (AMB) | payer MEDICARE, MEDICAID, SELFPAY ==
--- NOTE | 2023-04-25 13:23 | MHC.OFFVIS ---
Intake Intake Visit Reasons: OV - Bilateral Knee Euflexxa #3 Intake Note: Elida is a 67 year old female who presents today for bilateral knee euflexxa #3 Allergies Horse/Equine Containing Products [Horse/Equine Product Derivatives] Allergy (Intermediate, Verified 05/10/23 12:58) SWELLING Iodinated Contrast Media [IV CONTRAST] Allergy (Unknown, Verified 05/10/23 12:58) HIVES HPI OV - Bilateral Knee Euflexxa #3 HPI Details Elida is a 67 year old woman who presents for her third bilateral Euflexxa injections. She denies any changes in her symptoms or medical history. She says she is feeling slightly better, but has increased pain after PT or activities. She says her knees hurt more in inclimate weather. She is curious what her options are if these injections do not help her. [facility] Medical History Other instability, right shoulder Retinopathy Methadone use Morbid obesity HIV (human immunodeficiency virus infection) Rhinitis Hypoventilation associated with obesity COPD (chronic obstructive pulmonary disease) HIV (human immunodeficiency virus infection) Smoker Morbid obesity Aortic dilatation Hypoventilation syndrome LAURENCE (obstructive sleep apnea) Respiratory failure with hypoxia Lower extremity edema Diastolic heart failure Hyperlipidemia Surgical History History of colonoscopy History of tonsillectomy Family History Father No problems noted. Mother No problems noted. Brother Asthma Maternal Grandfather No problems noted. Maternal Grandmother No problems noted. Paternal Grandfather No problems noted. Paternal Grandmother No problems noted. Brother No problems noted. Brother Substance use disorder Social History Housing: House Alcohol intake: never Patient Tobacco Use Status: Current everyday Tobacco user Tobacco use type: Cigarette Cigarette Packs Per Day: 0.5 Cigarettes Per Day: 10 Years Smoked: 30 +/- e-Cigarette/Vaping Use: Never Used Second Hand Smoke Exposure: Yes service: No Current occupational status: disabled Current occupation: rt hand Cognitive needs: No Hearing needs: No Vision needs: No Physical Exam Const General: no acute distress, alert and awake Orientation/consciousness: patient oriented x3 HEENT Head: Yes normocephalic and Yes atraumatic Eyes EOM: EOMs intact bilaterally Resp Effort & Inspection: normal respiratory effort and able to speak in complete sentences Cardio Jugular venous distension: no JVD Skin General skin exam: turgor normal Rashes: no rashes Neuro General: patient oriented x3 Extrem Other: Bilateral Knees: Skin C/D/I No effusion Psych Appearance: grossly normal Affect: normal affect Attitude: cooperative Office Procedures Joint Injection/Drain Joint Injection/Drain Details: Injected Euflexxa. Site was prepped using aseptic technique. Patient tolerated the procedure well. Primary Site: right knee Secondary Site: left knee Coding - Large joint - Glenohumeral/Tronchanteric Bursa/Intraarticular Procedure code (CPT) selection complete Assessment & Plan Assessment & Plan (1) Bilateral primary osteoarthritis of knee: Code(s): M17.0 - Bilateral primary osteoarthritis of knee Plan: This is a 67 year old woman with bilateral knee OA. She has pain with daily activity, and a hx of relief from viscosupplementation. I injected her bilateral knees with her final Euflexxa dose. I do not think she is a good surgical candidate at this time. She should continue activity as tolerated, remain active, and be mindful to not push through pain. I discussed the possibility of PRP injections or interventional Pain Management if she finds no relief from viscosupplementation. She can follow up prn. (2) Methadone use: Code(s): F11.90 - Opioid use, unspecified, uncomplicated (3) HIV (human immunodeficiency virus infection): Comment: She is doing well She has no complaints Her CD4 count has increased and she takes Biktarvy regularly and viral load undetectable. Code(s): B20 - Human immunodeficiency virus [HIV] disease Plan Scribed for Luis Weber MD by Wilner Medina medical corps officer, on 04/25/23 at 1:35 PM, EST. Coding Level of Care Code Est Pt Level 2 (62179) Diagnoses Bilateral primary osteoarthritis of knee M17.0 Methadone use F11.90 HIV (human immunodeficiency virus infection) B20 CPT Codes Coding - Large joint: 26008 - Large joint ([id number]) Coding - Joint 7: 72071 - Glenohumeral/Tronchanteric Bursa/Intraarticular ([id number])
== END 2023-04-25 14:07 | disposition home or self-care (01) ==
PROVIDERS: PCP Nurse Practitioner Family; Visit Provider Orthopaedic Surgery
DX: M17.0 Bilateral primary osteoarthritis of knee (principal); F11.90 Opioid use, unspecified, uncomplicated; B20 Human immunodeficiency virus [HIV] disease
CPT/HCPCS: 20610

== ENCOUNTER → 2023-04-25 13:09 | Outpatient (BNVA) | payer MEDICARE, MEDICAID, SELFPAY | PROVIDERS: PCP Nurse Practitioner Family; Visit Provider Orthopaedic Surgery | DX: M17.0 Bilateral primary osteoarthritis of knee (principal); M25.311 Other instability, right shoulder; F11.20 Opioid dependence, uncomplicated; B20 Human immunodeficiency virus [HIV] disease | CPT/HCPCS: 20610; J7323 ==

== ENCOUNTER 2023-05-10 12:48 | Outpatient (AMB) | payer MEDICARE, MEDICAID, SELFPAY ==
--- NOTE | 2023-05-10 12:54 | MHC.PC.OV ---
Vital Signs 05/10/23 12:58 05/10/23 13:25 Height 5 ft 10 in Weight 251 lb BMI 36.0 BP 138/90 H 135/84 Blood Pressure Location Lt brachial Lt brachial Position Sitting Sitting Pulse 64 Pulse Source Pulse Oximeter Pulse Oximetry (%) 94 Oxygen Delivery Method Nasal Cannula Intake Visit Reasons: 3 month fu Allergies Horse/Equine Containing Products [Horse/Equine Product Derivatives] Allergy (Intermediate, Verified 05/10/23 12:58) SWELLING Iodinated Contrast Media [IV CONTRAST] Allergy (Unknown, Verified 05/10/23 12:58) HIVES Medication List - Last Reconciled 05/10/23 by Garret Interiano, AIRPORT CLERK-BC albuterol sulfate 2.5 mg inhalation Q6H PRN albuterol sulfate 90 mcg/actuation inhalation Anoro Ellipta 62.5-25 mcg/actuation (umeclidinium-vilanterol) 1 ea PO DAILY NS atorvastatin 40 mg PO DAILY 90 days azithromycin For 250 mg dose pack: take 500 mg today (day 1), then 250 mg for 4 days (days 2-5) PO hzahcgfur-gdezuhbg-afrhsmj ala 50-200-25 mg (Biktarvy) 1 tab PO DAILY 30 days blood pressure kit med and lrg Use to check blood pressure daily calcium carbonate-vitamin D3 600 mg-10 mcg (400 unit) (Calcium with Vitamin D) 1 tab PO BID 90 days carvedilol 6.25 mg PO Q12H diclofenac sodium 75 mg PO BID PRN fluticasone propionate 50 mcg/actuation 2 sprays intranasal DAILY furosemide (Lasix) 40 mg PO DAILY ibuprofen 800 mg PO TID PRN 30 days lidocaine 4% 1 patch topical DAILY PRN lisinopril 40 mg PO DAILY 90 days methadone 70 mg PO Q12H Oxygen Home Use 2lpm via NC at night and PRN sob [Scooter-motorized As directed] Tobacco use date assessed: 01/25/23 Fall risk assessment: 1 Fall in past year Last assessed Fall Risk: 05/10/23 Dental Screening Dental Screen Date: 05/10/23 Did you have a dental visit in the last 12 months?: No Did you have a dental problem in the last 6 months where you did not have access to dental care?: No Was dental information given to patient?: Patient has dentist HPI 3 month fu HPI Details Pt is a diabetic, on an DANIEL and a statin. Due for A1C and microalbumin, will order. Denies polyuria, polydipsia, and neuropathy. Pt denies any signs and symptoms of hypoglycemia and does know how to correct it. Pt does not check her blood sugar. She has been well-controlled in the past. Pt reports that she was diagnosed previously but does not believe she is a diabetic. Will also have her take her BP at home to monitor. [facility] Medical History Other instability, right shoulder Retinopathy Methadone use Morbid obesity HIV (human immunodeficiency virus infection) Rhinitis Hypoventilation associated with obesity COPD (chronic obstructive pulmonary disease) HIV (human immunodeficiency virus infection) Smoker Morbid obesity Aortic dilatation Hypoventilation syndrome LAURENCE (obstructive sleep apnea) Respiratory failure with hypoxia Lower extremity edema Diastolic heart failure Hyperlipidemia Surgical History History of colonoscopy History of tonsillectomy Family History Father No problems noted. Mother No problems noted. Brother Asthma Maternal Grandfather No problems noted. Maternal Grandmother No problems noted. Paternal Grandfather No problems noted. Paternal Grandmother No problems noted. Brother No problems noted. Brother Substance use disorder Social History Housing: House Alcohol intake: never Patient Tobacco Use Status: Current everyday Tobacco user Tobacco use type: Cigarette Cigarette Packs Per Day: 0.5 Cigarettes Per Day: 10 Years Smoked: 30 +/- e-Cigarette/Vaping Use: Never Used Second Hand Smoke Exposure: Yes service: No Current occupational status: disabled Current occupation: rt hand Cognitive needs: No Hearing needs: No Vision needs: No Questionnaire Thrive Questionnaire Date Thrive assessed: 06/22/22 JAJA-7 AMB Questionnaire JAJA-7 Date JAJA - 7 assessed: 06/22/22 Source: Developed by Drs. Artem Juarez, Aishwarya Voss, Jorge Schilling and colleagues, with an educational shawn from [employer]. Review of Systems Const Reports as per HPI Physical exam (Primary Care) Vital Signs: Last Vital Signs Pulse 64 05/10/23 12:58 BP 138/90 H 05/10/23 12:58 Pulse Ox 94 05/10/23 12:58 Oxygen Delivery Method Nasal Cannula 05/10/23 12:58 BMI result Body Mass Index 36.0 Tobacco/Smoking Status: Tobacco use Status Tobacco use date assessed 01/25/23 05/10/23 12:56 Patient Tobacco Use Status Current everyday Tobacco 05/10/23 12:56 Tobacco use type Cigarette 05/10/23 12:56 e-Cigarette/Vaping Use Never Used 05/10/23 12:56 Thrive Assessment: Date of Thrive Assessment Date Thrive assessed 06/22/22 05/10/23 12:56 Const Other: using walker and O2. General: cooperative Nutritional Appearance: obese Orientation/consciousness: patient oriented x3 Resp Other: lungs coarse and diminished Effort & Inspection: normal respiratory effort Cardio Rate: regular rate Rhythm: regular rhythm Heart sounds: S1 normal heart sound present, S2 normal heart sound present and Murmur heart sound present systolic (faint) Neuro General: patient oriented x3 Extrem Other: bilat feet: minimal sensation with use of monofilament, elongated toenails bilat with onychomycosis Psych Appearance: grossly normal Mental Status: mental status grossly normal Speech and movement: Normal speech and movement present Affect: normal affect Attitude: cooperative Thought process: Normal thought process present Thought content: Normal thought content present Insight: Good insight present (Psych) Judgement: Good judgement present (Psych) Assessment and Plan Assessment & Plan (1) Diabetes: Code(s): E11.9 - Type 2 diabetes mellitus without complications Plan: Labs ordered (2) Overgrown toenails: Code(s): L60.2 - Onychogryphosis Plan: Referred to podiatry Plan The patient agreed to the use of a certified medical aide for this encounter. Scribed for ADRIANA Hahn by Maureen Euceda certified medical aide, on 05/10/2023 at 13:05 EST. Orders: Orders Complete Blood Count Auto Diff Today E11.9 - Type 2 diabetes mellitus without complications Comprehensive [place]. Panel Fast Today E11.9 - Type 2 diabetes mellitus without complications TSH reflex Free T4 Today E11.9 - Type 2 diabetes mellitus without complications Hemoglobin A1c Today E11.9 - Type 2 diabetes mellitus without complications UA CC w/rflx Micro + Cult Today E11.9 - Type 2 diabetes mellitus without complications Lipid Panel Today E11.9 - Type 2 diabetes mellitus without complications Microalbumin, Random (w Creat) Today E11.9 - Type 2 diabetes mellitus without complications Referrals Podiatry Referral E11.9 - Type 2 diabetes mellitus without complications, L60.2 - Onychogryphosis Medications: New azithromycin For 250 mg dose pack: take 500 mg today (day 1), then 250 mg for 4 days (days 2-5) PO 6 tabs 2RF Coding Level of Care Code Est Pt Level 3 (01809) Diagnoses Diabetes E11.9 Overgrown toenails L60.2
[2023-05-10 12:58] VITALS: BP 138/90; PULSE 64; O2SAT 94; BMI 36.0
[2023-05-10 13:25] VITALS: BP 135/84
== END 2023-05-10 13:36 | disposition home or self-care (01) ==
PROVIDERS: PCP Nurse Practitioner Family; Visit Provider Nurse Practitioner Family
DX: E11.9 Type 2 diabetes mellitus without complications (principal); L60.2 Onychogryphosis
CPT/HCPCS: 99213

== ENCOUNTER 2023-06-14 13:56 | Outpatient (AMB) | payer MEDICARE, MEDICAID, SELFPAY ==
[2023-06-14 14:05] VITALS: BP 142/80; PULSE 69; O2SAT 96; BMI 34.7
--- NOTE | 2023-06-14 14:05 | MHC.OFFVIS ---
Intake Vital Signs 06/14/23 14:05 Height 5 ft 10 in Weight 242 lb BMI 34.7 BP 142/80 H Blood Pressure Location Rt brachial Position Sitting Pulse 69 Pulse Source Pulse Oximeter Pulse Oximetry (%) 96 Oxygen Delivery Method Nasal Cannula Oxygen Flow Rate 2 Intake Visit Reasons: COPD Intake Note: Pt reports feeling congested which is giving her difficulty breathing and is also coughing up newman and brown mucus. She finished a course of prednisone on 06/13/23 but feel that it did not work. Coating Line Worker Required: No Allergies Horse/Equine Containing Products [Horse/Equine Product Derivatives] Allergy (Intermediate, Verified 06/14/23 15:45) SWELLING Iodinated Contrast Media [IV CONTRAST] Allergy (Unknown, Verified 06/14/23 15:45) HIVES Medication List - Last Reconciled 06/14/23 by Judy Sheridan MD albuterol sulfate 2.5 mg inhalation Q6H PRN albuterol sulfate 90 mcg/actuation inhalation Anoro Ellipta 62.5-25 mcg/actuation (umeclidinium-vilanterol) 1 ea PO DAILY NS atorvastatin 40 mg PO DAILY 90 days azithromycin For 250 mg dose pack: take 500 mg today (day 1), then 250 mg for 4 days (days 2-5) PO hbnqtfzcm-qdqyghoh-bomyazi ala 50-200-25 mg (Biktarvy) 1 tab PO DAILY 30 days blood pressure kit med and lrg Use to check blood pressure daily calcium carbonate-vitamin D3 600 mg-10 mcg (400 unit) (Calcium with Vitamin D) 1 tab PO BID 90 days carvedilol 6.25 mg PO Q12H diclofenac sodium 75 mg PO BID PRN doxycycline hyclate 100 mg PO BID 10 days fluticasone propionate 50 mcg/actuation 2 sprays intranasal DAILY furosemide (Lasix) 40 mg PO DAILY ibuprofen 800 mg PO TID PRN 30 days lidocaine 4% 1 patch topical DAILY PRN lisinopril 40 mg PO DAILY 90 days methadone 70 mg PO Q12H Oxygen Home Use 2lpm via NC at night and PRN sob [Scooter-motorized As directed] Do you need a note to return to daycare/school/sports/work: No HPI COPD HPI Details This 68 years old female grossly obese, With chronic obstructive pulmonary disease, LAURENCE/HYPOVENTILATION SYNDROME , not able to use the CPAP/BiPAP. She is on O2 2 L/minute during the sleep and p.r.n. during the daytime. Recently had she had call the office with symptoms of chest congestion and increased shortness of breath. She was treated with a short course of prednisone and doxycycline. She got some better but still having some congestion with increased shortness of breath. She think she would benefit from taking extra prednisone. She has no fever or chills, She remains somewhat tired, She has history of chronic opioid abuse, now on methadone 70 mg daily. She is staying in the house most of the time, and uses large size wheelchair when she has to come out. [facility] Medical History Other instability, right shoulder Retinopathy Methadone use Morbid obesity HIV (human immunodeficiency virus infection) Rhinitis Hypoventilation associated with obesity COPD (chronic obstructive pulmonary disease) HIV (human immunodeficiency virus infection) Smoker Morbid obesity Aortic dilatation Hypoventilation syndrome LAURENCE (obstructive sleep apnea) Respiratory failure with hypoxia Lower extremity edema Diastolic heart failure Hyperlipidemia Surgical History History of colonoscopy History of tonsillectomy Family History Father No problems noted. Mother No problems noted. Brother Asthma Maternal Grandfather No problems noted. Maternal Grandmother No problems noted. Paternal Grandfather No problems noted. Paternal Grandmother No problems noted. Brother No problems noted. Brother Substance use disorder Social History Housing: House Alcohol intake: never Patient Tobacco Use Status: Current everyday Tobacco user Tobacco use type: Cigarette Cigarette Packs Per Day: 0.5 Cigarettes Per Day: 10 Years Smoked: 30 +/- e-Cigarette/Vaping Use: Never Used Second Hand Smoke Exposure: Yes service: No Current occupational status: disabled Current occupation: rt hand Cognitive needs: No Hearing needs: No Vision needs: No Review of Systems Const All systems reviewed & are unremarkable except as noted in HPI and below Eyes Reports no additional complaints ENT Reports no additional complaints and Reports nasal congestion (OFF AND ON) Card Denies chest pain, Reports leg edema and Reports dyspnea on exertion Resp Reports as per HPI and Reports dyspnea on exertion GI Reports no additional complaints Reports nocturia Musc Reports back pain and Reports arthralgias (BOTH KNEES) Skin/Breast Reports system reviewed and no additional complaints, except as documented Neuro Reports no additional complaints Psych Reports no additional complaints Physical Exam Vital Signs: Last Vital Signs Pulse 69 06/14/23 14:05 BP 142/80 H 06/14/23 14:05 Pulse Ox 96 06/14/23 14:05 Oxygen Delivery Method Nasal Cannula 06/14/23 14:05 Oxygen Flow Rate 2 06/14/23 14:05 BMI result Body Mass Index 34.7 Const General: comfortable (BUT SLOW IN WALKING), no acute distress, alert and awake Orientation/consciousness: patient oriented x3 HEENT Head: Yes normal to inspection General nose exam: No nasal polyps present and No nasal discharge present Face and sinus: Yes sinuses nontender Mouth: oropharynx abnormals (OROPHARYNX IS EXTREMELY CROWDED MALLAMPATI SCALE 4) Eyes General: appearance normal, both eyes and all related structures Neck Neck: Yes normal visual inspection, Yes no lymphadenopathy, Yes trachea midline and Yes no JVD Thyroid: Thyroid normal Chest Chest palpation & inspection: normal inspection of the chest, normal palpation of entire chest wall and no tenderness Resp Other: HER BREATH SOUNDS ARE DISTANT, WITH PROLONGED EXPIRATORY PHASE. There are a few wheezes that mid chest level on both sides. NO CREPITATIONS. Cardio Palpation: PMI not normal (NOT PALPABLE) Rate: regular rate Rhythm: regular rhythm Heart sounds: no gallops and no murmurs GI Palpation (GI): Soft to palpation, nontender, No hepatosplenomegaly present, Hernia present (VENTRAL HERNIATION), no masses and Other GI palpation findings present (ABDOMEN IS OBESE AND PROTUBERANT) Auscultation: normal bowel sounds Back/Spine/Pelvis Thoracic/Lumbar Spine: thoracic and lumbar spine normal to inspection and thoraco-lumbar ROM limited Skin General skin exam: no rashes or lesions noted Neuro General: patient oriented x3 and no focal motor deficits Cranial nerves: Yes CN's II-XII intact bilaterally Extrem General: Yes normal to inspection, Yes no calf tenderness and Yes edema (1+ EDEMA AROUND THE ANKLES) Psych Appearance: grossly normal Speech and movement: Normal speech and movement present Assessment & Plan Assessment & Plan (1) Severe chronic obstructive pulmonary disease: Comment: She has chronic obstructive pulmonary disease, relatively severe. Recent acute exacerbation, but not completely cleared. Code(s): J44.9 - Chronic obstructive pulmonary disease, unspecified Plan: Anoro Ellipta 1 inhalation daily Albuterol HFA 2 puffs Q 4-6 hours p.r.n. are alternatively albuterol solution in the nebulizer cues 4-6 hours p.r.n.. Prednisone 20 mg b.i.d.x 5 days ( to keep on hand for emergency use) (2) Morbid obesity: Comment: THIS IS A CHRONIC PROBLEM, SHE IS NOT VERY MOBILE, IT IS ON EXPECTED IN HER CASE TO LOSE WEIGHT. Code(s): E66.01 - Morbid (severe) obesity due to excess calories Plan: as above (3) Hypoventilation associated with obesity: Comment: Patient is known case of LAURENCE/hypoventilation syndrome. The Best treatment would be Weight reduction ,, and use of BIPAP at night .but both are difficult to achieve ( patient was not able to use BiPAP ) Advised to continue Deep Breathing exercises with Purse lip technique TID . Code(s): E66.2 - Morbid (severe) obesity with alveolar hypoventilation Plan: as above (4) Smoker: Comment: Continues to smoke, currently bouts 3-4 cigarettes a day. Counseled to quit completely but in her case I do not think she is going to stop completely. Code(s): F17.200 - Nicotine dependence, unspecified, uncomplicated Plan: as above (5) Morbid obesity: Comment: same as before , No scope of loosing weight . Code(s): E66.01 - Morbid (severe) obesity due to excess calories Plan: as above (6) LAURENCE (obstructive sleep apnea): Comment: Known to have LAURENCE but unfortunately she has not been able to use CPAP/BIPAP Uses oxygen 2 L/minute at .night advised to try to lose some weight, which does not seem to be possible in her case. Code(s): G47.33 - Obstructive sleep apnea (adult) (pediatric) Plan: as above (7) Respiratory failure with hypoxia: Comment: Code(s): J96.91 - Respiratory failure, unspecified with hypoxia Plan: Continue to use oxygen 2 L/minute around the clock , May use up to 4 L/mt , when ambulating . Avoid any narcotic meds. Do deep breathing exercises during the daytime frequently, (8) Hypoventilation syndrome: Comment: This is in relation to untreated LAURENCE and continued morbid obesity. Avoid using any extra conc. of oxygen. Avoid using any narcotic meds. and do deep breathing exercises with pursed lip technique 2 to 3 times a day. Code(s): R06.89 - Other abnormalities of breathing Plan: as above Coding Level of Care Code Est Pt Level 4 (93257) Diagnoses Severe chronic obstructive pulmonary disease J44.9 Morbid obesity E66.01 Hypoventilation associated with obesity E66.2 Smoker F17.200 LAURENCE (obstructive sleep apnea) G47.33 Respiratory failure with hypoxia J96.91 Hypoventilation syndrome R06.89
== END 2023-06-14 14:36 | disposition home or self-care (01) ==
PROVIDERS: PCP Nurse Practitioner Family; Visit Provider Internal Medicine
DX: J44.9 Chronic obstructive pulmonary disease, unspecified (principal); E66.2 Morbid (severe) obesity with alveolar hypoventilation; F17.200 Nicotine dependence, unspecified, uncomplicated; G47.33 Obstructive sleep apnea (adult) (pediatric); J96.91 Respiratory failure, unspecified with hypoxia; R06.89 Other abnormalities of breathing
CPT/HCPCS: 99214

== ENCOUNTER 2023-06-14 13:56 | Outpatient (REF) | payer MEDICARE, MEDICAID, SELFPAY ==
[2023-06-14 15:00] LABS: MANUAL DIFF FLAG NO
[2023-06-14 15:25] LABS: Basophils Percent Auto 0.4 % (0-2); Eosinophils Absolute Auto 0.5 X10*3/uL (0.0-0.4); Eosinophils Percent Auto 5.5 % (0-4); Hematocrit 41.6 % (37.0-47.0); Hemoglobin 13.7 g/dl (12.0-16.0); Imm Gran Abs Auto 0.05 X10*3/uL (0.00-0.03); Imm Gran Pct Auto 0.5 % (0.0-0.4); Lymphocytes Absolute Auto 2.6 X10*3/uL (1.2-4.9); Lymphocytes Percent Auto 25.9 % (20-40); Mean Corpuscular HGB Conc 32.9 g/dl (31.0-35.0); Mean Corpuscular Hemoglobin 32.3 pg (27.0-33.0); Mean Corpuscular Volume 98.1 fL (80.0-98.0); Mean Platelet Volume 9.6 fL (9.4-12.3); Monocytes Absolute Auto 0.8 X10*3/uL (0.1-1.2); Neutrophils Absolute Auto 5.9 x10*3/uL (2.0-8.3); Neutrophils Percent Auto 59.7 % (45-73); Platelet Count 298 X10*3/uL (160-400); Red Blood Count 4.24 X10*6/uL (4.20-5.50); Red Cell Distribution Width 13.4 % (11.0-16.0); White Blood Count 9.8 X10*3/uL (4.8-10.8)
[2023-06-14 15:39] LABS: Estimated Average Glucose 120 mg/dL; Hemoglobin A1c % 5.8 % (<6.0)
[2023-06-14 16:03] LABS: Alanine Aminotransferase 13 U/L (0-31); Albumin Level 3.7 g/dL (3.5-5.0); Alkaline Phosphatase 78 U/L (39-117); Anion Gap 11 (12-20); Aspartate Amino Transferase 13 U/L (5-31); Bilirubin Total 0.5 mg/dL (0.0-1.0); Blood Urea Nitrogen 17 mg/dL (9-16); Calcium 9.3 mg/dL (8.4-10.2); Carbon Dioxide 34 mmol/L (22-29); Chloride 100 mmol/L (96-108); Cholesterol 204 mg/dL (<200); Estimated Glomerular Filt Rate > 60; Glucose Fasting 100 mg/dL (60-99); HDL Cholesterol 66 mg/dL (>40); LDL Cholesterol Calculated 120 mg/dL (<100); Potassium 3.7 mmol/L (3.3-5.1); Sodium 141 mmol/L (135-145); Total Protein 6.9 g/dL (6.5-8.0); Triglycerides 91 mg/dL (<150)
[2023-06-14 16:18] LABS: TSH reflex Free T4 0.59 uIU/mL (0.32-4.0)
[2023-06-14 18:27] LABS: Appearance Urine Clear; Color Urine Yellow; Glucose Urine UA Negative (Negative); Leukocyte Esterase Urine Negative (Negative); Nitrite Urine Negative (Negative); Urine Blood Negative (Negative); Urine Ketones Negative (Negative); Urine Protein Negative (Neg-Trace)
[2023-06-14 18:37] LABS: Creatinine Urine 20.36 mg/dL; Microalbum/Creatinine Ratio Ur 103.1 ug/mg cr (<30)
== END 2023-06-14 13:57 | disposition home or self-care (01) ==
LOC: HO.LAB 13:56
PROVIDERS: PCP Nurse Practitioner Family; Referring Provider Internal Medicine; Visit Provider Internal Medicine
DX: E11.9 Type 2 diabetes mellitus without complications (principal); I10 Essential (primary) hypertension; J44.9 Chronic obstructive pulmonary disease, unspecified; E66.2 Morbid (severe) obesity with alveolar hypoventilation; F17.200 Nicotine dependence, unspecified, uncomplicated; G47.33 Obstructive sleep apnea (adult) (pediatric); R06.89 Other abnormalities of breathing; Z79.899 Other long term (current) drug therapy
CPT/HCPCS: 36415; 80053; 80061; 81003; 82043; 82570; 83036; 84443; 85025; 99212

== ENCOUNTER 2023-06-23 13:40 | Outpatient (AMB) | payer MEDICARE, MEDICAID, SELFPAY ==
--- NOTE | 2023-06-23 13:44 | MHC.OFFVIS ---
Intake Intake Visit Reasons: OV-B/L shoulder pain-discuss cortisone injection Intake Note: Elida is a 68 year old right hand dominant female who presents today with complaints of bilateral shoulder pain. Right shoulder injection done 03/17/23. Allergies Horse/Equine Containing Products [Horse/Equine Product Derivatives] Allergy (Intermediate, Verified 06/23/23 13:44) SWELLING Iodinated Contrast Media [IV CONTRAST] Allergy (Unknown, Verified 06/23/23 13:44) HIVES Medication List - Last Reconciled 06/23/23 by Laura Neal RN albuterol sulfate 2.5 mg inhalation Q6H PRN albuterol sulfate 90 mcg/actuation inhalation Anoro Ellipta 62.5-25 mcg/actuation (umeclidinium-vilanterol) 1 ea PO DAILY NS atorvastatin 40 mg PO DAILY 90 days azithromycin For 250 mg dose pack: take 500 mg today (day 1), then 250 mg for 4 days (days 2-5) PO yksqxtzof-dkbpiogl-rtcmoxy ala 50-200-25 mg (Biktarvy) 1 tab PO DAILY 30 days blood pressure kit med and lrg Use to check blood pressure daily calcium carbonate-vitamin D3 600 mg-10 mcg (400 unit) (Calcium with Vitamin D) 1 tab PO BID 90 days carvedilol 6.25 mg PO Q12H diclofenac sodium 75 mg PO BID PRN doxycycline hyclate 100 mg PO BID 10 days fluticasone propionate 50 mcg/actuation 2 sprays intranasal DAILY furosemide (Lasix) 40 mg PO DAILY ibuprofen 800 mg PO TID PRN 30 days lidocaine 4% 1 patch topical DAILY PRN lisinopril 40 mg PO DAILY 90 days methadone 70 mg PO Q12H Oxygen Home Use 2lpm via NC at night and PRN sob prednisone 20 mg PO BID 5 days [Scooter-motorized As directed] HPI OV-B/L shoulder pain-discuss cortisone injection HPI Details Elida is a 68 year old woman who returns to discuss her right shoulder OA pain. She also complains of worsening left shoulder pain. She complains of pain with daily activity, along with limited ROM. She last had a right shoulder injection on 03/17/23, which was helpful, and denies any prior treatment for her left shoulder. [facility] Medical History Other instability, right shoulder Retinopathy Methadone use Morbid obesity HIV (human immunodeficiency virus infection) Rhinitis Hypoventilation associated with obesity COPD (chronic obstructive pulmonary disease) HIV (human immunodeficiency virus infection) Smoker Morbid obesity Aortic dilatation Hypoventilation syndrome LAURENCE (obstructive sleep apnea) Respiratory failure with hypoxia Lower extremity edema Diastolic heart failure Hyperlipidemia Surgical History History of colonoscopy History of tonsillectomy Family History Father No problems noted. Mother No problems noted. Brother Asthma Maternal Grandfather No problems noted. Maternal Grandmother No problems noted. Paternal Grandfather No problems noted. Paternal Grandmother No problems noted. Brother No problems noted. Brother Substance use disorder Social History Housing: House Alcohol intake: never Patient Tobacco Use Status: Current everyday Tobacco user Tobacco use type: Cigarette Cigarette Packs Per Day: 0.5 Cigarettes Per Day: 10 Years Smoked: 30 +/- e-Cigarette/Vaping Use: Never Used Second Hand Smoke Exposure: Yes service: No Current occupational status: disabled Current occupation: rt hand Cognitive needs: No Hearing needs: No Vision needs: No Review of Systems Const All systems reviewed & are unremarkable except as noted in HPI and below Physical Exam Const General: no acute distress, alert and awake Orientation/consciousness: patient oriented x3 HEENT Head: Yes normocephalic and Yes atraumatic Eyes EOM: EOMs intact bilaterally Resp Effort & Inspection: normal respiratory effort and able to speak in complete sentences Cardio Jugular venous distension: no JVD Skin General skin exam: turgor normal Rashes: no rashes Neuro General: patient oriented x3 Extrem Other: poor posture with painful lo and neer bilaterally painful ec er to 40 deg bilaterally Psych Appearance: grossly normal Affect: normal affect Attitude: cooperative Office Procedures Joint Injection/Drain Joint Injection/Drain Details: Injected 1 mL of Decadron and 3 mL 1% lidocaine and 3 mL of 0.25% Marcaine. Site was prepped using aseptic technique. Patient tolerated the procedure well. Primary Site: right shoulder Secondary Site: left shoulder Approach Used: posterolateral Coding 68552 - Large joint 21880 - Glenohumeral/Tronchanteric Bursa/Intraarticular Procedure code (CPT) selection complete Assessment & Plan Assessment & Plan (1) Bilateral shoulder pain: Code(s): M25.511 - Pain in right shoulder; M25.512 - Pain in left shoulder Plan: Injected both shoulders today. Might be better served in pain management. We discussed this .She is already a patient there. (2) Rotator cuff tear, right: Code(s): M75.101 - Unspecified rotator cuff tear or rupture of right shoulder, not specified as traumatic Plan Prepared for Luis Weber MD by Wilner Medina, medical office asst, on 06/23/23 at 1:46 PM, EST. Coding Level of Care Code Est Pt Level 3 (34011) Diagnoses Bilateral shoulder pain M25.511; M25.512 Rotator cuff tear, right M75.101 CPT Codes Coding - Large joint: 49449 - Large joint ([id number]) Coding - Joint 7: 40373 - Glenohumeral/Tronchanteric Bursa/Intraarticular ([id number])
== END 2023-06-23 14:06 | disposition home or self-care (01) ==
PROVIDERS: PCP Nurse Practitioner Family; Visit Provider Orthopaedic Surgery
DX: M25.511 Pain in right shoulder (principal); M25.512 Pain in left shoulder; M75.101 Unspecified rotator cuff tear or rupture of right shoulder, not specified as traumatic
CPT/HCPCS: 20610; 99213

== ENCOUNTER → 2023-06-23 13:40 | Outpatient (BNVA) | payer MEDICARE, MEDICAID, SELFPAY | PROVIDERS: PCP Nurse Practitioner Family; Visit Provider Orthopaedic Surgery | DX: M25.511 Pain in right shoulder (principal); M25.512 Pain in left shoulder; M75.101 Unspecified rotator cuff tear or rupture of right shoulder, not specified as traumatic | CPT/HCPCS: 20610; 99212; J0665; J1100 ==

== ENCOUNTER 2023-07-11 13:55 | Outpatient (AMB) | payer MEDICARE, MEDICAID, SELFPAY ==
--- NOTE | 2023-07-11 14:31 | A.OFFVIS_ITS ---
Intake Vital Signs 07/11/23 14:33 BP 144/102 H Blood Pressure Location Lt brachial Position Sitting Pulse 86 Pulse Source Pulse Oximeter Temp 98.5 F Temp Source Temporal Artery Scan Pulse Oximetry (%) 93 Oxygen Delivery Method Nasal Cannula Oxygen Flow Rate 4 Intake Visit Reasons: short of breath Intake Note: pt is here for sick visit, short of breath started yesterday, something in chest, cannot swallow or spit, very dry mouth. breathing just doensn't feel right, cannot catch her breath with any exertion. Aeronautical Engineering Technologist Required: No Allergies Horse/Equine Containing Products [Horse/Equine Product Derivatives] Allergy (Intermediate, Verified 07/11/23 15:37) SWELLING Iodinated Contrast Media [IV CONTRAST] Allergy (Unknown, Verified 07/11/23 15:37) HIVES Medication List - Last Reconciled 07/11/23 by Judy Sheridan MD albuterol sulfate 2.5 mg inhalation Q6H PRN albuterol sulfate 90 mcg/actuation inhalation Anoro Ellipta 62.5-25 mcg/actuation (umeclidinium-vilanterol) 1 ea PO DAILY NS atorvastatin 40 mg PO DAILY 90 days iahcaskor-cklhihmu-jbezovp ala 50-200-25 mg (Biktarvy) 1 tab PO DAILY 30 days blood pressure kit med and lrg Use to check blood pressure daily calcium carbonate-vitamin D3 600 mg-10 mcg (400 unit) (Calcium with Vitamin D) 1 tab PO BID 90 days carvedilol 6.25 mg PO Q12H diclofenac sodium 75 mg PO BID PRN fluticasone propionate 50 mcg/actuation 2 sprays intranasal DAILY furosemide (Lasix) 40 mg PO DAILY ibuprofen 800 mg PO TID PRN 30 days lisinopril 40 mg PO DAILY 90 days methadone 70 mg PO Q12H Oxygen Home Use 2lpm via NC at night and PRN sob prednisone 10 mg PO BID 7 days [Scooter-motorized As directed] Do you need a note to return to daycare/school/sports/work: No HPI short of breath HPI Details CAIT IS 68 YEARS OLD FEMALE WITH SUPER MORBID OBESITY, LYMPHEDEMA OF THE LEGS, RELATIVELY IMMOBILE WILD, STAYING MOST LIKELY IN THE WHEELCHAIR, SHE HAS CHRONIC LAURENCE/HYPOVENTILATION SYNDROME. SHE ALSO HAS CHRONIC OBSTRUCTIVE PULMONARY DISEASE/RESTRICTIVE LUNG DISORDER. SHE IS PRONE TO HAVE FREQUENT ACUTE EXACERBATIONS SECONDARY TO CHEST CONGESTION OR CHEST INFECTION. SHE HAS HISTORY OF HIV INFECTION AND IS ON ANTIVIRAL TREATMENT BIKTARVY. SHE HAS CHRONIC BACK PAIN. DISCOMFORT IN THE LEGS AND FEET DUE TO CHRONIC SWELLING. SHE IS STAYING MOSTLY IN THE WHEELCHAIR. SHE DOES USE OXYGEN 2 L/MINUTE, SHE CONTINUES TO USE ANORO ELLIPTA 1 INHALATION DAILY AND ALBUTEROL SOLUTION IN THE NEBULIZER 2 TO 3 TIMES A DAY. JUST ABOUT A MONTH AGO SHE WAS TREATED FOR ACUTE EXACERBATION WITH A COURSE OF DOXYCYCLINE AND PREDNISONE. SINCE YESTERDAY SHE IS AGAIN HAVING INCREASED CHEST CONGESTION WITH COUGH AND MORE SHORTNESS OF BREATH. DOES SHE IS BEING SEEN ON AN URGENT BASIS. SHE DENIES FEVER OR CHILLS. COUNTS INCLUDE 234 BEDS AT THE [facility] Medical History Eosinophilia Bronchitis Other instability, right shoulder Retinopathy Methadone use Morbid obesity HIV (human immunodeficiency virus infection) Rhinitis Hypoventilation associated with obesity COPD (chronic obstructive pulmonary disease) HIV (human immunodeficiency virus infection) Smoker Morbid obesity Aortic dilatation Hypoventilation syndrome LAURENCE (obstructive sleep apnea) Respiratory failure with hypoxia Lower extremity edema Diastolic heart failure Hyperlipidemia Surgical History History of colonoscopy History of tonsillectomy Family History Father No problems noted. Mother No problems noted. Brother Asthma Maternal Grandfather No problems noted. Maternal Grandmother No problems noted. Paternal Grandfather No problems noted. Paternal Grandmother No problems noted. Brother No problems noted. Brother Substance use disorder Social History Housing: House Alcohol intake: never Patient Tobacco Use Status: Current everyday Tobacco user Tobacco use type: Cigarette Cigarette Packs Per Day: 0.5 Cigarettes Per Day: 5 Years Smoked: 30 +/- e-Cigarette/Vaping Use: Never Used Second Hand Smoke Exposure: Yes service: No Current occupational status: disabled Current occupation: rt hand Cognitive needs: No Hearing needs: No Vision needs: No Review of Systems Const All systems reviewed & are unremarkable except as noted in HPI and below Eyes Reports no additional complaints ENT Reports no additional complaints and Reports nasal congestion (OFF AND ON) Card Denies chest pain, Reports leg edema and Reports dyspnea on exertion Resp Reports as per HPI and Reports dyspnea on exertion GI Reports no additional complaints Reports nocturia Musc Reports back pain and Reports arthralgias (BOTH KNEES) Skin/Breast Reports system reviewed and no additional complaints, except as documented Neuro Reports no additional complaints Psych Reports no additional complaints Physical Exam Vital Signs: Last Vital Signs Temp 98.5 F 07/11/23 14:33 Pulse 86 07/11/23 14:33 BP 144/102 H 07/11/23 14:33 Pulse Ox 93 07/11/23 14:33 Oxygen Delivery Method Nasal Cannula 07/11/23 14:33 Oxygen Flow Rate 4 07/11/23 14:33 Const General: comfortable (BUT SLOW IN WALKING), no acute distress, alert and awake Orientation/consciousness: patient oriented x3 HEENT Head: Yes normal to inspection General nose exam: No nasal polyps present and No nasal discharge present Face and sinus: Yes sinuses nontender Mouth: oropharynx abnormals (OROPHARYNX IS EXTREMELY CROWDED MALLAMPATI SCALE 4) Eyes General: appearance normal, both eyes and all related structures Neck Neck: Yes normal visual inspection, Yes no lymphadenopathy, Yes trachea midline and Yes no JVD Thyroid: Thyroid normal Chest Chest palpation & inspection: normal inspection of the chest, normal palpation of entire chest wall and no tenderness Resp Other: HER BREATH SOUNDS ARE DISTANT, WITH PROLONGED EXPIRATORY PHASE. THERE ARE SCATTERED BILATERAL WHEEZES BUT NO CREPITATIONS. Cardio Palpation: PMI not normal (NOT PALPABLE) Rate: regular rate Rhythm: regular rhythm Heart sounds: no gallops and no murmurs GI Palpation (GI): Soft to palpation, nontender, No hepatosplenomegaly present, Hernia present (VENTRAL HERNIATION), no masses and Other GI palpation findings present (ABDOMEN IS OBESE AND PROTUBERANT) Auscultation: normal bowel sounds Back/Spine/Pelvis Thoracic/Lumbar Spine: thoracic and lumbar spine normal to inspection and thoraco-lumbar ROM limited Skin General skin exam: no rashes or lesions noted Neuro General: patient oriented x3 and no focal motor deficits Cranial nerves: Yes CN's II-XII intact bilaterally Extrem General: Yes normal to inspection, Yes no calf tenderness and Yes edema (1+ EDEMA AROUND THE ANKLES) Psych Appearance: grossly normal Speech and movement: Normal speech and movement present Results Reviewed Results Reviewed: REVIEWED HER PREVIOUS LAB VALUES. CBC, ON MULTIPLE DATES HAS SHOWN EOSINOPHILIA ON 06/14/2023 EIOSINOPHIL COUNT = 5.5 % ABSOLUTE COUNT = 0.5 hIGH Assessment & Plan Assessment & Plan (1) Severe chronic obstructive pulmonary disease: Comment: She has chronic obstructive pulmonary disease, relatively severe. Recurrent acute exacerbations, Code(s): J44.9 - Chronic obstructive pulmonary disease, unspecified Plan: Prednisone 10 mg b.i.d. for 1 week. Z-Atif 1 course. Continue regular treatment regimen. Because of her recurrent acute exacerbations, and high eosinophil count. I have ordered to check for IgE level. Patient may benefit from biologic treatment , discussed with her briefly , she does not understand it well and is going. To think about that (2) Morbid obesity: Comment: THIS IS A CHRONIC PROBLEM, SHE IS NOT VERY MOBILE, IT IS ON EXPECTED IN HER CASE TO LOSE WEIGHT. Code(s): E66.01 - Morbid (severe) obesity due to excess calories Plan: as above (3) Hypoventilation associated with obesity: Comment: Patient is known case of LAURENCE/hypoventilation syndrome. The Best treatment would be Weight reduction ,, and use of BIPAP at night .but both are difficult to achieve ( patient was not able to use BiPAP ) Code(s): E66.2 - Morbid (severe) obesity with alveolar hypoventilation Plan: Advised to continue doing deep breathing exercises 3 times a day with pursed lip breathing technique Venous blood gas study is ordered. (4) Smoker: Comment: Continues to smoke, currently bouts 3-4 cigarettes a day. Counseled to quit completely but in her case I do not think she is going to stop completely. Code(s): F17.200 - Nicotine dependence, unspecified, uncomplicated Plan: as above (5) Morbid obesity: Comment: same as before , No scope of loosing weight . Code(s): E66.01 - Morbid (severe) obesity due to excess calories Plan: as above Orders: Orders Immunoglobulin E Today D72.10 - Eosinophilia, unspecified, J44.9 - Chronic obstructive pulmonary disease, unspecified XR chest 2V Today J40 - Bronchitis, not specified as acute or chronic, J44.1 - Chronic obstructive pulmonary disease with (acute) exacerbation, J44.9 - Chronic obstructive pulmonary disease, unspecified, R06.89 - Other abnormalities of ursula athing Venous Blood Gas Today E66.2 - Morbid (severe) obesity with alveolar hypoventilation, J44.9 - Chronic obstructive pulmonary disease, unspecified Medications: New prednisone 10 mg PO BID 7 days 14 tabs 0RF Coding Level of Care Code Est Pt Level 3 (23877) Diagnoses Severe chronic obstructive pulmonary disease J44.9 Morbid obesity E66.01 Hypoventilation associated with obesity E66.2 Smoker F17.200
[2023-07-11 14:33] VITALS: BP 144/102; PULSE 86; TEMP 36.9; O2SAT 93
== END 2023-07-11 14:59 | disposition home or self-care (01) ==
PROVIDERS: PCP Nurse Practitioner Family; Visit Provider Internal Medicine
DX: J44.9 Chronic obstructive pulmonary disease, unspecified (principal); E66.2 Morbid (severe) obesity with alveolar hypoventilation; F17.210 Nicotine dependence, cigarettes, uncomplicated
CPT/HCPCS: 99213

== ENCOUNTER 2023-07-11 13:55 | Outpatient (REF) | payer MEDICARE, MEDICAID, SELFPAY ==
--- NOTE | ~2023-07-11 | XR_ITS ---
EXAMINATION: XR CHEST CLINICAL INFORMATION: Chronic obstructive pulmonary disease. COMPARISON: CT chest 09/24/2022. Chest radiograph 06/12/2022. TECHNIQUE: 2 views of the chest were obtained. FINDINGS: Stable prominence of the cardiomediastinal silhouette with unchanged asymmetric haziness overlying the right lower lobe/right middle lobe in keeping with a prominent epicardial fat pad. Diffuse interstitial coarsening/thickening is similar to slightly increased. Slightly increased bibasilar platelike opacities. No new focal consolidation. No pleural effusion or pneumothorax. Thoracic spondylosis. No acute osseous findings. XR/XR chest 2V IMPRESSION: 1. Diffuse interstitial coarsening/thickening is similar to slightly increased suggestive of acute small airways disease within a background of chronic COPD. 2. Bibasilar streaky opacities are mildly increased most suggestive of subsegmental atelectasis.
[2023-07-11 15:22] LABS: VBG Base Excess 14.2 mmol/L; VBG HCO3 40 mmol/L (22-26); VBG pCO2 57 mmHg; VBG pH 7.46 (7.32-7.43); VBG pO2 52 mmHg
[2023-07-11 15:33] LABS: Venous Blood Gas Refer to POC result
== END 2023-07-11 13:56 | disposition home or self-care (01) ==
LOC: HO.XRAY 13:55
PROVIDERS: PCP Nurse Practitioner Family; Visit Provider Internal Medicine
DX: J44.1 Chronic obstructive pulmonary disease with (acute) exacerbation (principal); J44.9 Chronic obstructive pulmonary disease, unspecified; J40 Bronchitis, not specified as acute or chronic; R06.89 Other abnormalities of breathing; E66.2 Morbid (severe) obesity with alveolar hypoventilation
CPT/HCPCS: 36415; 71046; 82803; 99212

== ENCOUNTER 2023-08-03 12:58 | Outpatient (AMB) | payer MEDICARE, MEDICAID, SELFPAY ==
--- NOTE | 2023-08-03 13:03 | MHC.OFFVIS ---
Intake Vital Signs 08/03/23 13:04 Height 5 ft 10 in BP 150/82 H Blood Pressure Location Lt brachial Position Sitting Pulse 67 Pulse Source Pulse Oximeter Pulse Oximetry (%) 95 Oxygen Delivery Method Nasal Cannula Oxygen Flow Rate 4 Intake Visit Reasons: copd Intake Note: pt is here for sick visit, unable to breath, especially in am. Director Workforce Management Required: No Allergies Horse/Equine Containing Products [Horse/Equine Product Derivatives] Allergy (Intermediate, Verified 08/03/23 16:02) SWELLING Iodinated Contrast Media [IV CONTRAST] Allergy (Unknown, Verified 08/03/23 16:02) HIVES Medication List - Last Reconciled 08/03/23 by Judy Sheridan MD albuterol sulfate 90 mcg/actuation inhalation albuterol sulfate 2.5 mg (3 mL) inhalation Q6H PRN Anoro Ellipta 62.5-25 mcg/actuation (umeclidinium-vilanterol) 1 ea PO DAILY NS atorvastatin 40 mg PO DAILY 90 days [id number]-zvrmivny-onleyvg ala 50-200-25 mg (Biktarvy) 1 tab PO DAILY 30 days blood pressure kit med and lrg Use to check blood pressure daily calcium carbonate-vitamin D3 600 mg-10 mcg (400 unit) (Calcium with Vitamin D) 1 tab PO BID 90 days carvedilol 6.25 mg PO Q12H diclofenac sodium 75 mg PO BID PRN fluticasone propionate 50 mcg/actuation 2 sprays intranasal DAILY furosemide (Lasix) 40 mg PO DAILY ibuprofen 800 mg PO TID PRN 30 days lisinopril 40 mg PO DAILY 90 days methadone 70 mg PO Q12H Oxygen Home Use 2lpm via NC at night and PRN sob prednisone 10 mg PO BID 7 days prednisone 10 mg PO DAILY 14 days MDD 10 MG [Scooter-motorized As directed] Do you need a note to return to daycare/school/sports/work: No HPI copd HPI Details Elida marroquin , 68 years old morbidly obese female, presents today for an urgent visit because she is having increased difficulty in breathing especially in the morning hours. She has had no acute infection at this time, gives history that as soon as she comes off prednisone she starts having increased cough and shortness of breath. This patient has difficulty in sleeping at night because of breathing episodes, even though she sleeps with O2 2 L/minute. During the daytime she remains very tired and sleepy. She is still smoking about 3-5 cigarettes a day , has not been able to quit and wants to try nicotine patch. Patient does have past history of hypoventilation syndrome and history of being intubated and on the vent support for treatment of acute on chronic respiratory failure. She had been prescribed BiPAP, treatment but she did not tolerate the face mask . Say is she felt claustrophobic . REPLACED BY [facility] Medical History (Updated 08/03/23 @ 16:17 by Judy Sheridan MD) Respiratory failure with hypoxia and hypercapnia Eosinophilia Bronchitis Other instability, right shoulder Retinopathy Methadone use Morbid obesity HIV (human immunodeficiency virus infection) Rhinitis Hypoventilation associated with obesity COPD (chronic obstructive pulmonary disease) HIV (human immunodeficiency virus infection) Smoker Morbid obesity Aortic dilatation Hypoventilation syndrome LAURENCE (obstructive sleep apnea) Respiratory failure with hypoxia Lower extremity edema Diastolic heart failure Hyperlipidemia Surgical History History of colonoscopy History of tonsillectomy Family History Father No problems noted. Mother No problems noted. Brother Asthma Maternal Grandfather No problems noted. Maternal Grandmother No problems noted. Paternal Grandfather No problems noted. Paternal Grandmother No problems noted. Brother No problems noted. Brother Substance use disorder Social History Housing: House Alcohol intake: never Patient Tobacco Use Status: Current everyday Tobacco user Tobacco use type: Cigarette Cigarette Packs Per Day: 0.5 Cigarettes Per Day: 5 Years Smoked: 30 +/- e-Cigarette/Vaping Use: Never Used Second Hand Smoke Exposure: Yes service: No Current occupational status: disabled Current occupation: rt hand Cognitive needs: No Hearing needs: No Vision needs: No Review of Systems Const All systems reviewed & are unremarkable except as noted in HPI and below Eyes Reports no additional complaints ENT Reports no additional complaints and Reports nasal congestion (OFF AND ON) Card Denies chest pain, Reports leg edema and Reports dyspnea on exertion Resp Reports as per HPI and Reports dyspnea on exertion GI Reports no additional complaints Reports nocturia Musc Reports back pain and Reports arthralgias (BOTH KNEES) Skin/Breast Reports system reviewed and no additional complaints, except as documented Neuro Reports no additional complaints Psych Reports no additional complaints Physical Exam Vital Signs: Last Vital Signs Pulse 67 08/03/23 13:04 BP 150/82 H 08/03/23 13:04 Pulse Ox 95 08/03/23 13:04 Oxygen Delivery Method Nasal Cannula 08/03/23 13:04 Oxygen Flow Rate 4 08/03/23 13:04 Const General: comfortable (BUT SLOW IN WALKING), no acute distress, alert and awake Orientation/consciousness: patient oriented x3 HEENT Head: Yes normal to inspection General nose exam: No nasal polyps present and No nasal discharge present Face and sinus: Yes sinuses nontender Mouth: oropharynx abnormals (OROPHARYNX IS EXTREMELY CROWDED MALLAMPATI SCALE 4) Eyes General: appearance normal, both eyes and all related structures Neck Neck: Yes normal visual inspection, Yes no lymphadenopathy, Yes trachea midline and Yes no JVD Thyroid: Thyroid normal Chest Chest palpation & inspection: normal inspection of the chest, normal palpation of entire chest wall and no tenderness Resp Other: HER BREATH SOUNDS ARE DISTANT, WITH PROLONGED EXPIRATORY PHASE. THERE ARE SCATTERED BILATERAL WHEEZES BUT NO CREPITATIONS. Cardio Palpation: PMI not normal (NOT PALPABLE) Rate: regular rate Rhythm: regular rhythm Heart sounds: no gallops and no murmurs GI Palpation (GI): Soft to palpation, nontender, No hepatosplenomegaly present, Hernia present (VENTRAL HERNIATION), no masses and Other GI palpation findings present (ABDOMEN IS OBESE AND PROTUBERANT) Auscultation: normal bowel sounds Back/Spine/Pelvis Thoracic/Lumbar Spine: thoracic and lumbar spine normal to inspection and thoraco-lumbar ROM limited Skin General skin exam: no rashes or lesions noted Neuro General: patient oriented x3 and no focal motor deficits Cranial nerves: Yes CN's II-XII intact bilaterally Extrem General: Yes normal to inspection, Yes no calf tenderness and Yes edema (1+ EDEMA AROUND THE ANKLES) Psych Appearance: grossly normal Speech and movement: Normal speech and movement present Results Reviewed Results Reviewed: Venous blood gas study on 07/11/2023. PH 7.46, PCO2 57, PO2 OF 52 C/W CHRONIC RESPIRATORY FAILURE Assessment & Plan Assessment & Plan (1) Severe chronic obstructive pulmonary disease: Comment: She has chronic obstructive pulmonary disease, relatively severe. Recurrent acute exacerbations, also has mild to moderate eosinophilia. Code(s): J44.9 - Chronic obstructive pulmonary disease, unspecified Plan: Prednisone 5 mg daily is ordered, to control reduce the frequency. Of acute exacerbations Continue Anoro Ellipta 1 inhalation daily Albuterol 2.5 mg in nebulizer Q 6 hours p.r.n., may use up to 3 times a day Alternatively may use albuterol HFA 2 puffs Q 4-6 hours p.r.n. (2) Hypoventilation associated with obesity: Comment: Patient is known case of LAURENCE/hypoventilation syndrome. The Best treatment would be Weight reduction ,, and use of BIPAP at night .but both are difficult to achieve ( patient was not able to use BiPAP ) Code(s): E66.2 - Morbid (severe) obesity with alveolar hypoventilation Plan: I explained to her that she needs to have noninvasive ventilatory support ( CPAP or BIPAP ) at night. She has agreed to accept the treatment. May need mild says sedation before she puts on the mask.. I will request a sleep study in the sleep lab, to check her for sleep apnea and then do the titration as needed. (3) Smoker: Comment: Continues to smoke, currently bouts 3-4 cigarettes a day. Code(s): F17.200 - Nicotine dependence, unspecified, uncomplicated Plan: Counseled to quit completely but in her case I do not think she is going to stop completely. SHE REQUEST NICOTINE PATCH AND I HAVE SENT PRESCRIPTION FOR NICOTINE PATCH 14 MCG DAILY. (4) Morbid obesity: Comment: same as before , No scope of loosing weight . Code(s): E66.01 - Morbid (severe) obesity due to excess calories Plan: ABOVE (5) Respiratory failure with hypoxia and hypercapnia: Comment: SHE HAS CHRONIC HYPERCAPNIA AND HYPOXEMIA. HYPOXEMIA IS CORRECTED. WITH USE OF O2 Code(s): J96.91 - Respiratory failure, unspecified with hypoxia; J96.92 - Respiratory failure, unspecified with hypercapnia Plan: FOR HYPERCAPNIA I INSTRUCTED HER TO DO DEEP BREATHING EXERCISES WITH PURSED LIP TECHNIQUE 3 TO 4 TIMES A DAY. TO BE EVALUATED IN THE SLEEP LAB FOR POSSIBILITY OF SLEEP APNEA AND THEN TO BE STARTED ON CPAP OR BIPAP THERAPY. Orders: Orders RT PSG in-lab sleep study Today E66.01 - Morbid (severe) obesity due to excess calories, G47.33 - Obstructive sleep apnea (adult) (pediatric) Medications: New nicotine 1 patch transdermal DAILY 28 days 28 ea 2RF SMOKING prednisone 5 mg PO DAILY 30 days 30 tabs 3RF COPD Coding Level of Care Code Est Pt Level 4 (53169) Diagnoses Severe chronic obstructive pulmonary disease J44.9 Hypoventilation associated with obesity E66.2 Smoker F17.200 Morbid obesity E66.01 Respiratory failure with hypoxia and hypercapnia J96.91; J96.92
[2023-08-03 13:04] VITALS: BP 150/82; PULSE 67; O2SAT 95
== END 2023-08-03 13:47 | disposition home or self-care (01) ==
PROVIDERS: PCP Nurse Practitioner Family; Visit Provider Internal Medicine
DX: J44.9 Chronic obstructive pulmonary disease, unspecified (principal); E66.2 Morbid (severe) obesity with alveolar hypoventilation; F17.210 Nicotine dependence, cigarettes, uncomplicated; J96.91 Respiratory failure, unspecified with hypoxia; J96.92 Respiratory failure, unspecified with hypercapnia
CPT/HCPCS: 99214

== ENCOUNTER → 2023-08-03 12:58 | Outpatient (BNVA) | payer MEDICARE, MEDICAID, SELFPAY | PROVIDERS: PCP Nurse Practitioner Family; Visit Provider Internal Medicine | DX: J44.9 Chronic obstructive pulmonary disease, unspecified (principal); J96.91 Respiratory failure, unspecified with hypoxia; J96.92 Respiratory failure, unspecified with hypercapnia; E66.2 Morbid (severe) obesity with alveolar hypoventilation; F17.210 Nicotine dependence, cigarettes, uncomplicated | CPT/HCPCS: 99212 ==

== ENCOUNTER 2023-08-22 13:28 | Outpatient (REF) | payer MEDICARE, MEDICAID, SELFPAY ==
[2023-08-22 13:47] LABS: MANUAL DIFF FLAG NO
[2023-08-22 14:14] LABS: Basophils Percent Auto 0.4 % (0-2); Eosinophils Absolute Auto 0.5 X10*3/uL (0.0-0.4); Eosinophils Percent Auto 5.3 % (0-4); Hematocrit 40.3 % (37.0-47.0); Hemoglobin 13.5 g/dl (12.0-16.0); Imm Gran Abs Auto 0.03 X10*3/uL (0.00-0.03); Imm Gran Pct Auto 0.3 % (0.0-0.4); Lymphocytes Absolute Auto 1.7 X10*3/uL (1.2-4.9); Lymphocytes Percent Auto 18.5 % (20-40); Mean Corpuscular HGB Conc 33.5 g/dl (31.0-35.0); Mean Corpuscular Hemoglobin 33.1 pg (27.0-33.0); Mean Corpuscular Volume 98.8 fL (80.0-98.0); Mean Platelet Volume 9.8 fL (9.4-12.3); Monocytes Absolute Auto 0.7 X10*3/uL (0.1-1.2); Monocytes Percent Auto 7.8 % (2-11); Neutrophils Percent Auto 67.7 % (45-73); Platelet Count 340 X10*3/uL (160-400); Red Blood Count 4.08 X10*6/uL (4.20-5.50); Red Cell Distribution Width 13.1 % (11.0-16.0); White Blood Count 8.9 X10*3/uL (4.8-10.8)
[2023-08-22 14:53] LABS: Alanine Aminotransferase 16 U/L (0-31); Albumin Level 3.8 g/dL (3.5-5.0); Alkaline Phosphatase 97 U/L (39-117); Anion Gap 12 (12-20); Aspartate Amino Transferase 14 U/L (5-31); Bilirubin Direct 0.2 mg/dL (0.0-0.5); Bilirubin Total 0.5 mg/dL (0.0-1.0); Blood Urea Nitrogen 14 mg/dL (9-16); Calcium 9.2 mg/dL (8.4-10.2); Carbon Dioxide 33 mmol/L (22-29); Chloride 100 mmol/L (96-108); Estimated Glomerular Filt Rate > 60; Glucose Random 93 mg/dL (60-115); Potassium 3.7 mmol/L (3.3-5.1); Sodium 141 mmol/L (135-145)
[2023-08-23 10:38] LABS: Absolute CD3 Count 1241 cells/uL (840-3060); Absolute CD4 Count 521 cells/uL (490-1740); Absolute CD8 Count 753 cells/uL (180-1170); Absolute Lymphocytes 1746 cells/uL (850-3900); CD4 CD8 Ratio 0.69 (0.86-5.00); Percent CD3 Cells 71 % (57-85); Percent CD4 Cells 30 % (30-61); Percent CD8 Cells 43 % (12-42)
[2023-08-24 17:24] LABS: HIV RNA PCR Qn Copies 33 copies/mL (NOT DETECTED); HIV RNA PCR Qn Log Copies 1.52 (NOT DETECTED)
== END 2023-08-22 13:29 | disposition home or self-care (01) ==
LOC: HO.LAB 13:28
PROVIDERS: PCP Nurse Practitioner Family; Visit Provider Internal Medicine
DX: B20 Human immunodeficiency virus [HIV] disease (principal); M17.0 Bilateral primary osteoarthritis of knee; F11.90 Opioid use, unspecified, uncomplicated; Z99.81 Dependence on supplemental oxygen
CPT/HCPCS: 36415; 80048; 80076; 85025; 86359; 86360; 87536; 99212

== ENCOUNTER 2023-08-22 14:51 | Outpatient (AMB) | payer MEDICARE, MEDICAID, SELFPAY ==
--- NOTE | 2023-08-22 14:53 | A.OFFVIS_ITS ---
Intake Vital Signs 08/22/23 14:57 Height 5 ft 10 in Weight 250 lb BMI 35.9 BP 181/85 H Blood Pressure Location Lt brachial Position Sitting Pulse 80 Pulse Source Pulse Oximeter Pulse Oximetry (%) 91 L Oxygen Delivery Method Nasal Cannula Oxygen Flow Rate 2 Intake Visit Reasons: Knee pain Intake Note: Pain today 03/15 Targeteer Required: No Accompanied by: Family/Other Allergies Horse/Equine Containing Products [Horse/Equine Product Derivatives] Allergy (Intermediate, Verified 08/22/23 14:58) SWELLING Iodinated Contrast Media [IV CONTRAST] Allergy (Unknown, Verified 08/22/23 14:58) HIVES HPI HPI Comments History of Present Illness Details Patient is a 68 years old female with complex medical medical history, O2 dependant, COPD, obesity, OA, methadone use presents today for follow up for bilateral knee pain. She was last seen in our office in 2021 with plans for gel injections which she completed in Orthopedic office on 04/25/23. She reports mild to moderate pain relief with minimal function improvement. Patient is not interested in repeating Sprint PNS trial. Her genicular RFA was previously denied by her insurance. Patient reports her will change in 2 days and she might reconsider genicular nerve blocks for potential RFA. She is really hoping to undergo bilateral knee replacement but was told she is candidate due to pulmonary status. Denies any recent cough, cold, infection, fever, any significant changes in her medical history, medications or recent hospitalizations. Patient reports she is currently at PT for exacerbation of right shoulder pain. She ambulates with walker which has been difficult to manage with right hand. She reports PT and HEP has been helpful. PRIOR Dr. Aguirre 03/26/22: Patient is a 66-year-old female presenting for a follow-up to discuss next steps. Patient reports she has not had her X-ray of the right femur done yet as she mistakenly thought she would receive a call to schedule it. She is interested in trialing Synvisc injections to her knees prior to trying any other therapy. Our previously planned intervention of genicular nerve blocks for consideration of genicular RFA was denied by her insurance. Past Procedures: 02/03/22: PNS Trial ? Failed trial due to inadvertent lead removal. 10/21/21: Left Diagnostic Saphenous Nerve Block ? 70% relief. 09/02/21: Right Diagnostic NB at Adductor Canal (lido 1%) ? 80% relief that is ongoing. [facility] Medical History Respiratory failure with hypoxia and hypercapnia Eosinophilia Bronchitis Other instability, right shoulder Retinopathy Methadone use Morbid obesity HIV (human immunodeficiency virus infection) Rhinitis Hypoventilation associated with obesity COPD (chronic obstructive pulmonary disease) HIV (human immunodeficiency virus infection) Smoker Morbid obesity Aortic dilatation Hypoventilation syndrome LAURENCE (obstructive sleep apnea) Respiratory failure with hypoxia Lower extremity edema Diastolic heart failure Hyperlipidemia Surgical History History of colonoscopy History of tonsillectomy Family History Father No problems noted. Mother No problems noted. Brother Asthma Maternal Grandfather No problems noted. Maternal Grandmother No problems noted. Paternal Grandfather No problems noted. Paternal Grandmother No problems noted. Brother No problems noted. Brother Substance use disorder Social History Housing: House Alcohol intake: never Patient Tobacco Use Status: Current everyday Tobacco user Tobacco use type: Cigarette Cigarette Packs Per Day: 0.5 Cigarettes Per Day: 5 Years Smoked: 30 +/- e-Cigarette/Vaping Use: Never Used Second Hand Smoke Exposure: Yes service: No Current occupational status: disabled Current occupation: rt hand Cognitive needs: No Hearing needs: No Vision needs: No Review of Systems Const All systems reviewed & are unremarkable except as noted in HPI and below Physical Exam General: Appears afebrile. Alert and oriented. Mood and affect appropriate. Follows and participates in conversation appropriately. Respiratory effort is unlabored. No cough. Able to transition from sit to stand with assistance of walker. O2 dependant @2L Ambulates with bilaterally normal heel strike and toe off, reports bilateral knee buckling and imbalance. Extrem General: Yes capillary refill normal, No no calf tenderness and Yes pedal edema Right lower extremity: knee (limited ROM due to pain) Details: tenderness Location: of the medial joint line and crepitus; no swelling, no ecchymosis and no unusual warmth Left lower extremity: knee (limited ROM due to pain) Details: tenderness Location: of the medial joint line and crepitus; no swelling, no ecchymosis and no unusual warmth Results Reviewed Results Reviewed: BILATERAL KNEE X-RAY 07/21/21 COMPARISON: Previous x-rays most recent November 2020 FINDINGS: Right: There is varus angulation. Bone alignment is otherwise normal. No fracture or dislocation is seen. There is arthritis at the medial femoral tibial and patellofemoral joints. There is a large joint effusion. Left: There is varus angulation. Bone alignment is otherwise normal. No fracture or dislocation is seen. There is arthritis at the femoral tibial and patellofemoral joints. There is a small joint effusion. IMPRESSION: Bilateral varus angulation and arthritis. Large right joint effusion. Small left joint effusion. Assessment & Plan Assessment & Plan (1) Left knee pain: Code(s): M25.562 - Pain in left knee (2) Right knee pain: Code(s): M25.561 - Pain in right knee (3) Chronic pain syndrome: Code(s): G89.4 - Chronic pain syndrome (4) Bilateral primary osteoarthritis of knee: Code(s): M17.0 - Bilateral primary osteoarthritis of knee (5) Methadone use: Code(s): F11.90 - Opioid use, unspecified, uncomplicated (6) Oxygen dependent: Code(s): Z99.81 - Dependence on supplemental oxygen Plan Discussed interventional treatments for chronic bilateral knee pain due to OA. She had good but temporary pain relief with viscosupplementation treatment last year. Patient failed Sprint PNS trial with us in 2021. Unfortunately, genicular RFA was denied by her insurance previously. Patient reports upcoming insurance change in a few days. We will reconsider genicular nerve blocks with her new insurance once patient updates us. In meantime, patient is planning to follow up with Dr. Weber to discuss potential TKA procedure with spinal anesthesia. She is aware she is not candidate for GA. She follows regularly with Crime Scene Evidence Technician Dr. Sheridan. Script provided for low dose gabapentin. Side effects, safety and precautions were discussed with patient in greater detail. Patient will inform her provider [facility] prior to filling this script. All questions and concerns have been answered and patient agreed with the plan. Follow up for medication review and sooner as needed. Medications: New gabapentin 100 mg PO TID 30 days PRN 90 caps 0RF pain G89.4 - Chronic pain syndrome, M17.0 - Bilateral primary osteoarthritis of knee, M25.561 - Pain in right knee, M25.562 - Pain in left knee Coding Level of Care Code Est Pt Level 4 (20232) Diagnoses Left knee pain M25.562 Right knee pain M25.561 Chronic pain syndrome G89.4 Bilateral primary osteoarthritis of knee M17.0 Methadone use F11.90 Oxygen dependent Z99.81
[2023-08-22 14:57] VITALS: BP 181/85; PULSE 80; O2SAT 91; BMI 35.9
== END 2023-08-22 15:44 | disposition home or self-care (01) ==
PROVIDERS: PCP Nurse Practitioner Family; Visit Provider Nurse Practitioner Family
DX: G89.4 Chronic pain syndrome (principal); M25.562 Pain in left knee; M25.561 Pain in right knee; Z79.891 Long term (current) use of opiate analgesic; M17.0 Bilateral primary osteoarthritis of knee; Z99.81 Dependence on supplemental oxygen
CPT/HCPCS: 99214

== ENCOUNTER → 2023-08-23 20:30 | Outpatient (REF) | payer MEDICARE, MEDICAID, SELFPAY | LOC: HO.SL 20:30 | PROVIDERS: PCP Nurse Practitioner Family; Visit Provider Internal Medicine | DX: G47.33 Obstructive sleep apnea (adult) (pediatric) (principal); R06.83 Snoring; G47.61 Periodic limb movement disorder; E66.01 Morbid (severe) obesity due to excess calories; Z99.81 Dependence on supplemental oxygen; Z79.899 Other long term (current) drug therapy | CPT/HCPCS: 95810 ==

== ENCOUNTER → 2023-08-23 20:30 | Outpatient (BNV) | payer MEDICARE, MEDICAID, SELFPAY | PROVIDERS: PCP Nurse Practitioner Family; Visit Provider Internal Medicine | DX: G47.33 Obstructive sleep apnea (adult) (pediatric) (principal); G47.61 Periodic limb movement disorder | CPT/HCPCS: 95810 ==

== ENCOUNTER 2023-09-01 13:28 | Outpatient (AMB) | payer MEDICARE, MEDICAID, SELFPAY ==
--- NOTE | 2023-09-01 13:30 | A.OFFVIS_ITS ---
Intake Intake Visit Reasons: ov- B/L knee OA - discuss TKA Intake Note: Elida is a 68 year old female who presents today for a follow up of bilateral knee OA. Last Euflexxa injection administered to both knees on 04/25/23. She presents today to discuss TKA, but is aware she is not candidate for general anesthesia. Spinal anesthesia is an option she would like to discuss. Allergies Horse/Equine Containing Products [Horse/Equine Product Derivatives] Allergy (Intermediate, Verified 08/22/23 14:58) SWELLING Iodinated Contrast Media [IV CONTRAST] Allergy (Unknown, Verified 08/22/23 14:58) HIVES HPI ov- B/L knee OA - discuss TKA HPI Details Elida returns toay continuing to complain of bilateral knee pain. She continues to be unable to ambulate. She is frustrated as she wants to be more ambulatory and I have previously discouraged her from arthroplasty because of her comorbidities. She reports taht her knees do not allow her to walk without severe pain. She does have severe knee OA [facility] Medical History Respiratory failure with hypoxia and hypercapnia Eosinophilia Bronchitis Other instability, right shoulder Retinopathy Methadone use Morbid obesity HIV (human immunodeficiency virus infection) Rhinitis Hypoventilation associated with obesity COPD (chronic obstructive pulmonary disease) HIV (human immunodeficiency virus infection) Smoker Morbid obesity Aortic dilatation Hypoventilation syndrome LAURENCE (obstructive sleep apnea) Respiratory failure with hypoxia Lower extremity edema Diastolic heart failure Hyperlipidemia Surgical History History of colonoscopy History of tonsillectomy Family History Father No problems noted. Mother No problems noted. Brother Asthma Maternal Grandfather No problems noted. Maternal Grandmother No problems noted. Paternal Grandfather No problems noted. Paternal Grandmother No problems noted. Brother No problems noted. Brother Substance use disorder Social History Housing: House Alcohol intake: never Patient Tobacco Use Status: Current everyday Tobacco user Tobacco use type: Cigarette Cigarette Packs Per Day: 0.5 Cigarettes Per Day: 5 Years Smoked: 30 +/- e-Cigarette/Vaping Use: Never Used Second Hand Smoke Exposure: Yes service: No Current occupational status: disabled Current occupation: rt hand Cognitive needs: No Hearing needs: No Vision needs: No Physical Exam Const General: cooperative Nutritional Appearance: obese Extrem Other: Varus thrust with gait 2+ varus instability Assessment & Plan Assessment & Plan (1) Respiratory failure with hypoxia and hypercapnia: Comment: SHE HAS CHRONIC HYPERCAPNIA AND HYPOXEMIA. HYPOXEMIA IS CORRECTED. WITH USE OF O2 Code(s): J96.91 - Respiratory failure, unspecified with hypoxia; J96.92 - Respiratory failure, unspecified with hypercapnia Plan: (2) Osteoarthritis of knees, bilateral: Code(s): M17.0 - Bilateral primary osteoarthritis of knee Plan: 68 yo F with severe bilateral knee OA. She is unable to ambulate and in the absence of comorbidities arthroplasty would be indicated. At this point in time however I recommend continued weight loss and strengthening as she is not currently a surgical candidate. (3) HIV (human immunodeficiency virus infection): Comment: She is doing well She has no complaints Her CD4 count has increased and she takes Biktarvy regularly and viral load undetectable. Code(s): B20 - Human immunodeficiency virus [HIV] disease Plan: (4) Severe chronic obstructive pulmonary disease: Comment: She has chronic obstructive pulmonary disease, relatively severe. Recurrent acute exacerbations, also has mild to moderate eosinophilia. Code(s): J44.9 - Chronic obstructive pulmonary disease, unspecified Plan: (5) Chronic pain syndrome: Code(s): G89.4 - Chronic pain syndrome Plan: (6) Morbid obesity: Comment: THIS IS A CHRONIC PROBLEM, SHE IS NOT VERY MOBILE, IT IS ON EXPECTED IN HER CASE TO LOSE WEIGHT. Code(s): E66.01 - Morbid (severe) obesity due to excess calories Plan: Coding Level of Care Code Est Pt Level 4 (23369) Diagnoses Respiratory failure with hypoxia and hypercapnia J96.91; J96.92 Osteoarthritis of knees, bilateral M17.0 HIV (human immunodeficiency virus infection) B20 Severe chronic obstructive pulmonary disease J44.9 Chronic pain syndrome G89.4 Morbid obesity E66.01
== END 2023-09-01 14:19 | disposition home or self-care (01) ==
PROVIDERS: PCP Nurse Practitioner Family; Visit Provider Orthopaedic Surgery
DX: M17.0 Bilateral primary osteoarthritis of knee (principal); J96.91 Respiratory failure, unspecified with hypoxia; J96.92 Respiratory failure, unspecified with hypercapnia; B20 Human immunodeficiency virus [HIV] disease; J44.9 Chronic obstructive pulmonary disease, unspecified; G89.4 Chronic pain syndrome
CPT/HCPCS: 99214

== ENCOUNTER → 2023-09-01 13:28 | Outpatient (BNVA) | payer MEDICARE, MEDICAID, SELFPAY | PROVIDERS: PCP Nurse Practitioner Family; Visit Provider Orthopaedic Surgery | DX: M17.0 Bilateral primary osteoarthritis of knee (principal); G89.4 Chronic pain syndrome; E66.01 Morbid (severe) obesity due to excess calories; J96.91 Respiratory failure, unspecified with hypoxia; J96.92 Respiratory failure, unspecified with hypercapnia; J44.9 Chronic obstructive pulmonary disease, unspecified; B20 Human immunodeficiency virus [HIV] disease | CPT/HCPCS: 99212 ==

== ENCOUNTER 2023-09-05 11:28 | Outpatient (AMB) | payer MEDICARE, MEDICAID, SELFPAY ==
--- NOTE | 2023-09-05 11:32 | MHC.OFFVIS ---
Intake Vital Signs 09/05/23 11:37 Height 5 ft 10 in Pulse 78 Pulse Source Pulse Oximeter Pulse Oximetry (%) 91 L Intake Visit Reasons: 6 mth ,f/u,Lab Allergies Horse/Equine Containing Products [Horse/Equine Product Derivatives] Allergy (Intermediate, Verified 09/05/23 11:38) SWELLING Iodinated Contrast Media [IV CONTRAST] Allergy (Unknown, Verified 09/05/23 11:38) HIVES HPI 6 mth ,f/u,Lab HPI Details She is doing well. She has CD4 count of 521 and viral load 33. She has been following with PCP. [facility] Medical History Respiratory failure with hypoxia and hypercapnia Eosinophilia Bronchitis Other instability, right shoulder Retinopathy Methadone use Morbid obesity HIV (human immunodeficiency virus infection) Rhinitis Hypoventilation associated with obesity COPD (chronic obstructive pulmonary disease) HIV (human immunodeficiency virus infection) Smoker Morbid obesity Aortic dilatation Hypoventilation syndrome LAURENCE (obstructive sleep apnea) Respiratory failure with hypoxia Lower extremity edema Diastolic heart failure Hyperlipidemia Surgical History History of colonoscopy History of tonsillectomy Family History Father No problems noted. Mother No problems noted. Brother Asthma Maternal Grandfather No problems noted. Maternal Grandmother No problems noted. Paternal Grandfather No problems noted. Paternal Grandmother No problems noted. Brother No problems noted. Brother Substance use disorder Social History Housing: House Alcohol intake: never Patient Tobacco Use Status: Current everyday Tobacco user Tobacco use type: Cigarette Cigarette Packs Per Day: 0.5 Cigarettes Per Day: 5 Years Smoked: 30 +/- e-Cigarette/Vaping Use: Never Used Second Hand Smoke Exposure: Yes service: No Current occupational status: disabled Current occupation: rt hand Cognitive needs: No Hearing needs: No Vision needs: No Review of Systems Const All systems reviewed & are unremarkable except as noted in HPI and below Physical Exam Vital Signs: Last Vital Signs Pulse 78 09/05/23 11:37 Pulse Ox 91 L 09/05/23 11:37 Const General: cooperative Orientation/consciousness: patient oriented x3 HEENT Head: Yes normal to inspection Mouth: Normal oral and palatal mucosa present Eyes General: appearance normal, both eyes and all related structures Pupils: Equal, round and reactive pupils present Resp Effort & Inspection: normal respiratory effort Cardio Rate: regular rate Rhythm: regular rhythm GI Palpation (GI): Soft to palpation and nontender General: Yes no CVA tenderness Back/Spine/Pelvis Back: no CVA tenderness Skin General skin exam: no rashes or lesions noted Neuro General: patient oriented x3 Cranial nerves: Yes CN's II-XII intact bilaterally and Yes Equal, round and reactive pupils present Extrem General: Yes normal to inspection Psych Appearance: grossly normal Assessment & Plan Assessment & Plan (1) HIV (human immunodeficiency virus infection): Comment: She is doing well She has no complaints She has slightly elevated viral load ?adherence but only 33 and CD4 count 521 on 08/21. Code(s): B20 - Human immunodeficiency virus [HIV] disease Plan: Continue Biktarvy. See in six months. Labs and refills done. Adherence stressed. Follow with PCP. (2) HIV (human immunodeficiency virus infection): Comment: She is doing well and taking Biktarvy regularly I told her she is not at much risk for osteoporosis from HIV medication She takes oxygen for COPD Code(s): B20 - Human immunodeficiency virus [HIV] disease Plan: na Orders: Orders HIV-1 RNA QN PCR Expanded 5 Months B20 - Human immunodeficiency virus [HIV] disease Lymphocyte Subset Panel 3 5 Months B20 - Human immunodeficiency virus [HIV] disease Complete Blood Count Auto Diff 5 Months B20 - Human immunodeficiency virus [HIV] disease Basic Metabolic Panel 5 Months B20 - Human immunodeficiency virus [HIV] disease Liver Panel 5 Months B20 - Human immunodeficiency virus [HIV] disease Hepatitis C Viral Load 5 Months B20 - Human immunodeficiency virus [HIV] disease Medications: Refilled nfkcljcho-koxhajia-kaovgdf ala 50-200-25 mg (Biktarvy) 1 tab PO DAILY 30 days 30 tabs 5RF Coding Level of Care Code Est Pt Level 4 (88053) Diagnoses HIV (human immunodeficiency virus infection) B20
[2023-09-05 11:37] VITALS: PULSE 78; O2SAT 91
== END 2023-09-05 13:03 | disposition home or self-care (01) ==
PROVIDERS: PCP Nurse Practitioner Family; Visit Provider Internal Medicine
DX: B20 Human immunodeficiency virus [HIV] disease (principal)
CPT/HCPCS: 99214

== ENCOUNTER → 2023-09-05 11:28 | Outpatient (BNVA) | payer MEDICARE, MEDICAID, SELFPAY | PROVIDERS: PCP Nurse Practitioner Family; Visit Provider Internal Medicine | DX: B20 Human immunodeficiency virus [HIV] disease (principal) | CPT/HCPCS: 99212 ==

== ENCOUNTER 2023-09-27 14:21 | Outpatient (AMB) | payer MEDICARE, SELFPAY ==
--- NOTE | 2023-09-27 14:58 | A.OFFVIS_ITS ---
Vital Signs 09/27/23 14:59 Height 5 ft 10 in BP 144/100 H Blood Pressure Location Lt brachial Position Sitting Pulse 62 Pulse Source Pulse Oximeter Pulse Oximetry (%) 93 Oxygen Delivery Method Nasal Cannula Oxygen Flow Rate 2 Intake Visit Reasons: COPD Intake Note: pt is here for follow up and states she is suffering from knee pain, her breathing is about the same, and shoulder issue. 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 Allergies Horse/Equine Containing Products [Horse/Equine Product Derivatives] Allergy (Intermediate, Verified 09/27/23 15:32) SWELLING Iodinated Contrast Media [IV CONTRAST] Allergy (Unknown, Verified 09/27/23 15:32) HIVES Medication List - Last Reconciled 09/27/23 by Judy Sheridan MD albuterol sulfate 90 mcg/actuation inhalation albuterol sulfate 2.5 mg (3 mL) inhalation Q6H PRN Anoro Ellipta 62.5-25 mcg/actuation (umeclidinium-vilanterol) 1 ea PO DAILY NS atorvastatin 40 mg PO DAILY 90 days ipdjziiax-uzejrovz-iujcjnq ala 50-200-25 mg (Biktarvy) 1 tab PO DAILY 30 days calcium carbonate-vitamin D3 600 mg-10 mcg (400 unit) (Calcium with Vitamin D) 1 tab PO BID 90 days carvedilol 6.25 mg PO Q12H fluticasone propionate 50 mcg/actuation 2 sprays intranasal DAILY furosemide (Lasix) 40 mg PO DAILY gabapentin 100 mg PO TID PRN 30 days ibuprofen 800 mg PO TID PRN 30 days lisinopril 40 mg PO DAILY 90 days methadone 70 mg PO Q12H Oxygen Home Use 2lpm via NC at night and PRN sob [Scooter-motorized As directed] Do you need a note to return to daycare/school/sports/work: No HPI HPI COPD: Details: 68 years old Elida, morbidly obese, with chronic obstructive pulmonary disorder/ chronic restrictive lung disease. And chronic respiratory failure/ hypoventilation syndrome. Comes after 2 months for follow-up . In the meantime she has had a sleep lab based polysomnogram study. Surprisingly her sleep study was negative for sleep apnea, but she had nocturnal hypoxemia for which she needs O2 2 L/minute Today her main complaint is that she has not able to walk due to painful knees, she has advanced degenerative arthritis. She wants to undergo bilateral knees surgery, she is being followed by orthopedist Dr. Weber, who has told her that she is a poor surgical risk. Breathing patricia she is holding stable. She has had no acute exacerbation. As she does not do much walking she is not aware of any shortness of breath on exertion. She does have mild intermittent cough., but no wheezing. [facility] Medical History Respiratory failure with hypoxia and hypercapnia Eosinophilia Bronchitis Other instability, right shoulder Retinopathy Methadone use Morbid obesity HIV (human immunodeficiency virus infection) Rhinitis Hypoventilation associated with obesity COPD (chronic obstructive pulmonary disease) HIV (human immunodeficiency virus infection) Smoker Morbid obesity Aortic dilatation Hypoventilation syndrome LAURENCE (obstructive sleep apnea) Respiratory failure with hypoxia Lower extremity edema Diastolic heart failure Hyperlipidemia Surgical History History of colonoscopy History of tonsillectomy Family History Father No problems noted. Mother No problems noted. Brother Asthma Maternal Grandfather No problems noted. Maternal Grandmother No problems noted. Paternal Grandfather No problems noted. Paternal Grandmother No problems noted. Brother No problems noted. Brother Substance use disorder Social History Housing: House Alcohol intake: never Patient Tobacco Use Status: Current everyday Tobacco user Tobacco use type: Cigarette Cigarette Packs Per Day: 0.5 Cigarettes Per Day: 5 Years Smoked: 30 +/- e-Cigarette/Vaping Use: Never Used Second Hand Smoke Exposure: Yes service: No Current occupational status: disabled Current occupation: rt hand Cognitive needs: No Hearing needs: No Vision needs: No Review of Systems Const All systems reviewed & are unremarkable except as noted in HPI and below Eyes Reports no additional complaints ENT Reports no additional complaints and Reports nasal congestion (OFF AND ON) Card Denies chest pain, Reports leg edema and Reports dyspnea on exertion Resp Reports as per HPI and Reports dyspnea on exertion GI Reports no additional complaints Reports nocturia Musc Reports back pain and Reports arthralgias (BOTH KNEES) Skin/Breast Reports system reviewed and no additional complaints, except as documented Neuro Reports no additional complaints Psych Reports no additional complaints Physical Exam Vital Signs: Last Vital Signs Pulse 62 09/27/23 14:59 BP 144/100 H 09/27/23 14:59 Pulse Ox 93 09/27/23 14:59 Oxygen Delivery Method Nasal Cannula 09/27/23 14:59 Oxygen Flow Rate 2 09/27/23 14:59 Const General: comfortable (BUT SLOW IN WALKING), no acute distress, alert and awake Orientation/consciousness: patient oriented x3 HEENT Head: Yes normal to inspection General nose exam: No nasal polyps present and No nasal discharge present Face and sinus: Yes sinuses nontender Mouth: oropharynx abnormals (OROPHARYNX IS EXTREMELY CROWDED MALLAMPATI SCALE 4) Eyes General: appearance normal, both eyes and all related structures Neck Neck: Yes normal visual inspection, Yes no lymphadenopathy, Yes trachea midline and Yes no JVD Thyroid: Thyroid normal Chest Chest palpation & inspection: normal inspection of the chest, normal palpation of entire chest wall and no tenderness Resp Other: HER BREATH SOUNDS ARE DISTANT, WITH PROLONGED EXPIRATORY PHASE. THERE ARE SCATTERED BILATERAL WHEEZES BUT NO CREPITATIONS. Cardio Palpation: PMI not normal (NOT PALPABLE) Rate: regular rate Rhythm: regular rhythm Heart sounds: no gallops and no murmurs GI Palpation (GI): Soft to palpation, nontender, No hepatosplenomegaly present, Hernia present (VENTRAL HERNIATION), no masses and Other GI palpation findings present (ABDOMEN IS OBESE AND PROTUBERANT) Auscultation: normal bowel sounds Back/Spine/Pelvis Thoracic/Lumbar Spine: thoracic and lumbar spine normal to inspection and thoraco-lumbar ROM limited Skin General skin exam: no rashes or lesions noted Neuro General: patient oriented x3 and no focal motor deficits Cranial nerves: Yes CN's II-XII intact bilaterally Extrem General: Yes normal to inspection, Yes no calf tenderness and Yes edema (1+ EDEMA AROUND THE ANKLES) Psych Appearance: grossly normal Speech and movement: Normal speech and movement present Results Reviewed Results Reviewed: Polysomnogram study on 08/23/2023. No sleep apnea. And there was no snoring Periodic limb movements 151 in number but PLM arousal index only 2.4 which is not significant. She was hypoxemic during the night the O2 sat below 88% for 4.5 minutes she did okay with O2 supplementation at 3 L/minute. End tidal CO2 level was in normal range Assessment & Plan Assessment & Plan (1) Severe chronic obstructive pulmonary disease: Comment: She has chronic obstructive pulmonary disease, relatively severe. Recurrent acute exacerbations, also has mild to moderate eosinophilia. At present her respiratory status is fairly stable. Code(s): J44.9 - Chronic obstructive pulmonary disease, unspecified Category: Medical Plan: Anoro Ellipta 1 inhalation daily Albuterol HFA 2 puffs Q 6 hours p.r.n. alternatively may use albuterol solution in the nebulizer. (2) Morbid obesity: Comment: THIS IS A CHRONIC PROBLEM, SHE IS NOT VERY MOBILE, IT IS ON EXPECTED IN HER CASE TO LOSE WEIGHT. Code(s): E66.01 - Morbid (severe) obesity due to excess calories Category: Medical Plan: No potential to lose weight Some of weight problem is due to fluid retention in the lower extremities due to her chronic stasis edema/lymphedema. (3) Hypoventilation associated with obesity: Comment: Patient is known case of LAURENCE/hypoventilation syndrome. The Best treatment would be Weight reduction Checked for possibility of sleep apnea and that was negative. Code(s): E66.2 - Morbid (severe) obesity with alveolar hypoventilation Category: Medical Plan: Deep breathing exercises with pursed lip technique. She She is explained about this again and urged to do deep breathing exercises every 2-3 hours while awake Plan * FAR UNDERGOING BILATERAL KNEE SURGERY, SHE IS A POOR RISK FOR GENERAL ANESTHESIA, POTENTIAL FOR POSTOP RESPIRATORY FAILURE. HOWEVER THERE IS NO ABSOLUTE CONTRAINDICATION. IF SURGICAL PROCEDURE IS CONTEMPLATED AND UNDERTAKEN THEN POSTOPERATIVELY SHE MAY NEED TO BE ON VENT SUPPORT FOR A FEW DAYS Coding Level of Care Code Est Pt Level 4 (74908) Diagnoses Severe chronic obstructive pulmonary disease J44.9 Morbid obesity E66.01 Hypoventilation associated with obesity E66.2
[2023-09-27 14:59] VITALS: BP 144/100; PULSE 62; O2SAT 93
== END 2023-09-27 15:32 | disposition home or self-care (01) ==
PROVIDERS: PCP Nurse Practitioner Family; Visit Provider Internal Medicine
DX: J44.9 Chronic obstructive pulmonary disease, unspecified (principal); E66.2 Morbid (severe) obesity with alveolar hypoventilation
CPT/HCPCS: 99214

== ENCOUNTER → 2023-09-27 14:21 | Outpatient (BNVA) | payer MEDICARE, SELFPAY | PROVIDERS: PCP Nurse Practitioner Family; Visit Provider Internal Medicine | DX: J44.9 Chronic obstructive pulmonary disease, unspecified (principal); E66.2 Morbid (severe) obesity with alveolar hypoventilation | CPT/HCPCS: 99212 ==

== ENCOUNTER 2023-09-30 13:44 | Outpatient (REF) | payer MEDICARE, SELFPAY ==
--- NOTE | ~2023-09-30 | MM_ITS ---
EXAMINATION: MM SCREENING DIGITAL BREAST TOMOSYNTHESIS, BILATERAL CLINICAL INFORMATION: Screening. Asymptomatic. COMPARISON: Mammography: This study is compared with prior exams dating back to 2019. TECHNIQUE: Digital breast tomosynthesis is performed in both the craniocaudal and mediolateral oblique views along with computer-aided detection (CAD). Synthesized 2D images are generated from the tomosynthesis. FINDINGS: There are scattered areas of fibroglandular density (ACR BI-RADS breast composition Category b). There are no significant masses, abnormal calcifications, or other abnormalities. There is an unchanged prominent venous pattern in the upper outer quadrant of the right breast. This is been present over several years. MM/MM tomosynthesis screening BI IMPRESSION: No mammographic evidence of malignancy. ASSESSMENT: BI-RADS BI-RADS 1 - Negative RECOMMENDATION: Routine annual mammography screening. 1 year F/U This examination should not preclude the clinical evaluation of a suspicious palpable abnormality. This patient's information was entered into a reminder system with a target due date for their next mammogram.
== END 2023-09-30 13:45 | disposition home or self-care (01) ==
LOC: HO.MAMMO 13:44
PROVIDERS: PCP Nurse Practitioner Family; Visit Provider Nurse Practitioner Family
DX: Z12.31 Encounter for screening mammogram for malignant neoplasm of breast (principal)
CPT/HCPCS: 77063; 77067

== ENCOUNTER → 2023-09-30 14:15 | Outpatient (BNV) | payer MEDICARE, SELFPAY | PROVIDERS: PCP Nurse Practitioner Family; Visit Provider Radiology Diagnostic Radiology | DX: Z12.31 Encounter for screening mammogram for malignant neoplasm of breast (principal) | CPT/HCPCS: 77063; 77067 ==

== ENCOUNTER 2023-10-10 14:20 | Outpatient (AMB) | payer MEDICARE, SELFPAY ==
--- NOTE | 2023-10-10 14:26 | MHC.OFFVIS ---
Vital Signs 10/10/23 14:30 Height 5 ft 10 in Weight 260 lb BMI 37.3 BP 177/96 H Blood Pressure Location Lt brachial Position Sitting Pulse 72 Pulse Source Pulse Oximeter Pulse Oximetry (%) 92 Oxygen Delivery Method Nasal Cannula Oxygen Flow Rate 2 Intake Visit Reasons: BILATERAL KNEE PAIN Intake Note: Pain today 03/15 Inspector Balance Bridge Required: No Accompanied by: Friend Allergies Horse/Equine Containing Products [Horse/Equine Product Derivatives] Allergy (Intermediate, Verified 10/10/23 15:15) SWELLING Iodinated Contrast Media [IV CONTRAST] Allergy (Unknown, Verified 10/10/23 15:15) HIVES HPI Comments Details: Patient presents today for follow up for chronic bilateral knee pain due to severe OA. We previously discussed diagnostic genicular nerve blocks for potential RFA procedures. She had good but temporary pain relief with viscosupplementation treatment last year. Patient failed Sprint PNS trial with us in 2021. Unfortunately, genicular RFA was denied by her insurance previously. Patient reports her insurance coverage has recently changed and she would like to proceed with GNB injections. She was deemed non-surgical for TKR at this time and was encouraged to continue loose weight and continue PT and home exercise program which patient finds very difficult to accomplish due to significant knee pain. She is currently undergoing PT at [facility] for right shoulder pain with partial improvement in her ROM. Patient also presents with bilateral lower leg edema with bulky dressing around her left lower leg due to fluid seepage. Denies any recent trauma, injury, falls or insects bites. Reports edema for > 3 weeks. Both lower extremities present with swelling, warm to touch, local tenderness, and redness. She reports not feeling well for the past few days and easily fatigued. Patient was urged to go to ER for cellulites treatment. Patient prefers to go to Urgent Clinic and reports she has upcoming follow up with her PCP this . She is aware her cellulites presentation is more than mild and she might require IV antibiotics. Denies any fever, chills, shortness of breaths (more than usual), chest pain, nausea, dizziness, diaphoresis, myalgias, burning, tingling, bladder or bowel dysfunction or saddle anesthesia. PRIOR: Patient is a 68 years old female with complex medical medical history, O2 dependant, COPD, obesity, OA, methadone use presents today for follow up for bilateral knee pain. She was last seen in our office in 2021 with plans for gel injections which she completed in Orthopedic office on 04/25/23. She reports mild to moderate pain relief with minimal function improvement. Patient is not interested in repeating Sprint PNS trial. Her genicular RFA was previously denied by her insurance. Patient reports her will change in 2 days and she might reconsider genicular nerve blocks for potential RFA. She is really hoping to undergo bilateral knee replacement but was told she is candidate due to pulmonary status. Denies any recent cough, cold, infection, fever, any significant changes in her medical history, medications or recent hospitalizations. Patient reports she is currently at PT for exacerbation of right shoulder pain. She ambulates with walker which has been difficult to manage with right hand. She reports PT and HEP has been helpful. PRIOR Dr. Aguirre 03/26/22: Patient is a 66-year-old female presenting for a follow-up to discuss next steps. Patient reports she has not had her X-ray of the right femur done yet as she mistakenly thought she would receive a call to schedule it. She is interested in trialing Synvisc injections to her knees prior to trying any other therapy. Our previously planned intervention of genicular nerve blocks for consideration of genicular RFA was denied by her insurance. Past Procedures: 02/03/22: PNS Trial ? Failed trial due to inadvertent lead removal. 10/21/21: Left Diagnostic Saphenous Nerve Block ? 70% relief. 09/02/21: Right Diagnostic NB at Adductor Canal (lido 1%) ? 80% relief that is ongoing. [facility] Medical History Respiratory failure with hypoxia and hypercapnia Eosinophilia Bronchitis Other instability, right shoulder Retinopathy Methadone use Morbid obesity HIV (human immunodeficiency virus infection) Rhinitis Hypoventilation associated with obesity COPD (chronic obstructive pulmonary disease) HIV (human immunodeficiency virus infection) Smoker Morbid obesity Aortic dilatation Hypoventilation syndrome LAURENCE (obstructive sleep apnea) Respiratory failure with hypoxia Lower extremity edema Diastolic heart failure Hyperlipidemia Surgical History History of colonoscopy History of tonsillectomy Family History Father No problems noted. Mother No problems noted. Brother Asthma Maternal Grandfather No problems noted. Maternal Grandmother No problems noted. Paternal Grandfather No problems noted. Paternal Grandmother No problems noted. Brother No problems noted. Brother Substance use disorder Social History Housing: House Alcohol intake: never Patient Tobacco Use Status: Current everyday Tobacco user Tobacco use type: Cigarette Cigarette Packs Per Day: 0.5 Cigarettes Per Day: 5 Years Smoked: 30 +/- e-Cigarette/Vaping Use: Never Used Second Hand Smoke Exposure: Yes service: No Current occupational status: disabled Current occupation: rt hand Cognitive needs: No Hearing needs: No Vision needs: No Review of Systems Const All systems reviewed & are unremarkable except as noted in HPI and below Physical Exam Vital Signs: Last Vital Signs Pulse 72 10/10/23 14:30 BP 177/96 H 10/10/23 14:30 Pulse Ox 92 10/10/23 14:30 Oxygen Delivery Method Nasal Cannula 10/10/23 14:30 Oxygen Flow Rate 2 10/10/23 14:30 BMI result Body Mass Index 37.3 General: Appears afebrile. Alert and oriented. Mood and affect appropriate. Follows and participates in conversation appropriately. Respiratory effort is unlabored. No cough. Able to transition from sit to stand with assistance of walker. O2 dependant @2L Ambulates with bilaterally normal heel strike and toe off, reports bilateral knee buckling and imbalance. Skin Other: Bilateral lower extremities: +2 edema, redness, swelling, warm to touch, localized tenderness, RLE with dressing, LLE mild drainage of serous fluid, no foul odor. Extrem General: Yes capillary refill normal, No no calf tenderness, Yes edema (bilateral +2 lower legs, +1 ankle and pedal) and Yes pedal edema Right lower extremity: knee (limited ROM due to pain) Details: tenderness Location: of the medial joint line and crepitus; no swelling, no ecchymosis and no unusual warmth Left lower extremity: knee (limited ROM due to pain) Details: tenderness Location: of the medial joint line and crepitus; no swelling, no ecchymosis and no unusual warmth Results Reviewed Results Reviewed: BILATERAL KNEE X-RAY 07/21/21 COMPARISON: Previous x-rays most recent November 2020 FINDINGS: Right: There is varus angulation. Bone alignment is otherwise normal. No fracture or dislocation is seen. There is arthritis at the medial femoral tibial and patellofemoral joints. There is a large joint effusion. Left: There is varus angulation. Bone alignment is otherwise normal. No fracture or dislocation is seen. There is arthritis at the femoral tibial and patellofemoral joints. There is a small joint effusion. IMPRESSION: Bilateral varus angulation and arthritis. Large right joint effusion. Small left joint effusion. Assessment & Plan Assessment & Plan (1) Chronic pain syndrome: Code(s): G89.4 - Chronic pain syndrome Category: Medical (2) Bilateral primary osteoarthritis of knee: Code(s): M17.0 - Bilateral primary osteoarthritis of knee Category: Medical (3) Oxygen dependent: Code(s): Z99.81 - Dependence on supplemental oxygen Category: Medical (4) Cellulitis: Code(s): L03.90 - Cellulitis, unspecified Category: Medical (5) Bilateral knee pain: Code(s): M25.561 - Pain in right knee; M25.562 - Pain in left knee Category: Medical Plan Schedule Diagnostic Bilateral Genicular Nerve Blocks with local and fluoroscopy. Expectations, risks and benefits were reviewed. Patient is aware she will be contacted to schedule this procedure. Discussed genicular RFA if positive response to GNB injections. Refill provided for gabapentin at patient's request. Patient strongly urged to go to ER for further evaluation and treatment of BLE cellulitis. Patient prefers Urgent Clinic and reports she has follow up with her PCP on . Patient is aware to call 911 or go to ER for any worsening or new symptoms. All questions and concerns have been answered and patient agreed with the plan. Follow up after injections and sooner as needed. Medications: Refilled gabapentin 100 mg PO TID 30 days PRN 90 caps 0RF pain G89.4 - Chronic pain syndrome, M17.0 - Bilateral primary osteoarthritis of knee, M25.561 - Pain in right knee, M25.562 - Pain in left knee Coding Level of Care Code Est Pt Level 4 (64420) Diagnoses Chronic pain syndrome G89.4 Bilateral primary osteoarthritis of knee M17.0 Oxygen dependent Z99.81 Cellulitis L03.90 Bilateral knee pain M25.561; M25.562
[2023-10-10 14:30] VITALS: BP 177/96; PULSE 72; O2SAT 92; BMI 37.3
== END 2023-10-10 14:48 | disposition home or self-care (01) ==
PROVIDERS: PCP Nurse Practitioner Family; Visit Provider Nurse Practitioner Family
DX: G89.4 Chronic pain syndrome (principal); M17.0 Bilateral primary osteoarthritis of knee; Z99.81 Dependence on supplemental oxygen; L03.116 Cellulitis of left lower limb
CPT/HCPCS: 99215

== ENCOUNTER → 2023-10-10 14:20 | Outpatient (BNVA) | payer MEDICARE, SELFPAY | PROVIDERS: PCP Nurse Practitioner Family; Visit Provider Nurse Practitioner Family | DX: M17.0 Bilateral primary osteoarthritis of knee (principal); M25.561 Pain in right knee; M25.562 Pain in left knee; G89.4 Chronic pain syndrome; L03.116 Cellulitis of left lower limb; L03.115 Cellulitis of right lower limb; Z99.81 Dependence on supplemental oxygen | CPT/HCPCS: 99212 ==

== ENCOUNTER 2023-10-10 15:13 | Outpatient (AMB) | payer MEDICARE, SELFPAY ==
[2023-10-10 15:15] VITALS: BP 144/86; PULSE 91; O2SAT 98; BMI 37.3
--- NOTE | 2023-10-10 15:15 | AM.OFFWIN_ITS ---
Intake Vital Signs 10/10/23 15:15 Height 5 ft 10 in Weight 260 lb BMI 37.3 BP 144/86 H Blood Pressure Location Rt brachial Position Sitting Pulse 91 Pulse Source Pulse Oximeter Pulse Oximetry (%) 98 Oxygen Delivery Method Room Air Intake Visit Reasons: EP cellulitis Intake Note: pt is here for cellulitis Patient Tobacco Use Status: Current everyday Tobacco user Allergies Horse/Equine Containing Products [Horse/Equine Product Derivatives] Allergy (Intermediate, Verified 10/10/23 15:15) SWELLING Iodinated Contrast Media [IV CONTRAST] Allergy (Unknown, Verified 10/10/23 15:15) HIVES Do you need a note to return to daycare/school/sports/work: No HPI HPI Comments History of Present Illness Details Patient presents to the walk-in today for sick visit Complaining of swelling, redness to bilateral lower extremities. This has been going on for approximately 3 weeks. Patient was seen at pain management today and referred to the ER for evaluation management. She did not want to go to the emergency room stool she presented to the walk-in Denies any injury to the lower extremities, states the right lower extremity has been weeping. She has been keeping interesting over right lower extremity and applying bacitracin daily Denies fevers, chills, nausea, vomiting, diarrhea, fatigue, chest pain, dizziness, syncope, weakness PFSH Medical History Respiratory failure with hypoxia and hypercapnia Eosinophilia Bronchitis Other instability, right shoulder Retinopathy Methadone use Morbid obesity HIV (human immunodeficiency virus infection) Rhinitis Hypoventilation associated with obesity COPD (chronic obstructive pulmonary disease) HIV (human immunodeficiency virus infection) Smoker Morbid obesity Aortic dilatation Hypoventilation syndrome LAURENCE (obstructive sleep apnea) Respiratory failure with hypoxia Lower extremity edema Diastolic heart failure Hyperlipidemia Surgical History History of colonoscopy History of tonsillectomy Family History Father No problems noted. Mother No problems noted. Brother Asthma Maternal Grandfather No problems noted. Maternal Grandmother No problems noted. Paternal Grandfather No problems noted. Paternal Grandmother No problems noted. Brother No problems noted. Brother Substance use disorder Social History Housing: House Alcohol intake: never Patient Tobacco Use Status: Current everyday Tobacco user Tobacco use type: Cigarette Cigarette Packs Per Day: 0.5 Cigarettes Per Day: 5 Years Smoked: 30 +/- e-Cigarette/Vaping Use: Never Used Second Hand Smoke Exposure: Yes service: No Current occupational status: disabled Current occupation: rt hand Cognitive needs: No Hearing needs: No Vision needs: No Review of Systems Const All systems reviewed & are unremarkable except as noted in HPI and below Physical Exam Vital Signs: Last Vital Signs Pulse 91 10/10/23 15:15 BP 144/86 H 10/10/23 15:15 Pulse Ox 98 10/10/23 15:15 Oxygen Delivery Method Room Air 10/10/23 15:15 BMI result Body Mass Index 37.3 General: awake, alert, oriented. Answers questions appropriately. Fully engaged in examination. Skin: Redness, warmth noted bilateral lower legs. Right lower leg +serous drai nage. 2+ pitting edema bilaterally. HEENT: Normocephalic. Hearing intact. Cardiac: External chest normal in appearance. Respiratory: No cough, audible wheezing or stridor. Abdomen: without gross distension. Neurological: Oriented to person, place, time and situation. Thought process intact. No gait abnormalities appreciated. Psychiatric: Appropriate mood and affect. Good judgment and insight. Assessment & Plan Assessment & Plan (1) Cellulitis: Code(s): L03.90 - Cellulitis, unspecified (2) Venous insufficiency of both lower extremities: Code(s): I87.2 - Venous insufficiency (chronic) (peripheral) Plan Dressing applied to right lower extremity Doxycycline 100 mg p.o. b.i.d. times 10 days. Take with food. Follow up with PCP this week as planned. Message was sent to primary care doctor requesting consideration for referral to vascular and wound care. Follow up with primary care doctor or return here for any new or worsening symptoms Patient advised on red flag symptoms and when to seek treatment in the emergency room. Medications: New doxycycline hyclate 100 mg PO BID 20 caps 0RF 10 days Coding Level of Care Code Est Pt Level 3 (15240) Diagnoses Cellulitis L03.90 Venous insufficiency of both lower extremities I87.2
== END 2023-10-10 16:15 | disposition home or self-care (01) ==
PROVIDERS: PCP Nurse Practitioner Family; Visit Provider Registered Nurse Emergency
DX: L03.90 Cellulitis, unspecified (principal); I87.2 Venous insufficiency (chronic) (peripheral)
CPT/HCPCS: 99213

== ENCOUNTER 2023-10-13 14:58 | Outpatient (AMB) | payer MEDICARE, MEDICAID, SELFPAY ==
--- NOTE | 2023-10-13 15:18 | A.OFFPC_ITS ---
Vital Signs 10/13/23 15:22 Height 5 ft 10 in BMI Reason not done Patient refused/unable BP 122/80 Blood Pressure Location Rt brachial Position Sitting Pulse 66 Pulse Source Pulse Oximeter Pulse Oximetry (%) 98 Oxygen Delivery Method Nasal Cannula Intake Visit Reasons: 5 month fu Intake Note: Patient here to follow up on [place] visit, bilat leg swelling and weeping. pt states she was put on antibiotics which are not helping. Allergies Horse/Equine Containing Products [Horse/Equine Product Derivatives] Allergy (Intermediate, Verified 10/13/23 17:04) SWELLING Iodinated Contrast Media [IV CONTRAST] Allergy (Unknown, Verified 10/13/23 17:04) HIVES Medication List - Last Reconciled 10/13/23 by Garret Interiano, [employer] CONSULTANT-BC albuterol sulfate 2.5 mg (3 mL) inhalation Q6H PRN Anoro Ellipta 62.5-25 mcg/actuation (umeclidinium-vilanterol) 1 ea PO DAILY NS atorvastatin 40 mg PO DAILY 90 days isxnqrhad-vgzhsplz-aktfamb ala 50-200-25 mg (Biktarvy) 1 tab PO DAILY 30 days calcium carbonate-vitamin D3 600 mg-10 mcg (400 unit) (Calcium with Vitamin D) 1 tab PO BID 90 days carvedilol 6.25 mg PO Q12H doxycycline hyclate 100 mg PO BID 10 days fluticasone propionate 50 mcg/actuation 2 sprays intranasal DAILY furosemide (Lasix) 40 mg PO DAILY gabapentin 100 mg PO TID PRN 30 days ibuprofen 800 mg PO TID PRN 30 days lisinopril 40 mg PO DAILY 90 days methadone 70 mg PO Q12H Oxygen Home Use 2lpm via NC at night and PRN sob [Scooter-motorized As directed] Tobacco use date assessed: 10/13/23 Fall risk assessment: No Falls in past year Last assessed Fall Risk: 10/13/23 Dental Screening Dental Screen Date: 10/13/23 Did you have a dental visit in the last 12 months?: No Did you have a dental problem in the last 6 months where you did not have access to dental care?: No Was dental information given to patient?: No HPI 5 month fu HPI Details Pt is a diabetic, on an DANIEL and a statin. A1C in office today is . Microalbumin is up to date. Denies polyuria, polydipsia, and neuropathy. Pt denies any signs and symptoms of hypoglycemia and does know how to correct it. Eye exam is scheduled. Pt has ongoing lymphedema. Will refer back to lymphedema clinic. Pt follows up with pulmonology, pain management, ortho, and infectious disease. [facility] Medical History Respiratory failure with hypoxia and hypercapnia Eosinophilia Bronchitis Other instability, right shoulder Retinopathy Methadone use Morbid obesity HIV (human immunodeficiency virus infection) Rhinitis Hypoventilation associated with obesity COPD (chronic obstructive pulmonary disease) HIV (human immunodeficiency virus infection) Smoker Morbid obesity Aortic dilatation Hypoventilation syndrome LAURENCE (obstructive sleep apnea) Respiratory failure with hypoxia Lower extremity edema Diastolic heart failure Hyperlipidemia Surgical History History of colonoscopy History of tonsillectomy Family History Father No problems noted. Mother No problems noted. Brother Asthma Maternal Grandfather No problems noted. Maternal Grandmother No problems noted. Paternal Grandfather No problems noted. Paternal Grandmother No problems noted. Brother No problems noted. Brother Substance use disorder Social History Housing: House Alcohol intake: never Patient Tobacco Use Status: Current everyday Tobacco user Tobacco use type: Cigarette Cigarette Packs Per Day: 0.5 Cigarettes Per Day: 4 Years Smoked: 30 +/- e-Cigarette/Vaping Use: Never Used Second Hand Smoke Exposure: Yes service: No Current occupational status: disabled Current occupation: rt hand Cognitive needs: No Hearing needs: No Vision needs: No Questionnaire Thrive Questionnaire Date Thrive assessed: 06/22/22 AUDIT C Alcohol Use Questionnaire (AUDIT-C) 1. How often do you have a drink containing alcohol?: Never 3. How often do you have six or more drinks on one occasion?: Never Total Score: 0 Score Reviewed/Action Taken: No JAJA-7 AMB Questionnaire JAJA-7 Date JAJA - 7 assessed: 06/22/22 Source: Developed by Drs. Artem Juarez, Aishwarya BJorge Pineda and colleagues, with an educational shawn from [employer]. Review of Systems Const Reports as per HPI Physical exam (Primary Care) Vital Signs: Last Vital Signs Pulse 66 10/13/23 15:22 BP 122/80 10/13/23 15:22 Pulse Ox 98 10/13/23 15:22 Oxygen Delivery Method Nasal Cannula 10/13/23 15:22 Tobacco/Smoking Status: Tobacco use Status Tobacco use date assessed 10/13/23 10/13/23 15:27 Patient Tobacco Use Status Current everyday Tobacco 10/13/23 15:19 Tobacco use type Cigarette 10/13/23 15:19 e-Cigarette/Vaping Use Never Used 10/13/23 15:19 Thrive Assessment: Date of Thrive Assessment Date Thrive assessed 06/22/22 10/13/23 15:19 Const General: cooperative Orientation/consciousness: patient oriented x3 Resp Effort & Inspection: normal respiratory effort Auscultation: diminished lung sounds (to bilat bases) Cardio Rate: regular rate Rhythm: regular rhythm Heart sounds: S1 normal heart sound present, S2 normal heart sound present and Murmur heart sound present systolic Neuro General: patient oriented x3 Extrem Other: bilat feet: onychomycosis, + sensation with use of monofilament (more sensation to left foot), feet intact, lymphedema to BLE from knees down, compression wraps in place, CDI. Psych Appearance: grossly normal Mental Status: mental status grossly normal Speech and movement: Normal speech and movement present Affect: normal affect Attitude: cooperative Thought process: Normal thought process present Thought content: Normal thought content present Insight: Good insight present (Psych) Judgement: Good judgement present (Psych) Results AMB Hemoglobin A1c AMB Hemoglobin A1c 6.0 % Last Edit by KISHAN Carcamo on 10/13/23 15 :44 Results Reviewed Results Reviewed: Laboratory Last Values Hgb A1c (Clinic) 6.0 % (4.0-6.0) 10/13/23 15:44 Assessment and Plan Assessment & Plan (1) Diabetes: Code(s): E11.9 - Type 2 diabetes mellitus without complications Plan: Labs ordered (2) Lymph edema: Code(s): I89.0 - Lymphedema, not elsewhere classified Plan The patient agreed to the use of a director of graduate medical education for this encounter. Scribed for EVGENY HahnBC by Maureen Euceda director of graduate medical education, on 10/13/2023 at 15:40 EST. Orders: Orders Complete Blood Count Auto Diff Today E11.9 - Type 2 diabetes mellitus without complications Comprehensive [place]. Panel Fast Today E11.9 - Type 2 diabetes mellitus without complications Lipid Panel Today E11.9 - Type 2 diabetes mellitus without complications AMB Hemoglobin A1c Today Z13.9 - Encounter for screening, unspecified TSH reflex Free T4 Today E11.9 - Type 2 diabetes mellitus without complications UA CC w/rflx Micro + Cult Today E11.9 - Type 2 diabetes mellitus without complications Referrals Lymphedema Clinic Referral I89.0 - Lymphedema, not elsewhere classified Coding Level of Care Code Est Pt Level 3 (63623) Diagnoses Diabetes E11.9 Lymph edema I89.0
[2023-10-13 15:22] VITALS: BP 122/80; PULSE 66; O2SAT 98
== END 2023-10-13 15:57 | disposition home or self-care (01) ==
PROVIDERS: PCP Nurse Practitioner Family; Visit Provider Nurse Practitioner Family
DX: E11.9 Type 2 diabetes mellitus without complications (principal); I89.0 Lymphedema, not elsewhere classified
CPT/HCPCS: 83036; 99213

== ENCOUNTER 2023-10-24 10:28 | Outpatient (AMB) | payer MEDICARE, SELFPAY ==
--- NOTE | 2023-10-24 10:33 | A.OFFVIS_ITS ---
Vital Signs 10/24/23 10:36 Height 5 ft 10 in Weight 247 lb BMI 35.4 BP 140/65 H Blood Pressure Location Lt brachial Position Sitting Respiration 14 Pulse 60 Pulse Source Pulse Oximeter Pulse Oximetry (%) 89 L Oxygen Delivery Method Room Air Intake Visit Reasons: Right Dx GNB Allergies Horse/Equine Containing Products [Horse/Equine Product Derivatives] Allergy (Intermediate, Verified 10/24/23 16:20) SWELLING Iodinated Contrast Media [IV CONTRAST] Allergy (Unknown, Verified 10/24/23 16:20) HIVES HPI HPI Right Dx GNB: Details: 68-year-old female who presents today to the office for a right diagnostic GNB. Denies any recent cough, cold, infection, fever or other significant changes in medical history since last office visit.? Past Procedures: 02/03/22: PNS Trial ? Failed trial due to inadvertent lead removal. 10/21/21: Left Diagnostic Saphenous Nerve Block ? 70% relief.09/02/21: Right Diagnostic NB at Adductor Canal (lido 1%) ? 80% relief that is ongoing.??? [facility] Medical History Respiratory failure with hypoxia and hypercapnia Eosinophilia Bronchitis Other instability, right shoulder Retinopathy Methadone use Morbid obesity HIV (human immunodeficiency virus infection) Rhinitis Hypoventilation associated with obesity COPD (chronic obstructive pulmonary disease) HIV (human immunodeficiency virus infection) Smoker Morbid obesity Aortic dilatation Hypoventilation syndrome LAURENCE (obstructive sleep apnea) Respiratory failure with hypoxia Lower extremity edema Diastolic heart failure Hyperlipidemia Surgical History History of colonoscopy History of tonsillectomy Family History Father No problems noted. Mother No problems noted. Brother Asthma Maternal Grandfather No problems noted. Maternal Grandmother No problems noted. Paternal Grandfather No problems noted. Paternal Grandmother No problems noted. Brother No problems noted. Brother Substance use disorder Social History Housing: House Alcohol intake: never Patient Tobacco Use Status: Current everyday Tobacco user Tobacco use type: Cigarette Cigarette Packs Per Day: 0.5 Cigarettes Per Day: 4 Years Smoked: 30 +/- e-Cigarette/Vaping Use: Never Used Second Hand Smoke Exposure: Yes service: No Current occupational status: disabled Current occupation: rt hand Cognitive needs: No Hearing needs: No Vision needs: No Review of Systems Const All systems reviewed & are unremarkable except as noted in HPI and below Physical Exam Vital Signs: Last Vital Signs Pulse 60 10/24/23 10:36 Resp 14 10/24/23 10:36 BP 140/65 H 10/24/23 10:36 Pulse Ox 89 L 10/24/23 10:36 Oxygen Delivery Method Room Air 10/24/23 10:36 BMI result Body Mass Index 35.4 General: Appears afebrile. Alert and oriented. Mood and affect appropriate. Follows and participates in conversation appropriately. Respiratory effort is unlabored. Able to transition from sit to stand unassisted. Ambulates with bilaterally normal heel strike and toe off. Office Procedures Nerve Block Details: Genicular Nerves, right ultrasound guided - suprapatellar, prepatellar, superior lateral genicular nerve block After obtaining written consent, pre-procedure blood pressure and heart rate were stable and recorded in the nursing record. Standard monitors were applied. The patient was placed supine on the table. The area overlying the peripheral nerves was widely prepped with chloraprep, allowed to dry and sterilely draped. Using fluoroscopy, the appropriate landmarks were identified. A 25 gauge 1.5 inch hypodermic needle was advanced under ultrasound guidance to the appropriate landmark of each peripheral nerve. Aspiration was negative for heme and synovial fluid. 1 cc of ropivacaine 0.5% was injected around each targeted nerve. The needles were removed, skin cleansed and a sterile bandage was applied. The patient tolerated the procedure well and no complications were encountered. Following the procedure the patient's vital signs were stable. The patient was discharged home in good condition with post-procedural instructions. Time Out: Immediately prior to the procedure, the following was verbally confirmed that there is a signed consent form and that the correct patient, planned procedure, site and side are consistent with documentation and that necessary equipment and/or blood products are available prior to the start of the case. Complications: none EBL: <5 cc An ultrasound image of the injection was taken and stored in the permanent record. 28259-[id number] Nerve Block (right, US guided) Procedure code (CPT) selection complete Results Reviewed Results Reviewed: No imaging is available for review. Assessment & Plan Assessment & Plan (1) Right knee pain: Code(s): M25.561 - Pain in right knee Category: Medical Plan Patient is status post right diagnostic genicular nerve block, US guided. Patient tolerated procedure well and was discharged home in stable condition with discharge instructions. All questions were answered. The patient will follow-up on 10/28/2023 as scheduled for left sided GNB. Scribed for Dr. Aguirre by Mj Cormier, medical doctor nuclear medicine, on 10/24/2023. I, Dr. Aguirre, have personally reviewed and agree with the information entered by the scribe. Coding Level of Care Code Procedure Only Diagnoses Right knee pain M25.561 CPT Codes Nerve Block - Nerve Block: 70156-[id number] Nerve Block ([id number])
[2023-10-24 10:36] VITALS: BP 140/65; PULSE 60; RESP 14; O2SAT 89; BMI 35.4
== END 2023-10-24 11:01 | disposition home or self-care (01) ==
PROVIDERS: PCP Nurse Practitioner Family; Visit Provider Internal Medicine
DX: M25.561 Pain in right knee (principal)
CPT/HCPCS: 64454

== ENCOUNTER → 2023-10-24 10:28 | Outpatient (BNVA) | payer MEDICARE, SELFPAY | PROVIDERS: PCP Nurse Practitioner Family; Visit Provider Internal Medicine | DX: M25.561 Pain in right knee (principal) | CPT/HCPCS: 64454; J2795 ==

== ENCOUNTER 2023-10-24 14:49 | Outpatient (AMB) | payer MEDICARE, SELFPAY ==
[2023-10-24 15:43] VITALS: BP 130/72; BMI 35.6
--- NOTE | 2023-10-24 15:43 | AM.OFFWIN_ITS ---
Intake Vital Signs 10/24/23 15:43 Height 5 ft 10 in Weight 248 lb BMI 35.6 BP 130/72 Blood Pressure Location Lt brachial Position Sitting Intake Visit Reasons: ep/ here last week both legs pain Patient Tobacco Use Status: Current everyday Tobacco user Allergies Horse/Equine Containing Products [Horse/Equine Product Derivatives] Allergy (Intermediate, Verified 10/24/23 16:20) SWELLING Iodinated Contrast Media [IV CONTRAST] Allergy (Unknown, Verified 10/24/23 16:20) HIVES Medication List - Last Reconciled 10/24/23 by Vicente Pedraza MD albuterol sulfate 2.5 mg (3 mL) inhalation Q6H PRN Anoro Ellipta 62.5-25 mcg/actuation (umeclidinium-vilanterol) 1 ea PO DAILY NS atorvastatin 40 mg PO DAILY 90 days msmamzyol-nmdlrvgw-qzjovab ala 50-200-25 mg (Biktarvy) 1 tab PO DAILY 30 days calcium carbonate-vitamin D3 600 mg-10 mcg (400 unit) (Calcium with Vitamin D) 1 tab PO BID 90 days carvedilol 6.25 mg PO Q12H cephalexin 500 mg PO BID fluticasone propionate 50 mcg/actuation 2 sprays intranasal DAILY furosemide (Lasix) 40 mg PO DAILY gabapentin 100 mg PO TID PRN 30 days ibuprofen 800 mg PO TID PRN 30 days lisinopril 40 mg PO DAILY 90 days methadone 70 mg PO Q12H Oxygen Home Use 2lpm via NC at night and PRN sob [Scooter-motorized As directed] Do you need a note to return to daycare/school/sports/work: No HPI ep/ here last week both legs pain HPI Details 68 yr old female presents to the office for a sick visit. Patient is reporting burning sensation in the right leg. She has lymphedema and noticed some pus. Able to walk . [facility] Medical History Respiratory failure with hypoxia and hypercapnia Eosinophilia Bronchitis Other instability, right shoulder Retinopathy Methadone use Morbid obesity HIV (human immunodeficiency virus infection) Rhinitis Hypoventilation associated with obesity COPD (chronic obstructive pulmonary disease) HIV (human immunodeficiency virus infection) Smoker Morbid obesity Aortic dilatation Hypoventilation syndrome LAURENCE (obstructive sleep apnea) Respiratory failure with hypoxia Lower extremity edema Diastolic heart failure Hyperlipidemia Surgical History (Reviewed 10/13/23 @ 17:05 by Garret Interiano [facility] History of colonoscopy History of tonsillectomy Family History Father No problems noted. Mother No problems noted. Brother Asthma Maternal Grandfather No problems noted. Maternal Grandmother No problems noted. Paternal Grandfather No problems noted. Paternal Grandmother No problems noted. Brother No problems noted. Brother Substance use disorder Social History Housing: House Alcohol intake: never Patient Tobacco Use Status: Current everyday Tobacco user Tobacco use type: Cigarette Cigarette Packs Per Day: 0.5 Cigarettes Per Day: 4 Years Smoked: 30 +/- e-Cigarette/Vaping Use: Never Used Second Hand Smoke Exposure: Yes service: No Current occupational status: disabled Current occupation: rt hand Cognitive needs: No Hearing needs: No Vision needs: No Physical Exam Vital Signs: Last Vital Signs BP 130/72 10/24/23 15:43 BMI result Body Mass Index 35.6 Extrem Other: Lower ext: In bandage, surrounding erythema. Assessment & Plan Assessment & Plan (1) Cellulitis: Code(s): L03.90 - Cellulitis, unspecified Plan: Cephalexin called in. Keep foot elevated. If sx not better to follow up here. Medications: New cephalexin 500 mg PO BID 14 caps 0RF Coding Level of Care Code Est Pt Level 3 (67508) Diagnoses Cellulitis L03.90
== END 2023-10-24 16:34 | disposition home or self-care (01) ==
PROVIDERS: PCP Nurse Practitioner Family; Visit Provider Internal Medicine
DX: L03.90 Cellulitis, unspecified (principal)
CPT/HCPCS: 99213

== ENCOUNTER 2023-10-28 11:26 | Outpatient (AMB) | payer MEDICARE, SELFPAY ==
[2023-10-28 11:33] VITALS: BP 147/70; PULSE 66; RESP 15; O2SAT 93
--- NOTE | 2023-10-28 11:33 | A.OFFVIS_ITS ---
Vital Signs 10/28/23 11:33 Height 5 ft 10 in BP 147/70 H Blood Pressure Location Lt brachial Position Sitting Respiration 15 Pulse 66 Pulse Source Pulse Oximeter Pulse Oximetry (%) 93 Oxygen Delivery Method Room Air Intake Visit Reasons: Left Dx GNB Allergies Horse/Equine Containing Products [Horse/Equine Product Derivatives] Allergy (Intermediate, Verified 11/01/23 14:47) SWELLING Iodinated Contrast Media [IV CONTRAST] Allergy (Unknown, Verified 11/01/23 14:47) HIVES Medication List - Last Reconciled 10/28/23 by Debo Herndon LPN albuterol sulfate 2.5 mg (3 mL) inhalation Q6H PRN Anoro Ellipta 62.5-25 mcg/actuation (umeclidinium-vilanterol) 1 ea PO DAILY NS atorvastatin 40 mg PO DAILY 90 days oozifhnyp-nruecmba-cbivgta ala 50-200-25 mg (Biktarvy) 1 tab PO DAILY 30 days calcium carbonate-vitamin D3 600 mg-10 mcg (400 unit) (Calcium with Vitamin D) 1 tab PO BID 90 days carvedilol 6.25 mg PO Q12H cephalexin 500 mg PO BID fluticasone propionate 50 mcg/actuation 2 sprays intranasal DAILY furosemide (Lasix) 40 mg PO DAILY gabapentin 100 mg PO TID PRN 30 days ibuprofen 800 mg PO TID PRN 30 days lisinopril 40 mg PO DAILY 90 days methadone 70 mg PO Q12H Oxygen Home Use 2lpm via NC at night and PRN sob [Scooter-motorized As directed] HPI HPI Left Dx GNB: Details: 68-year-old female who presents today to the office for a left diagnostic GNB. The patient reports 75% relief following the right genicular nerve block last week. Denies any recent cough, cold, infection, fever or other significant changes in medical history since last office visit.? Past Procedures: 10/24/23: Genicular Nerves, right ultrasound guided - suprapatellar, prepatellar, superior lateral genicular nerve block: 75% relief. 02/03/22: PNS Trial ? Failed trial due to inadvertent lead removal. 10/21/21: Left Diagnostic Saphenous Nerve Block ? 70% relief.09/02/21: Right Diagnostic NB at Adductor Canal (lido 1%) ? 80% relief that is ongoing.??? [facility] Medical History Respiratory failure with hypoxia and hypercapnia Eosinophilia Bronchitis Other instability, right shoulder Retinopathy Methadone use Morbid obesity HIV (human immunodeficiency virus infection) Rhinitis Hypoventilation associated with obesity COPD (chronic obstructive pulmonary disease) HIV (human immunodeficiency virus infection) Smoker Morbid obesity Aortic dilatation Hypoventilation syndrome LAURENCE (obstructive sleep apnea) Respiratory failure with hypoxia Lower extremity edema Diastolic heart failure Hyperlipidemia Surgical History History of colonoscopy History of tonsillectomy Family History Father No problems noted. Mother No problems noted. Brother Asthma Maternal Grandfather No problems noted. Maternal Grandmother No problems noted. Paternal Grandfather No problems noted. Paternal Grandmother No problems noted. Brother No problems noted. Brother Substance use disorder Social History Housing: House Alcohol intake: never Patient Tobacco Use Status: Current everyday Tobacco user Tobacco use type: Cigarette Cigarette Packs Per Day: 0.5 Cigarettes Per Day: 4 Years Smoked: 30 +/- e-Cigarette/Vaping Use: Never Used Second Hand Smoke Exposure: Yes Do you have a plan to hurt others: No Plan service: No Current occupational status: disabled Current occupation: rt hand Cognitive needs: No Hearing needs: No Vision needs: No Review of Systems Const All systems reviewed & are unremarkable except as noted in HPI and below Physical Exam Vital Signs: Last Vital Signs Pulse 66 10/28/23 11:33 Resp 15 10/28/23 11:33 BP 147/70 H 10/28/23 11:33 Pulse Ox 93 10/28/23 11:33 Oxygen Delivery Method Room Air 10/28/23 11:33 General: Appears afebrile. Alert and oriented. Mood and affect appropriate. Follows and participates in conversation appropriately. Respiratory effort is unlabored. Able to transition from sit to stand unassisted. Ambulates with bilaterally normal heel strike and toe off. Office Procedures Nerve Block Details: Genicular Nerves, left ultrasound guided - suprapatellar, prepatellar, superior lateral genicular nerve block After obtaining written consent, pre-procedure blood pressure and heart rate were stable and recorded in the nursing record. The patient was placed supine on the table. The area overlying the peripheral nerves was widely prepped with chloraprep, allowed to dry and sterilely draped. Using fluoroscopy, the appropriate landmarks were identified. A 25 gauge 1.5 inch hypodermic needle was advanced under ultrasound guidance to the appropriate landmark of each peripheral nerve. Aspiration was negative for heme and synovial fluid. 1 cc of ropivacaine 0.5% was injected around each targeted nerve. The needles were removed, skin cleansed and a sterile bandage was applied. The patient tolerated the procedure well and no complications were encountered. Following the procedure the patient's vital signs were stable. The patient was discharged home in good condition with post-procedural instructions. Time Out: Immediately prior to the procedure, the following was verbally confirmed that there is a signed consent form and that the correct patient, planned procedure, site and side are consistent with documentation and that necessary equipment and/or blood products are available prior to the start of the case. Complications: none EBL: <5 cc An ultrasound image of the injection was taken and stored in the permanent record. [id number] Nerve Block (Left, US guided.) Procedure code (CPT) selection complete Results Reviewed Results Reviewed: No imaging is available for review. Assessment & Plan Assessment & Plan (1) Bilateral knee pain: Code(s): M25.561 - Pain in right knee; M25.562 - Pain in left knee Category: Medical Plan Patient is status post left diagnostic genicular nerve block, US guided. Patient tolerated procedure well and was discharged home in stable condition with discharge instructions. All questions were answered. If she has a similar response on the left side as she did on the right side then we will proceed with standard radiofrequency ablation of the genicular nerves using oral?pain?relief?medications. The patient will follow-up on as needed. Scribed for Dr. Aguirre by Mj Cormier infertility medical assistant, on 10/28/2023. I, Dr. Aguirre, have personally reviewed and agree with the information entered by the scribe. Coding Level of Care Code Est Pt Level 3 (63216) Diagnoses Bilateral knee pain M25.561; M25.562 CPT Codes Nerve Block - Nerve Block: 85490-[id number] Nerve Block ([id number])
== END 2023-10-28 11:56 | disposition home or self-care (01) ==
PROVIDERS: PCP Nurse Practitioner Family; Visit Provider Internal Medicine
DX: M25.562 Pain in left knee (principal)
CPT/HCPCS: 64454

== ENCOUNTER → 2023-10-28 11:26 | Outpatient (BNVA) | payer MEDICARE, SELFPAY | PROVIDERS: PCP Nurse Practitioner Family; Visit Provider Internal Medicine | DX: M25.562 Pain in left knee (principal); M25.561 Pain in right knee | CPT/HCPCS: 64454; J2795 ==

== ENCOUNTER 2023-11-01 13:54 | Outpatient (AMB) | payer MEDICARE, SELFPAY ==
--- NOTE | 2023-11-01 14:01 | MHC.OFFVIS ---
Vital Signs 11/01/23 14:06 Height 5 ft 10 in Weight 242 lb BMI 34.7 BP 173/83 H Blood Pressure Location Lt brachial Position Sitting Pulse 79 Pulse Source Pulse Oximeter Pulse Oximetry (%) 95 Oxygen Delivery Method Room Air Oxygen Flow Rate 2 Intake Visit Reasons: s/p kristy Dx GNB Intake Note: Pain today 11/13 Entertainment Dancer Required: No Accompanied by: Family/Other Allergies Horse/Equine Containing Products [Horse/Equine Product Derivatives] Allergy (Intermediate, Verified 11/01/23 14:06) SWELLING Iodinated Contrast Media [IV CONTRAST] Allergy (Unknown, Verified 11/01/23 14:06) HIVES HPI Comments Details: Patient presents today to assess response to Bilateral Diagnostic Genicular Nerve Blocks on 10/24/23 right and 10/28/[address] Aguirre. Patient reports 90% right knee and 100% left pain relief for over 3 days with partial improvement in her mobility, functioning and sleep. Patient would like to proceed with genicular RFA as next steps for a longer term pain relief. She presents with ongoing BLE edema and erythema with bandages around both lower legs. Patient and family friend are concerned for swelling and redness in both legs is not improving with oral antibiotic course (Doxycycline and Cephalexin) and 2 visits to our Walk-in clinics on 10/10/23 and 10/24/23. Family friend reports foul odor and pus with dressing changes. Patient reports burning BLE leg pain. Patient was urged once again to go to ER for medical evaluation. Patient is aware that BLE swelling and redness have to resolve prior to RFA procedure. Denies any recent cough, cold, fever, or any other any significant changes in her medical history, medications or recent hospitalizations. Past Procedures: 10/28/23: Left Diagnostic GNB-100% pain relief, ongoing 10/24/23: Right Diagnostic GNB-90% pain relief for > 3 days 02/03/22: PNS Trial ? Failed trial due to inadvertent lead removal. 10/21/21: Left Diagnostic Saphenous Nerve Block ? 70% relief. 09/02/21: Right Diagnostic NB at Adductor Canal (lido 1%) ? 80% relief that is ongoing. PRIOR: Patient presents today for follow up for chronic bilateral knee pain due to severe OA. We previously discussed diagnostic genicular nerve blocks for potential RFA procedures. She had good but temporary pain relief with viscosupplementation treatment last year. Patient failed Sprint PNS trial with us in 2021. Unfortunately, genicular RFA was denied by her insurance previously. Patient reports her insurance coverage has recently changed and she would like to proceed with GNB injections. She was deemed non-surgical for TKR at this time and was encouraged to continue loose weight and continue PT and home exercise program which patient finds very difficult to accomplish due to significant knee pain. She is currently undergoing PT at [facility] for right shoulder pain with partial improvement in her ROM. Patient also presents with bilateral lower leg edema with bulky dressing around her left lower leg due to fluid seepage. Denies any recent trauma, injury, falls or insects bites. Reports edema for > 3 weeks. Both lower extremities present with swelling, warm to touch, local tenderness, and redness. She reports not feeling well for the past few days and easily fatigued. Patient was urged to go to ER for cellulites treatment. Patient prefers to go to Urgent Clinic and reports she has upcoming follow up with her PCP this . She is aware her cellulites presentation is more than mild and she might require IV antibiotics. Denies any fever, chills, shortness of breaths (more than usual), chest pain, nausea, dizziness, diaphoresis, myalgias, burning, tingling, bladder or bowel dysfunction or saddle anesthesia. PRIOR: Patient is a 68 years old female with complex medical medical history, O2 dependant, COPD, obesity, OA, methadone use presents today for follow up for bilateral knee pain. She was last seen in our office in 2021 with plans for gel injections which she completed in Orthopedic office on 04/25/23. She reports mild to moderate pain relief with minimal function improvement. Patient is not interested in repeating Sprint PNS trial. Her genicular RFA was previously denied by her insurance. Patient reports her will change in 2 days and she might reconsider genicular nerve blocks for potential RFA. She is really hoping to undergo bilateral knee replacement but was told she is candidate due to pulmonary status. Denies any recent cough, cold, infection, fever, any significant changes in her medical history, medications or recent hospitalizations. Patient reports she is currently at PT for exacerbation of right shoulder pain. She ambulates with walker which has been difficult to manage with right hand. She reports PT and HEP has been helpful. PRIOR Dr. Aguirre 03/26/22: Patient is a 66-year-old female presenting for a follow-up to discuss next steps. Patient reports she has not had her X-ray of the right femur done yet as she mistakenly thought she would receive a call to schedule it. She is interested in trialing Synvisc injections to her knees prior to trying any other therapy. Our previously planned intervention of genicular nerve blocks for consideration of genicular RFA was denied by her insurance. Past Procedures: 02/03/22: PNS Trial ? Failed trial due to inadvertent lead removal. 10/21/21: Left Diagnostic Saphenous Nerve Block ? 70% relief. 09/02/21: Right Diagnostic NB at Adductor Canal (lido 1%) ? 80% relief that is ongoing. [facility] Medical History Respiratory failure with hypoxia and hypercapnia Eosinophilia Bronchitis Other instability, right shoulder Retinopathy Methadone use Morbid obesity HIV (human immunodeficiency virus infection) Rhinitis Hypoventilation associated with obesity COPD (chronic obstructive pulmonary disease) HIV (human immunodeficiency virus infection) Smoker Morbid obesity Aortic dilatation Hypoventilation syndrome LAURENCE (obstructive sleep apnea) Respiratory failure with hypoxia Lower extremity edema Diastolic heart failure Hyperlipidemia Surgical History History of colonoscopy History of tonsillectomy Family History Father No problems noted. Mother No problems noted. Brother Asthma Maternal Grandfather No problems noted. Maternal Grandmother No problems noted. Paternal Grandfather No problems noted. Paternal Grandmother No problems noted. Brother No problems noted. Brother Substance use disorder Social History Housing: House Alcohol intake: never Patient Tobacco Use Status: Current everyday Tobacco user Tobacco use type: Cigarette Cigarette Packs Per Day: 0.5 Cigarettes Per Day: 4 Years Smoked: 30 +/- e-Cigarette/Vaping Use: Never Used Second Hand Smoke Exposure: Yes service: No Current occupational status: disabled Current occupation: rt hand Cognitive needs: No Hearing needs: No Vision needs: No Review of Systems Const All systems reviewed & are unremarkable except as noted in HPI and below Physical Exam General: Appears afebrile. No acute distress. Alert and oriented. Mood and affect appropriate. Follows and participates in conversation appropriately. Respiratory effort is unlabored. No cough. Able to transition from sit to stand with assistance of walker. O2 dependant @2L Ambulates with bilaterally normal heel strike and toe off, reports bilateral knee buckling and imbalance. Skin Other: Bilateral lower extremities: +2 edema, redness, swelling, warm to touch, localized tenderness, RLE with dressing, LLE mild drainage of serous fluid, no foul odor. Extrem General: Yes capillary refill normal, Yes edema (BLE with bandages, swelling and erythema outside of dressing) and Yes pedal edema Right lower extremity: knee (limited ROM due to pain) Details: tenderness Location: of the medial joint line and crepitus; no swelling, no ecchymosis and no unusual warmth Left lower extremity: knee (limited ROM due to pain) Details: tenderness Location: of the medial joint line and crepitus; no swelling, no ecchymosis and no unusual warmth Results Reviewed Results Reviewed: BILATERAL KNEE X-RAY 07/21/21 COMPARISON: Previous x-rays most recent November 2020 FINDINGS: Right: There is varus angulation. Bone alignment is otherwise normal. No fracture or dislocation is seen. There is arthritis at the medial femoral tibial and patellofemoral joints. There is a large joint effusion. Left: There is varus angulation. Bone alignment is otherwise normal. No fracture or dislocation is seen. There is arthritis at the femoral tibial and patellofemoral joints. There is a small joint effusion. IMPRESSION: Bilateral varus angulation and arthritis. Large right joint effusion. Small left joint effusion. Assessment & Plan Assessment & Plan (1) Cellulitis: Code(s): L03.90 - Cellulitis, unspecified Category: Medical (2) Chronic pain syndrome: Code(s): G89.4 - Chronic pain syndrome Category: Medical (3) Bilateral knee pain: Code(s): M25.561 - Pain in right knee; M25.562 - Pain in left knee Category: Medical (4) Osteoarthritis of knees, bilateral: Code(s): M17.0 - Bilateral primary osteoarthritis of knee Category: Medical Plan Patient is status post bilateral diagnostic GNB with 90-100% pain relief for both knees, improvement in functioning with ADLs, mobility and sleep. We will tentatively plan for hot radiofrequency ablation of the bilateral genicular nerves using oral?pain?relief?medications, local and fluoroscopy once patient's BLE cellulitis resolves. Expectations, risks and benefits were reviewed. Patient is aware she will be contacted to schedule this procedure. All questions were answered and the patient is in agreement of plan. Follow-up after RFA and sooner as needed. Coding Level of Care Code Est Pt Level 3 (58254) Diagnoses Cellulitis L03.90 Chronic pain syndrome G89.4 Bilateral knee pain M25.561; M25.562 Osteoarthritis of knees, bilateral M17.0
[2023-11-01 14:06] VITALS: BP 173/83; PULSE 79; O2SAT 95; BMI 34.7
== END 2023-11-01 14:18 | disposition home or self-care (01) ==
PROVIDERS: PCP Nurse Practitioner Family; Visit Provider Nurse Practitioner Family
DX: G89.4 Chronic pain syndrome (principal); M25.561 Pain in right knee; M25.562 Pain in left knee; L03.90 Cellulitis, unspecified; M17.0 Bilateral primary osteoarthritis of knee
CPT/HCPCS: 99213

== ENCOUNTER 2023-11-01 14:39 | Emergency (ER) | payer MEDICARE, SELFPAY ==
[2023-11-01 14:47] VITALS: BP 163/100; PULSE 72; RESP 18; TEMP 36.6; O2SAT 94; BMI 36.8
--- NOTE | 2023-11-01 14:49 | ED_ITS ---
HPI - General Adult General Chief complaint: General Medical Stated complaint: infected legs Time Seen by Provider: 11/01/23 20:25 Source: patient Mode of arrival: ambulatory Limitations: no limitations History of Present Illness ED Provider: Dr. Brittany Goldsmith HPI narrative: Patient comes to the emergency room complaining of lower extremity erythema and drainage. Patient states that her legs have been draining serous fluid for several weeks. Patient went to see her primary care physician, started her on cephalexin. Patient states she took her last dose yesterday but her legs are still erythematous. Patient states that she has noticed an improvement in her legs. However, her primary care physician wanted her to come to the emergency room. Patient states that she has an appointment pending with the wound clinic on November 13. Patient denies fever chills Related Data Home Medications ?Medication ?Instructions ?Recorded ?Confirmed methadone 10 mg/mL oral concentrate 70 mg PO Q12H 08/17/21 10/28/23 Oxygen Home Use 10/28/22 10/28/23 Previous Rx's ?Medication ?Instructions ?Recorded furosemide 40 mg tablet (Lasix) 40 mg PO DAILY #60 tabs 09/13/22 calcium carbonate 600 mg-vitamin 1 tab PO BID 90 days #180 tabs 01/06/23 D3 10 mcg (400 unit) tablet (Calcium with Vitamin D) carvedilol 6.25 mg tablet 6.25 mg PO Q12H #100 tabs 01/24/23 Scooter-motorized #1 ea 04/13/23 fluticasone propionate 50 2 spray intranasal DAILY #48 grams 05/25/23 mcg/actuation nasal spray,suspension atorvastatin 40 mg tablet 40 mg PO DAILY 90 days #90 tabs 06/15/23 albuterol sulfate 2.5 mg/3 mL 2.5 mg (3 mL) inhalation Q6H PRN 07/20/23 (0.083 %) solution for nebulization shortness of breath or wheezing #180 mL bictegravir 50 mg-emtricitabine 1 tab PO DAILY 30 days #30 tabs 09/05/23 200 mg-tenofovir alafenam 25 mg tablet (Biktarvy) Anoro Ellipta 62.5 mcg-25 1 ea PO DAILY #180 ea 09/15/23 mcg/actuation powder for inhalation (umeclidinium-vilanterol) gabapentin 100 mg capsule 100 mg PO TID PRN pain 30 days #90 10/10/23 caps ibuprofen 800 mg tablet 800 mg PO TID PRN pain 30 days #90 10/14/23 tabs lisinopril 40 mg tablet 40 mg PO DAILY 90 days #90 tabs 10/23/23 linezolid 600 mg tablet 600 mg PO Q12H 10 days #20 tabs 11/01/23 Allergies Allergy/AdvReac Type Severity Reaction Status Date / Time Horse/Equine Containing Allergy Intermediate SWELLING Verified 11/01/23 14:47 Products [Horse/Equine Product Derivatives] Iodinated Contrast Media Allergy Unknown HIVES Verified 11/01/23 14:47 [IV CONTRAST] Review of Systems 2 Review of Systems: Constitutional : No Weight loss, No Fever, No Chills, No Night Sweats, No Fatigue, No Malaise ENT/Mouth : No Hearing loss, No Ear Pain, No Nasal Congestion, No Sinus Pain, No Hoarseness, No sore throat, No Rhinorrhea, No Swallowing Difficulty Eyes: No Eye Pain, No Swelling, No Redness, No Foreign Body, No Discharge, No Vision Changes Cardiovascular : No Chest Pain, No SOB, No Dyspnea on Exertion, No Orthopnea, No Edema, No Palpitations Respiratory : No Cough, No Sputum, No Wheezing, No Smoke Exposure, No Dyspnea Gastrointestinal : No Nausea, No Vomiting, No Diarrhea, No Constipation, No abdominal Pain, No Hematochezia, No Melena Genitourinary : no irregular bleeding, No Dysuria, No Urinary Frequency, No Hematuria, No Urinary Incontinence, No Urgency, No Flank Pain, No Urinary Flow Changes, No Hesitancy Musculoskeletal : No joint pain, No Myalgias, No Joint Swelling Skin : Complaining of bilateral lower extremity erythema and serous drainage Neuro : No Weakness, No Numbness, No Paresthesias, No Loss of Consciousness, No Dizziness, No Headache Psych : No Anxiety/Panic, No Depression, No SI/HI/AH/VH, No Social Issues, Heme/Lymph: No Bruising, No Bleeding,No Lymphadenopathy Endocrine : No Polyuria, No Polydipsia, No Temperature Intolerance [facility] Past Medical History Medical History Respiratory failure with hypoxia and hypercapnia Eosinophilia Bronchitis Other instability, right shoulder Retinopathy Methadone use Morbid obesity HIV (human immunodeficiency virus infection) Rhinitis Hypoventilation associated with obesity COPD (chronic obstructive pulmonary disease) HIV (human immunodeficiency virus infection) Smoker Morbid obesity Aortic dilatation Hypoventilation syndrome LAURENCE (obstructive sleep apnea) Respiratory failure with hypoxia Lower extremity edema Diastolic heart failure Hyperlipidemia Surgical History History of colonoscopy History of tonsillectomy Family History Family History Father No problems noted. Mother No problems noted. Brother Asthma Maternal Grandfather No problems noted. Maternal Grandmother No problems noted. Paternal Grandfather No problems noted. Paternal Grandmother No problems noted. Brother No problems noted. Brother Substance use disorder Social History Social History Housing: House Alcohol intake: never Patient Tobacco Use Status: Current everyday Tobacco user Tobacco use type: Cigarette Cigarette Packs Per Day: 0.5 Cigarettes Per Day: 4 Years Smoked: 30 +/- e-Cigarette/Vaping Use: Never Used Second Hand Smoke Exposure: Yes Advance Directives: No Advance Directives Information Provided: No Do you have a plan to hurt others: No Plan service: No Current occupational status: disabled Current occupation: rt hand Cognitive needs: No Hearing needs: No Vision needs: No Physical Exam ED Vital Signs: Vital Signs - 24 hr 11/01/23 14:47 11/01/23 19:53 11/01/23 20:55 Temperature 97.9 F 98 F 98.2 F Pulse Rate 72 77 77 Respiratory Rate 18 20 16 Blood Pressure 163/100 H 214/96 H 195/97 H Pulse Oximetry 94 85 L 96 Oxygen Delivery Method Room Air Room Air Nasal Cannula Oxygen Flow Rate 3 BMI result Body Mass Index 36.8 Const Other: Appearance: Alert. Oriented X3. No acute distress. Eyes: Pupils equal, round and reactive to light. ENT: Pharynx normal. Neck: Normal inspection. Neck supple. No lymph nodes noted. No crepitus CVS: Normal heart rate and rhythm. Pulses normal. Normal S1 and S2 Respiratory: No respiratory distress. Breath sounds normal. No Wheezing. No rales Abdomen: Soft and nontender. No rigidity. No distention. Skin: Skin warm and dry. See extremities below Extremities: +2 pitting edema bilaterally, erythema and skin exfoliation on the right lower extremity distally, see pictures below Neuro: Oriented X 3. No motor deficit. No sensory deficit. Moving all extremities. No slurred speech. CN 2 through 12 grossly intact Psych: calm, cooperative, normal affect Course Course Course Narrative: RME performed by Debo Dey PA-C. Patient is a 68 year old assigned female at presenting to the emergency department with bilateral lower leg redness and swelling. Patient states that she just finished cephalexin yesterday and when following up with her doctor, they recommended she come in. Patient states she has a wound center appointment on the . Detailed physical exam and review of systems are deferred to the theology professor. Labs ordered. Patient placed back in the waiting room pending room availability and results. Medications Administered Discontinued Medications Generic Name Dose Route Start Last Admin Trade Name Freq PRN Reason Stop Dose Admin Linezolid 600 mg 11/01/23 20:39 11/01/23 21:35 Linezolid 600 Mg Tablet PO 11/01/23 20:40 600 mg ONCE ONE Administration Lisinopril 40 mg 11/01/23 21:02 11/01/23 21:35 Lisinopril 40 Mg Tablet PO 11/01/23 21:03 40 mg ONCE ONE Administration Protocol Medical Decision Making Medical Decision Making [facility] Narrative: -my interpretation of labs: White blood cell count is slightly elevated. No fever chills, normal vitals. Sepsis not suspected. -given that the patient just finished a course of antibiotics and her legs are still not back to normal, admission was considered. I discussed with the patient that I recommend admission. However, patient states that she would prefer to have a prolonged course of antibiotics, and if she does not get any better, she prefers to come back. At this time, patient respectfully declined admission. -patient was given a dose of p.o. linezolid -patient has an appointment pending with the wound clinic on November 13. -patient has not taken yet her daily dose lisinopril 40 mg, pt's SKYLER in the 190's systolic, no CP, no SOB, Patient was given a dose here in the ED. Differential Diagnosis Differential Diagnoses: The differential diagnosis associated with the presentation includes (Cellulitis, chronic wounds, dermatitis) Admission/Observation Consideration of admission/observation: Escalation of care including admission/observation considered Lab Data MDM Lab Attestation statement: I reviewed the patient's lab results. 11/01/23 15:21 11/01/23 15:21 Labs: Lab Results 11/01/23 Range/Units 15:21 WBC 11.3 H (4.8-10.8) X10*3/uL RBC 3.92 L (4.20-5.50) X10*6/uL Hgb 12.8 (12.0-16.0) g/dl Hct 39.4 (37.0-47.0) % MCV 100.5 H (80.0-98.0) fL MCH 32.7 (27.0-33.0) pg MCHC 32.5 (31.0-35.0) g/dl RDW 13.0 (11.0-16.0) % Plt Count 341 (160-400) X10*3/uL MPV 9.3 L (9.4-12.3) fL Immature Gran % (Auto) 0.4 (0.0-0.4) % Neut % (Auto) 80.0 H (45-73) % Lymph % (Auto) 9.5 L (20-40) % Teller % (Auto) 7.1 (2-11) % Eos % (Auto) 2.6 (0-4) % Baso % (Auto) 0.4 (0-2) % Lymph # (Auto) 1.1 L (1.2-4.9) X10*3/uL Teller # (Auto) 0.8 (0.1-1.2) X10*3/uL Eos # (Auto) 0.3 (0.0-0.4) X10*3/uL Baso # (Auto) 0.0 (0.0-0.2) X10*3/uL Abs Immat Gran (auto) 0.05 H (0.00-0.03) X10*3/uL Absolute Neuts (auto) 9.1 H (2.0-8.3) x10*3/uL Absolute Nucleated RBC 0.000 (0.0-0.012) X10*3/uL Nucleated RBC % (auto) 0.0 (0.0-0.2) /100WBC ESR 38 H (0-20) MM/HR Sodium 139 (135-145) mmol/L Potassium 4.8 D (3.3-5.1) mmol/L Chloride 103 (96-108) mmol/L Carbon Dioxide 31 H (22-29) mmol/L Anion Gap 10 L (12-20) BUN 17 H (9-16) mg/dL Creatinine 0.65 (0.5-1.4) mg/dL Estim Creat Clear Calc 107.5 Estimated GFR > 60 Random Glucose 105 (60-115) mg/dL Calcium 9.1 (8.4-10.2) mg/dL Magnesium 1.9 (1.6-2.6) mg/dL Total Bilirubin 0.3 (0.0-1.0) mg/dL AST 12 (5-31) U/L ALT 10 (0-31) U/L Alkaline Phosphatase 73 (39-117) U/L C-Reactive Protein 2.60 H (< or = 0.50) mg/dL Total Protein 7.2 (6.5-8.0) g/dL Albumin 3.3 L (3.5-5.0) g/dL Discharge Plan Discharge Clinical Impression: Cellulitis Patient Disposition: Home, Self-Care Instructions: Cellulitis (ED) Additional Instructions: Please follow-up with your primary care physician tomorrow. If you have any worsening or new symptoms, please return to the emergency room or call 911 Prescriptions: New linezolid 600 mg tablet 600 mg PO Q12H 10 Days Qty: 20 0RF No Action calcium carbonate-vitamin D3 [Calcium with Vitamin D] 600 mg-10 mcg (400 unit) tablet 1 tab PO BID 90 Days Qty: 180 2RF (DME) Scooter-motorized 0 .Route .MEDSUPPLY Qty: 1 0RF Rx Instructions: As directed fluticasone propionate 50 mcg/actuation spray,suspension 2 spray intranasal DAILY Qty: 48 0RF atorvastatin 40 mg tablet 40 mg PO DAILY 90 Days Qty: 90 3RF albuterol sulfate 2.5 mg /3 mL (0.083 %) solution for nebulization 2.5 mg inhalation Q6H PRN (Reason: shortness of breath or wheezing) Qty: 180 0RF Anoro Ellipta 62.5-25 mcg/actuation blister with device 1 ea PO DAILY Qty: 180 0RF ibuprofen 800 mg tablet 800 mg PO TID PRN (Reason: pain) 30 Days Qty: 90 0RF lisinopril 40 mg tablet 40 mg PO DAILY 90 Days Qty: 90 1RF (DME) Oxygen Home Use Kit See Rx Instructions .Route Rx Instructions: 2lpm via NC at night and PRN sob methadone 10 mg/mL concentrate 70 mg PO Q12H furosemide [Lasix] 40 mg tablet 40 mg PO DAILY Qty: 60 3RF gabapentin 100 mg capsule 100 mg PO TID PRN (Reason: pain) 30 Days Qty: 90 0RF carvedilol 6.25 mg tablet 6.25 mg PO Q12H Qty: 100 3RF Rx Instructions: must administer with a meal/food Biktarvy 50-200-25 mg tablet 1 tab PO DAILY 30 Days Qty: 30 5RF Print Language: Swazi
[2023-11-01 15:25] LABS: MANUAL DIFF FLAG NO
[2023-11-01 15:30] LABS: Basophils Percent Auto 0.4 % (0-2); Eosinophils Absolute Auto 0.3 X10*3/uL (0.0-0.4); Eosinophils Percent Auto 2.6 % (0-4); Hematocrit 39.4 % (37.0-47.0); Hemoglobin 12.8 g/dl (12.0-16.0); Imm Gran Abs Auto 0.05 X10*3/uL (0.00-0.03); Imm Gran Pct Auto 0.4 % (0.0-0.4); Lymphocytes Absolute Auto 1.1 X10*3/uL (1.2-4.9); Lymphocytes Percent Auto 9.5 % (20-40); Mean Corpuscular HGB Conc 32.5 g/dl (31.0-35.0); Mean Corpuscular Hemoglobin 32.7 pg (27.0-33.0); Mean Corpuscular Volume 100.5 fL (80.0-98.0); Mean Platelet Volume 9.3 fL (9.4-12.3); Monocytes Absolute Auto 0.8 X10*3/uL (0.1-1.2); Monocytes Percent Auto 7.1 % (2-11); Neutrophils Absolute Auto 9.1 x10*3/uL (2.0-8.3); Platelet Count 341 X10*3/uL (160-400); Red Blood Count 3.92 X10*6/uL (4.20-5.50); White Blood Count 11.3 X10*3/uL (4.8-10.8)
[2023-11-01 15:43] LABS: Alanine Aminotransferase 10 U/L (0-31); Albumin Level 3.3 g/dL (3.5-5.0); Alkaline Phosphatase 73 U/L (39-117); Anion Gap 10 (12-20); Aspartate Amino Transferase 12 U/L (5-31); Bilirubin Total 0.3 mg/dL (0.0-1.0); Blood Urea Nitrogen 17 mg/dL (9-16); Calcium 9.1 mg/dL (8.4-10.2); Carbon Dioxide 31 mmol/L (22-29); Chloride 103 mmol/L (96-108); Creatinine Clr Calc Pharmacy 107.5; Estimated Glomerular Filt Rate > 60; Glucose Random 105 mg/dL (60-115); Magnesium 1.9 mg/dL (1.6-2.6); Potassium 4.8 mmol/L (3.3-5.1); Sodium 139 mmol/L (135-145); Total Protein 7.2 g/dL (6.5-8.0)
[2023-11-01 16:14] LABS: Erythrocyte Sedimentation Rate 38 MM/HR (0-20)
[2023-11-01 19:53] VITALS: BP 214/96; PULSE 77; RESP 20; TEMP 36.6; O2SAT 85
[2023-11-01 20:55] VITALS: BP 195/97; PULSE 77; RESP 16; TEMP 36.8; O2SAT 96
[2023-11-01] MEDS: lisinopriL 40 MG TABLET PO (21:35)
[2023-11-01] MEDS: Linezolid 600 MG TABLET PO (21:35)
[2023-11-01 22:31] VITALS: BP 172/99; PULSE 70; RESP 20; TEMP 36.8; O2SAT 99
== END 2023-11-01 22:30 | disposition home or self-care (01) ==
PROVIDERS: Physician Assistant Medical; Emergency Provider Emergency Medicine; PCP Nurse Practitioner Family
DX: L03.116 Cellulitis of left lower limb (principal); L03.115 Cellulitis of right lower limb; L53.9 Erythematous condition, unspecified; B20 Human immunodeficiency virus [HIV] disease; J44.9 Chronic obstructive pulmonary disease, unspecified; Z79.899 Other long term (current) drug therapy
CPT/HCPCS: 36415; 80053; 83735; 85025; 85652; 86140; 99212; 99283; 99284

== ENCOUNTER 2023-11-26 08:25 | Observation (INO) | payer MEDICARE, SELFPAY ==
[2023-11-26] VITALS (8 sets, daily range): BP systolic 138–187; BP diastolic 76–90; PULSE 65–100; RESP 14–19; TEMP 36.6–37.1; O2SAT 92–94; BMI 37.6
--- NOTE | ~2023-11-26 | XR_ITS ---
EXAMINATION: XR SHOULDER, RIGHT CLINICAL INFORMATION: Pain COMPARISON: Previous x-ray December [address] February 2023 TECHNIQUE: 3 views of the right shoulder. FINDINGS: There is abnormal glenohumeral alignment with anterior subluxation of the humeral head with respect to the glenoid. This may not be appreciably changed from 2022 CT exam. No acute fracture or dislocation seen. There are severe degenerative changes of the glenohumeral joint with joint space narrowing and subchondral sclerosis and cystic change. The acromioclavicular joint is normal. The soft tissues are normal. XR/XR shoulder RT min 2V IMPRESSION: No acute fracture or dislocation. Abnormal alignment with anterior subluxation of the humeral head with respect to the glenoid and severe arthritis, probably not appreciably changed from February [address]23 CT exam.
--- NOTE | ~2023-11-26 | CT_ITS ---
EXAMINATION: CT head/brain wo IV con CLINICAL INFORMATION: Reason for Exam fall last week COMPARISON: None. TECHNIQUE: Contiguous axial imaging was performed from the skull base to vertex without intravenous contrast. Sagittal and coronal reformatted images were obtained. This CT examination was performed using dose optimization techniques as appropriate, variously including the following: * Automated exposure control * Adjustment of mA and/or kV according to patient size (this includes techniques or standardized protocols for targeted exams where dose is matched to indication/reason for exam; i.e. extremities or head) Use of iterative reconstruction technique DLP: 690.1 mGy-cm FINDINGS: No acute osseous or soft tissue abnormality. The mastoid air cells and visualized portions of the paranasal sinuses are well aerated. There is no evidence of acute intracranial hemorrhage or territorial infarction. No abnormal mass effect or midline shift is seen. Bansal to white matter differentiation is well preserved. No extra-axial fluid collections are identified. There is a calcified extra-axial lesion at the left vertex measuring up to 8 mm, likely representing meningioma. No hydrocephalus. No significant volume loss. Patchy periventricular and deep white matter hypoattenuation is consistent with moderate small vessel ischemic changes. CT/CT head/brain wo IV con IMPRESSION: 1. No acute intracranial abnormality including hemorrhage, mass effect, hydrocephalus, or acute territorial edematous infarction. 2. 8 mm calcified extra-axial lesion at the left vertex, likely representing a meningioma.
--- NOTE | ~2023-11-26 | XR_ITS ---
EXAMINATION: XR CHEST CLINICAL INFORMATION: Shortness of breath COMPARISON: Previous chest x-ray most recent July [address] September 2022 TECHNIQUE: Frontal view of the chest was obtained. FINDINGS: The patient is rotated to the right. The cardiac silhouette does not appear enlarged. There is stable increased density in the right perihilar region from prior exams. When compared with prior CT this is likely related to patient rotation, overlapping right heart border and prominent epicardial fat. Lungs are otherwise clear. No pleural effusion or pneumothorax. Question abnormal alignment of the right shoulder. XR/XR chest 1V IMPRESSION: Stable chest exam with prominence of the right hilum probably related to patient rotation to the right. No evidence for acute disease in the chest. Question abnormal alignment of the right shoulder.
--- NOTE | 2023-11-26 08:31 | ECG_ITS ---
Test Reason : SOB Blood Pressure : / mmHG Vent. Rate : 088 BPM Atrial Rate : 088 BPM P-R Int : 174 ms QRS Dur : 084 ms QT Int : 354 ms P-R-T Axes : 040 -06 039 degrees QTc Int : 428 ms Normal sinus rhythm Anterior infarct , age undetermined Abnormal ECG When compared with ECG of 02-JUL-2019 13:57, Anterior infarct is now Present Inferior infarct is now Present Referred By: Jessica Villarreal Electronically Signed By:Tal Danielle
--- NOTE | 2023-11-26 08:31 | ED_ITS ---
HPI - General Adult General Chief complaint: Dyspnea Stated complaint: SOB HX OF COPD SAT AFTER NEB 96 PER EMS Time Seen by Provider: 11/26/23 08:30 Source: patient and EMS Mode of arrival: EMS Limitations: no limitations History of Present Illness ED Provider: Avila ESPINOZA HPI narrative: 60-year-old female history of COPD, obesity, LAURENCE, LVH, aortic dilation, diastolic dysfunction, methadone use, HIV, hepatitis-C, presenting to the emergency department with complaints of shortness of breath worsening over the past 3-4 days. Patient wears 2-3 L at baseline and despite this she feels like she has been very short of breath. She was saturating 88% when EMS arrived on scene, they gave her an updraft and now she is 96%. Denies sick contacts. Denies fevers, chills, cough, nausea, vomiting, abdominal pain, chest pain, headache, vision changes, dizziness and weakness. Related Data Home Medications ?Medication ?Instructions ?Recorded ?Confirmed methadone 10 mg/mL oral concentrate 70 mg PO Q12H 08/17/21 10/28/23 Oxygen Home Use 10/28/22 10/28/23 Previous Rx's ?Medication ?Instructions ?Recorded furosemide 40 mg tablet (Lasix) 40 mg PO DAILY #60 tabs 09/13/22 calcium carbonate 600 mg-vitamin 1 tab PO BID 90 days #180 tabs 01/06/23 D3 10 mcg (400 unit) tablet (Calcium with Vitamin D) carvedilol 6.25 mg tablet 6.25 mg PO Q12H #100 tabs 01/24/23 Scooter-motorized #1 ea 04/13/23 fluticasone propionate 50 2 spray intranasal DAILY #48 grams 05/25/23 mcg/actuation nasal spray,suspension atorvastatin 40 mg tablet 40 mg PO DAILY 90 days #90 tabs 06/15/23 albuterol sulfate 2.5 mg/3 mL 2.5 mg (3 mL) inhalation Q6H PRN 07/20/23 (0.083 %) solution for nebulization shortness of breath or wheezing #180 mL bictegravir 50 mg-emtricitabine 1 tab PO DAILY 30 days #30 tabs 09/05/23 200 mg-tenofovir alafenam 25 mg tablet (Biktarvy) Anoro Ellipta 62.5 mcg-25 1 ea PO DAILY #180 ea 09/15/23 mcg/actuation powder for inhalation (umeclidinium-vilanterol) lisinopril 40 mg tablet 40 mg PO DAILY 90 days #90 tabs 10/23/23 linezolid 600 mg tablet 600 mg PO Q12H 10 days #20 tabs 11/01/23 gabapentin 100 mg capsule 100 mg PO TID PRN for pain 30 days 11/14/23 #90 caps ibuprofen 800 mg tablet 800 mg PO TID PRN pain 30 days #90 11/15/23 tabs Allergies Allergy/AdvReac Type Severity Reaction Status Date / Time Horse/Equine Containing Allergy Intermediate SWELLING Verified 11/26/23 08:35 Products [Horse/Equine Product Derivatives] Iodinated Contrast Media Allergy Unknown HIVES Verified 11/26/23 08:35 [IV CONTRAST] Review of Systems 2 Review of Systems: Yes all other systems are reviewed and are negative PMFSH Past Medical History Attestation statement: The following information was validated with the patient. Source: old records reviewed and nursing notes reviewed Medical History Respiratory failure with hypoxia and hypercapnia Eosinophilia Bronchitis Other instability, right shoulder Retinopathy Methadone use Morbid obesity HIV (human immunodeficiency virus infection) Rhinitis Hypoventilation associated with obesity COPD (chronic obstructive pulmonary disease) HIV (human immunodeficiency virus infection) Smoker Morbid obesity Aortic dilatation Hypoventilation syndrome LAURENCE (obstructive sleep apnea) Respiratory failure with hypoxia Lower extremity edema Diastolic heart failure Hyperlipidemia Surgical History History of colonoscopy History of tonsillectomy Family History Family History Father No problems noted. Mother No problems noted. Brother Asthma Maternal Grandfather No problems noted. Maternal Grandmother No problems noted. Paternal Grandfather No problems noted. Paternal Grandmother No problems noted. Brother No problems noted. Brother Substance use disorder Social History Social History Housing: House Alcohol intake: never Patient Tobacco Use Status: Current everyday Tobacco user Tobacco use type: Cigarette Cigarette Packs Per Day: 0.5 Cigarettes Per Day: 4 Years Smoked: 30 +/- Smoked in Last 30 Days: Yes e-Cigarette/Vaping Use: Never Used Second Hand Smoke Exposure: Yes Use of substances other than those prescribed or required for medical reasons: No Advance Directives: No Advance Directives Information Provided: No Do you have a plan to hurt others: No Plan service: No Current occupational status: disabled Current occupation: rt hand Cognitive needs: No Hearing needs: No Vision needs: No Physical Exam ED Vital Signs: Vital Signs - 24 hr 11/26/23 08:33 11/26/23 09:02 11/26/23 10:53 Temperature 98.8 F Pulse Rate 91 87 84 Respiratory Rate 17 16 19 Blood Pressure 187/89 H 178/88 H Pulse Oximetry 93 92 Oxygen Delivery Method Nasal Cannula Nasal Cannula Oxygen Flow Rate 4 BMI result Body Mass Index 37.6 vss Appearance: Alert.? Oriented X3.? No acute distress.? Head: Normocephalic, atraumatic, no step-offs or deformities Eyes: Pupils equal, round and reactive to light.? Neck: Normal inspection.? Neck supple.? CVS: Normal heart rate and rhythm.? Pulses normal.? Respiratory: No respiratory distress.? Breath sounds normal.? Abdomen: Soft and nontender.? Skin: Skin warm and dry.? Normal skin color.? Normal skin turgor.? Extremities: No lower extremity edema.? No calf ttp. Global weakness. Brusing to left bicep and L flank region Back: No midline tenderness, no C-spine tenderness, full range of motion, no CVA tenderness bilaterally Neuro: Oriented X 3.? No motor deficit.? No sensory deficit. CN 2-12 intact Course Reevaluation(s) Reevaluation #1: CBC with leukocytosis and left shift. Chemistry unremarkable. Normal troponin, nonischemic EKG. BNP 108 just slightly elevated. No signs of fluid overload on exam. Lactic acid pending. Patient was covered with ceftriaxone. Time: 11:13 Reevaluation #2: Chest x-ray stable chest exam with prominence of the right hilar probably related to patient rotation. No evidence of acute disease in the chest question abnormal alignment of right shoulder patient freely moving right shoulder no pain in right shoulder she did have a fall about a week ago. Will obtain x-ray to further evaluate this. Also added head CT to ensure no abnormalities in head. Time: 11:14 Reevaluation #3: Plan xray r shoulder and ct head pending. Time: 11:20 Medications Administered Discontinued Medications Generic Name Dose Route Start Last Admin Trade Name Lamin PRN Reason Stop Dose Admin Albuterol Sulfate 2.5 mg/ 0 mg 11/26/23 08:50 11/26/23 09:00 Albuterol/Ipratropium 3 ml INHALE 11/26/23 08:51 2.5 dose ONCE ONE Administration Ceftriaxone Sodium 1 gm/ 50 mls @ 100 mls/hr 11/26/23 09:58 11/26/23 10:52 Sodium Chloride IV 11/26/23 10:27 100 mls/hr ONCE ONE Administration Lisinopril 40 mg 11/26/23 08:53 11/26/23 09:24 Lisinopril 40 Mg Tablet PO 11/26/23 08:54 40 mg ONCE ONE Administration Protocol Methylprednisolone Sodium Succinate 125 mg 11/26/23 08:53 11/26/23 09:24 Methylprednisolone Sod Succ 125 Mg/2 Ml Vial IVPUSH 11/26/23 08:54 125 mg ONCE ONE Administration Medical Decision Making Medical Decision Making [facility] Narrative: 0833 68 year old female presents w/ sob x 3-4 days PE diminished breathsounds b/l and expiratory wheezing b/l. Hx and pe concenring for viral illness vs asthma vs copd vs chf. Unlikely acs, pna, pe, ards. I do not suspect acute elctrolyte abnormaities Plan- labs, urine,imaging, viral test. Differential Diagnosis Differential Diagnoses: The differential diagnosis associated with the presentation includes Hx and pe concenring for viral illness vs asthma vs copd vs chf. Unlikely acs, pna, pe, ards. I do not suspect acute elctrolyte abnormaities Admission/Observation Consideration of admission/observation: Escalation of care including admission/observation considered possible Consult Healthcare Provider Management of the patient was discussed with: Hospitalist Lab Data [facility] Lab Attestation statement: I reviewed the patient's lab results. 11/26/23 09:22 11/26/23 10:00 Labs: Lab Results 11/26/23 11/26/23 11/26/23 Range/Units 09:07 09:22 10:00 WBC 13.7 H (4.8-10.8) X10*3/uL RBC 3.57 L (4.20-5.50) X10*6/uL Hgb 11.6 L (12.0-16.0) g/dl Hct 35.0 L (37.0-47.0) % MCV 98.0 (80.0-98.0) fL MCH 32.5 (27.0-33.0) pg MCHC 33.1 (31.0-35.0) g/dl RDW 13.7 (11.0-16.0) % Plt Count 294 (160-400) X10*3/uL MPV 9.4 (9.4-12.3) fL Immature Gran % (Auto) 0.4 (0.0-0.4) % Neut % (Auto) 83.2 H (45-73) % Lymph % (Auto) 5.5 L (20-40) % Andrews % (Auto) 9.7 (2-11) % Eos % (Auto) 1.0 (0-4) % Baso % (Auto) 0.2 (0-2) % Lymph # (Auto) 0.8 L (1.2-4.9) X10*3/uL Andrews # (Auto) 1.3 H (0.1-1.2) X10*3/uL Eos # (Auto) 0.1 (0.0-0.4) X10*3/uL Baso # (Auto) 0.0 (0.0-0.2) X10*3/uL Abs Immat Gran (auto) 0.06 H (0.00-0.03) X10*3/uL Absolute Neuts (auto) 11.4 H (2.0-8.3) x10*3/uL Absolute Nucleated RBC 0.000 (0.0-0.012) X10*3/uL Nucleated RBC % (auto) 0.0 (0.0-0.2) /100WBC Sodium 138 (135-145) mmol/L Potassium 3.6 D (3.3-5.1) mmol/L Chloride 98 (96-108) mmol/L Carbon Dioxide 32 H (22-29) mmol/L Anion Gap 12 (12-20) BUN 12 (9-16) mg/dL Creatinine 0.58 (0.5-1.4) mg/dL Estim Creat Clear Calc 122.0 Estimated GFR > 60 Random Glucose 123 H (60-115) mg/dL Calcium 9.1 (8.4-10.2) mg/dL Magnesium 1.8 (1.6-2.6) mg/dL Total Bilirubin 0.8 (0.0-1.0) mg/dL AST 21 (5-31) U/L ALT 23 (0-31) U/L Alkaline Phosphatase 123 H (39-117) U/L Troponin I High Sens 9.7 (<3.5-17.0) ng/L B-Natriuretic Peptide 108 H (<100) pg/mL Total Protein 7.0 (6.5-8.0) g/dL Albumin 3.0 L (3.5-5.0) g/dL Influenza Type A (PCR) NEGATIVE (Negative) Influenza Type B (PCR) NEGATIVE (Negative) RSV RNA Qual (PCR) NEGATIVE (Negative) SARS-CoV-2 RNA (RT-PCR) NEGATIVE (Negative) Independent Interpretation I performed an independent interpretation of an: EKG (Vent. Rate : 088 BPM Atrial Rate : 088 BPM P-R Int : 174 ms QRS Dur : 084 ms QT Int : 354 ms P-R-T Axes : 040 -06 039 degrees QTc Int : 428 ms Normal sinus rhythm Inferior infarct , age undetermined Anterior infarct , age undetermined Abnormal ECG When compared with EC) and Plain X-Ray ( XR/XR chest 1V IMPRESSION: Stable chest exam with prominence of the right hilum probably related to patient rotation to the right. No evidence for acute disease in the chest. Question abnormal alignment of the right shoulder. ) Critical Care Time Critical Care Time Critical Care Time: Yes Total Critical Care Time: 35 Attestation: I attest to this time spent taking care of the patient, obtaining history, physical, reviewing labs, imaging, speaking to my attending, specialist or hospitalist. Discharge Plan Discharge Clinical Impression: COPD exacerbation, Fall Prescriptions: No Action calcium carbonate-vitamin D3 [Calcium with Vitamin D] 600 mg-10 mcg (400 unit) tablet 1 tab PO BID 90 Days Qty: 180 2RF (DME) Scooter-motorized 0 .Route .MEDSUPPLY Qty: 1 0RF Rx Instructions: As directed fluticasone propionate 50 mcg/actuation spray,suspension 2 spray intranasal DAILY Qty: 48 0RF atorvastatin 40 mg tablet 40 mg PO DAILY 90 Days Qty: 90 3RF albuterol sulfate 2.5 mg /3 mL (0.083 %) solution for nebulization 2.5 mg inhalation Q6H PRN (Reason: shortness of breath or wheezing) Qty: 180 0RF Anoro Ellipta 62.5-25 mcg/actuation blister with device 1 ea PO DAILY Qty: 180 0RF lisinopril 40 mg tablet 40 mg PO DAILY 90 Days Qty: 90 1RF gabapentin 100 mg capsule 100 mg PO TID PRN (Reason: for pain) 30 Days Qty: 90 0RF ibuprofen 800 mg tablet 800 mg PO TID PRN (Reason: pain) 30 Days Qty: 90 0RF linezolid 600 mg tablet 600 mg PO Q12H 10 Days Qty: 20 0RF (DME) Oxygen Home Use Kit See Rx Instructions .Route Rx Instructions: 2lpm via NC at night and PRN sob methadone 10 mg/mL concentrate 70 mg PO Q12H furosemide [Lasix] 40 mg tablet 40 mg PO DAILY Qty: 60 3RF carvedilol 6.25 mg tablet 6.25 mg PO Q12H Qty: 100 3RF Rx Instructions: must administer with a meal/food Biktarvy 50-200-25 mg tablet 1 tab PO DAILY 30 Days Qty: 30 5RF Print Language: Tanzanian
[2023-11-26] MEDS: Albuterol Sulfate 2.5 MG, Albuterol/Iprat 2.5/0.5MG 3 ML 3 ML INHALE (09:00)
[2023-11-26] MEDS: lisinopriL 40 MG TABLET PO (09:24)
[2023-11-26] MEDS: methylPREDNISolone Sod Succ 125 MG/2 ML VIAL IVPUSH (09:24)
[2023-11-26 09:25] LABS: MANUAL DIFF FLAG NO
[2023-11-26 09:27] LABS: Basophils Percent Auto 0.2 % (0-2); Eosinophils Absolute Auto 0.1 X10*3/uL (0.0-0.4); Hemoglobin 11.6 g/dl (12.0-16.0); Imm Gran Abs Auto 0.06 X10*3/uL (0.00-0.03); Imm Gran Pct Auto 0.4 % (0.0-0.4); Lymphocytes Absolute Auto 0.8 X10*3/uL (1.2-4.9); Lymphocytes Percent Auto 5.5 % (20-40); Mean Corpuscular HGB Conc 33.1 g/dl (31.0-35.0); Mean Corpuscular Hemoglobin 32.5 pg (27.0-33.0); Mean Platelet Volume 9.4 fL (9.4-12.3); Monocytes Absolute Auto 1.3 X10*3/uL (0.1-1.2); Monocytes Percent Auto 9.7 % (2-11); Neutrophils Absolute Auto 11.4 x10*3/uL (2.0-8.3); Neutrophils Percent Auto 83.2 % (45-73); Platelet Count 294 X10*3/uL (160-400); Red Blood Count 3.57 X10*6/uL (4.20-5.50); Red Cell Distribution Width 13.7 % (11.0-16.0); White Blood Count 13.7 X10*3/uL (4.8-10.8)
[2023-11-26 09:49] LABS: B Type Natriuretic Peptide 108 pg/mL (<100)
[2023-11-26 09:50] LABS: Troponin-I High Sensitivity 9.7 ng/L (<3.5-17.0)
[2023-11-26 10:40] LABS: Alanine Aminotransferase 23 U/L (0-31); Alkaline Phosphatase 123 U/L (39-117); Anion Gap 12 (12-20); Aspartate Amino Transferase 21 U/L (5-31); Bilirubin Total 0.8 mg/dL (0.0-1.0); Blood Urea Nitrogen 12 mg/dL (9-16); Calcium 9.1 mg/dL (8.4-10.2); Carbon Dioxide 32 mmol/L (22-29); Chloride 98 mmol/L (96-108); Estimated Glomerular Filt Rate > 60; Glucose Random 123 mg/dL (60-115); Magnesium 1.8 mg/dL (1.6-2.6); Potassium 3.6 mmol/L (3.3-5.1); Sodium 138 mmol/L (135-145)
[2023-11-26] MEDS: cefTRIAXone sodium 1 GM in 0.9 % Sodium Chloride 50 ML IV (10:52)
[2023-11-26 10:54] LABS: Influenza A PCR NEGATIVE (Negative); Influenza B PCR NEGATIVE (Negative); Resp Syncy Virus RNA Qual PCR NEGATIVE (Negative); SARS COV2 PCR INHOUSE NEGATIVE (Negative)
--- NOTE | 2023-11-26 12:13 | PHA.MEDREC ---
Pharmacy Consult ? Medication Reconciliation Pharmacy has completed the medication reconciliation. Patient was able to confirm all her medications. Patient admitted to taking her Carvedilol only once daily as it made her feel sick.
--- NOTE | 2023-11-26 13:09 | PM.IMHP ---
History of Present Illness Date of Service: 11/26/23 Chief Complaint: SOB A 68 years old lady with PMH of chronic resp failure 2/2 COPD on O2, HTN, dCHF, Methadone use, HIV among others who presented with worsening SOB for 1 week. For the last week she reports worsneing SOB and dyspnea with minimal exertion. overnight she noticed difficulties taking breath in and did not hear much of wheezes but felt very difficult to take a breath down. No chest pain, palpitations, nausea, vomiting, diarrhea or urinary symptoms. bilateral lower extremities wounds covered with dressing and followed at the wound clinic. In ED she was found of O2 88% while on home dose O2 supplement of 2-3L. Treated with IV steroids and nebulizers with fair response admitted for further evaluation and treatment. Review of Systems Review of Systems: No fever, chills or weakness No chest pain, palpitation reporting shortness of breath or coughing No abdominal pain, nausea or vomiting No urinary symptoms lower extremities wounds PMFSH Medical History Respiratory failure with hypoxia and hypercapnia Eosinophilia Bronchitis Other instability, right shoulder Retinopathy Methadone use Morbid obesity HIV (human immunodeficiency virus infection) Rhinitis Hypoventilation associated with obesity COPD (chronic obstructive pulmonary disease) HIV (human immunodeficiency virus infection) Smoker Morbid obesity Aortic dilatation Hypoventilation syndrome LAURENCE (obstructive sleep apnea) Respiratory failure with hypoxia Lower extremity edema Diastolic heart failure Hyperlipidemia Family History Father No problems noted. Mother No problems noted. Brother Asthma Maternal Grandfather No problems noted. Maternal Grandmother No problems noted. Paternal Grandfather No problems noted. Paternal Grandmother No problems noted. Brother No problems noted. Brother Substance use disorder Surgical History History of colonoscopy History of tonsillectomy Social History Housing: House Alcohol intake: never Patient Tobacco Use Status: Current everyday Tobacco user Tobacco use type: Cigarette Cigarette Packs Per Day: 0.5 Cigarettes Per Day: 4 Years Smoked: 30 +/- Smoked in Last 30 Days: Yes e-Cigarette/Vaping Use: Never Used Second Hand Smoke Exposure: Yes Use of substances other than those prescribed or required for medical reasons: No Advance Directives: No Advance Directives Information Provided: No Do you have a plan to hurt others: No Plan service: No Current occupational status: disabled Current occupation: rt hand Cognitive needs: No Hearing needs: No Vision needs: No Meds Allergies Allergy/AdvReac Type Severity Reaction Status Date / Time Horse/Equine Containing Allergy Intermediate SWELLING Verified 11/26/23 08:35 Products [Horse/Equine Product Derivatives] Iodinated Contrast Media Allergy Unknown HIVES Verified 11/26/23 08:35 [IV CONTRAST] Active Medications: Current Medications Atorvastatin Calcium (Atorvastatin Calcium 40 Mg Tablet) 40 mg PO BEDTIME VIC Bictegravir/Emtricitabine/Tenofovir (Bictegrav/Emtricit/Tenofov Ala Tablet) 1 tab PO DAILY VIC Carvedilol (Carvedilol 6.25 Mg Tablet) 6.25 mg PO DAILY VIC; Protocol Fluticasone Propionate (Fluticasone Propionate Nasal 16 Gm Hindman) 2 spray NOSTRIL-B DAILY VIC Furosemide (Furosemide 40 Mg Tablet) 40 mg PO DAILY VIC; Protocol Gabapentin (Gabapentin 100 Mg Capsule) 100 mg PO TID PRN PRN Reason: for pain Lisinopril (Lisinopril 40 Mg Tablet) 40 mg PO DAILY VIC; Protocol Non-Formulary Medication (Umeclidinium-Vilanterol [Anoro Ellipta]) 1 each PO DAILY [facility] Home Medications ?Medication ?Instructions ?Recorded ?Confirmed ?Last Taken ?Type methadone 10 mg/mL oral concentrate 75 mg PO Q12H 08/17/21 10/28/23 Unknown History Oxygen Home Use 10/28/22 11/26/23 Unknown History atorvastatin 40 mg tablet 40 mg PO BEDTIME 11/26/23 11/26/23 Unknown History carvedilol 6.25 mg tablet 6.25 mg PO DAILY 11/26/23 11/26/23 Unknown History furosemide 40 mg tablet (Lasix) 40 mg PO DAILY PRN Weight Gain 11/26/23 11/26/23 Unknown History Physical Exam Vital Signs and Narrative: Vital Signs: Last Vital Signs Temp 98.8 F 11/26/23 08:33 Pulse 84 11/26/23 10:53 Resp 19 11/26/23 10:53 BP 178/88 H 11/26/23 10:53 Pulse Ox 92 11/26/23 10:53 O2 Del Method Nasal Cannula 11/26/23 10:53 O2 Flow Rate 4 11/26/23 10:53 Oxygen Flow Rate 4 11/26/23 08:33 BMI result Body Mass Index 37.6 Const: Other: Constitutional : Awake, interactive, not in distress Neck : Normal inspection, Supple Cardiovascular : RRR, no JVP, no lower extremity edema Respiratory : decreased bilateral air entry, no crackles, fine expiratory wheezes , On O2 supplement Gastrointestinal: soft, lax, Normal bowel sounds, Non tender Skin : Warm, Dry, bilateral lower extremities wounds with mildly surrounding erythema with no tenderness or warmth, no drainage noted Neurological : Alert & oriented x3, No focal deficit , CN 2-12 within normal Results Labs 11/26/23 09:22 11/26/23 10:00 Labs: Laboratory Results - last 24 hr 11/26/23 11/26/23 11/26/23 09:07 09:22 10:00 MCV 98.0 MCH 32.5 MCHC 33.1 RDW 13.7 Plt Count 294 MPV 9.4 Immature Gran % (Auto) 0.4 Neut % (Auto) 83.2 H Lymph % (Auto) 5.5 L Gray % (Auto) 9.7 Eos % (Auto) 1.0 Baso % (Auto) 0.2 Lymph # (Auto) 0.8 L Gray # (Auto) 1.3 H Eos # (Auto) 0.1 Baso # (Auto) 0.0 Abs Immat Gran (auto) 0.06 H Absolute Neuts (auto) 11.4 H Absolute Nucleated RBC 0.000 Nucleated RBC % (auto) 0.0 Anion Gap 12 Estim Creat Clear Calc 122.0 Estimated GFR > 60 Random Glucose 123 H Lactic Acid Calcium 9.1 Magnesium 1.8 Total Bilirubin 0.8 AST 21 ALT 23 Alkaline Phosphatase 123 H Troponin I High Sens 9.7 B-Natriuretic Peptide 108 H Total Protein 7.0 Albumin 3.0 L Influenza Type A (PCR) NEGATIVE Influenza Type B (PCR) NEGATIVE RSV RNA Qual (PCR) NEGATIVE SARS-CoV-2 RNA (RT-PCR) NEGATIVE 11/26/23 11:31 MCV MCH MCHC RDW Plt Count MPV Immature Gran % (Auto) Neut % (Auto) Lymph % (Auto) Gray % (Auto) Eos % (Auto) Baso % (Auto) Lymph # (Auto) Gray # (Auto) Eos # (Auto) Baso # (Auto) Abs Immat Gran (auto) Absolute Neuts (auto) Absolute Nucleated RBC Nucleated RBC % (auto) Anion Gap Estim Creat Clear Calc Estimated GFR Random Glucose Lactic Acid 1.0 Calcium Magnesium Total Bilirubin AST ALT Alkaline Phosphatase Troponin I High Sens B-Natriuretic Peptide Total Protein Albumin Influenza Type A (PCR) Influenza Type B (PCR) RSV RNA Qual (PCR) SARS-CoV-2 RNA (RT-PCR) Imaging Radiologist's Impressions: Impressions Chest X-Ray 11/26/23 08:54 IMPRESSION: Stable chest exam with prominence of the right hilum probably related to patient rotation to the right. No evidence for acute disease in the chest. Question abnormal alignment of the right shoulder. Head CT 11/26/23 11:36 IMPRESSION: 1. No acute intracranial abnormality including hemorrhage, mass effect, hydrocephalus, or acute territorial edematous infarction. 2. 8 mm calcified extra-axial lesion at the left vertex, likely representing a meningioma. Shoulder X-Ray 11/26/23 11:48 IMPRESSION: No acute fracture or dislocation. Abnormal alignment with anterior subluxation of the humeral head with respect to the glenoid and severe arthritis, probably not appreciably changed from February [address]23 CT exam. Assessment and Plan (1) Venous insufficiency of both lower extremities: Status: Acute (2) Oxygen dependent: Status: Acute (3) COPD exacerbation: Status: Acute Plan A 68 years old lady with PMH of chronic resp failure 2/2 COPD on O2, HTN, dCHF, Methadone use, HIV among others who presented with worsening SOB for 1 week. acute COPD exacerbation in chronic hypoxic resp failure Duonebs ATC Albuterol PRN IV steroids continue home inhalors wean O2 down as tolerated Hx dCHF not in exacerbation continue home dose Lasix HTN continue Lisinopril and Carvedilol HIV continue Bictarvy DVT PPx Lovenox Quality Stroke Does the patient have a stroke diagnosis?: No VTE Prior VTE?: No VTE Risk Level:: Medical - moderate - high VTE Device Contraindication: Treatment Not Indicated VTE Drug Contraindication: N/A - Med Ordered
[2023-11-26] MEDS: Albuterol/Iprat 2.5/0.5MG 3 ML AMPUL.NEB INHALE ×2 (15:11→18:55)
[2023-11-26] MEDS: Enoxaparin Sodium 40 MG/0.4 ML SYRINGE SUBCUT (15:15)
[2023-11-26] MEDS: Furosemide 40 MG TABLET PO (15:15)
[2023-11-26] MEDS: carvediloL 6.25 MG TABLET PO (15:16)
[2023-11-26] MEDS: Bictegrav/Emtricit/Tenofov Ala TABLET 1 TAB PO (15:16)
[2023-11-26] MEDS: 0.9 % Sodium Chloride Flush 3 ML SYRINGE IVFLUSH (17:45)
--- NOTE | 2023-11-26 18:11 | HO.SKINPHOTO ---
Location: R calf Category: Stage: Length: Width: Depth: cm Location: R calf Category: Stage: Length: Width: Depth: cm Location: L posterior calf Category: Stage: Length: Width: Depth: cm Location: Category: Stage: Length: Width: Depth: cm Location: Category: Stage: Length: Width: Depth: cm Location: Category: Stage: Length: Width: Depth: cm
[2023-11-26] MEDS: Gabapentin 100 MG CAPSULE PO (18:53)
--- NOTE | 2023-11-26 19:20 | PC.NURSE ---
This RN assumed pt care @ 1900. Pt ca&ox4, no signs of distress. Pt sitting in bed eating, denies pain at this time. Plan of care ongoing.
[2023-11-26] MEDS: Atorvastatin Calcium 40 MG TABLET PO (21:15)
--- NOTE | 2023-11-26 21:17 | PC.NURSE ---
Pt medicated per aug. Plan of care ongoing.
[2023-11-27] VITALS (8 sets, daily range): BP systolic 143–161; BP diastolic 72–90; PULSE 59–83; RESP 14–20; TEMP 36.2–36.7; O2SAT 92–96
[2023-11-27 05:33] LABS: Hematocrit 34.6 % (37.0-47.0); Hemoglobin 11.3 g/dl (12.0-16.0); Mean Corpuscular HGB Conc 32.7 g/dl (31.0-35.0); Mean Corpuscular Hemoglobin 32.1 pg (27.0-33.0); Mean Corpuscular Volume 98.3 fL (80.0-98.0); Mean Platelet Volume 9.4 fL (9.4-12.3); Platelet Count 370 X10*3/uL (160-400); Red Blood Count 3.52 X10*6/uL (4.20-5.50); White Blood Count 13.1 X10*3/uL (4.8-10.8)
[2023-11-27 05:42] LABS: Anion Gap 15 (12-20); Blood Urea Nitrogen 14 mg/dL (9-16); Calcium 9.3 mg/dL (8.4-10.2); Carbon Dioxide 31 mmol/L (22-29); Chloride 96 mmol/L (96-108); Creatinine Clr Calc Pharmacy 115.9; Estimated Glomerular Filt Rate > 60; Glucose Random 134 mg/dL (60-115); Potassium 3.7 mmol/L (3.3-5.1); Sodium 138 mmol/L (135-145)
[2023-11-27] MEDS: Albuterol/Iprat 2.5/0.5MG 3 ML AMPUL.NEB INHALE ×2 (06:52→11:10)
[2023-11-27] MEDS: methylPREDNISolone Sod Succ 40 MG/ML VIAL IVPUSH (08:31)
[2023-11-27] MEDS: carvediloL 6.25 MG TABLET PO (08:31)
[2023-11-27] MEDS: lisinopriL 40 MG TABLET PO (08:31)
[2023-11-27] MEDS: Bictegrav/Emtricit/Tenofov Ala TABLET 1 TAB PO (08:38)
--- NOTE | 2023-11-27 09:57 | P.DS_ITS ---
DS: Providers Provider Date of Service: 11/27/23 Date of admission: 11/26/23 13:05 Primary care physician: Unknown Physician Consults: 11/26/23 18:17 Consult to Wound Care Routine Reason for consultation: SUZY leg wounds DS: Diagnosis Discharge Diagnosis (1) Venous insufficiency of both lower extremities: Status: Acute (2) Oxygen dependent: Status: Acute (3) COPD exacerbation: Status: Acute DS: Summary Hospital Course Hospital Course: Admission note HPI A 68 years old lady with PMH of chronic resp failure 2/2 COPD on O2, HTN, dCHF, Methadone use, HIV among others who presented with worsening SOB for 1 week. For the last week she reports worsneing SOB and dyspnea with minimal exertion. overnight she noticed difficulties taking breath in and did not hear much of wheezes but felt very difficult to take a breath down. No chest pain, palpitations, nausea, vomiting, diarrhea or urinary symptoms. bilateral lower extremities wounds covered with dressing and followed at the wound clinic. In ED she was found of O2 88% while on home dose O2 supplement of 2-3L. Treated with IV steroids and nebulizers with fair response admitted for further evaluation and treatment. Hospital course The patient was admitted for acute COPD exacerbation in chronic hypoxic resp failure and treated with Duonebs ATC, Albuterol PRN and IV steroids with good response overnight. she was able to ambulate on baseline O2 supplement with no reported dyspnea. To continue Prednisone on discharge. to use home inhalors. advised to use Lasix for the next 3 days and to follow with wound care center for her LEs wounds; looks clean with no signs on infection, dressing applied on 11/25. Discharge plan Take Lasix 40 mg daily for the next 3 days then as needed Continue Prednisone for 5 more days Follow with wound care clinic for wound management Time Attestation Discharge Coordination Time (in mins): 26 Quality: Safe Use of Opioids Does Pt have an Active Cancer Diagnosis on the Problem List?: No Quality: Stroke Does the patient have a stroke diagnosis?: No Physical Exam Vital Signs: Vital Signs: Last Vital Signs Temp 97.1 F 11/27/23 08:19 Pulse 59 11/27/23 08:31 Resp 14 11/27/23 08:19 BP 161/90 H 11/27/23 08:32 Pulse Ox 92 11/27/23 08:19 O2 Del Method Nasal Cannula 11/27/23 08:19 O2 Flow Rate 2 11/27/23 08:19 Oxygen Flow Rate 4 11/26/23 08:33 BMI result Body Mass Index 37.6 Const: Other: Constitutional : Awake, interactive, not in distress Neck : Normal inspection, Supple Cardiovascular : RRR, no JVP, no lower extremity edema Respiratory : fair bilateral air entry, no crackles, no wheezes , On O2 supplement Gastrointestinal: soft, lax, Normal bowel sounds, Non tender Skin : Warm, Dry, bilateral lower extremities wounds with no tenderness or warmth, no drainage noted Neurological : Alert & oriented x3, No focal deficit , CN 2-12 within normal DS: Data Data Completed and Pending Labs on day of discharge: Laboratory Results - last 24 hr 11/26/23 11/26/23 11/26/23 09:07 10:00 11:31 WBC RBC Hgb Hct MCV MCH MCHC RDW Plt Count MPV Absolute Nucleated RBC Nucleated RBC % (auto) Sodium 138 Potassium 3.6 D Chloride 98 Carbon Dioxide 32 H Anion Gap 12 BUN 12 Creatinine 0.58 Estim Creat Clear Calc 122.0 Estimated GFR > 60 Random Glucose 123 H Lactic Acid 1.0 Calcium 9.1 Magnesium 1.8 Total Bilirubin 0.8 AST 21 ALT 23 Alkaline Phosphatase 123 H Total Protein 7.0 Albumin 3.0 L Influenza Type A (PCR) NEGATIVE Influenza Type B (PCR) NEGATIVE RSV RNA Qual (PCR) NEGATIVE SARS-CoV-2 RNA (RT-PCR) NEGATIVE 11/27/23 05:13 WBC 13.1 H RBC 3.52 L Hgb 11.3 L Hct 34.6 L MCV 98.3 H MCH 32.1 MCHC 32.7 RDW 14.0 Plt Count 370 D MPV 9.4 Absolute Nucleated RBC 0.000 Nucleated RBC % (auto) 0.0 Sodium 138 Potassium 3.7 Chloride 96 Carbon Dioxide 31 H Anion Gap 15 BUN 14 Creatinine 0.61 Estim Creat Clear Calc 115.9 Estimated GFR > 60 Random Glucose 134 H Lactic Acid Calcium 9.3 Magnesium Total Bilirubin AST ALT Alkaline Phosphatase Total Protein Albumin Influenza Type A (PCR) Influenza Type B (PCR) RSV RNA Qual (PCR) SARS-CoV-2 RNA (RT-PCR) Imaging Chest x-ray: Radiologist's impression: ITS Impressions Chest X-Ray 11/26/23 08:54 IMPRESSION: Stable chest exam with prominence of the right hilum probably related to patient rotation to the right. No evidence for acute disease in the chest. Question abnormal alignment of the right shoulder. Head CT 11/26/23 11:36 IMPRESSION: 1. No acute intracranial abnormality including hemorrhage, mass effect, hydrocephalus, or acute territorial edematous infarction. 2. 8 mm calcified extra-axial lesion at the left vertex, likely representing a meningioma. Shoulder X-Ray 11/26/23 11:48 IMPRESSION: No acute fracture or dislocation. Abnormal alignment with anterior subluxation of the humeral head with respect to the glenoid and severe arthritis, probably not appreciably changed from February [address] exam. Discharge Plan Discharge Anticipated Discharge Date/Time: 11/27/23 09:47 Patient Disposition: Home, Self-Care Discharge Diagnosis: COPD exacerbation Referrals: Physician,Unknown J [Primary Care Provider] - 1 Week Discharge Medications: New prednisone 20 mg tablet 40 mg PO DAILY Qty: 10 0RF Continued calcium carbonate-vitamin D3 [Calcium with Vitamin D] 600 mg-10 mcg (400 unit) tablet 1 tab PO BID 90 Days Qty: 180 2RF (DME) Scooter-motorized 0 .Route .MEDSUPPLY Qty: 1 0RF Rx Instructions: As directed fluticasone propionate 50 mcg/actuation spray,suspension 2 spray intranasal DAILY Qty: 48 0RF Anoro Ellipta 62.5-25 mcg/actuation blister with device 1 ea PO DAILY Qty: 180 0RF lisinopril 40 mg tablet 40 mg PO DAILY 90 Days Qty: 90 1RF gabapentin 100 mg capsule 100 mg PO TID PRN (Reason: for pain) 30 Days Qty: 90 0RF ibuprofen 800 mg tablet 800 mg PO TID PRN (Reason: pain) 30 Days Qty: 90 0RF furosemide [Lasix] 40 mg tablet 40 mg PO DAILY PRN (Reason: Weight Gain) atorvastatin 40 mg tablet 40 mg PO BEDTIME carvedilol 6.25 mg tablet 6.25 mg PO DAILY Rx Instructions: must administer with a meal/food (DME) Oxygen Home Use Kit See Rx Instructions .Route Rx Instructions: 2lpm via NC at night and PRN sob methadone 10 mg/mL concentrate 75 mg PO Q12H Biktarvy 50-200-25 mg tablet 1 tab PO DAILY 30 Days Qty: 30 5RF Discharge Orders: Discharge Order (Routine); Ordered 11/27/23 Ordered By: Ijeoma Kitchen Diet: Low salt diet Activity on Discharge: As tolerated Stand Alone Forms: Patient Portal Discharge page Print Language: [place] Care Plan Goals: Take Lasix 40 mg daily for the next 3 days then as needed Continue Prednisone for 5 more days Follow with wound care clinic for wound management Health Concerns: Read below Plan of Treatment: Read below Assessment: Read below
== END 2023-11-27 11:41 | disposition home or self-care (01) ==
LOC: HO.ED 09:55 → HO.EDOVER 13:11 → HO.S3 11-27 09:13 → HO.EDOVER 11-27 09:17
PROVIDERS: Physician Assistant; Admitting Provider Student in an Organized Health Care Education/Training Program; Emergency Provider Emergency Medicine; Visit Provider Student in an Organized Health Care Education/Training Program
DX: J44.1 Chronic obstructive pulmonary disease with (acute) exacerbation (principal); I87.2 Venous insufficiency (chronic) (peripheral); R06.02 Shortness of breath; B20 Human immunodeficiency virus [HIV] disease; F11.90 Opioid use, unspecified, uncomplicated; B19.20 Unspecified viral hepatitis C without hepatic coma; E78.5 Hyperlipidemia, unspecified; Z91.81 History of falling; Z99.81 Dependence on supplemental oxygen; Z03.818 Encounter for observation for suspected exposure to other biological agents ruled out
CPT/HCPCS: 0241U; 36415; 70450; 71045; 73030; 80048; 80053; 83605; 83735; 83880; 84484; 85025; 85027; 87040; 93005; 94640; 96365; 96366; 96372; 96375; 96376; 99221; 99285; J0696; J1650; J2919

== ENCOUNTER → 2023-11-26 08:31 | Outpatient (BNV) | payer MEDICARE, SELFPAY | PROVIDERS: Admitting Provider Student in an Organized Health Care Education/Training Program; Emergency Provider Emergency Medicine; Visit Provider Internal Medicine Cardiovascular Disease | DX: R94.31 Abnormal electrocardiogram [ECG] [EKG] (principal) | CPT/HCPCS: 93010 ==

== ENCOUNTER → 2023-11-26 13:05 | Outpatient (BNV) | payer MEDICARE, SELFPAY | PROVIDERS: Admitting Provider Student in an Organized Health Care Education/Training Program; Emergency Provider Emergency Medicine; Visit Provider Student in an Organized Health Care Education/Training Program | DX: I87.2 Venous insufficiency (chronic) (peripheral) (principal); Z99.81 Dependence on supplemental oxygen; J44.1 Chronic obstructive pulmonary disease with (acute) exacerbation | CPT/HCPCS: 99222; 99238 ==

== ENCOUNTER 2024-01-04 12:46 | Outpatient (REF) | payer MEDICARE, SELFPAY ==
--- NOTE | ~2024-01-04 | US_ITS ---
EXAMINATION: US LOWER EXTREMITY VENOUS (REFLUX EXAM), BILATERAL CLINICAL INFORMATION: Varicose veins with inflammation COMPARISON: Venous duplex 12/01/2021 TECHNIQUE: Color flow triplex imaging and compression Doppler was performed to evaluate both the deep and the superficial systems bilaterally. To evaluate the superficial system, the examination was performed in the upright position. Color-flow Doppler ultrasound and compression ultrasound were utilized. In addition, maneuvers were utilized to demonstrate reflux. FINDINGS: 1. DEEP VENOUS ULTRASOUND OF THE RIGHT LOWER EXTREMITY: Common Femoral Vein: Compressible, normal respiratory variation and augmented flow. Femoral Vein: Compressible, normal color flow and augmentation. Popliteal Vein: Compressible, normal augmentation. Deep Reflux: There is no evidence of reflux in the deep system in either the common femoral vein or the popliteal vein. There is no evidence of a Muñiz's cyst. 2. SUPERFICIAL ULTRASOUND WITH DOPPLER OF RIGHT LOWER EXTREMITY: GREAT SAPHENOUS VEIN: Saphenofemoral Junction: 0.27 cm; Reflux: 0 ms Proximal Thigh: 0.33 cm; Reflux: 0 ms Mid Thigh: 0.31 cm; Reflux: 0 ms Above Knee: 0.45 cm; Reflux: 0 ms At Knee: 0.44 cm; Reflux: 0 ms Below Knee: 0.54 cm; Reflux: 0 ms Mid Calf: 0.53 cm; Reflux: 0 ms Ankle: 0.42 cm; Reflux: 0 ms DUPLICATED MEDIAL GREAT SAPHENOUS VEIN: Diameter: None Imaged Reflux: NA DUPLICATED LATERAL GREAT SAPHENOUS VEIN: Diameter: None Imaged Reflux: NA SMALL SAPHENOUS VEIN: Proximal: 0.58 cm; Reflux: 0 ms Distal: 0.65 cm; Reflux: 0 ms VEIN OF GIACOMINI: None Imaged. PERFORATORS: Location: Proximal thigh Size: 0.23 cm Reflux: 0 ms VARICOSITIES: Location: Above knee Size: 0.5 cm Reflux: 0 ms Location: Above knee Size: 0.53 cm Reflux: 0 ms Location: Proximal calf Size: 0.3 cm Reflux: 0 ms 3. DEEP VENOUS ULTRASOUND OF THE LEFT LOWER EXTREMITY: Common Femoral Vein: Compressible, normal respiratory variation and augmented flow. Femoral Vein: Compressible, normal color flow and augmentation. Popliteal Vein: Compressible, normal augmentation. Deep Reflux: There is no evidence of reflux in the deep system in either the common femoral vein or the popliteal vein. There is no evidence of a Muñiz's cyst. 4. SUPERFICIAL ULTRASOUND WITH DOPPLER OF LEFT LOWER EXTREMITY: GREAT SAPHENOUS VEIN: Saphenofemoral Junction: 0.83 cm; Reflux: 0 ms Proximal Thigh: 0.46 cm; Reflux: 0 ms Mid Thigh: 0.3 cm; Reflux: 0 ms Above Knee: Not visualized At Knee: Not visualized Below Knee: Not visualized Mid Calf: 0.21 cm; Reflux: 464 ms Ankle: 0.34 cm; Reflux: 0 ms DUPLICATED MEDIAL GREAT SAPHENOUS VEIN: Diameter: None Imaged Reflux: NA DUPLICATED LATERAL GREAT SAPHENOUS VEIN: Diameter: None Imaged Reflux: NA SMALL SAPHENOUS VEIN: Proximal: 0.8 cm; Reflux: 384 ms Distal: 0.47 cm; Reflux: 0 ms VEIN OF GIACOMINI: None Imaged. PERFORATORS: Location: None Imaged Size: NA Reflux: NA VARICOSITIES: Location: Mid calf Size: 0.74 cm Reflux: 956 US/US venous duplex LE BI IMPRESSION: 1. 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 Query prior GSV ablation or Venaseal procedure. 2. The right below-knee great saphenous vein measures up to 0.54 cm. Multiple nonrefluxing varicosities noted on the right. 3. The left great saphenous vein in the thigh appears chronically occluded. 4. The left great saphenous vein in the calf measures up to 0.34 cm with 464 ms of reflux. Refluxing varicosities noted in the mid calf measuring 0.74 cm with reflux of 956 ms. 5. Enlarged small saphenous veins bilaterally, with reflux on the left of up to 820 ms.
== END 2024-01-04 12:47 | disposition home or self-care (01) ==
LOC: HO.US 12:46
PROVIDERS: PCP Nurse Practitioner Family; Visit Provider Physician Assistant
DX: I87.2 Venous insufficiency (chronic) (peripheral) (principal)
CPT/HCPCS: 93970

== ENCOUNTER 2024-02-02 14:45 | Outpatient (AMB) | payer MEDICARE, SELFPAY ==
--- NOTE | 2024-02-02 15:03 | A.OFFPC_ITS ---
Vital Signs 02/02/24 15:04 Height 5 ft 8 in Weight 219 lb 6 oz BMI 33.4 BP 166/94 H Blood Pressure Location Rt brachial Position Sitting Pulse 101 H Pulse Source Pulse Oximeter Pulse Oximetry (%) 98 Oxygen Delivery Method Nasal Cannula Intake Visit Reasons: 3-4 month follow up Allergies Horse/Equine Containing Products [Horse/Equine Product Derivatives] Allergy (Intermediate, Verified 02/02/24 17:12) SWELLING Iodinated Contrast Media [IV CONTRAST] Allergy (Unknown, Verified 02/02/24 17:12) HIVES Medication List - Last Reconciled 02/02/24 by Garret Interiano, AUTOMATED MANUFACTURING INSTRUCTOR- Anoro Ellipta 62.5-25 mcg/actuation (umeclidinium-vilanterol) 1 ea PO DAILY NS atorvastatin 40 mg PO BEDTIME betamethasone dipropionate 0.05% topical BID rrfuiyzrq-sqwqdafz-otjhjsq ala 50-200-25 mg (Biktarvy) 1 tab PO DAILY 30 days calcium carbonate-vitamin D3 600 mg-10 mcg (400 unit) (Calcium with Vitamin D) 1 tab PO BID 90 days doxycycline monohydrate 100 mg PO BID fluticasone propionate 50 mcg/actuation 2 sprays intranasal DAILY gabapentin 100 mg PO TID PRN ibuprofen 800 mg PO TID PRN 30 days methadone 75 mg PO Q12H Oxygen Home Use 2lpm via NC at night and PRN sob prednisone 60 mg (3 x 20 mg) PO DAILY 7 days [Scooter-motorized As directed] Tobacco use date assessed: 02/02/24 Fall risk assessment: No Falls in past year Last assessed Fall Risk: 02/02/24 Dental Screening Dental Screen Date: 02/02/24 Did you have a dental visit in the last 12 months?: No Did you have a dental problem in the last 6 months where you did not have access to dental care?: No Was dental information given to patient?: No HPI 3-4 month follow up HPI Details Pt is a diabetic, on a statin. A1C in office today is 5.9. Microalbumin is up to date. Denies polyuria, polydipsia, and does have intermittent neuropathy. Pt denies any signs and symptoms of hypoglycemia and does know how to correct it. Pt needs an EKG for the methadone clinic, will do in office today. Pt goes to the wound clinic regularly. She also has her legs wrapped daily by [facility]. Denies any fever or chills. Pt's blood pressure medications were stopped due to hypotension. Pt's blood pressure is now elevated. Pt has her BP taken at home by [facility] and it is stable. Will send lisinopril and have pt start this if her blood pressure becomes elevated (sustain above 140/90) [facility] Medical History Venous insufficiency of both lower extremities Oxygen dependent Respiratory failure with hypoxia and hypercapnia Eosinophilia Bronchitis Other instability, right shoulder Retinopathy Methadone use Morbid obesity HIV (human immunodeficiency virus infection) Rhinitis Hypoventilation associated with obesity COPD (chronic obstructive pulmonary disease) HIV (human immunodeficiency virus infection) Smoker Morbid obesity Aortic dilatation Hypoventilation syndrome LAURENCE (obstructive sleep apnea) Respiratory failure with hypoxia Lower extremity edema Diastolic heart failure Hyperlipidemia Surgical History History of colonoscopy History of tonsillectomy Family History Father No problems noted. Mother No problems noted. Brother Asthma Maternal Grandfather No problems noted. Maternal Grandmother No problems noted. Paternal Grandfather No problems noted. Paternal Grandmother No problems noted. Brother No problems noted. Brother Substance use disorder Social History Housing: House Unable to assess alcohol history related to: Unknown Alcohol intake: never Comment: dc'd from ed Patient Tobacco Use Status: Current someday Tobacco user Tobacco use type: Cigarette Cigarette Packs Per Day: 0.5 Cigarettes Per Day: 4 Years Smoked: 30 +/- e-Cigarette/Vaping Use: Never Used Second Hand Smoke Exposure: Yes service: No Current occupational status: disabled Current occupation: rt hand Cognitive needs: No Hearing needs: No Vision needs: Yes Questionnaire PHQ-9 Over the last 2 weeks, how often have you been bothered by any of the following problems? 1. Little interest or pleasure in doing things: several days 2. Feeling down, depressed, or hopeless: several days 3. Trouble falling or staying asleep, or sleeping too much: several days 4. Feeling tired or having little energy: several days 5. Poor appetite or overeating: not at all 6. Feeling bad about yourself - or that you are a failure or have let yourself or your family down: not at all 7. Trouble concentrating on things, such as reading the newspaper or watching television: not at all 8. Moving or speaking so slowly that other people could have noticed. Or the opposite - being so fidgety or restless that you have been moving around a lot more than usual: several days 9. Thoughts that you would be better off or of hurting yourself in some way: not at all Total score: 5 Depression Screening Interpretation: Negative Depression Screening Done: Yes 43435 - PHQ-9 Billing: Yes Source: Developed by Drs. Artem Juarez, Aishwarya Voss, Jorge Schilling and colleagues, with an educational shawn from [employer]. Thrive Questionnaire Date Thrive assessed: 02/02/24 I am a: Patient What is your living situation today?: I have a steady place to live Within the past 12 months, did the food you bought not last and you didn't have the money to get more?: Never true Within the past 12 months, did you worry whether your food would run out before you got money to buy more?: Never true Do you have trouble paying for medicines?: No Do you have trouble getting transportation to medical appointments?: No Do you have trouble paying your heating and electricity bill?: No Do you have trouble taking care of your child, family member or friend?: No Do you have trouble with day-to-day activities such as bathing, preparing meals, shopping, managing finances, etc.?: No Are you currently unemployed and looking for a job?: No Are you interested in more education?: No Please select the resources that you would like help with: None Currently or been in a relationship where the following occur: No concerns reported THRIVE Score: 0 AUDIT C Alcohol Use Questionnaire (AUDIT-C) 1. How often do you have a drink containing alcohol?: Never 3. How often do you have six or more drinks on one occasion?: Never Total Score: 0 Score Reviewed/Action Taken: No JAJA-7 AMB Questionnaire JAJA-7 Date JAJA - 7 assessed: 02/02/24 Feeling nervous, anxious, or on edge: 0 = Not at all Not being able to stop or control worryin = Not at all Worrying too much about different things: 0 = Not at all Trouble relaxin = Not at all Being so restless that it is hard to sit still: 0 = Not at all Becoming easily annoyed or irritable: 0 = Not at all Feeling afraid as if something awful might happen: 0 = Not at all Total JAJA-7 score (0-4 normal; 5-9 mild; 10-14 moderate; 15-21 severe): 0 Source: Developed by Drs. Artem Juarez, Aishwarya Voss, Jorge Schilling and colleagues, with an educational shawn from [employer]. JAJA-7 Assessment Billing JAJA-7 Assessment Tool: JAJA-7 Assessment 21327 Review of Systems Const Reports as per HPI Physical exam (Primary Care) Vital Signs: Last Vital Signs Pulse 101 H 02/02/24 15:04 BP 166/94 H 02/02/24 15:04 Pulse Ox 98 02/02/24 15:04 Oxygen Delivery Method Nasal Cannula 02/02/24 15:04 BMI result Body Mass Index 33.4 Tobacco/Smoking Status: Tobacco use Status Tobacco use date assessed 02/02/24 02/02/24 15:11 Patient Tobacco Use Status Current someday Tobacco 02/02/24 15:11 Tobacco use type Cigarette 02/02/24 15:11 e-Cigarette/Vaping Use Never Used 02/02/24 15:11 PHQ-9: PHQ-9 Score PHQ-9: Total score 5 02/02/24 15:54 Depression Screening Interpretation: Negative Thrive Assessment: Date of Thrive Assessment Date Thrive assessed 02/02/24 02/02/24 15:11 Currently or been in a relationship where the following occur: No concerns reported Const General: cooperative Nutritional Appearance: obese Orientation/consciousness: patient oriented x3 Resp Other: lungs diminished though moving air Effort & Inspection: normal respiratory effort Cardio Rate: regular rate Rhythm: regular rhythm Heart sounds: S1 normal heart sound present and S2 normal heart sound present Neuro General: patient oriented x3 Extrem Other: compression wraps to BLE, CDI, faint erythema to right side just superior to proximal aspect of dressing (proximal nur), no tenderness with touch, fading rash to RLE, dry, small singular lesions of erythema (allergic reaction) Psych Appearance: grossly normal Mental Status: mental status grossly normal Speech and movement: Normal speech and movement present Affect: normal affect Attitude: cooperative Thought process: Normal thought process present Thought content: Normal thought content present Insight: Good insight present (Psych) Judgement: Good judgement present (Psych) Results AMB Hemoglobin A1c AMB Hemoglobin A1c 5.6 % Last Edit by KISHAN Carcamo on 02/02/24 15 :55 Results Reviewed Results Reviewed: Laboratory Last Values Hgb A1c (Clinic) 5.6 % (4.0-6.0) 02/02/24 15:53 Assessment and Plan Assessment & Plan (1) Diabetes: Code(s): E11.9 - Type 2 diabetes mellitus without complications Plan: Labs ordered (2) Lymph edema: Code(s): I89.0 - Lymphedema, not elsewhere classified Plan: Following up with wound care and [facility] (3) Methadone use: Code(s): F11.90 - Opioid use, unspecified, uncomplicated Plan: EKG done in office for methadone clinic (4) HTN (hypertension): Code(s): I10 - Essential (primary) hypertension Plan: stable at home, lisinopril sent to start if sustaining above 140/90 at home Plan The patient agreed to the use of a senior medical technologist for this encounter. Scribed for EVGENY Hahn by Maureen Euceda senior medical technologist, on 02/02/2024 at 15:35 EST. Orders: Orders Complete Blood Count Auto Diff Today E11.9 - Type 2 diabetes mellitus without complications Lipid Panel Today E11.9 - Type 2 diabetes mellitus without complications Comprehensive [place]. Panel Fast Today E11.9 - Type 2 diabetes mellitus without complications TSH reflex Free T4 Today E11.9 - Type 2 diabetes mellitus without complications UA CC w/rflx Micro + Cult Today E11.9 - Type 2 diabetes mellitus without complications AMB EKG-In Office Today F11.90 - Opioid use, unspecified, uncomplicated AMB Hemoglobin A1c Today Z13.9 - Encounter for screening, unspecified Medications: New lisinopril 10 mg PO DAILY 30 tabs 0RF Coding Level of Care Code Est Pt Level 3 (40738) Diagnoses Diabetes E11.9 Lymph edema I89.0 Methadone use F11.90 HTN (hypertension) I10 Additional Codes JAJA-7 Assessment Billing - JAJA-7 Assessment Tool: JAJA-7 Assessment 91860 ([id number])
[2024-02-02 15:04] VITALS: BP 166/94; PULSE 101; O2SAT 98; BMI 33.4
== END 2024-02-02 16:30 | disposition home or self-care (01) ==
PROVIDERS: PCP Nurse Practitioner Family; Visit Provider Nurse Practitioner Family
DX: E11.9 Type 2 diabetes mellitus without complications (principal); I89.0 Lymphedema, not elsewhere classified; F11.90 Opioid use, unspecified, uncomplicated; I10 Essential (primary) hypertension
CPT/HCPCS: 83036; 99213

== ENCOUNTER 2024-02-21 15:26 | Outpatient (REF) | payer MEDICARE, SELFPAY ==
[2024-02-21 15:55] LABS: MANUAL DIFF FLAG NO
[2024-02-21 16:32] LABS: Basophils Percent Auto 0.3 % (0-2); Eosinophils Absolute Auto 0.4 X10*3/uL (0.0-0.4); Eosinophils Percent Auto 4.1 % (0-4); Hematocrit 34.5 % (37.0-47.0); Hemoglobin 11.1 g/dl (12.0-16.0); Imm Gran Abs Auto 0.04 X10*3/uL (0.00-0.03); Imm Gran Pct Auto 0.4 % (0.0-0.4); Lymphocytes Absolute Auto 1.5 X10*3/uL (1.2-4.9); Mean Corpuscular HGB Conc 32.2 g/dl (31.0-35.0); Mean Corpuscular Hemoglobin 31.6 pg (27.0-33.0); Mean Corpuscular Volume 98.3 fL (80.0-98.0); Neutrophils Percent Auto 67.2 % (45-73); Platelet Count 267 X10*3/uL (160-400); Red Blood Count 3.51 X10*6/uL (4.20-5.50); Red Cell Distribution Width 15.9 % (11.0-16.0); White Blood Count 8.9 X10*3/uL (4.8-10.8)
[2024-02-21 16:58] LABS: Alanine Aminotransferase 16 U/L (0-31); Alkaline Phosphatase 73 U/L (39-117); Anion Gap 12 (12-20); Aspartate Amino Transferase 13 U/L (5-31); Bilirubin Direct 0.1 mg/dL (0.0-0.5); Bilirubin Total 0.4 mg/dL (0.0-1.0); Blood Urea Nitrogen 22 mg/dL (9-16); Calcium 8.9 mg/dL (8.4-10.2); Carbon Dioxide 32 mmol/L (22-29); Chloride 101 mmol/L (96-108); Cholesterol 161 mg/dL (<200); Estimated Glomerular Filt Rate > 60; Glucose Fasting 92 mg/dL (60-99); Glucose Random 92 mg/dL (60-115); HDL Cholesterol 56 mg/dL (>40); LDL Cholesterol Calculated 88 mg/dL (<100); Potassium 4.2 mmol/L (3.3-5.1); Sodium 141 mmol/L (135-145); Total Protein 6.6 g/dL (6.5-8.0); Triglycerides 86 mg/dL (<150)
[2024-02-21 17:13] LABS: Appearance Urine Clear; Color Urine Dark Yellow; Glucose Urine UA Negative (Negative); Leukocyte Esterase Urine Trace (Negative); Nitrite Urine Negative (Negative); Specific Gravity - Urine >= 1.030 (1.005-1.025); UMIC TRIGGER UACC YES; Urine Blood Negative (Negative); Urine Ketones Negative (Negative); Urine Protein 30 (1+) mg/dL (Neg-Trace)
[2024-02-21 17:14] LABS: TSH reflex Free T4 0.47 uIU/mL (0.32-4.0)
[2024-02-21 17:53] LABS: Bacteria Urine None Seen (None Seen); Hyaline Casts Urine 0-2 /LPF (0-2); WBC Urine 0-5 /HPF (0-5)
[2024-02-22 16:24] LABS: HCV Log PCR <1.18 NOT DETECTED Log IU/mL (NOT DETECTED); HepC Viral Load <15 NOT DETECTED IU/mL (NOT DETECTED)
[2024-02-22 19:09] LABS: HIV RNA PCR Qn Copies NOT DETECTED copies/mL (NOT DETECTED); HIV RNA PCR Qn Log Copies NOT DETECTED (NOT DETECTED)
[2024-02-25 22:07] LABS: Absolute CD3 Count 1187 cells/uL (840-3060); Absolute CD4 Count 495 cells/uL (490-1740); Absolute CD8 Count 752 cells/uL (180-1170); Absolute Lymphocytes 1511 cells/uL (850-3900); CD4 CD8 Ratio 0.66 (0.86-5.00); Percent CD3 Cells 79 % (57-85); Percent CD4 Cells 33 % (30-61); Percent CD8 Cells 50 % (12-42)
== END 2024-02-21 15:27 | disposition home or self-care (01) ==
LOC: HO.LAB 15:26
PROVIDERS: PCP Nurse Practitioner Family; Visit Provider Internal Medicine
DX: E11.9 Type 2 diabetes mellitus without complications (principal); B20 Human immunodeficiency virus [HIV] disease
CPT/HCPCS: 36415; 80048; 80053; 80061; 80076; 81001; 81003; 82248; 84443; 85025; 86359; 86360; 87522; 87536

== ENCOUNTER 2024-03-07 13:07 | Outpatient (AMB) | payer MEDICARE, SELFPAY ==
[2024-03-07 13:36] VITALS: BP 166/96; PULSE 73
--- NOTE | 2024-03-07 13:36 | MHC.OFFVIS ---
Vital Signs 03/07/24 13:36 Height 5 ft 8 in BP 166/96 H Blood Pressure Location Lt brachial Pulse 73 Pulse Source Pulse Oximeter Intake Visit Reasons: 6 mth,lab,f/u Allergies Horse/Equine Containing Products [Horse/Equine Product Derivatives] Allergy (Intermediate, Verified 03/07/24 13:54) SWELLING Iodinated Contrast Media [IV CONTRAST] Allergy (Unknown, Verified 03/07/24 13:54) HIVES HPI HPI 6 mth,lab,f/u: Details: She has been doing fairly well but is confined to wheelchair and on oxygen. She has CD4 count of 495 and viral load undetectable on 02/20. She continues on Biktarvy. [facility] Medical History Venous insufficiency of both lower extremities Oxygen dependent Respiratory failure with hypoxia and hypercapnia Eosinophilia Bronchitis Other instability, right shoulder Retinopathy Methadone use Morbid obesity HIV (human immunodeficiency virus infection) Rhinitis Hypoventilation associated with obesity COPD (chronic obstructive pulmonary disease) HIV (human immunodeficiency virus infection) Smoker Morbid obesity Aortic dilatation Hypoventilation syndrome LAURENCE (obstructive sleep apnea) Respiratory failure with hypoxia Lower extremity edema Diastolic heart failure Hyperlipidemia Surgical History History of colonoscopy History of tonsillectomy Family History Father No problems noted. Mother No problems noted. Brother Asthma Maternal Grandfather No problems noted. Maternal Grandmother No problems noted. Paternal Grandfather No problems noted. Paternal Grandmother No problems noted. Brother No problems noted. Brother Substance use disorder Social History Housing: House Unable to assess alcohol history related to: Unknown Alcohol intake: never Comment: dc'd from ed Patient Tobacco Use Status: Current someday Tobacco user Tobacco use type: Cigarette Cigarette Packs Per Day: 0.5 Cigarettes Per Day: 4 Years Smoked: 30 +/- e-Cigarette/Vaping Use: Never Used Second Hand Smoke Exposure: Yes service: No Current occupational status: disabled Current occupation: rt hand Cognitive needs: No Hearing needs: No Vision needs: Yes Review of Systems Const All systems reviewed & are unremarkable except as noted in HPI and below Physical Exam Vital Signs: Last Vital Signs Pulse 73 03/07/24 13:36 BP 166/96 H 03/07/24 13:36 Const General: cooperative HEENT Head: Yes normal to inspection Face and sinus: Yes normal facial exam Mouth: Normal oral and palatal mucosa present Teeth and gingiva: dentition normal Eyes General: appearance normal, both eyes and all related structures Pupils: Equal, round and reactive pupils present Resp Effort & Inspection: normal respiratory effort Cardio Rate: regular rate Rhythm: regular rhythm GI Palpation (GI): Soft to palpation and nontender General: Yes no CVA tenderness Back/Spine/Pelvis Back: no CVA tenderness Skin General skin exam: no rashes or lesions noted Neuro General: moves all extremities Cranial nerves: Yes Equal, round and reactive pupils present Extrem General: Yes normal to inspection Psych Appearance: grossly normal Assessment & Plan Assessment & Plan (1) HIV (human immunodeficiency virus infection): Comment: She is doing well She has no complaints She has slightly elevated viral load ?adherence but only 33 and CD4 count 521 on 08/21. Code(s): B20 - Human immunodeficiency virus [HIV] disease Category: Medical Plan: n/a (2) HIV (human immunodeficiency virus infection): Comment: She has CD4 count of 495 and viral load undetectable. Code(s): B20 - Human immunodeficiency virus [HIV] disease Category: Medical Plan: Would see in six months. Did order labs. Biktarvy for six months. Orders: Orders Basic Metabolic Panel 5 Months B20 - Human immunodeficiency virus [HIV] disease HIV-1 RNA QN PCR Expanded 5 Months B20 - Human immunodeficiency virus [HIV] disease Lymphocyte Subset Panel 3 03/07/24 B20 - Human immunodeficiency virus [HIV] disease Complete Blood Count Auto Diff 5 Months B20 - Human immunodeficiency virus [HIV] disease Liver Panel 5 Months B20 - Human immunodeficiency virus [HIV] disease Hepatitis C Viral Load 5 Months B20 - Human immunodeficiency virus [HIV] disease Medications: Refilled vnhxkbdfc-objwaubo-vhjmoxq ala 50-200-25 mg (Biktarvy) 1 tab PO DAILY 30 tabs 5RF 30 days Coding Level of Care Code Est Pt Level 4 (69488) Diagnoses HIV (human immunodeficiency virus infection) B20
== END 2024-03-07 14:23 | disposition home or self-care (01) ==
LOC: HO.HID 13:07
PROVIDERS: PCP Nurse Practitioner Family; Visit Provider Internal Medicine
DX: B20 Human immunodeficiency virus [HIV] disease (principal)
CPT/HCPCS: 99214

== ENCOUNTER → 2024-03-07 13:07 | Outpatient (BNVA) | payer MEDICARE, SELFPAY | PROVIDERS: PCP Nurse Practitioner Family; Visit Provider Internal Medicine | DX: B20 Human immunodeficiency virus [HIV] disease (principal) | CPT/HCPCS: 99212 ==

== ENCOUNTER 2024-03-13 14:20 | Outpatient (AMB) | payer MEDICARE, SELFPAY ==
--- NOTE | 2024-03-13 14:24 | MHC.OFFWIV ---
Intake Vital Signs 03/13/24 14:29 Weight 220 lb BP 200/100 H Blood Pressure Location Lt brachial Position Sitting Pulse 103 H Pulse Source Pulse Oximeter Pulse Oximetry (%) 93 Oxygen Delivery Method Nasal Cannula Intake Visit Reasons: EP swollen right arm Intake Note: Patient here for right arm swelling which started Tuesday Patient Tobacco Use Status: Current someday Tobacco user Allergies Horse/Equine Containing Products [Horse/Equine Product Derivatives] Allergy (Intermediate, Verified 03/13/24 14:30) SWELLING Iodinated Contrast Media [IV CONTRAST] Allergy (Unknown, Verified 03/13/24 14:30) HIVES Do you need a note to return to daycare/school/sports/work: No HPI HPI Comments History of Present Illness Details Patient is a 68yo F who presents with R arm swelling She said worsening R arm swelling and leg edema She said chronic leg redness. She said since ongoing x months No antibiotic use Wound care is taking care of legs but since R arm is now worse and told to come into office Onset yesterday but worse today No fever or chills She said no hx of blood clots before Elevated BP today She said slight worsening SOB No chest pain PFSH Medical History Venous insufficiency of both lower extremities Oxygen dependent Respiratory failure with hypoxia and hypercapnia Eosinophilia Bronchitis Other instability, right shoulder Retinopathy Methadone use Morbid obesity HIV (human immunodeficiency virus infection) Rhinitis Hypoventilation associated with obesity COPD (chronic obstructive pulmonary disease) HIV (human immunodeficiency virus infection) Smoker Morbid obesity Aortic dilatation Hypoventilation syndrome LAURENCE (obstructive sleep apnea) Respiratory failure with hypoxia Lower extremity edema Diastolic heart failure Hyperlipidemia Surgical History History of colonoscopy History of tonsillectomy Family History Father No problems noted. Mother No problems noted. Brother Asthma Maternal Grandfather No problems noted. Maternal Grandmother No problems noted. Paternal Grandfather No problems noted. Paternal Grandmother No problems noted. Brother No problems noted. Brother Substance use disorder Social History Housing: House Unable to assess alcohol history related to: Unknown Alcohol intake: never Comment: dc'd from ed Patient Tobacco Use Status: Current someday Tobacco user Tobacco use type: Cigarette Cigarette Packs Per Day: 0.5 Cigarettes Per Day: 4 Years Smoked: 30 +/- e-Cigarette/Vaping Use: Never Used Second Hand Smoke Exposure: Yes service: No Current occupational status: disabled Current occupation: rt hand Cognitive needs: No Hearing needs: No Vision needs: Yes Review of Systems Const Denies chills, Denies fever(s) and Reports weakness (difficulty raising over head) Card Denies chest pain and Reports dyspnea (chronic and unchanged) Resp Reports dyspnea (chronic and unchanged) Musc Denies tingling and Reports other (extremity edema RUE) Skin/Breast Reports other (warmth and edema RUE) Neuro Denies tingling, Denies paresthesias and Reports weakness (difficulty raising over head) Bruce/Lymph Reports other (denies hx of blood clots) Physical Exam Vital Signs: Last Vital Signs Pulse 103 H 03/13/24 14:29 BP 200/100 H 03/13/24 14:29 Pulse Ox 93 03/13/24 14:29 Oxygen Delivery Method Nasal Cannula 03/13/24 14:29 General: Non-toxic, NAD. Speaking full sentences. Skin: Warm dry throughout + edema circumfrentially to RUE extending from mid biceps to fingers. + warmth to palpation without demarcated erythema. No vesicles or ulcers Eye: EOMI Respiratory: nasal canual in place. No cough or accessory muscle use noted Cardiac: RRR. Radial pulse intact. Cap refill < 2 seconds R hand digits 1-3 and cap refill approx 5 seconds 4th and 5th digit. MSK: Limited flexion R elbow due to edema. + full ROM digits R hand. Neurology: A/O. No aphasia or facial droop. Ambulates with walker Psych: Good mood and affect Assessment & Plan Assessment & Plan (1) Arm edema: Code(s): R60.0 - Localized edema Plan: Patient seen and evaluated. She is hypertensive and tachycardic with extensive RUE edema and warmth concerning for DVT + hypertensive and tachycardic on exam Pt refuses ambulance and wants sister in law to bring her Expect called to [place] [facility] Patient gave verbal understanding and had no additional questions or concerns at time of discharge All questions answered (2) Uncontrolled hypertension: Code(s): I10 - Essential (primary) hypertension Plan: see above Plan see above Coding Level of Care Code Est Pt Level 4 (45891) Diagnoses Arm edema R60.0 Uncontrolled hypertension I10
[2024-03-13 14:29] VITALS: BP 200/100; PULSE 103; O2SAT 93
== END 2024-03-13 14:50 | disposition home or self-care (01) ==
PROVIDERS: PCP Nurse Practitioner Family; Visit Provider Physician Assistant
DX: R60.0 Localized edema (principal); I10 Essential (primary) hypertension

== ENCOUNTER 2024-03-13 15:17 | Emergency (ER) | payer MEDICARE, SELFPAY ==
--- NOTE | ~2024-03-13 | US_ITS ---
EXAMINATION: US TRIPLEX UPPER EXTREMITY, RIGHT CLINICAL INFORMATION: Swelling. COMPARISON: None available. TECHNIQUE: Color-flow triplex imaging with spectral analysis and compression Doppler was performed on the right upper extremity. FINDINGS: The right internal jugular, subclavian, and axillary veins are patent and free of thrombus. Spectral doppler waveforms are normal. The brachial, basilic, cephalic, radial, and ulnar veins are patent and compressible. US/US venous duplex UE RT IMPRESSION: No evidence of deep venous thrombosis involving the right upper extremity. Electronically signed by: Teresita Hoover MD 03/13/2024 06:40 PM EDT
--- NOTE | ~2024-03-13 | XR_ITS ---
EXAMINATION: XR SHOULDER, RIGHT CLINICAL INFORMATION: Dislocation COMPARISON: None available. TECHNIQUE: AP and transscapular radiographs of the right shoulder FINDINGS: Anterior dislocation of the right humeral head is identified. Images are suboptimally oriented/penetrated. Curvilinear, crescentic ossific density is noted along the humeral head may represent partial visualization of minimally displaced fractures. The glenoid is suboptimally visualized. No gross fractures of the glenoid noted. Visualized right ribs and lung are grossly normal. XR/XR shoulder RT min 2V IMPRESSION: *Anterior dislocation of the right shoulder. *Possible nondisplaced fractures of the right humeral head. Images are technically suboptimal and the humeral head and glenoid are suboptimally visualized. Electronically signed by: Newton Orr MD 03/14/2024 05:15 AM EDT
--- NOTE | ~2024-03-13 | XR_ITS ---
EXAMINATION: XR HAND/WRIST, RIGHT CLINICAL INFORMATION: Swelling, evaluate for osteomyelitis. COMPARISON: No similar priors. TECHNIQUE: Four views of the right hand and wrist. FINDINGS: Diffuse soft tissue swelling. No unexpected radiopaque foreign bodies. No discrete focal destructive or erosive changes to suspect osteomyelitis. No acute fractures or dislocation. Moderate degenerative osteoarthritis of the first carpometacarpal joint with subcortical cystic changes at the base of the first metacarpal. XR/XR hand wrist RT IMPRESSION: No radiographic evidence of osteomyelitis. However, early osteomyelitis can be radiographically occult, and if clinical suspicious for osteomyelitis, correlation with an MR is recommended. Electronically signed by: Teresita Hoover MD 03/13/2024 06:34 PM EDT
--- NOTE | ~2024-03-13 | CT_ITS ---
EXAMINATION: CT CHEST WITHOUT CONTRAST CLINICAL INFORMATION: Right arm swelling. Central mass. COMPARISON: Chest radiograph from 11/26/2023. CT chest from 09/24/2022. Thyroid ultrasound from 05/22/2019. TECHNIQUE: Multidetector volumetric CT imaging of the chest was done. Axial MIP volume rendering provided. Sagittal and coronal reformatted images were obtained. This CT examination was performed using dose optimization techniques as appropriate, variously including the following: *Automated exposure control. *Adjustment of mA and/or kV according to patient size (this includes techniques or standardized protocols for targeted exams where dose is matched to indication/reason for exam; i.e. extremities or head). *Use of iterative reconstruction technique. DLP: 431 mGy-cm FINDINGS: LUNGS: Moderate centrilobular emphysema. Mild bilateral dependent atelectasis. Mild subsegmental atelectasis of the medial aspects of the right middle lobe and left upper lobe. Otherwise, no diffuse or focal lung parenchymal abnormalities. No pleural effusion or pneumothorax. The airways remain patent. MEDIASTINUM: The cardiac structures are without significant demonstrated abnormality. No pericardial effusion. No mediastinal free fluid or gas. No hilar or mediastinal lymphadenopathy. Heterogeneous, moderately prominent thyroid gland with left thyroid lobe extending into the upper mediastinum. Coronary artery calcifications: Absent. PLEURA: There is no pleural effusion or pneumothorax. No pleural mass or thickening. AXILLA: Nonspecific mildly prominent right axillary lymph nodes, measuring up to 1.2 cm in short axis. No left-sided axillary lymphadenopathy. UPPER ABDOMEN: Fatty atrophy of the head and body of the pancreas. Small hyperattenuating stones layering within the gallbladder fossa. There is a 2.4 cm simple renal cyst in the upper pole of the right kidney (no follow-up imaging recommended based on current guidelines at the time of examination). Otherwise, limited evaluation of the upper abdomen without significant soft tissue abnormalities. VASCULATURE: The thoracic aorta is of normal contour and caliber with mild calcific atherosclerotic disease. OSSEOUS STRUCTURES: Advanced degenerative arthropathy of the right and left shoulder joints. There appears to be anterior dislocation of the right shoulder. Moderate multilevel degenerative changes of the spine. Compression deformity of the superior endplate of L1. Mild degenerative retrolisthesis of L1 on L2. No suspicious lytic or sclerotic osseous lesions demonstrated. No soft tissue masses demonstrated. CT/CT chest wo IV con IMPRESSION: 1. Moderate emphysema. No additional acute pulmonary abnormalities. 2. Advanced degenerative arthropathy of the right and left shoulder joints. There appears to be anterior dislocation of the right shoulder. 3. Nonspecific mildly prominent right axillary lymph nodes, measuring up to 1.2 cm in short axis. 4. Heterogeneous, moderately enlarged thyroid gland. Recommend continued follow-up as indicated by prior thyroid ultrasound. 5. Cholelithiasis without evidence of cholecystitis. Electronically signed by: Michi Cintron DO 03/14/2024 02:45 AM EDT
[2024-03-13 15:34] VITALS: BP 169/99; PULSE 84; RESP 18; TEMP 36.8; O2SAT 92; BMI 35.5
[2024-03-13 16:21] LABS: MANUAL DIFF FLAG NO
[2024-03-13 16:24] LABS: Appearance Urine Clear; Color Urine Yellow; Glucose Urine UA Negative (Negative); Leukocyte Esterase Urine Negative (Negative); Nitrite Urine Negative (Negative); PH 6.5 (5.0-9.0); Specific Gravity - Urine >= 1.030 (1.005-1.025); UMIC TRIGGER UACC YES; Urine Blood Negative (Negative); Urine Ketones Negative (Negative); Urine Protein 30 (1+) mg/dL (Neg-Trace)
[2024-03-13 16:25] LABS: Basophils Absolute Auto 0.1 X10*3/uL (0.0-0.2); Basophils Percent Auto 0.5 % (0-2); Eosinophils Absolute Auto 0.3 X10*3/uL (0.0-0.4); Eosinophils Percent Auto 3.6 % (0-4); Hematocrit 34.9 % (37.0-47.0); Hemoglobin 11.2 g/dl (12.0-16.0); Imm Gran Abs Auto 0.03 X10*3/uL (0.00-0.03); Imm Gran Pct Auto 0.3 % (0.0-0.4); Lymphocytes Absolute Auto 1.4 X10*3/uL (1.2-4.9); Lymphocytes Percent Auto 14.9 % (20-40); Mean Corpuscular HGB Conc 32.1 g/dl (31.0-35.0); Mean Corpuscular Volume 99.7 fL (80.0-98.0); Mean Platelet Volume 9.2 fL (9.4-12.3); Monocytes Absolute Auto 0.9 X10*3/uL (0.1-1.2); Monocytes Percent Auto 9.5 % (2-11); Neutrophils Absolute Auto 6.6 x10*3/uL (2.0-8.3); Neutrophils Percent Auto 71.2 % (45-73); Platelet Count 345 X10*3/uL (160-400); Red Cell Distribution Width 15.6 % (11.0-16.0); White Blood Count 9.2 X10*3/uL (4.8-10.8)
[2024-03-13 16:38] LABS: C Reactive Protein 2.21 mg/dL (< or = 0.50)
[2024-03-13 16:41] LABS: Alanine Aminotransferase 10 U/L (0-31); Albumin Level 3.2 g/dL (3.5-5.0); Alkaline Phosphatase 83 U/L (39-117); Anion Gap 6 (12-20); Aspartate Amino Transferase 11 U/L (5-31); Bilirubin Total 0.3 mg/dL (0.0-1.0); Blood Urea Nitrogen 16 mg/dL (9-16); Calcium 8.8 mg/dL (8.4-10.2); Carbon Dioxide 35 mmol/L (22-29); Chloride 104 mmol/L (96-108); Creatinine Clr Calc Pharmacy 102.5; Estimated Glomerular Filt Rate > 60; Glucose Random 98 mg/dL (60-115); Potassium 3.2 mmol/L (3.3-5.1); Sodium 142 mmol/L (135-145); Total Protein 6.8 g/dL (6.5-8.0)
[2024-03-13 16:52] LABS: B Type Natriuretic Peptide 114 pg/mL (<100)
[2024-03-13 16:56] LABS: Bacteria Urine None Seen (None Seen); Hyaline Casts Urine 0-2 /LPF (0-2); RBC Urine 0-2 /HPF (0-2); WBC Urine 0-5 /HPF (0-5)
[2024-03-13 17:31] LABS: Erythrocyte Sedimentation Rate 34 MM/HR (0-20)
--- NOTE | 2024-03-13 17:43 | ED.GENADULT ---
HPI - General Adult General Chief complaint: Extremity Problem Stated complaint: Swelling R arm Time Seen by Provider: 03/13/24 23:17 Source: patient Mode of arrival: EMS Limitations: no limitations History of Present Illness ED Provider: alejandrina DA SILVA narrative: 68 years old lady with PMH of chronic resp failure 2/2 COPD on O2, HTN, dCHF, Methadone use, HIV, chronic smoker, sleep apnea comes here for swelling of the right arm for last 1 week patient has had venous Doppler done prior to my evaluation which was negative for DVT no increased shortness of breath no fever no chills Related Data Home Medications ?Medication ?Instructions ?Recorded ?Confirmed methadone 10 mg/mL oral concentrate 75 mg PO Q12H 08/17/21 02/02/24 Oxygen Home Use 10/28/22 02/02/24 atorvastatin 40 mg tablet 40 mg PO BEDTIME 11/26/23 02/02/24 betamethasone dipropionate 0.05 % topical BID 02/02/24 02/02/24 lotion Previous Rx's ?Medication ?Instructions ?Recorded calcium carbonate 600 mg-vitamin 1 tab PO BID 90 days #180 tabs 01/06/23 D3 10 mcg (400 unit) tablet (Calcium with Vitamin D) Scooter-motorized #1 ea 04/13/23 fluticasone propionate 50 2 spray intranasal DAILY #48 grams 05/25/23 mcg/actuation nasal spray,suspension gabapentin 100 mg capsule 100 mg PO TID PRN for pain #90 caps 12/12/23 lisinopril 10 mg tablet 10 mg PO DAILY #30 tabs 02/02/24 ibuprofen 800 mg tablet 800 mg PO TID PRN pain 30 days #90 02/13/24 tabs bictegravir 50 mg-emtricitabine 1 tab PO DAILY 30 days #30 tabs 03/07/24 200 mg-tenofovir alafenam 25 mg tablet (Biktarvy) Anoro Ellipta 62.5 mcg-25 1 ea PO DAILY #180 ea 03/09/24 mcg/actuation powder for inhalation (umeclidinium-vilanterol) cephalexin 500 mg capsule 500 mg PO QID 7 days #28 caps 03/14/24 doxycycline hyclate 100 mg capsule 100 mg PO BID 7 days #14 caps 03/14/24 Allergies Allergy/AdvReac Type Severity Reaction Status Date / Time Horse/Equine Containing Allergy Intermediate SWELLING Verified 03/13/24 15:39 Products [Horse/Equine Product Derivatives] Iodinated Contrast Media Allergy Unknown HIVES Verified 03/13/24 15:39 [IV CONTRAST] Review of Systems Review of Systems: Yes all other systems are reviewed and are negative FOR[facility]LY [facility] Past Medical History Medical History Venous insufficiency of both lower extremities Oxygen dependent Respiratory failure with hypoxia and hypercapnia Eosinophilia Bronchitis Other instability, right shoulder Retinopathy Methadone use Morbid obesity HIV (human immunodeficiency virus infection) Rhinitis Hypoventilation associated with obesity COPD (chronic obstructive pulmonary disease) HIV (human immunodeficiency virus infection) Smoker Morbid obesity Aortic dilatation Hypoventilation syndrome LAURENCE (obstructive sleep apnea) Respiratory failure with hypoxia Lower extremity edema Diastolic heart failure Hyperlipidemia Surgical History History of colonoscopy History of tonsillectomy Family History Family History Father No problems noted. Mother No problems noted. Brother Asthma Maternal Grandfather No problems noted. Maternal Grandmother No problems noted. Paternal Grandfather No problems noted. Paternal Grandmother No problems noted. Brother No problems noted. Brother Substance use disorder Social History Social History Housing: House Unable to assess alcohol history related to: Unknown Alcohol intake: never Comment: dc'd from ed Patient Tobacco Use Status: Current someday Tobacco user Tobacco use type: Cigarette Cigarette Packs Per Day: 0.5 Cigarettes Per Day: 4 Years Smoked: 30 +/- Smoked in Last 30 Days: No e-Cigarette/Vaping Use: Never Used Second Hand Smoke Exposure: Yes Use of substances other than those prescribed or required for medical reasons: No Advance Directives: No Advance Directives Information Provided: Yes service: No Current occupational status: disabled Current occupation: rt hand Cognitive needs: No Hearing needs: No Vision needs: Yes Physical Exam ED Vital Signs: Vital Signs - 24 hr 03/13/24 15:34 03/13/24 21:46 03/13/24 23:48 Temperature 98.2 F 98.1 F 98.1 F Pulse Rate 84 83 82 Respiratory Rate 18 14 28 H Blood Pressure 169/99 H 166/106 H 175/93 H Pulse Oximetry 92 95 97 Oxygen Delivery Method Nasal Cannula Nasal Cannula Nasal Cannula Oxygen Flow Rate 3 03/14/24 02:18 03/14/24 04:23 03/14/24 08:42 Temperature 98.2 F 98.2 F 98.0 F Pulse Rate 75 86 82 Respiratory Rate 16 15 18 Blood Pressure 165/86 H 148/97 H 164/90 H Pulse Oximetry 95 95 93 Oxygen Delivery Method Nasal Cannula Nasal Cannula Nasal Cannula Oxygen Flow Rate 3 3 3 03/14/24 10:17 Temperature 98.0 F Pulse Rate 80 Respiratory Rate 18 Blood Pressure 160/86 H Pulse Oximetry 93 Oxygen Delivery Method Nasal Cannula Oxygen Flow Rate 3 BMI result Body Mass Index 35.5 Appearance: Alert. Oriented X3. No acute distress. Eyes: No pallor or icterus ENT: Pharynx normal. Oral Mucosa moist Neck: Normal inspection. Neck supple. CVS: Normal heart rate and rhythm. Pulses normal. Respiratory: No respiratory distress. Equal air entry bilateral, no wheezing/rales/rhonchi Abdomen: Soft and nontender. Bowel sounds are present, no mass palpable, no CVA tenderness Skin: Skin warm and dry. Normal skin color. Normal skin turgor. Extremities: Lymphedema bilateral with chronic stasis dermatitis. No calf tenderness right arm swollen with slight erythema Neuro: Oriented X 3. No motor deficit. No sensory deficit.No cerebellar signs , cranial nerves II-XII intact Course Course Course Narrative: RME: done by TRACY Rondon. 68-year-old female presents to ED for right upper extremity swelling with redness for a couple of days. Patient denies any recent trauma. Patient has history of lower extremity lymphedema. On exam rap extremities warm tender swollen. Was sent for x-ray and ultrasound labs ordered Reevaluation(s) Reevaluation #1: patient with RUE swelling mild erythema there is warmth normal pulses and SILT intact no signs of compartment syndrome has not progressed since her prolonged stay in the ED, no severe pain US no DVT CT scan no compressive lesion orthopedics involved outpatient management no acute therapy it is chronic at this time plan to ranjith wrap and start oral antibiotics will get outpatient US of thyroid offered rehab she declines. EBONY 03/14/24 Medications Administered Discontinued Medications Generic Name Dose Route Start Last Admin Trade Name Freq PRN Reason Stop Dose Admin Enoxaparin Sodium 110 mg 03/14/24 00:54 03/14/24 02:16 Enoxaparin Sodium 120 Mg/0.8 Ml Syringe SUBCUT 03/14/24 00:55 110 mg ONCE ONE Administration Vancomycin HCl 1,000 mg/ 270 mls @ 270 mls/hr 03/13/24 23:41 03/14/24 01:57 Sodium Chloride IV 03/14/24 00:40 Infused ONCE ONE Infusion Potassium Chloride 20 meq 03/14/24 07:41 03/14/24 08:46 Potassium Chloride Packet 20 Meq Packet PO 03/14/24 07:42 20 meq ONCE ONE Administration Medical Decision Making Medical Decision Making [facility] Narrative: Patient's right arm swelling with history of chronic smoking with COPD CT scan showed mass in the right perihilar area final CT scan report is pending will start on Lovenox patient's allergic to iodine unable to do the CTA tonight may need to do CT angio tomorrow after premedication to rule out SVC clot as the cause of right arm swelling . Patient is signed out to Dr. Angel pending CT report I received sign-out from my colleague Dr. Lock -CT scan reports: Moderate emphysema, right shoulder dislocation. No mediastinal free fluid or gas, no pericardial effusion -patient states that she has had chronic right shoulder pain, over a year since she fell. However, patient has never been told to her knowledge that she has a dislocated shoulder. We will get x-rays to confirm. -x-ray confirms that the patient has a dislocation, possible humeral nondisplaced fractures. -I discussed the patient with TRACY Biggs from Orthopedics. They will come in the morning to assess the patient Sign-out given to my colleague Dr. Ash Differential Diagnosis Differential Diagnoses: The differential diagnosis associated with the presentation includes DVT right arm/SVC syndrome/lung mass/cellulitis Admission/Observation Consideration of admission/observation: Escalation of care including admission/observation considered Consult Healthcare Provider Management of the patient was discussed with: Hospitalist Lab Data [facility] Lab Attestation statement: I reviewed the patient's lab results. 03/13/24 16:15 03/13/24 16:15 Labs: Lab Results 03/13/24 03/14/24 03/14/24 Range/Units 16:15 00:30 00:37 WBC 9.2 (4.8-10.8) X10*3/uL RBC 3.50 L (4.20-5.50) X10*6/uL Hgb 11.2 L (12.0-16.0) g/dl Hct 34.9 L (37.0-47.0) % MCV 99.7 H (80.0-98.0) fL MCH 32.0 (27.0-33.0) pg MCHC 32.1 (31.0-35.0) g/dl RDW 15.6 (11.0-16.0) % Plt Count 345 D (160-400) X10*3/uL MPV 9.2 L (9.4-12.3) fL Immature Gran % (Auto) 0.3 (0.0-0.4) % Neut % (Auto) 71.2 (45-73) % Lymph % (Auto) 14.9 L (20-40) % Forrest % (Auto) 9.5 (2-11) % Eos % (Auto) 3.6 (0-4) % Baso % (Auto) 0.5 (0-2) % Lymph # (Auto) 1.4 (1.2-4.9) X10*3/uL Forrest # (Auto) 0.9 (0.1-1.2) X10*3/uL Eos # (Auto) 0.3 (0.0-0.4) X10*3/uL Baso # (Auto) 0.1 (0.0-0.2) X10*3/uL Abs Immat Gran (auto) 0.03 (0.00-0.03) X10*3/uL Absolute Neuts (auto) 6.6 (2.0-8.3) x10*3/uL Absolute Nucleated RBC 0.000 (0.0-0.012) X10*3/uL Nucleated RBC % (auto) 0.0 (0.0-0.2) /100WBC ESR 34 H (0-20) MM/HR PT (10.9-12.4) SEC INR (0.9-1.1) APTT (26.0-36.8) SEC D-Dimer High Sensitivty NG/ML VBG pH 7.38 (7.32-7.43) VBG pCO2 65 mmHg VBG pO2 66 mmHg VBG HCO3 39 H (22-26) mmol/L VBG O2 Saturation 91.0 % VBG Base Excess 11.7 mmol/L Sodium 142 (135-145) mmol/L Potassium 3.2 L D (3.3-5.1) mmol/L Chloride 104 (96-108) mmol/L Carbon Dioxide 35 H (22-29) mmol/L Anion Gap 6 L (12-20) BUN 16 (9-16) mg/dL Creatinine 0.69 (0.5-1.4) mg/dL Estim Creat Clear Calc 102.5 Estimated GFR > 60 Random Glucose 98 (60-115) mg/dL Lactic Acid 0.8 (0.5-2.0) mmol/L Calcium 8.8 (8.4-10.2) mg/dL Total Bilirubin 0.3 (0.0-1.0) mg/dL AST 11 (5-31) U/L ALT 10 (0-31) U/L Alkaline Phosphatase 83 (39-117) U/L C-Reactive Protein 2.21 H (< or = 0.50) mg/dL B-Natriuretic Peptide 114 H (<100) pg/mL Total Protein 6.8 (6.5-8.0) g/dL Albumin 3.2 L (3.5-5.0) g/dL Urine Color Yellow Urine Appearance Clear Urine pH 6.5 (5.0-9.0) Ur Specific [place] >= 1.030 H (1.005-1.025) Urine Protein 30 (1+) H (Neg-Trace) mg/dL Urine Glucose (UA) Negative (Negative) mg/dL Urine Ketones Negative (Negative) mg/dL Urine Blood Negative (Negative) Urine Nitrite Negative (Negative) Ur Leukocyte Esterase Negative (Negative) Urine RBC 0-2 (0-2) /HPF Urine WBC 0-5 (0-5) /HPF Ur Squamous Epith Cells 6-10 (0-2) /HPF Urine Bacteria None Seen (None Seen) Hyaline Casts 0-2 (0-2) /LPF 03/14/24 Range/Units 01:32 WBC (4.8-10.8) X10*3/uL RBC (4.20-5.50) X10*6/uL Hgb (12.0-16.0) g/dl Hct (37.0-47.0) % MCV (80.0-98.0) fL MCH (27.0-33.0) pg MCHC (31.0-35.0) g/dl RDW (11.0-16.0) % Plt Count (160-400) X10*3/uL MPV (9.4-12.3) fL Immature Gran % (Auto) (0.0-0.4) % Neut % (Auto) (45-73) % Lymph % (Auto) (20-40) % Forrest % (Auto) (2-11) % Eos % (Auto) (0-4) % Baso % (Auto) (0-2) % Lymph # (Auto) (1.2-4.9) X10*3/uL Forrest # (Auto) (0.1-1.2) X10*3/uL Eos # (Auto) (0.0-0.4) X10*3/uL Baso # (Auto) (0.0-0.2) X10*3/uL Abs Immat Gran (auto) (0.00-0.03) X10*3/uL Absolute Neuts (auto) (2.0-8.3) x10*3/uL Absolute Nucleated RBC (0.0-0.012) X10*3/uL Nucleated RBC % (auto) (0.0-0.2) /100WBC ESR (0-20) MM/HR PT 11.8 (10.9-12.4) SEC INR 1.0 (0.9-1.1) APTT 30.6 (26.0-36.8) SEC D-Dimer High Sensitivty 504 NG/ML VBG pH (7.32-7.43) VBG pCO2 mmHg VBG pO2 mmHg VBG HCO3 (22-26) mmol/L VBG O2 Saturation % VBG Base Excess mmol/L Sodium (135-145) mmol/L Potassium (3.3-5.1) mmol/L Chloride (96-108) mmol/L Carbon Dioxide (22-29) mmol/L Anion Gap (12-20) BUN (9-16) mg/dL Creatinine (0.5-1.4) mg/dL Estim Creat Clear Calc Estimated GFR Random Glucose (60-115) mg/dL Lactic Acid (0.5-2.0) mmol/L Calcium (8.4-10.2) mg/dL Total Bilirubin (0.0-1.0) mg/dL AST (5-31) U/L ALT (0-31) U/L Alkaline Phosphatase (39-117) U/L C-Reactive Protein (< or = 0.50) mg/dL B-Natriuretic Peptide (<100) pg/mL Total Protein (6.5-8.0) g/dL Albumin (3.5-5.0) g/dL Urine Color Urine Appearance Urine pH (5.0-9.0) Ur Specific [place] (1.005-1.025) Urine Protein (Neg-Trace) mg/dL Urine Glucose (UA) (Negative) mg/dL Urine Ketones (Negative) mg/dL Urine Blood (Negative) Urine Nitrite (Negative) Ur Leukocyte Esterase (Negative) Urine RBC (0-2) /HPF Urine WBC (0-5) /HPF Ur Squamous Epith Cells (0-2) /HPF Urine Bacteria (None Seen) Hyaline Casts (0-2) /LPF Radiology Impression Discussion of test interpretation with radiology: I have reviewed the radiologist's reading. Radiologist Impression: US/US venous duplex UE RT IMPRESSION: No evidence of deep venous thrombosis involving the right upper extremity. Electronically signed by: Teresita Hoover MD 03/13/2024 06:40 PM EDT Discharge Plan Discharge Clinical Impression: Arm swelling, Chronic dislocation of right shoulder, Acute hypokalemia Patient Disposition: Home, Self-Care Instructions: Shoulder Dislocation (ED), Hypokalemia (ED), Lymphedema (ED) Additional Instructions: CT abnormal of thyroid please follow up with your doctor regarding outpatient study of thyroid (ultrasound) no blood clot or cancer in chest noted, no blood clot in arm noted please keep elevated and wrapped return for worsening redness, cold blue hands use ranjith wrap daily while oon antibiotics please take a probiotic Prescriptions: New doxycycline hyclate 100 mg capsule 100 mg PO BID 7 Days Qty: 14 0RF cephalexin 500 mg capsule 500 mg PO QID 7 Days Qty: 28 0RF No Action calcium carbonate-vitamin D3 [Calcium with Vitamin D] 600 mg-10 mcg (400 unit) tablet 1 tab PO BID 90 Days Qty: 180 2RF (DME) Scooter-motorized 0 .Route .MEDSUPPLY Qty: 1 0RF Rx Instructions: As directed fluticasone propionate 50 mcg/actuation spray,suspension 2 spray intranasal DAILY Qty: 48 0RF gabapentin 100 mg capsule 100 mg PO TID PRN (Reason: for pain) Qty: 90 0RF ibuprofen 800 mg tablet 800 mg PO TID PRN (Reason: pain) 30 Days Qty: 90 0RF Anoro Ellipta 62.5-25 mcg/actuation blister with device 1 ea PO DAILY Qty: 180 0RF Rx Instructions: PLEASE CALL THE OFFICE TO SCHEDULE FOLLOW UP VISIT WITH DR CONKLIN FOR FURTHER REFILLS. atorvastatin 40 mg tablet 40 mg PO BEDTIME betamethasone dipropionate 0.05 % lotion topical BID lisinopril 10 mg tablet 10 mg PO DAILY Qty: 30 0RF (DME) Oxygen Home Use Kit See Rx Instructions .Route Rx Instructions: 2lpm via NC at night and PRN sob methadone 10 mg/mL concentrate 75 mg PO Q12H Biktarvy 50-200-25 mg tablet 1 tab PO DAILY 30 Days Qty: 30 5RF Referrals: [facility] [place] [facility] [Provider Group] (chronic shoulder dislocation call to follow up) Interventions: ED Discharge Assessment Last Done: 03/14/24 10:17 Discharge Date/Time: 03/14/24 10:17 Print Language: [place] Zealander
[2024-03-13 21:46] VITALS: BP 166/106; PULSE 83; RESP 14; TEMP 36.7; O2SAT 95
[2024-03-13 23:48] VITALS: BP 175/93; PULSE 82; RESP 28; TEMP 36.7; O2SAT 97
[2024-03-14] MEDS: vancomycin HCL 1,000 MG in 0.9 % Sodium Chloride 250 ML 270 MG IV (00:35)
[2024-03-14 00:37] LABS: Venous Blood Gas Refer to POC result
[2024-03-14 00:41] LABS: VBG Base Excess 11.7 mmol/L; VBG HCO3 39 mmol/L (22-26); VBG pCO2 65 mmHg; VBG pH 7.38 (7.32-7.43); VBG pO2 66 mmHg
[2024-03-14 00:53] LABS: Lactic Acid 0.8 mmol/L (0.5-2.0)
[2024-03-14 01:50] LABS: Prothrombin Time 11.8 SEC (10.9-12.4)
[2024-03-14 01:52] LABS: D Dimer High Sensitivity 504 NG/ML
[2024-03-14 01:53] LABS: Partial Thromboplastin Time 30.6 SEC (26.0-36.8)
[2024-03-14] MEDS: Enoxaparin Sodium 120 MG/0.8 ML SYRINGE 110 MG SUBCUT (02:16)
[2024-03-14 02:18] VITALS: BP 165/86; PULSE 75; RESP 16; TEMP 36.8; O2SAT 95
--- NOTE | 2024-03-14 03:00 | PC.NURSE ---
pt is requesting to leave AMA, educated pt MD plan for admission, pt states shed like to speak to MD. states im not comfortable i dont want to stay i have to leave. MD made aware.
[2024-03-14 04:23] VITALS: BP 148/97; PULSE 86; RESP 15; TEMP 36.8; O2SAT 95
--- NOTE | 2024-03-14 04:40 | PC.NURSE ---
MD spoke with pt regarding want to leave. pt in agreement to stay for xr of shoulder. MD educated pt on results of labs/imaging and pt verbalizes understanding and states want to f/u with pcp.
[2024-03-14 08:42] VITALS: BP 164/90; PULSE 82; RESP 18; TEMP 36.7; O2SAT 93
[2024-03-14] MEDS: Potassium Chloride Packet 20 MEQ PACKET PO (08:46)
[2024-03-14 10:17] VITALS: BP 160/86; PULSE 80; RESP 18; TEMP 36.7; O2SAT 93
== END 2024-03-14 10:17 | disposition home or self-care (01) ==
PROVIDERS: Physician Assistant; Emergency Provider Internal Medicine; PCP Nurse Practitioner Family
DX: S43.004A Unspecified dislocation of right shoulder joint, initial encounter (principal); R60.0 Localized edema; J44.9 Chronic obstructive pulmonary disease, unspecified; M25.531 Pain in right wrist; I10 Essential (primary) hypertension; R06.02 Shortness of breath; R07.89 Other chest pain; E87.6 Hypokalemia; X58.XXXA Exposure to other specified factors, initial encounter; Y93.89 Activity, other specified; Y92.89 Other specified places as the place of occurrence of the external cause; Y99.8 Other external cause status; Z99.81 Dependence on supplemental oxygen; Z79.899 Other long term (current) drug therapy; F17.210 Nicotine dependence, cigarettes, uncomplicated
CPT/HCPCS: 36415; 71250; 73030; 73110; 73130; 80053; 81001; 82803; 83605; 83880; 85025; 85379; 85610; 85652; 85730; 86140; 87040; 93971; 96365; 96366; 99212; 99284; J1650; J3370

== ENCOUNTER 2024-03-15 13:56 | Outpatient (REF) | payer MEDICARE, SELFPAY ==
--- NOTE | ~2024-03-15 | US_ITS ---
EXAMINATION: US THYROID CLINICAL INFORMATION: Thyroiditis, unspecified. COMPARISON: 2 some thyroid soft tissue neck 05/22/2019 and 03/28/2017. TECHNIQUE: Linear transducer grayscale and color Doppler examination with attention to the region of the thyroid. Difficult examination due to body habitus and low lying enlarged thyroid with nodules with ill-defined borders. Some nodules/thyroid imaged using curved probe for increased penetration. FINDINGS: SIZE: Measurements of the thyroid lobes and nodules are given in sagittal, anteroposterior and transverse dimensions respectively. Right Thyroid Lobe: 7.6 x 2.6 x 3.9 cm, volume 40.4 mL. Previously 6.8 x 2.6 x 3.4 cm, volume 31.1 mL. Parenchyma: The gland echotexture is heterogeneous. Thyroid vascularity is normal. Left Thyroid Lobe: 7.0 x 3.5 x 3.7 cm, volume 47.5 mL. Previously 7.0 x 3.1 x 3.5 cm, volume 40.5 mL. Parenchyma: The gland echotexture is heterogeneous. Thyroid vascularity is normal. Isthmus: 1.1 cm in maximum AP dimension. Previously 0.3 cm. Estimated total number of nodules greater than or equal to 1 cm: 5. Inner Tube Cutter nodules are described as follows: 1. Location: Right upper. Size: 4.5 x 2.3 x 4.0 cm, volume 21.3 mL. Previously: 4.6 x 2.4 x 3.2 cm, volume 18.5 mL. Nodule characteristics: Composition: Solid/almost completely solid (2). Echogenicity: Isoechoic (1). Shape: Not taller than wide (0). Margins: Smooth (0). Echogenic Foci: Macrocalcifications (1). ACR TI-RADS total points: 4 Previous: N/A ACR TI-RADS category: 4 Previous: N/A Significant change in size (>/= 20% in 2 dimensions and minimal increase of 2 mm or 50% or greater increase in volume): No Change in features: No Change in ACR TI-RADS risk category: No 2. Location: Right lower pole. Size: 1.9 x 1.9 x 1.7 cm, volume 3.2 mL. Previously: 1.7 x 1.4 x 1.4 cm, volume 1.7 mL. Nodule characteristics: Composition: Solid (2). Echogenicity: Isoechoic (1). Shape: Taller than wide (3). Margins: Smooth (0). Echogenic Foci: None (0). ACR TI-RADS total points: 6 Previous: N/A ACR TI-RADS category: 4 Previous: N/A Significant change in size (>/= 20% in 2 dimensions and minimal increase of 2 mm or 50% or greater increase in volume): No Change in features: No Change in ACR TI-RADS risk category: No 3. Location: Left lower pole. Size: 4.6 x 2.7 x 3.1 cm, volume 20.2 mL. Previously: 4.5 x 2.4 x 2.7 cm, volume 15.3 mL. Nodule characteristics: Composition: Solid (2). Echogenicity: Isoechoic (1). Shape: Not taller than wide (0). Margins: Smooth (0). Echogenic Foci: Macrocalcifications (1). ACR TI-RADS total points: 4 Previous: N/A ACR TI-RADS category: 4 Previous: N/A Significant change in size (>/= 20% in 2 dimensions and minimal increase of 2 mm or 50% or greater increase in volume): No Change in features: No Change in ACR TI-RADS risk category: No 4. Location: Left lower pole. Size: 5.1 x 4.3 x 3.7 cm, volume 41.9 mL. Previously: 5.6 x 3.2 x 3.4 cm, volume 31.9 mL. Nodule characteristics: Composition: Solid (2). Echogenicity: Isoechoic (1). Shape: Taller than wide (3). Margins: Smooth (0). Echogenic Foci: Punctate echogenic foci (3). ACR TI-RADS total points: 9 Previous: N/A ACR TI-RADS category: 5 Previous: N/A Significant change in size (>/= 20% in 2 dimensions and minimal increase of 2 mm or 50% or greater increase in volume): No Change in features: Yes Change in ACR TI-RADS risk category: Yes 5. Location: Right lower pole. Size: 1.7 x 2.2 x 1.9 cm, volume 3.7 mL. Previously: New since prior study. Nodule characteristics: Composition: Solid (2). Echogenicity: Isoechoic (1). Shape: Taller than wide (3). Margins: Smooth (0). Echogenic Foci: None (0). ACR TI-RADS total points: 6 Previous: N/A ACR TI-RADS category: 4 Previous: N/A NODES: No lymphadenopathy is seen in the tissue surrounding the thyroid gland. US/US thyroid IMPRESSION: 1. 5 thyroid nodules are described, all of which would qualify for fine-needle aspiration if not previously performed. 2. Nodule #5, the second right lower pole nodule was not previously seen. This nodule meets qualifications for fine-needle aspiration if clinically warranted. 3. Otherwise, there has been no significant interval change in the nodules which were previously seen. Continued ultrasound follow-up is recommended. ACR TI-RADS RECOMMENDATION REFERENCE: Ultrasound-guided fine-needle aspiration, follow up ultrasound, no further followup. * TR1 (0 point) and TR2 (2 points): No FNA or followup * TR3 (3 points): FNA if more than or equal to 2.5 cm in maximum dimension, follow up ultrasound in 1, 3 and 5 years if 1.5 to 2.4 cm in maximum dimension. * TR4 (4-6 points): FNA if more than or equal to 1.5 cm in maximum dimension, follow up ultrasound in 1, 2, 3 and 5 years if 1 to 1.4 cm in maximum dimension. * TR5 (more than or equal to 7 points): FNA if more than or equal to 1 cm in maximum dimension, follow up ultrasound every year for 5 years if 0.5 to 0.9 cm in maximum dimension. * TR3, TR4 or TR5 nodules that are below the size threshold for follow up receive no followup. Electronically signed by: Ailin Monterroso DO 03/16/2024 05:28 PM EDT
== END 2024-03-15 13:57 | disposition home or self-care (01) ==
LOC: HO.HMGCX 13:56
PROVIDERS: PCP Nurse Practitioner Family; Visit Provider Nurse Practitioner Family
DX: E06.9 Thyroiditis, unspecified (principal)
CPT/HCPCS: 76536

== ENCOUNTER 2024-04-05 13:16 | Outpatient (AMB) | payer MEDICARE, SELFPAY ==
[2024-04-05 13:22] VITALS: BP 142/90; PULSE 63; O2SAT 93
--- NOTE | 2024-04-05 13:22 | A.OFFVIS_ITS ---
Vital Signs 04/05/24 13:22 Height 5 ft 9 in BMI Reason not done Patient refused/unable BP 142/90 H Blood Pressure Location Lt brachial Position Sitting Pulse 63 Pulse Source Pulse Oximeter Pulse Oximetry (%) 93 Oxygen Delivery Method Room Air Intake Visit Reasons: copd Intake Note: pt is here for follow up and states her breathing is okay, but she has a lot of other issues going on. pt needs refill on albuterol and prednisone 5mg. Allergies Horse/Equine Containing Products [Horse/Equine Product Derivatives] Allergy (Intermediate, Verified 04/05/24 13:39) SWELLING Cephalosporins Allergy (Unknown, Verified 04/05/24 13:39) Unknown Iodinated Contrast Media [IV CONTRAST] Allergy (Unknown, Verified 04/05/24 13:39) HIVES Medication List - Last Reconciled 04/05/24 by Judy Sheridan MD Anoro Ellipta 62.5-25 mcg/actuation (umeclidinium-vilanterol) 1 ea PO DAILY NS atorvastatin 40 mg PO BEDTIME betamethasone dipropionate 0.05% topical BID veqcrqytw-xlmnkrmf-psdkjtw ala 50-200-25 mg (Biktarvy) 1 tab PO DAILY 30 days calcium carbonate-vitamin D3 600 mg-10 mcg (400 unit) (Calcium with Vitamin D) 1 tab PO BID 90 days doxycycline hyclate 100 mg PO BID 7 days fluticasone propionate 50 mcg/actuation 2 sprays intranasal DAILY gabapentin 100 mg PO TID PRN ibuprofen 800 mg PO TID PRN 30 days lisinopril 10 mg PO DAILY methadone 75 mg PO Q12H Oxygen Home Use 2lpm via NC at night and PRN sob [Scooter-motorized As directed] Do you need a note to return to daycare/school/sports/work: No HPI HPI copd: Details: Elida is here for follow-up. Breathing has been relatively stable without any acute exacerbation since her last visit. But she has multiple problems such as gross obesity, chronic respiratory failure, needs O2 all the times, has stasis edema of the legs with ulcerations, mobility is very poor. Her main disabling problem is generalized arthritis , involving shoulders knees and her back. She gets around with wheelchair or Rollator walker. Stays mostly in the house. [facility] Medical History Venous insufficiency of both lower extremities Oxygen dependent Respiratory failure with hypoxia and hypercapnia Eosinophilia Bronchitis Other instability, right shoulder Retinopathy Methadone use Morbid obesity HIV (human immunodeficiency virus infection) Rhinitis Hypoventilation associated with obesity COPD (chronic obstructive pulmonary disease) HIV (human immunodeficiency virus infection) Smoker Morbid obesity Aortic dilatation Hypoventilation syndrome LAURENCE (obstructive sleep apnea) Respiratory failure with hypoxia Lower extremity edema Diastolic heart failure Hyperlipidemia Surgical History History of colonoscopy History of tonsillectomy Family History Father No problems noted. Mother No problems noted. Brother Asthma Maternal Grandfather No problems noted. Maternal Grandmother No problems noted. Paternal Grandfather No problems noted. Paternal Grandmother No problems noted. Brother No problems noted. Brother Substance use disorder Social History Housing: House Unable to assess alcohol history related to: Unknown Alcohol intake: never Comment: dc'd from ed Patient Tobacco Use Status: Current someday Tobacco user Tobacco use type: Cigarette Cigarette Packs Per Day: 0.5 Cigarettes Per Day: 4 Years Smoked: 30 +/- e-Cigarette/Vaping Use: Never Used Second Hand Smoke Exposure: Yes service: No Current occupational status: disabled Current occupation: rt hand Cognitive needs: No Hearing needs: No Vision needs: Yes Review of Systems Const All systems reviewed & are unremarkable except as noted in HPI and below Eyes Reports no additional complaints ENT Reports no additional complaints and Reports nasal congestion (OFF AND ON) Card Denies chest pain, Reports leg edema and Reports dyspnea on exertion Resp Reports as per HPI and Reports dyspnea on exertion GI Reports no additional complaints Reports nocturia Musc Reports back pain and Reports arthralgias (BOTH KNEES) Skin/Breast Reports system reviewed and no additional complaints, except as documented Neuro Reports no additional complaints Psych Reports no additional complaints Physical Exam Vital Signs: Last Vital Signs Pulse 63 04/05/24 13:22 BP 142/90 H 04/05/24 13:22 Pulse Ox 93 04/05/24 13:22 Oxygen Delivery Method Room Air 10/31/24 13:22 Const General: comfortable (BUT SLOW IN WALKING), no acute distress, alert and awake Orientation/consciousness: patient oriented x3 HEENT Head: Yes normal to inspection General nose exam: No nasal polyps present and No nasal discharge present Face and sinus: Yes sinuses nontender Mouth: oropharynx abnormals (OROPHARYNX IS EXTREMELY CROWDED MALLAMPATI SCALE 4) Eyes General: appearance normal, both eyes and all related structures Neck Neck: Yes normal visual inspection, Yes no lymphadenopathy, Yes trachea midline and Yes no JVD Thyroid: Thyroid normal Chest Chest palpation & inspection: normal inspection of the chest, normal palpation of entire chest wall and no tenderness Resp Other: HER BREATH SOUNDS ARE DISTANT, WITH PROLONGED EXPIRATORY PHASE. THERE ARE NO WHEEZES OR CREPITATIONS. TODAY . Cardio Palpation: PMI not normal (NOT PALPABLE) Rate: regular rate Rhythm: regular rhythm Heart sounds: no gallops and no murmurs GI Palpation (GI): Soft to palpation, nontender, No hepatosplenomegaly present, Hernia present (VENTRAL HERNIATION), no masses and Other GI palpation findings present (ABDOMEN IS OBESE AND PROTUBERANT) Auscultation: normal bowel sounds Back/Spine/Pelvis Thoracic/Lumbar Spine: thoracic and lumbar spine normal to inspection and thoraco-lumbar ROM limited Skin General skin exam: no rashes or lesions noted Neuro General: patient oriented x3 and no focal motor deficits Cranial nerves: Yes CN's II-XII intact bilaterally Extrem General: Yes normal to inspection, Yes no calf tenderness and Yes edema (1+ EDEMA AROUND THE ANKLES, SUPERFICIAL ULCERATIONS) Psych Appearance: grossly normal Speech and movement: Normal speech and movement present Assessment & Plan Assessment & Plan (1) Severe chronic obstructive pulmonary disease: Comment: She has chronic obstructive pulmonary disease, relatively severe. Recurrent acute exacerbations, also has mild to moderate eosinophilia. At present her respiratory status is fairly stable. Code(s): J44.9 - Chronic obstructive pulmonary disease, unspecified Category: Medical Plan: CONTINUE TO USE ANORO ELLIPTA 1 INHALATION DAILY. IPRATROPIUM-ALBUTEROL INHALATION VIA NEBULIZER Q 6 HOURS P.R.N. (2) Respiratory failure with hypoxia and hypercapnia: Comment: SHE HAS CHRONIC HYPERCAPNIA AND HYPOXEMIA. HYPOXEMIA IS CORRECTED. WITH USE OF O2 Code(s): J96.91 - Respiratory failure, unspecified with hypoxia; J96.92 - Respiratory failure, unspecified with hypercapnia Category: Medical Plan: USE O2 2 L/MINUTE WHEN AT REST. WHEN GOING OUTDOORS SHE MAY INCREASE THE O2 TO 4 L/MINUTE (3) Morbid obesity: Comment: THIS IS A CHRONIC PROBLEM, SHE IS NOT VERY MOBILE, IT IS ON EXPECTED IN HER CASE TO LOSE WEIGHT. Code(s): E66.01 - Morbid (severe) obesity due to excess calories Category: Medical Plan: AGAIN TALKED TO HER ABOUT HER BEING OVERWEIGHT. SOME OF HER WEIGHT IS DUE TO FLUID RETENTION. (4) Smoker: Comment: Continues to smoke, currently bouts 3-4 cigarettes a day. Code(s): F17.200 - Nicotine dependence, unspecified, uncomplicated Category: Social Hx Plan: AGAIN TALKED TO HER ABOUT SMOKING. BEST THING IS TO QUIT COMPLETELY. BUT SHE CAN NOT QUIT SO ADVISED TO LIMIT THE NUMBER OF CIGARETTES TO 4 PER DAY Medications: New albuterol sulfate 90 mcg/actuation 2 puffs inhalation Q4-6H PRN 8.5 grams 3RF shortness of breath or wheezing 30 days Coding Level of Care Code Est Pt Level 3 (15101) Diagnoses Severe chronic obstructive pulmonary disease J44.9 Respiratory failure with hypoxia and hypercapnia J96.91; J96.92 Morbid obesity E66.01 Smoker F17.200
== END 2024-04-05 13:39 | disposition home or self-care (01) ==
LOC: HO.HPS 13:17
PROVIDERS: PCP Nurse Practitioner Family; Visit Provider Internal Medicine
DX: J44.9 Chronic obstructive pulmonary disease, unspecified (principal); J96.91 Respiratory failure, unspecified with hypoxia; J96.92 Respiratory failure, unspecified with hypercapnia; E66.01 Morbid (severe) obesity due to excess calories; F17.200 Nicotine dependence, unspecified, uncomplicated
CPT/HCPCS: 99213

== ENCOUNTER → 2024-04-05 13:16 | Outpatient (BNVA) | payer MEDICARE, SELFPAY | PROVIDERS: PCP Nurse Practitioner Family; Visit Provider Internal Medicine | DX: J44.9 Chronic obstructive pulmonary disease, unspecified (principal); J96.91 Respiratory failure, unspecified with hypoxia; J96.92 Respiratory failure, unspecified with hypercapnia; E66.01 Morbid (severe) obesity due to excess calories; F17.210 Nicotine dependence, cigarettes, uncomplicated; Z99.81 Dependence on supplemental oxygen | CPT/HCPCS: 99212 ==

== ENCOUNTER 2024-04-09 13:53 | Outpatient (AMB) | payer MEDICARE, SELFPAY ==
--- NOTE | 2024-04-09 13:56 | A.OFFVIS_ITS ---
Vital Signs 04/09/24 14:02 04/09/24 15:02 Height 5 ft 9 in Weight 236 lb 5.369 oz BMI 34.9 BP 165/90 H 178/88 H Blood Pressure Location Lt brachial Lt brachial Position Sitting Pulse 72 Pulse Source Pulse Oximeter Intake Visit Reasons: Thyroiditis-lvm Intake Note: New patient present today for Thyroiditis office visit. Flexo Operator Required: No Accompanied by: Other Relationship Allergies Horse/Equine Containing Products [Horse/Equine Product Derivatives] Allergy (Intermediate, Verified 04/09/24 14:01) SWELLING Cephalosporins Allergy (Unknown, Verified 04/09/24 14:01) Unknown Iodinated Contrast Media [IV CONTRAST] Allergy (Unknown, Verified 04/09/24 14:01) HIVES Medication List - Last Reconciled 04/09/24 by Samantha Orozco MD albuterol sulfate 90 mcg/actuation 2 puffs inhalation Q4-6H PRN 30 days Anoro Ellipta 62.5-25 mcg/actuation (umeclidinium-vilanterol) 1 ea PO DAILY NS atorvastatin 40 mg PO BEDTIME betamethasone dipropionate 0.05% topical BID qqwnrtuaf-nzvhcjdw-bmfzzwv ala 50-200-25 mg (Biktarvy) 1 tab PO DAILY 30 days calcium carbonate-vitamin D3 600 mg-10 mcg (400 unit) (Calcium with Vitamin D) 1 tab PO BID 90 days fluticasone propionate 50 mcg/actuation 2 sprays intranasal DAILY gabapentin 100 mg PO TID PRN ibuprofen 800 mg PO TID PRN 30 days lisinopril 10 mg PO DAILY methadone 75 mg PO Q12H Oxygen Home Use 2lpm via NC at night and PRN sob [Scooter-motorized As directed] HPI Comments Details: 68-year-old female coming in today for initial evaluation of multinodular goiter. She has had these thyroid nodules at least since 2017. Recently she underwent a CT chest on 03/13/2024 which showed a heterogenous enlarged thyroid gland, subsequently underwent thyroid ultrasound on 03/15/2024 which showed multinodular goiter. She endorses having a thyroid biospy in her 50s, thinks it was on the right side. She doesnt remember what the results were. She is on O2 via nasal canula for the past 5 years. She has severe COPD , she still smokes half a pack a day . She has diastolic HF as well. Patient currently denies heat or cold intolerance, diarrhea or constipation, hair loss, palpitation, anxiety,, mood changes, low energy, changes in appearance of eyes or vision changes, tremors, increased diaphoresis or dry skin. ?Weight has been going up and down depending on water weugth but she is off the diuretics because of labile HTN. Patient endorses intermittent difficulty swallowing. denies , pain on swallowing or voice changes. Sleeps with 2 pillows. Does have some pressure sensation when laying flat. Patient denies any history of childhood neck radiation. Denies having ever used lithium, amiodarone or biotin supplements. Patient denies any family history of thyroid cancer or thyroid disease. Review of systems Constitutional: no fevers, chills HEENT: no changes in vision Cardiac: Reports intermittent palpitation Pulmonary: Does have shortness of breath GI:No abdominal pain, no nausea or vomiting, no anorexia, no blood in stool : no burning micturition, dysuria or increase in urinary frequency Physical exam General: Wearing O2 nasal cannula HEENT: normocephalic/atraumatic, moist oral mucosa Neck: supple, symmetrical, palpable 2 -3 cm nodules bilaterally Cardiac: normal heart sounds Pulm: normal breath sounds B/L, no added breath sounds Abd: not distended, no tenderness Extremities: Bilateral edema Neuro: AAO x3, Speech: normal, no facial droop, moving all 4 extremities Laboratory Tests 11/14/20 06/04/22 01/05/23 09:34 11:56 06:34 TSH 0.32 0.26 L 0.70 06/14/23 02/21/24 15:00 15:52 TSH 0.59 0.47 Imaging US THYROID 03/15/24 CLINICAL INFORMATION: Thyroiditis, unspecified. COMPARISON: 2 some thyroid soft tissue neck 05/22/2019 and 03/28/2017. TECHNIQUE: Linear transducer grayscale and color Doppler examination with attention to the region of the thyroid. Difficult examination due to body habitus and low lying enlarged thyroid with nodules with ill-defined borders. Some nodules/thyroid imaged using curved probe for increased penetration. FINDINGS: SIZE: Measurements of the thyroid lobes and nodules are given in sagittal, anteroposterior and transverse dimensions respectively. Right Thyroid Lobe: 7.6 x 2.6 x 3.9 cm, volume 40.4 mL. Previously 6.8 x 2.6 x 3.4 cm, volume 31.1 mL. Parenchyma: The gland echotexture is heterogeneous. Thyroid vascularity is normal. Left Thyroid Lobe: 7.0 x 3.5 x 3.7 cm, volume 47.5 mL. Previously 7.0 x 3.1 x 3.5 cm, volume 40.5 mL. Parenchyma: The gland echotexture is heterogeneous. Thyroid vascularity is normal. Isthmus: 1.1 cm in maximum AP dimension. Previously 0.3 cm. Estimated total number of nodules greater than or equal to 1 cm: [address]. [address] nodules are described as follows: 1. Location: Right upper. Size: 4.5 x 2.3 x 4.0 cm, volume 21.3 mL. Previously: 4.6 x 2.4 x 3.2 cm, volume 18.5 mL. Nodule characteristics: Composition: Solid/almost completely solid (2). Echogenicity: Isoechoic (1). Shape: Not taller than wide (0). Margins: Smooth (0). Echogenic Foci: Macrocalcifications (1). ACR TI-RADS total points: 4 Previous: N/A ACR TI-RADS category: 4 Previous: N/A Significant change in size (>/= 20% in 2 dimensions and minimal increase of 2 mm or 50% or greater increase in volume): No Change in features: No Change in ACR TI-RADS risk category: No 2. Location: Right lower pole. Size: 1.9 x 1.9 x 1.7 cm, volume 3.2 mL. Previously: 1.7 x 1.4 x 1.4 cm, volume 1.7 mL. Nodule characteristics: Composition: Solid (2). Echogenicity: Isoechoic (1). Shape: Taller than wide (3). Margins: Smooth (0). Echogenic Foci: None (0). ACR TI-RADS total points: 6 Previous: N/A ACR TI-RADS category: 4 Previous: N/A Significant change in size (>/= 20% in 2 dimensions and minimal increase of 2 mm or 50% or greater increase in volume): No Change in features: No Change in ACR TI-RADS risk category: No 3. Location: Left lower pole. Size: 4.6 x 2.7 x 3.1 cm, volume 20.2 mL. Previously: 4.5 x 2.4 x 2.7 cm, volume 15.3 mL. Nodule characteristics: Composition: Solid (2). Echogenicity: Isoechoic (1). Shape: Not taller than wide (0). Margins: Smooth (0). Echogenic Foci: Macrocalcifications (1). ACR TI-RADS total points: 4 Previous: N/A ACR TI-RADS category: 4 Previous: N/A Significant change in size (>/= 20% in 2 dimensions and minimal increase of 2 mm or 50% or greater increase in volume): No Change in features: No Change in ACR TI-RADS risk category: No 4. Location: Left lower pole. Size: 5.1 x 4.3 x 3.7 cm, volume 41.9 mL. Previously: 5.6 x 3.2 x 3.4 cm, volume 31.9 mL. Nodule characteristics: Composition: Solid (2). Echogenicity: Isoechoic (1). Shape: Taller than wide (3). Margins: Smooth (0). Echogenic Foci: Punctate echogenic foci (3). ACR TI-RADS total points: 9 Previous: N/A ACR TI-RADS category: 5 Previous: N/A Significant change in size (>/= 20% in 2 dimensions and minimal increase of 2 mm or 50% or greater increase in volume): No Change in features: Yes Change in ACR TI-RADS risk category: Yes 5. Location: Right lower pole. Size: 1.7 x 2.2 x 1.9 cm, volume 3.7 mL. Previously: New since prior study. Nodule characteristics: Composition: Solid (2). Echogenicity: Isoechoic (1). Shape: Taller than wide (3). Margins: Smooth (0). Echogenic Foci: None (0). ACR TI-RADS total points: 6 Previous: N/A ACR TI-RADS category: 4 Previous: N/A NODES: No lymphadenopathy is seen in the tissue surrounding the thyroid gland. US/US thyroid IMPRESSION: 1. 5 thyroid nodules are described, all of which would qualify for fine-needle aspiration if not previously performed. 2. Nodule #5, the second right lower pole nodule was not previously seen. This nodule meets qualifications for fine-needle aspiration if clinically warranted. 3. Otherwise, there has been no significant interval change in the nodules which were previously seen. Continued ultrasound follow-up is recommended. CT CHEST WITHOUT CONTRAST 03/13/24 CLINICAL INFORMATION: Right arm swelling. Central mass. COMPARISON: Chest radiograph from 11/26/2023. CT chest from 09/24/2022. Thyroid ultrasound from 05/22/2019. TECHNIQUE: Multidetector volumetric CT imaging of the chest was done. Axial MIP volume rendering provided. Sagittal and coronal reformatted images were obtained. This CT examination was performed using dose optimization techniques as appropriate, variously including the following: *Automated exposure control. *Adjustment of mA and/or kV according to patient size (this includes techniques or standardized protocols for targeted exams where dose is matched to indication/reason for exam; i.e. extremities or head). *Use of iterative reconstruction technique. DLP: 431 mGy-cm FINDINGS: LUNGS: Moderate centrilobular emphysema. Mild bilateral dependent atelectasis. Mild subsegmental atelectasis of the medial aspects of the right middle lobe and left upper lobe. Otherwise, no diffuse or focal lung parenchymal abnormalities. No pleural effusion or pneumothorax. The airways remain patent. MEDIASTINUM: The cardiac structures are without significant demonstrated abnormality. No pericardial effusion. No mediastinal free fluid or gas. No hilar or mediastinal lymphadenopathy. Heterogeneous, moderately prominent thyroid gland with left thyroid lobe extending into the upper mediastinum. Coronary artery calcifications: Absent. PLEURA: There is no pleural effusion or pneumothorax. No pleural mass or thickening. AXILLA: Nonspecific mildly prominent right axillary lymph nodes, measuring up to 1.2 cm in short axis. No left-sided axillary lymphadenopathy. UPPER ABDOMEN: Fatty atrophy of the head and body of the pancreas. Small hyperattenuating stones layering within the gallbladder fossa. There is a 2.4 cm simple renal cyst in the upper pole of the right kidney (no follow-up imaging recommended based on current guidelines at the time of examination). Otherwise, limited evaluation of the upper abdomen without significant soft tissue abnormalities. VASCULATURE: The thoracic aorta is of normal contour and caliber with mild calcific atherosclerotic disease. OSSEOUS STRUCTURES: Advanced degenerative arthropathy of the right and left shoulder joints. There appears to be anterior dislocation of the right shoulder. Moderate multilevel degenerative changes of the spine. Compression deformity of the superior endplate of L1. Mild degenerative retrolisthesis of L1 on L2. No suspicious lytic or sclerotic osseous lesions demonstrated. No soft tissue masses demonstrated. CT/CT chest wo IV con IMPRESSION: 1. Moderate emphysema. No additional acute pulmonary abnormalities. 2. Advanced degenerative arthropathy of the right and left shoulder joints. There appears to be anterior dislocation of the right shoulder. 3. Nonspecific mildly prominent right axillary lymph nodes, measuring up to 1.2 cm in short axis. 4. Heterogeneous, moderately enlarged thyroid gland. Recommend continued follow-up as indicated by prior thyroid ultrasound. 5. Cholelithiasis without evidence of cholecystitis. Electronically signed by: Michi Cintron DO 03/14/2024 02:45 AM EDT [facility] Medical History Venous insufficiency of both lower extremities Oxygen dependent Respiratory failure with hypoxia and hypercapnia Eosinophilia Bronchitis Other instability, right shoulder Retinopathy Methadone use Morbid obesity HIV (human immunodeficiency virus infection) Rhinitis Hypoventilation associated with obesity COPD (chronic obstructive pulmonary disease) HIV (human immunodeficiency virus infection) Smoker Morbid obesity Aortic dilatation Hypoventilation syndrome LAURENCE (obstructive sleep apnea) Respiratory failure with hypoxia Lower extremity edema Diastolic heart failure Hyperlipidemia Surgical History History of colonoscopy History of tonsillectomy Family History Father No problems noted. Mother No problems noted. Brother Asthma Maternal Grandfather No problems noted. Maternal Grandmother No problems noted. Paternal Grandfather No problems noted. Paternal Grandmother No problems noted. Brother No problems noted. Brother Substance use disorder Social History Housing: House Unable to assess alcohol history related to: Unknown Alcohol intake: never Comment: dc'd from ed Patient Tobacco Use Status: Current someday Tobacco user Tobacco use type: Cigarette Cigarette Packs Per Day: 0.5 Cigarettes Per Day: 4 Years Smoked: 30 +/- e-Cigarette/Vaping Use: Never Used Second Hand Smoke Exposure: Yes service: No Current occupational status: disabled Current occupation: rt hand Cognitive needs: No Hearing needs: No Vision needs: Yes Physical Exam Vital Signs: Last Vital Signs Pulse 72 04/09/24 14:02 BP 165/90 H 04/09/24 14:02 BMI result Body Mass Index 34.9 Assessment & Plan Assessment & Plan (1) Multinodular goiter: Code(s): E04.2 - Nontoxic multinodular goiter Category: Medical Plan: Patient with no family history of thyroid cancer, with no personal history of head or neck radiation who has had history of thyroid nodules for at least the past 15 years, underwent a thyroid biopsy in her 50s which she thinks was benign. Only has had 1 biopsy before. Most recently in March [address] scan of the chest during an ER visit which showed an enlarged thyroid gland. Subsequently thyroid ultrasound from March 2024 showed bilateral thyroid nodules, I reviewed the images myself which showed a dominant 5.1 cm left lower thyroid lobe nodule which is taller than wide, solid, isoechoic with microcalcifications, TR 5 category. Per YVONNE guidelines this is a high suspicion nodule with a greater than 50% chance of malignancy. Meets criteria for FNA. She has a another left lower 4.6 cm solid, isoechoic nodule with macrocalcification, TR 4 category. This also meets criteria for FNA. She has a right upper 4.5 cm nodule, solid, isoechoic with microcalcification, TR 4 category which also meets criteria for FNA. She has right lower lobe nodules, a 1.9 cm solid, isoechoic, taller than wide nodule, TR 4 category, as well as a new 2.2 cm solid, isoechoic, taller than wide TR 4 nodule. All of these meet criteria for FNA. I do not know which nodule she had biopsied before. I will plan to biopsy at least 2 of these. She has a mild degree of compressive symptoms, not too bothersome but given her comorbidities she is a poor surgical candidate so would not put her through surgery unless absolutely needed. She is biochemically euthyroid, normal TSH from February 2024. Once back in 2021 her TSH was slightly low at 0.26 with a normal free T4. Could have been an episode of thyroiditis. All of her TSH otherwise have been within normal range. I explained that it is common to have thyroid nodules. About 95% of the time these nodules are benign. However if the nodule is > 1 cm in size or suspicious on ultrasound then a fine need aspiration biopsy is recommended. We discussed that a FNAB involves 4-5 passes with a small gauge needle and material obtained is sent off for cytology.If the cytopathology is benign then the nodule will be followed annually with repeat ultrasounds. However if it is suspicious or malignant, we will need to discuss further management. Indeterminate cytology can be further investigated with repeat FNA, genetic testing or empiric lobectomy. Malignant cytology is managed with either lobectomy or total thyroidectomy. We discussed briefly that thyroid cancer is, in most patients, an indolent disease that does not affect mortality. We will arrange for FNA of the right superior 4.5 cm and left lower 5.1 cm thyroid FNA biopsy with meat next available opening and patient will follow up with me in clinic thereafter for results and further decision making. Plan: -scheduled for FNA right sup 4.5 cm and left lower 5.1 cm thyroid FNA biopsy with me -follow up 1-2 weeks after to discuss results (2) Uncontrolled hypertension: Code(s): I10 - Essential (primary) hypertension Category: Medical Plan: Patient is on lisinopril 10 mg daily. During my appointment her blood pressure was noted to be elevated in the 160 systolic initially and then when I rechecked it in the 170s systolic. She told me she used to be on a lot of medications but due to having labile hypertension with sudden drops she has been taken off most of her antihypertensive meds. She has a potassium level of 3.2 from March 2024. All other potassium levels have been normal she has not ever been on potassium supplements. However given evidence of hypokalemia w while she is on lisinopril, I will screen her for primary hyperaldosteronism. Plan: -ordered aldosterone, renin, BMP Plan I spent 45 minutes in reviewing the record, seeing the patient and documenting in the medical record. Orders: Orders Renin Today I10 - Essential (primary) hypertension Basic Metabolic Panel Today I10 - Essential (primary) hypertension US biopsy thyroid Today E04.2 - Nontoxic multinodular goiter Aldosterone Today I10 - Essential (primary) hypertension Coding Level of Care Code New Pt Level 4 (11017) Diagnoses Multinodular goiter E04.2 Uncontrolled hypertension I10 Time Spent (min) 45
[2024-04-09 14:02] VITALS: BP 165/90; PULSE 72; BMI 34.9
[2024-04-09 15:02] VITALS: BP 178/88
== END 2024-04-09 14:57 | disposition home or self-care (01) ==
LOC: HO.ENCR 13:55
PROVIDERS: PCP Nurse Practitioner Family; Visit Provider Student in an Organized Health Care Education/Training Program
DX: E04.2 Nontoxic multinodular goiter (principal); I10 Essential (primary) hypertension
CPT/HCPCS: 99204

== ENCOUNTER → 2024-04-09 13:53 | Outpatient (BNVA) | payer MEDICARE, SELFPAY | PROVIDERS: PCP Nurse Practitioner Family; Visit Provider Student in an Organized Health Care Education/Training Program | DX: E04.2 Nontoxic multinodular goiter (principal); I10 Essential (primary) hypertension | CPT/HCPCS: 99202 ==

== ENCOUNTER 2024-05-02 15:29 | Outpatient (REF) | payer MEDICARE, SELFPAY ==
[2024-05-02 16:53] LABS: Anion Gap 14 (12-20); Blood Urea Nitrogen 20 mg/dL (9-16); Carbon Dioxide 29 mmol/L (22-29); Chloride 102 mmol/L (96-108); Estimated Glomerular Filt Rate > 60; Glucose Random 78 mg/dL (60-115); Potassium 4.2 mmol/L (3.3-5.1); Sodium 141 mmol/L (135-145)
[2024-05-08 10:09] LABS: Renin 0.86 ng/mL/h (0.25-5.82)
== END 2024-05-02 15:30 | disposition home or self-care (01) ==
LOC: HO.LAB 15:29
PROVIDERS: PCP Nurse Practitioner Family; Visit Provider Student in an Organized Health Care Education/Training Program
DX: I10 Essential (primary) hypertension (principal)
CPT/HCPCS: 36415; 80048; 82088; 84244

== ENCOUNTER 2024-05-09 10:49 | Outpatient (REF) | payer MEDICARE, SELFPAY ==
--- NOTE | 2024-05-09 11:51 | PM.PROC ---
Brief Operative Note Date of procedure: 05/09/24 Pre-op diagnosis: Right superior 4.5 and left inferior 5.1 cm thyroid nodule FNA biopsy Post-op diagnosis: same Procedure: THYROID FINE NEEDLE ASPIRATION PROCEDURE NOTE ? PROCEDURE PERFORMED: Ultrasound-guided FNA of thyroid nodule ? OPERATORS: Dr. Samantha Orozco ? INDICATION: Right superior 4.5 and left inferior 5.1 cm thyroid nodules ; FNA performed to assess for malignancy ? DESCRIPTION OF PROCEDURE: The indications for FNA (to assess for malignancy) were reviewed with the patient in detail. Potential complications (e.g., bleeding, infection, damage to local structures, absence of clear diagnosis after FNA) were reviewed. Alternatives to FNA including conservative observation or surgery were described. The patient understood and agreed to proceed. This was documented by the signing of the written informed consent form. A time-out was performed to confirm the patient's identity and the site of planned FNA. The nodule of interest was identified using ultrasound (14 MHz linear array probe). The sites of FNA was then draped in the usual fashion and carefully cleaned and prepared using alcohol swabs. The skin at the previously-identified sites of needle insertion was iced and sprayed with numbing spray. Under ultrasound guidance, for each nodule biopsied , 4__ passes were performed using a 1.5-inch, 25-gauge needle, and sample was obtained via capillary action. The needle tip was clearly visualized to be within the nodule at the time of sampling for _4_ of _4_ passes The patient tolerated the procedure well. There were no immediate complications. A small adhesive bandage was applied, and the patient was advised to take acetaminophen (rather than NSAIDs) for any discomfort and to report any signs of inflammation/infection or marked swelling. IMPRESSION: Technically successful ultrasound-guided fine needle aspiration of right superior 4.5 and left inferior 5.1 cm thyroid nodules. PLAN: The patient was advised that I will provide follow-up regarding the cytology result and any subsequent plans. Samantha Orozco MD Endocrinology Attending Condition: stable Disposition: same day
== END 2024-05-09 10:50 | disposition home or self-care (01) ==
LOC: HO.US 10:49
PROVIDERS: PCP Nurse Practitioner Family; Visit Provider Student in an Organized Health Care Education/Training Program
DX: E04.2 Nontoxic multinodular goiter (principal)
CPT/HCPCS: 10005; 88173; 88305

== ENCOUNTER → 2024-05-09 10:49 | Outpatient (BNV) | payer MEDICARE, SELFPAY | PROVIDERS: PCP Nurse Practitioner Family; Visit Provider Student in an Organized Health Care Education/Training Program | DX: E04.2 Nontoxic multinodular goiter (principal) | CPT/HCPCS: 10005; 10006 ==

== ENCOUNTER 2024-05-11 11:45 | Outpatient (AMB) | payer MEDICARE, SELFPAY ==
--- NOTE | 2024-05-11 12:16 | MHC.OFFVIS ---
Intake Visit Reasons: OV - Right Shoulder Pain, requesting injection Intake Note: Elida is a 68 year old right hand dominant female who presents today with complaints of right shoulder pain. Hx of Right RTC Tear. Last injected shoulders bilaterally on 06/23/23 Allergies Horse/Equine Containing Products [Horse/Equine Product Derivatives] Allergy (Intermediate, Verified 05/11/24 12:16) SWELLING Cephalosporins Allergy (Unknown, Verified 05/11/24 12:16) Unknown Iodinated Contrast Media [IV CONTRAST] Allergy (Unknown, Verified 05/11/24 12:16) HIVES HPI HPI OV - Right Shoulder Pain, requesting injection: Details: Elida is a 68 year old right hand dominant female who presents today with complaints of right shoulder pain. Hx of Right RTC Tear. Last injected shoulders bilaterally on 06/23/23 [facility] Medical History (Updated 04/09/24 @ 14:45 by Samantha Orozco MD) Multinodular goiter Venous insufficiency of both lower extremities Oxygen dependent Respiratory failure with hypoxia and hypercapnia Eosinophilia Bronchitis Other instability, right shoulder Retinopathy Methadone use Morbid obesity HIV (human immunodeficiency virus infection) Rhinitis Hypoventilation associated with obesity COPD (chronic obstructive pulmonary disease) HIV (human immunodeficiency virus infection) Smoker Morbid obesity Aortic dilatation Hypoventilation syndrome LAURENCE (obstructive sleep apnea) Respiratory failure with hypoxia Lower extremity edema Diastolic heart failure Hyperlipidemia Surgical History History of colonoscopy History of tonsillectomy Family History Father No problems noted. Mother No problems noted. Brother Asthma Maternal Grandfather No problems noted. Maternal Grandmother No problems noted. Paternal Grandfather No problems noted. Paternal Grandmother No problems noted. Brother No problems noted. Brother Substance use disorder Social History Housing: House Unable to assess alcohol history related to: Unknown Alcohol intake: never Comment: dc'd from ed Patient Tobacco Use Status: Current someday Tobacco user Tobacco use type: Cigarette Cigarette Packs Per Day: 0.5 Cigarettes Per Day: 4 Years Smoked: 30 +/- e-Cigarette/Vaping Use: Never Used Second Hand Smoke Exposure: Yes service: No Current occupational status: disabled Current occupation: rt hand Cognitive needs: No Hearing needs: No Vision needs: Yes Physical Exam Const General: cooperative Nutritional Appearance: obese Extrem Other: Varus thrust with gait 2+ varus instability 10-15 ER bilaterally with painful abduction bilaterally Office Procedures Joint Inj/Aspir; Non-Pain Clin Joint Injection/Drain Details: Injected 1 mL of Decadron and 3 mL 1% lidocaine and 3 mL of 0.25% Marcaine. Site was prepped using aseptic technique. Patient tolerated the procedure well. Shoulders, Hips, Knees, Shoulder Injection Large joint : Bilateral Shoulders Coding Procedure code (CPT) selection complete Assessment & Plan Assessment & Plan (1) Bilateral shoulder pain: Code(s): M25.511 - Pain in right shoulder; M25.512 - Pain in left shoulder Category: Medical Plan: Injected bilateral shoulders. Not a surgical candidate. (2) Bilateral primary osteoarthritis of knee: Code(s): M17.0 - Bilateral primary osteoarthritis of knee Category: Medical Plan: Knee sleeves given. Coding Level of Care Code Est Pt Level 4 (35024) Diagnoses Bilateral shoulder pain M25.511; M25.512 Bilateral primary osteoarthritis of knee M17.0 CPT Codes Shoulders, Hips, Knees, - Shoulder Injection Large joint : Bilateral Shoulders ([id number])
== END 2024-05-11 12:43 | disposition home or self-care (01) ==
PROVIDERS: PCP Nurse Practitioner Family; Visit Provider Orthopaedic Surgery
DX: M25.511 Pain in right shoulder (principal); M25.512 Pain in left shoulder; M17.0 Bilateral primary osteoarthritis of knee
CPT/HCPCS: 20610; 99214

== ENCOUNTER → 2024-05-11 11:45 | Outpatient (BNVA) | payer MEDICARE, SELFPAY | PROVIDERS: PCP Nurse Practitioner Family; Visit Provider Orthopaedic Surgery | DX: M25.511 Pain in right shoulder (principal); M25.512 Pain in left shoulder; M17.0 Bilateral primary osteoarthritis of knee | CPT/HCPCS: 20610; 99212; J0665; J1100; J2003 ==

== ENCOUNTER 2024-05-23 13:51 | Outpatient (AMB) | payer MEDICARE, SELFPAY ==
--- NOTE | 2024-05-23 13:55 | A.OFFVIS_ITS ---
Vital Signs 3 05/23/24 14:06 BP 118/72 Blood Pressure Location Lt brachial Position Sitting Pulse 72 Pulse Source Pulse Oximeter Pulse Oximetry (%) 72 L Intake Visit Reasons: Biopsy f/u Intake Note: Patient present today for biopsy results. Financial Accountant Required: No Accompanied by: Self / Same As Patient Allergies Horse/Equine Containing Products [Horse/Equine Product Derivatives] Allergy (Intermediate, Verified 05/23/24 14:01) SWELLING Cephalosporins Allergy (Unknown, Verified 05/23/24 14:01) Unknown Iodinated Contrast Media [IV CONTRAST] Allergy (Unknown, Verified 05/23/24 14:01) HIVES HPI Comments Details: 68-year-old female coming in today for follow up of multinodular goiter. HPI from prior visit She has had these thyroid nodules at least since 2017. Recently she underwent a CT chest on 03/13/2024 which showed a heterogenous enlarged thyroid gland, subsequently underwent thyroid ultrasound on 03/15/2024 which showed multinodular goiter. She endorses having a thyroid biospy in her 50s, thinks it was on the right side. She doesnt remember what the results were. She is on O2 via nasal canula for the past 5 years. She has severe COPD , she still smokes half a pack a day . She has diastolic HF as well. Patient currently denies heat or cold intolerance, diarrhea or constipation, hair loss, palpitation, anxiety,, mood changes, low energy, changes in appearance of eyes or vision changes, tremors, increased diaphoresis or dry skin. ?Weight has been going up and down depending on water weugth but she is off the diuretics because of labile HTN. Patient endorses intermittent difficulty swallowing. denies , pain on swallowing or voice changes. Sleeps with 2 pillows. Does have some pressure sensation when laying flat. Patient denies any history of childhood neck radiation. Denies having ever used lithium, amiodarone or biotin supplements. Patient denies any family history of thyroid cancer or thyroid disease. Interval history She is here today to discuss the results of her biopsy. 05/09/2024: FNA of the right superior 4.5 cm nodule came back as AUS ([place] category 3), with benign Afirma (risk of malignancy 4%), FNA of the left inferior pole 5.1 cm nodule came back as benign ([place] category 2) Review of systems Constitutional: no fevers, chills HEENT: no changes in vision Cardiac: Reports intermittent palpitation Pulmonary: Does have shortness of breath GI:No abdominal pain, no nausea or vomiting, no anorexia, no blood in stool : no burning micturition, dysuria or increase in urinary frequency Physical exam General: Wearing O2 nasal cannula HEENT: normocephalic/atraumatic, moist oral mucosa Neck: supple, symmetrical, palpable 2 -3 cm nodules bilaterally Cardiac: normal heart sounds Pulm: normal breath sounds B/L, no added breath sounds Abd: not distended, no tenderness Extremities: Bilateral edema Neuro: AAO x3, Speech: normal, no facial droop, moving all 4 extremities Laboratory Tests 11/14/20 06/04/22 01/05/23 09:34 11:56 06:34 TSH 0.32 0.26 L 0.70 06/14/23 02/21/24 15:00 15:52 TSH 0.59 0.47 Laboratory Tests 05/02/24 15:49 Potassium 4.2 D Renin 0.86 Aldosterone 3 Imaging US THYROID 03/15/24 CLINICAL INFORMATION: Thyroiditis, unspecified. COMPARISON: 2 some thyroid soft tissue neck 05/22/2019 and 03/28/2017. TECHNIQUE: Linear transducer grayscale and color Doppler examination with attention to the region of the thyroid. Difficult examination due to body habitus and low lying enlarged thyroid with nodules with ill-defined borders. Some nodules/thyroid imaged using curved probe for increased penetration. FINDINGS: SIZE: Measurements of the thyroid lobes and nodules are given in sagittal, anteroposterior and transverse dimensions respectively. Right Thyroid Lobe: 7.6 x 2.6 x 3.9 cm, volume 40.4 mL. Previously 6.8 x 2.6 x 3.4 cm, volume 31.1 mL. Parenchyma: The gland echotexture is heterogeneous. Thyroid vascularity is normal. Left Thyroid Lobe: 7.0 x 3.5 x 3.7 cm, volume 47.5 mL. Previously 7.0 x 3.1 x 3.5 cm, volume 40.5 mL. Parenchyma: The gland echotexture is heterogeneous. Thyroid vascularity is normal. Isthmus: 1.1 cm in maximum AP dimension. Previously 0.3 cm. Estimated total number of nodules greater than or equal to 1 cm: 5. Crisis Nurse nodules are described as follows: 1. Location: Right upper. Size: 4.5 x 2.3 x 4.0 cm, volume 21.3 mL. Previously: 4.6 x 2.4 x 3.2 cm, volume 18.5 mL. Nodule characteristics: Composition: Solid/almost completely solid (2). Echogenicity: Isoechoic (1). Shape: Not taller than wide (0). Margins: Smooth (0). Echogenic Foci: Macrocalcifications (1). ACR TI-RADS total points: 4 Previous: N/A ACR TI-RADS category: 4 Previous: N/A Significant change in size (>/= 20% in 2 dimensions and minimal increase of 2 mm or 50% or greater increase in volume): No Change in features: No Change in ACR TI-RADS risk category: No 2. Location: Right lower pole. Size: 1.9 x 1.9 x 1.7 cm, volume 3.2 mL. Previously: 1.7 x 1.4 x 1.4 cm, volume 1.7 mL. Nodule characteristics: Composition: Solid (2). Echogenicity: Isoechoic (1). Shape: Taller than wide (3). Margins: Smooth (0). Echogenic Foci: None (0). ACR TI-RADS total points: 6 Previous: N/A ACR TI-RADS category: 4 Previous: N/A Significant change in size (>/= 20% in 2 dimensions and minimal increase of 2 mm or 50% or greater increase in volume): No Change in features: No Change in ACR TI-RADS risk category: No 3. Location: Left lower pole. Size: 4.6 x 2.7 x 3.1 cm, volume 20.2 mL. Previously: 4.5 x 2.4 x 2.7 cm, volume 15.3 mL. Nodule characteristics: Composition: Solid (2). Echogenicity: Isoechoic (1). Shape: Not taller than wide (0). Margins: Smooth (0). Echogenic Foci: Macrocalcifications (1). ACR TI-RADS total points: 4 Previous: N/A ACR TI-RADS category: 4 Previous: N/A Significant change in size (>/= 20% in 2 dimensions and minimal increase of 2 mm or 50% or greater increase in volume): No Change in features: No Change in ACR TI-RADS risk category: No 4. Location: Left lower pole. Size: 5.1 x 4.3 x 3.7 cm, volume 41.9 mL. Previously: 5.6 x 3.2 x 3.4 cm, volume 31.9 mL. Nodule characteristics: Composition: Solid (2). Echogenicity: Isoechoic (1). Shape: Taller than wide (3). Margins: Smooth (0). Echogenic Foci: Punctate echogenic foci (3). ACR TI-RADS total points: 9 Previous: N/A ACR TI-RADS category: 5 Previous: N/A Significant change in size (>/= 20% in 2 dimensions and minimal increase of 2 mm or 50% or greater increase in volume): No Change in features: Yes Change in ACR TI-RADS risk category: Yes 5. Location: Right lower pole. Size: 1.7 x 2.2 x 1.9 cm, volume 3.7 mL. Previously: New since prior study. Nodule characteristics: Composition: Solid (2). Echogenicity: Isoechoic (1). Shape: Taller than wide (3). Margins: Smooth (0). Echogenic Foci: None (0). ACR TI-RADS total points: 6 Previous: N/A ACR TI-RADS category: 4 Previous: N/A NODES: No lymphadenopathy is seen in the tissue surrounding the thyroid gland. US/US thyroid IMPRESSION: 1. 5 thyroid nodules are described, all of which would qualify for fine-needle aspiration if not previously performed. 2. Nodule #5, the second right lower pole nodule was not previously seen. This nodule meets qualifications for fine-needle aspiration if clinically warranted. 3. Otherwise, there has been no significant interval change in the nodules which were previously seen. Continued ultrasound follow-up is recommended. CT CHEST WITHOUT CONTRAST 03/13/24 CLINICAL INFORMATION: Right arm swelling. Central mass. COMPARISON: Chest radiograph from 11/26/2023. CT chest from 09/24/2022. Thyroid ultrasound from 05/22/2019. TECHNIQUE: Multidetector volumetric CT imaging of the chest was done. Axial MIP volume rendering provided. Sagittal and coronal reformatted images were obtained. This CT examination was performed using dose optimization techniques as appropriate, variously including the following: *Automated exposure control. *Adjustment of mA and/or kV according to patient size (this includes techniques or standardized protocols for targeted exams where dose is matched to indication/reason for exam; i.e. extremities or head). *Use of iterative reconstruction technique. DLP: 431 mGy-cm FINDINGS: LUNGS: Moderate centrilobular emphysema. Mild bilateral dependent atelectasis. Mild subsegmental atelectasis of the medial aspects of the right middle lobe and left upper lobe. Otherwise, no diffuse or focal lung parenchymal abnormalities. No pleural effusion or pneumothorax. The airways remain patent. MEDIASTINUM: The cardiac structures are without significant demonstrated abnormality. No pericardial effusion. No mediastinal free fluid or gas. No hilar or mediastinal lymphadenopathy. Heterogeneous, moderately prominent thyroid gland with left thyroid lobe extending into the upper mediastinum. Coronary artery calcifications: Absent. PLEURA: There is no pleural effusion or pneumothorax. No pleural mass or thickening. AXILLA: Nonspecific mildly prominent right axillary lymph nodes, measuring up to 1.2 cm in short axis. No left-sided axillary lymphadenopathy. UPPER ABDOMEN: Fatty atrophy of the head and body of the pancreas. Small hyperattenuating stones layering within the gallbladder fossa. There is a 2.4 cm simple renal cyst in the upper pole of the right kidney (no follow-up imaging recommended based on current guidelines at the time of examination). Otherwise, limited evaluation of the upper abdomen without significant soft tissue abnormalities. VASCULATURE: The thoracic aorta is of normal contour and caliber with mild calcific atherosclerotic disease. OSSEOUS STRUCTURES: Advanced degenerative arthropathy of the right and left shoulder joints. There appears to be anterior dislocation of the right shoulder. Moderate multilevel degenerative changes of the spine. Compression deformity of the superior endplate of L1. Mild degenerative retrolisthesis of L1 on L2. No suspicious lytic or sclerotic osseous lesions demonstrated. No soft tissue masses demonstrated. CT/CT chest wo IV con IMPRESSION: 1. Moderate emphysema. No additional acute pulmonary abnormalities. 2. Advanced degenerative arthropathy of the right and left shoulder joints. There appears to be anterior dislocation of the right shoulder. 3. Nonspecific mildly prominent right axillary lymph nodes, measuring up to 1.2 cm in short axis. 4. Heterogeneous, moderately enlarged thyroid gland. Recommend continued follow-up as indicated by prior thyroid ultrasound. 5. Cholelithiasis without evidence of cholecystitis. Electronically signed by: Michi Quirosjan VASQUEZ 03/14/2024 02:45 AM EDT RP [facility], [facility] Medical History (Updated 04/09/24 @ 14:45 by Samantha Orozco MD) Multinodular goiter Venous insufficiency of both lower extremities Oxygen dependent Respiratory failure with hypoxia and hypercapnia Eosinophilia Bronchitis Other instability, right shoulder Retinopathy Methadone use Morbid obesity HIV (human immunodeficiency virus infection) Rhinitis Hypoventilation associated with obesity COPD (chronic obstructive pulmonary disease) HIV (human immunodeficiency virus infection) Smoker Morbid obesity Aortic dilatation Hypoventilation syndrome LAURENCE (obstructive sleep apnea) Respiratory failure with hypoxia Lower extremity edema Diastolic heart failure Hyperlipidemia Surgical History History of colonoscopy History of tonsillectomy Family History Father No problems noted. Mother No problems noted. Brother Asthma Maternal Grandfather No problems noted. Maternal Grandmother No problems noted. Paternal Grandfather No problems noted. Paternal Grandmother No problems noted. Brother No problems noted. Brother Substance use disorder Social History Housing: House Unable to assess alcohol history related to: Unknown Alcohol intake: never Comment: dc'd from ed Patient Tobacco Use Status: Current someday Tobacco user Tobacco use type: Cigarette Cigarette Packs Per Day: 0.5 Cigarettes Per Day: 4 Years Smoked: 30 +/- e-Cigarette/Vaping Use: Never Used Second Hand Smoke Exposure: Yes service: No Current occupational status: disabled Current occupation: rt hand Cognitive needs: No Hearing needs: No Vision needs: Yes Assessment & Plan Assessment & Plan (1) Multinodular goiter: Code(s): E04.2 - Nontoxic multinodular goiter Category: Medical Plan: Patient with no family history of thyroid cancer, with no personal history of head or neck radiation who has had history of thyroid nodules for at least the past 15 years, underwent a thyroid biopsy in her 50s which she thinks was benign. Only has had 1 biopsy before. Most recently in March [address] scan of the chest during an ER visit which showed an enlarged thyroid gland. Subsequently thyroid ultrasound from March 2024 showed bilateral thyroid nodules, I reviewed the images myself which showed a dominant 5.1 cm left lower thyroid lobe nodule which is taller than wide, solid, isoechoic with microcalcifications, TR 5 category. Per [place] guidelines this is a high suspicion nodule with a greater than 50% chance of malignancy. Meets criteria for FNA. She has a another left lower 4.6 cm solid, isoechoic nodule with macrocalcification, TR 4 category. This also meets criteria for FNA. She has a right upper 4.5 cm nodule, solid, isoechoic with microcalcification, TR 4 category which also meets criteria for FNA. She has right lower lobe nodules, a 1.9 cm solid, isoechoic, taller than wide nodule, TR 4 category, as well as a new 2.2 cm solid, isoechoic, taller than wide TR 4 nodule. All of these meet criteria for FNA. I do not know which nodule she had biopsied before. I will plan to biopsy at least 2 of these. She has a mild degree of compressive symptoms, not too bothersome but given her comorbidities she is a poor surgical candidate so would not put her through surgery unless absolutely needed. She is biochemically euthyroid, normal TSH from February 2024. Once back in 2021 her TSH was slightly low at 0.26 with a normal free T4. Could have been an episode of thyroiditis. All of her TSH otherwise have been within normal range. 05/09/2024: FNA of the right superior 4.5 cm nodule came back as AUS ([place] category 3), with benign Afirma (risk of malignancy 4%), FNA of the left inferior pole 5.1 cm nodule came back as benign ([place] category 2) I explained to the patient that benign results me less than 3% chance of malignancy in these nodules. Some of her other nodules it also meet criteria for FNA, I will hold off for now given that we did biopsies of 2 nodules this year, we will plan to repeat an ultrasound in 1 year. At that time we can consider doing biopsies of the nodules that we did not address this year. Plan: -ultrasound thyroid in May 2025 with follow up after -ordered TSH and free T4 to be done prior to next appointment (2) Uncontrolled hypertension: Code(s): I10 - Essential (primary) hypertension Category: Medical Plan: Patient is on lisinopril 20 mg daily. During my last appointment appointment her blood pressure was noted to be elevated in the 160 systolic initially and then when I rechecked it in the 170s systolic. She told me she used to be on a lot of medications but due to having labile hypertension with sudden drops she has been taken off most of her antihypertensive meds. She has a potassium level of 3.2 from March 2024. All other potassium levels have been normal she has not ever been on potassium supplements. However given evidence of hypokalemia w while she is on lisinopril, we screened her for primary hyperaldosteronism which showed renin of 0.86, however aldosterone low at 3 from labs from May 2024. She did not screen positive. However in the future if she needs antihypertensive medication, spironolactone would be a good option for her given low renin hypertension. We will defer that to her PCP. Plan See above Orders: Orders 2 Free T4 (Free Thyroxine) 1 Year E04.2 - Nontoxic multinodular goiter US thyroid 1 Year E04.2 - Nontoxic multinodular goiter Thyroid Stimulating Hormone 1 Year E04.2 - Nontoxic multinodular goiter Patient Instructions: Repeat thyroid ultrasound in 1 year around April or May 2025 prior to your follow up with me. Please schedule the ultrasound at least 3-4 weeks before your appointment with me Do blood work 3-4 days before your appointment with me Coding Level of Care Code Est Pt Level 3 (62809) Diagnoses Multinodular goiter E04.2 Uncontrolled hypertension I10
[2024-05-23 14:06] VITALS: BP 118/72; PULSE 72; O2SAT 72
== END 2024-05-23 14:30 | disposition home or self-care (01) ==
PROVIDERS: PCP Nurse Practitioner Family; Visit Provider Student in an Organized Health Care Education/Training Program
DX: E04.2 Nontoxic multinodular goiter (principal); I10 Essential (primary) hypertension
CPT/HCPCS: 99213

== ENCOUNTER → 2024-05-23 13:51 | Outpatient (BNVA) | payer MEDICARE, SELFPAY | PROVIDERS: PCP Nurse Practitioner Family; Visit Provider Student in an Organized Health Care Education/Training Program | DX: E04.2 Nontoxic multinodular goiter (principal); I10 Essential (primary) hypertension | CPT/HCPCS: 99212 ==

== ENCOUNTER 2024-05-28 14:12 | Outpatient (AMB) | payer MEDICARE, SELFPAY ==
[2024-05-28 14:18] VITALS: BP 136/80; PULSE 90; O2SAT 93
--- NOTE | 2024-05-28 14:18 | A.OFFPC_ITS ---
Vital Signs 05/28/24 14:18 Height 5 ft 9 in BMI Reason not done Patient refused/unable BP 136/80 Blood Pressure Location Rt brachial Position Sitting Pulse 90 Pulse Source Pulse Oximeter Pulse Oximetry (%) 93 Oxygen Delivery Method Room Air Intake Visit Reasons: 4 month follow up Intake Note: pt is here for 4 mon f.up, patient declined being diabetic and doesnt want A1c Auto Brake Mechanic Required: No Accompanied by: Self / Same As Patient Allergies Horse/Equine Containing Products [Horse/Equine Product Derivatives] Allergy (Intermediate, Verified 05/28/24 14:18) SWELLING Cephalosporins Allergy (Unknown, Verified 05/28/24 14:18) Unknown Iodinated Contrast Media [IV CONTRAST] Allergy (Unknown, Verified 05/28/24 1 4:18) HIVES Tobacco use date assessed: 02/02/24 Fall risk assessment: No Falls in past year Last assessed Fall Risk: 05/28/24 Dental Screening Dental Screen Date: 02/02/24 HPI 4 month follow up HPI Details Chief Complaint Follow-up for arthritis management and review of medication. History of Present Illness The patient is a 69-year-old female presenting with a history of significant arthritis impacting her knees and shoulders, requiring mobility aids including a rolling walker and portable oxygen. She disputes a diagnosis of diabetes, referencing past endocrinology evaluations that reportedly ruled out the condition despite its presence on her problem list. Her historical fasting blood sugars have been close to diagnostic thresholds, with a recent reading at 119 mg/dL. The patient is under active care for bilateral lower extremity wounds attributed to lymphedema and peripheral vascular disease, attending regular sessions at a Wound Center. She denies associated symptoms such as fever or chills. HTM: stable currently Social History - She utilizes a rolling walker due to h er arthritis. - Currently uses portable oxygen therapy for ambulation. - No other social determinants of health were discussed. Health Maintenance - Recommended laboratory tests, includin g fasting blood sugar analyses, are pending to reassess diabetes status. Review of Systems - General: Denies fever or chills. Physical Exam General: Cooperative, healthy appearing, comfortable, no acute distress and well developed, uses rolling walker and portable O2 Orientation: Patient oriented x3 Limitations: No limitations Head: Normal to inspection Eyes: Appearance normal, both eyes and all related structures Neck: Normal visual inspection and Yes full ROM Respiratory: Diminished bilaterally moving air Cardiovascular: Regular rate and rhythm. Normal S1 and S2 GI: Normal to inspection. Soft to palpation and nontender Neuro: Patient oriented x3 Extremities: Normal to inspection, with bilateral wounds of the bilateral lower extremities related to lymphedema and peripheral vascular disease Results Plan - The patient disputes her diabetes diag nosis; will review historical lab data further and conduct current fasting glucose and A1c evaluations. - Meloxicam will be prescribed for arthr itis management in replacement of ibuprofen; patient advised to avoid other NSAIDs concurrently and to take medication with food. - Continue current tooth polisher care fo r respiratory support and use of portable oxygen. - The patient will continue wound care m anagement at the Wound Center for bilateral lower extremity wounds. Patient was informed and verbally consented to the use of an ambient scribe for clinic note documentation during this visit. Discussion Notes I discussed with the patient the unsubstantiated diabetes diagnosis and the importance of updated lab work to reflect her current health status accurately. The potential side effects and the necessity to take Meloxicam with food were emphasized, alongside instructions to avoid concurrent NSAID usage. I confirmed her understanding of monitoring for gastrointestinal bleeding symptoms. Follow- up with her tooth polisher and Wound Center was encouraged to continue optimal management of her pulmonary and vascular conditions. Patient Instructions - Continue current oxygen therapy and fo llow-up with the tooth polisher. - Begin taking Meloxicam for arthritis a s directed, with food, and avoid additional NSAIDs such as ibuprofen. - Complete recommended lab tests for emerald betes reassessment when convenient. - Attend regular appointments at the [facility] as scheduled. [facility] Medical History Multinodular goiter Venous insufficiency of both lower extremities Oxygen dependent Respiratory failure with hypoxia and hypercapnia Eosinophilia Bronchitis Other instability, right shoulder Retinopathy Methadone use Morbid obesity HIV (human immunodeficiency virus infection) Rhinitis Hypoventilation associated with obesity COPD (chronic obstructive pulmonary disease) HIV (human immunodeficiency virus infection) Smoker Morbid obesity Aortic dilatation Hypoventilation syndrome LAURENCE (obstructive sleep apnea) Respiratory failure with hypoxia Lower extremity edema Diastolic heart failure Hyperlipidemia Surgical History History of colonoscopy History of tonsillectomy Family History Father No problems noted. Mother No problems noted. Brother Asthma Maternal Grandfather No problems noted. Maternal Grandmother No problems noted. Paternal Grandfather No problems noted. Paternal Grandmother No problems noted. Brother No problems noted. Brother Substance use disorder Social History Housing: House Unable to assess alcohol history related to: Unknown Alcohol intake: never Comment: dc'd from ed Patient Tobacco Use Status: Current someday Tobacco user Tobacco use type: Cigarette Cigarette Packs Per Day: 0.5 Cigarettes Per Day: 4 Years Smoked: 30 +/- e-Cigarette/Vaping Use: Never Used Second Hand Smoke Exposure: Yes service: No Current occupational status: disabled Current occupation: rt hand Cognitive needs: No Hearing needs: No Vision needs: Yes Questionnaire PHQ-9 Over the last 2 weeks, how often have you been bothered by any of the following problems? 1. Little interest or pleasure in doing things: nearly every day 2. Feeling down, depressed, or hopeless: nearly every day 3. Trouble falling or staying asleep, or sleeping too much: nearly every day 4. Feeling tired or having little energy: nearly every day 5. Poor appetite or overeating: several days 6. Feeling bad about yourself - or that you are a failure or have let yourself or your family down: not at all 7. Trouble concentrating on things, such as reading the newspaper or watching television: not at all 8. Moving or speaking so slowly that other people could have noticed. Or the opposite - being so fidgety or restless that you have been moving around a lot more than usual: not at all 9. Thoughts that you would be better off or of hurting yourself in some way: not at all Total score: 13 Depression Screening Interpretation: Positive Depression Screening Done: Yes 86009 - PHQ-9 Billing: Yes Source: Developed by Drs. Artem Juarez, Aishwarya Voss, Jorge Schilling and colleagues, with an educational shawn from [employer]. Thrive Questionnaire Date Thrive assessed: 05/28/24 I am a: Patient What is your living situation today?: I have a steady place to live Within the past 12 months, did the food you bought not last and you didn't have the money to get more?: Never true Within the past 12 months, did you worry whether your food would run out before you got money to buy more?: Never true Do you have trouble paying for medicines?: No Do you have trouble getting transportation to medical appointments?: No Do you have trouble paying your heating and electricity bill?: No Do you have trouble taking care of your child, family member or friend?: No Do you have trouble with day-to-day activities such as bathing, preparing meals, shopping, managing finances, etc.?: Yes Are you currently unemployed and looking for a job?: I choose not to answer this question Are you interested in more education?: No Please select the resources that you would like help with: Daily support Currently or been in a relationship where the following occur: No concerns reported THRIVE Score: 0 AUDIT C Alcohol Use Questionnaire (AUDIT-C) 1. How often do you have a drink containing alcohol?: Never 3. How often do you have six or more drinks on one occasion?: Never Total Score: 0 Score Reviewed/Action Taken: Yes JAJA-7 AMB Questionnaire JAJA-7 Date JAJA - 7 assessed: 05/28/24 Feeling nervous, anxious, or on edge: 0 = Not at all Not being able to stop or control worryin = Not at all Worrying too much about different things: 0 = Not at all Trouble relaxin = Not at all Being so restless that it is hard to sit still: 0 = Not at all Becoming easily annoyed or irritable: 0 = Not at all Feeling afraid as if something awful might happen: 0 = Not at all Total JAJA-7 score (0-4 normal; 5-9 mild; 10-14 moderate; 15-21 severe): 0 Source: Developed by Drs. Artem Juarez, Aishwarya Voss, Jorge Schilling and colleagues, with an educational shawn from [employer]. JAJA-7 Assessment Billing JAJA-7 Assessment Tool: JAJA-7 Assessment 67611 Physical exam (Primary Care) Vital Signs: Last Vital Signs Pulse 90 05/28/24 14:18 BP 136/80 05/28/24 14:18 Pulse Ox 93 05/28/24 14:18 Oxygen Delivery Method Room Air 05/28/24 14:18 Tobacco/Smoking Status: Tobacco use Status Tobacco use date assessed 02/02/24 05/28/24 14:20 Patient Tobacco Use Status Current someday Tobacco 05/28/24 14:20 Tobacco use type Cigarette 05/28/24 14:20 e-Cigarette/Vaping Use Never Used 05/28/24 14:20 PHQ-9: PHQ-9 Score PHQ-9: Total score 13 05/28/24 15:24 Depression Screening Interpretation: Positive Thrive Assessment: Date of Thrive Assessment Date Thrive assessed 05/28/24 05/28/24 14:20 Currently or been in a relationship where the following occur: No concerns reported Immunizations pneumoc 20-jerardo conj-dip cr(PF) 0.5 mL IM syringe Performing Provider: ADRIANA Rico Performing Location: [facility] Administered by: aVzquez Rosas CMA on 05/28/24 15:25 Dose Route Admin Location Dispensed Lot Number Expiration Date [facility] Pm Head Cook 0.5 mL IM Left Deltoid 0.5 mL [id number] 09/23/25 6707-3942-88 [employer] V[employer] Given Date VIS Provided VIS Publication Date 05/28/24 Single Vaccine 21 Eligibility Eligibility Date Funding Source Not [facility] Eligible 05/28/24 Private Coding Level of Care Code Est Pt Level 3 (57747) Diagnoses Osteoarthritis M19.90 HTN (hypertension) I10 Additional Codes JAJA-7 Assessment Billing - JAJA-7 Assessment Tool: JAJA-7 Assessment 03121 ([id number]) PHQ-9 - 92264 - PHQ-9 Billing: Yes ([id number]) Assessment & Plan Assessment & Plan (1) Osteoarthritis: Code(s): M19.90 - Unspecified osteoarthritis, unspecified site Category: Medical (2) HTN (hypertension): Code(s): I10 - Essential (primary) hypertension Category: Medical Plan . Medications: New meloxicam 15 mg PO DAILY 30 days PRN 30 tabs 0RF pain
== END 2024-05-28 15:29 | disposition home or self-care (01) ==
PROVIDERS: PCP Nurse Practitioner Family; Visit Provider Nurse Practitioner Family
DX: M19.90 Unspecified osteoarthritis, unspecified site (principal); I10 Essential (primary) hypertension; Z23 Encounter for immunization

== ENCOUNTER → 2024-05-28 14:12 | Outpatient (BNVA) | payer MEDICARE, SELFPAY | PROVIDERS: PCP Nurse Practitioner Family; Visit Provider Nurse Practitioner Family | DX: M17.0 Bilateral primary osteoarthritis of knee (principal); M19.012 Primary osteoarthritis, left shoulder; M19.011 Primary osteoarthritis, right shoulder; I73.9 Peripheral vascular disease, unspecified; I89.0 Lymphedema, not elsewhere classified; I10 Essential (primary) hypertension; F17.210 Nicotine dependence, cigarettes, uncomplicated; Z23 Encounter for immunization; Z99.81 Dependence on supplemental oxygen | CPT/HCPCS: 90471; 90677; 96127; 99212 ==

== ENCOUNTER 2024-07-24 13:50 | Outpatient (AMB) | payer MEDICARE, SELFPAY ==
[2024-07-24 14:10] VITALS: BP 140/72; PULSE 69; O2SAT 94
--- NOTE | 2024-07-24 14:10 | MHC.OFFVIS ---
Vital Signs 07/24/24 14:10 BP 140/72 H Blood Pressure Location Lt brachial Position Sitting Pulse 69 Pulse Source Pulse Oximeter Pulse Oximetry (%) 94 Oxygen Delivery Method Nasal Cannula Oxygen Flow Rate 2 Intake Visit Reasons: COPD Intake Note: pt is here for follow up she is doing okay, but she feels like she is starting with a head cold. Can you send in nicotine patch Link And Link Knitting Machine Operator Required: No Allergies Horse/Equine Containing Products [Horse/Equine Product Derivatives] Allergy (Intermediate, Verified 07/24/24 14:38) SWELLING Cephalosporins Allergy (Unknown, Verified 07/24/24 14:38) Unknown Iodinated Contrast Media [IV CONTRAST] Allergy (Unknown, Verified 07/24/24 14:38) HIVES Medication List - Last Reconciled 07/24/24 by Judy Sheridan MD albuterol sulfate 2.5 mg (3 mL) inhalation Q4-6H PRN 30 days albuterol sulfate 90 mcg/actuation 2 puffs inhalation Q4-6H PRN 30 days Anoro Ellipta 62.5-25 mcg/actuation (umeclidinium-vilanterol) 1 ea PO DAILY NS atorvastatin 40 mg PO DAILY betamethasone dipropionate 0.05% topical BID ndjfvmokb-pnbipvxm-spapfgo ala 50-200-25 mg (Biktarvy) 1 tab PO DAILY 30 days calcium carbonate-vitamin D3 600 mg-10 mcg (400 unit) (Calcium with Vitamin D) 1 tab PO BID 90 days fluticasone propionate 50 mcg/actuation 2 sprays intranasal DAILY gabapentin 100 mg PO TID PRN 30 days ibuprofen 800 mg PO TID PRN 30 days lisinopril 20 mg PO DAILY meloxicam 15 mg PO DAILY PRN 30 days methadone 75 mg PO Q12H Oxygen Home Use 2lpm via NC at night and PRN sob [Scooter-motorized As directed] Do you need a note to return to daycare/school/sports/work: No HPI HPI COPD: Details: This 69 years old female with morbid obesity, obstructive sleep apnea/hypoventilation syndrome, but not able to use the BiPAP. COPD, ongoing smoking, has grossly impaired locomotion and uses powered scooter. Comes for follow-up after 4 months. Smoking has gone up from a few cigarettes to almost half pack a day again. Complains of frequent cough as expected from her smoking. Can not use CPAP or BiPAP and stays on O2 2 L/minute. [facility] Medical History Multinodular goiter Venous insufficiency of both lower extremities Oxygen dependent Respiratory failure with hypoxia and hypercapnia Eosinophilia Bronchitis Other instability, right shoulder Retinopathy Methadone use Morbid obesity HIV (human immunodeficiency virus infection) Rhinitis Hypoventilation associated with obesity COPD (chronic obstructive pulmonary disease) HIV (human immunodeficiency virus infection) Smoker Morbid obesity Aortic dilatation Hypoventilation syndrome LAURENCE (obstructive sleep apnea) Respiratory failure with hypoxia Lower extremity edema Diastolic heart failure Hyperlipidemia Surgical History History of colonoscopy History of tonsillectomy Family History Father No problems noted. Mother No problems noted. Brother Asthma Maternal Grandfather No problems noted. Maternal Grandmother No problems noted. Paternal Grandfather No problems noted. Paternal Grandmother No problems noted. Brother No problems noted. Brother Substance use disorder Social History Housing: House Unable to assess alcohol history related to: Unknown Alcohol intake: never Comment: dc'd from ed Patient Tobacco Use Status: Current someday Tobacco user Tobacco use type: Cigarette Cigarette Packs Per Day: 0.5 Cigarettes Per Day: 4 Years Smoked: 30 +/- e-Cigarette/Vaping Use: Never Used Second Hand Smoke Exposure: Yes service: No Current occupational status: disabled Current occupation: rt hand Cognitive needs: No Hearing needs: No Vision needs: Yes Review of Systems Const All systems reviewed & are unremarkable except as noted in HPI and below Eyes Reports no additional complaints ENT Reports no additional complaints and Reports nasal congestion (OFF AND ON) Card Denies chest pain, Reports leg edema and Reports dyspnea on exertion Resp Reports as per HPI and Reports dyspnea on exertion GI Reports no additional complaints Reports nocturia Musc Reports back pain and Reports arthralgias (BOTH KNEES) Skin/Breast Reports system reviewed and no additional complaints, except as documented Neuro Reports no additional complaints Psych Reports no additional complaints Physical Exam Vital Signs: Last Vital Signs Pulse 69 07/24/24 14:10 BP 140/72 H 07/24/24 14:10 Pulse Ox 94 07/24/24 14:10 Oxygen Delivery Method Nasal Cannula 07/24/24 14:10 Oxygen Flow Rate 2 07/24/24 14:10 Const General: comfortable (BUT SLOW IN WALKING), no acute distress, alert and awake Orientation/consciousness: patient oriented x3 HEENT Head: Yes normal to inspection General nose exam: No nasal polyps present and No nasal discharge present Face and sinus: Yes sinuses nontender Mouth: oropharynx abnormals (OROPHARYNX IS EXTREMELY CROWDED MALLAMPATI SCALE 4) Eyes General: appearance normal, both eyes and all related structures Neck Neck: Yes normal visual inspection, Yes no lymphadenopathy, Yes trachea midline and Yes no JVD Thyroid: Thyroid normal Chest Chest palpation & inspection: normal inspection of the chest, normal palpation of entire chest wall and no tenderness Resp Other: HER BREATH SOUNDS ARE DISTANT, WITH PROLONGED EXPIRATORY PHASE. THERE ARE NO WHEEZES OR CREPITATIONS. TODAY . Cardio Palpation: PMI not normal (NOT PALPABLE) Rate: regular rate Rhythm: regular rhythm Heart sounds: no gallops and no murmurs GI Palpation (GI): Soft to palpation, nontender, No hepatosplenomegaly present, Hernia present (VENTRAL HERNIATION), no masses and Other GI palpation findings present (ABDOMEN IS OBESE AND PROTUBERANT) Auscultation: normal bowel sounds Back/Spine/Pelvis Thoracic/Lumbar Spine: thoracic and lumbar spine normal to inspection and thoraco-lumbar ROM limited Skin General skin exam: no rashes or lesions noted Neuro General: patient oriented x3 and No gait normal (Non ambulatory, uses a scooter.) Cranial nerves: Yes CN's II-XII intact bilaterally Extrem General: Yes normal to inspection, Yes no calf tenderness and Yes edema (1+ EDEMA AROUND THE ANKLES, SUPERFICIAL ULCERATIONS) Psych Appearance: grossly normal Speech and movement: Normal speech and movement present Assessment & Plan Assessment & Plan (1) COPD (chronic obstructive pulmonary disease): Comment: Patient has chronic and advanced obstructive pulmonary disease. She seems to be at her baseline at this time. Code(s): J44.9 - Chronic obstructive pulmonary disease, unspecified Category: Medical Plan: TX : Anoro Ellipta 1 inhalation daily Albuterol solution in the nebulizer 2.5 mg Q 6 hours p.r.n.. Alternatively uses albuterol HFA 2 puffs Q 4-6 hours p.r.n. (2) Hypoventilation associated with obesity: Comment: Patient is known case of LAURENCE/hypoventilation syndrome. The Best treatment would be Weight reduction Checked for possibility of sleep apnea and that was negative. Code(s): E66.2 - Morbid (severe) obesity with alveolar hypoventilation Category: Medical Plan: This patient was started on BiPAP treatment for the chronic hypercapnia due to hypoventilation syndrome. However she was not able to tolerate the BiPAP. Has been on O2 2 L/minute at night. She is also instructed to do deep breathing exercises with pursed lip technique. (3) Morbid obesity: Comment: same as before , No scope of loosing weight . Code(s): E66.01 - Morbid (severe) obesity due to excess calories Category: Medical Plan: Patient is in a powered scooter, does not walk, does not do any exercise. So it is difficult for her to lose any weight. (4) LAURENCE (obstructive sleep apnea): Comment: Known to have LAURENCE but unfortunately she has not been able to use CPAP/BIPAP Uses oxygen 2 L/minute at .night advised to try to lose some weight, which does not seem to be possible in her case. Code(s): G47.33 - Obstructive sleep apnea (adult) (pediatric) Category: Medical Plan: as above (5) Respiratory failure with hypoxia and hypercapnia: Comment: SHE HAS CHRONIC HYPERCAPNIA AND HYPOXEMIA. HYPOXEMIA IS CORRECTED. WITH USE OF O2 Code(s): J96.91 - Respiratory failure, unspecified with hypoxia; J96.92 - Respiratory failure, unspecified with hypercapnia Category: Medical Plan: Continue to use O2 2 L/minute 24 hours a day (6) Smoker: Comment: Continues to smoke, currently bouts 3-4 cigarettes a day. Code(s): F17.200 - Nicotine dependence, unspecified, uncomplicated Category: Social Hx Plan: Chronic smoker. He has try to cut down smoking many times but unfortunately goes to full smoking. Currently smoking about half pack of cigarettes a day. She wants to go back on nicotine patch. Plan I prescribed nicotine patch 21 mg a day and advised her to cut down the number of cigarettes as much as possible Medications: New nicotine 1 patch transdermal DAILY 28 days 28 ea 2RF Nicotine Addiction Coding Level of Care Code Est Pt Level 4 (02060) Diagnoses COPD (chronic obstructive pulmonary disease) J44.9 Hypoventilation associated with obesity E66.2 Morbid obesity E66.01 LAURENCE (obstructive sleep apnea) G47.33 Respiratory failure with hypoxia and hypercapnia J96.91; J96.92 Smoker F17.200
--- OUTSIDE RECORDS SUMMARY | 2024-07-24 14:53 | XMS_ITS | Encounter Summary ---
Author Organization [facility] [place] [address] Care Team Providers Care Chrome Plater Name Role Phone Unavailable Primary Care Provider Unavailabl e Encounter Details Date Type Department Care Team (Late st Contact Info) Description 03/13/2024 3:53 PM EDT Hospital Encounter TH HISTORIC ENCOUNTERS EASTERN CONVERSION ONLY Garret Interiano NP [address] [place], [place] Social History Tobacco Use Types Packs/Day [...]
--- OUTSIDE RECORDS SUMMARY | 2024-07-24 14:53 | XMS_ITS | Clinical Summary ---
Author Organization [facility] [place] [address] Care Team Providers Care Accounts Receivable Clerk Name Role Phone Unavailable Primary Care Provider Unavailabl e Social History Tobacco Use Types Packs/Day Years Used Date Smoking Tobacco: Never Assessed Comments Unknown Sex and Gender Information Value Date Recorded Sex Assigned at Not on file Legal Sex Female 8:38 PM EST Gender Identity Not on file Sexual Orientation Not on file Plan of Treatment Health Maintenance Due Date Last Done Comments Breast Cancer Screening 1955 DTaP,Tdap,and Td Vaccines (1 - Tdap) 1974 Pneumococcal Vaccine: 50+ Ye ars (1 of 1 - PCV) 2005 Zoster Vaccines (1 of 2) 2005 Colorectal Cancer Screening: Colonoscopy 07/01/2023 Depression Screening 07/01/2023 Falls Risk Assessment 07/01/2023 Hepatitis C Screening 07/01/2023 Osteoporosis Screening (Bone Density Screening) 07/01/2023 Social Influencers of Health Screening 07/01/2023 COVID-19 Vaccine ( - 2023-2 5 season) 2024 Influenza Vaccine (#1) 2024 RSV Immunization Patients 60 + Years Old (1 - 1-dose 75+ series) 2030 HIB Vaccines Aged Out No longer eligi ble based on patient's age to complete this topic HPV Vaccines Aged Out No longer eligi ble based on patient's age to complete this topic Hepatitis A Vaccines Aged Out No long er eligible based on patient's age to complete this topic Hepatitis B Vaccines Aged Out No long er eligible based on patient's age to complete this topic IPV Vaccines Aged Out No longer eligi ble based on patient's age to complete this topic MMR Vaccines Aged Out No longer eligi ble based on patient's age to complete this topic Meningococcal ACWY Vaccine Aged Out N o longer eligible based on patient's age to complete this topic Meningococcal B Vacine Aged Out No lo nger eligible based on patient's age to complete this topic RSV Immunization Patients Un jessika 20 months Aged Out No longer eligible b ased on patient's age to complete this topic Varicella Vaccines Aged Out No longer eligible based on patient's age to complete this topic
== END 2024-07-24 14:38 | disposition home or self-care (01) ==
PROVIDERS: PCP Nurse Practitioner Family; Visit Provider Internal Medicine
DX: J44.9 Chronic obstructive pulmonary disease, unspecified (principal); G47.33 Obstructive sleep apnea (adult) (pediatric); J96.91 Respiratory failure, unspecified with hypoxia; J96.92 Respiratory failure, unspecified with hypercapnia; F17.200 Nicotine dependence, unspecified, uncomplicated
CPT/HCPCS: 99214

== ENCOUNTER → 2024-07-24 13:50 | Outpatient (BNVA) | payer MEDICARE, SELFPAY | PROVIDERS: PCP Nurse Practitioner Family; Visit Provider Internal Medicine | DX: J44.9 Chronic obstructive pulmonary disease, unspecified (principal); J96.91 Respiratory failure, unspecified with hypoxia; J96.92 Respiratory failure, unspecified with hypercapnia; G47.33 Obstructive sleep apnea (adult) (pediatric); E66.2 Morbid (severe) obesity with alveolar hypoventilation; E66.01 Morbid (severe) obesity due to excess calories; F17.210 Nicotine dependence, cigarettes, uncomplicated; Z99.81 Dependence on supplemental oxygen | CPT/HCPCS: 99212 ==

== ENCOUNTER 2024-08-21 14:29 | Outpatient (REF) | payer MEDICARE, SELFPAY ==
[2024-08-21 15:13] LABS: MANUAL DIFF FLAG NO
[2024-08-21 15:22] LABS: Basophils Absolute Auto 0.1 X10*3/uL (0.0-0.2); Basophils Percent Auto 0.8 % (0-2); Eosinophils Absolute Auto 0.6 X10*3/uL (0.0-0.4); Hematocrit 39.1 % (37.0-47.0); Imm Gran Abs Auto 0.03 X10*3/uL (0.00-0.03); Imm Gran Pct Auto 0.4 % (0.0-0.4); Lymphocytes Absolute Auto 1.3 X10*3/uL (1.2-4.9); Lymphocytes Percent Auto 17.5 % (20-40); Mean Corpuscular HGB Conc 30.7 g/dl (31.0-35.0); Mean Corpuscular Hemoglobin 30.5 pg (27.0-33.0); Mean Corpuscular Volume 99.2 fL (80.0-98.0); Monocytes Absolute Auto 0.8 X10*3/uL (0.1-1.2); Neutrophils Absolute Auto 4.8 x10*3/uL (2.0-8.3); Neutrophils Percent Auto 63.3 % (45-73); Platelet Count 306 X10*3/uL (160-400); Red Blood Count 3.94 X10*6/uL (4.20-5.50); Red Cell Distribution Width 15.9 % (11.0-16.0); White Blood Count 7.6 X10*3/uL (4.8-10.8)
[2024-08-21 17:17] LABS: Alanine Aminotransferase 13 U/L (0-31); Albumin Level 3.2 g/dL (3.5-5.0); Alkaline Phosphatase 85 U/L (39-117); Anion Gap 12 (12-20); Aspartate Amino Transferase 22 U/L (5-31); Bilirubin Total 0.4 mg/dL (0.0-1.0); Blood Urea Nitrogen 23 mg/dL (9-16); Calcium 8.5 mg/dL (8.4-10.2); Carbon Dioxide 29 mmol/L (22-29); Chloride 104 mmol/L (96-108); Estimated Glomerular Filt Rate > 60; Glucose Random 70 mg/dL (60-115); Potassium 4.8 mmol/L (3.3-5.1); Sodium 140 mmol/L (135-145); Total Protein 8.3 g/dL (6.5-8.0)
[2024-08-21 17:43] LABS: Bilirubin Direct 0.1 mg/dL (0.0-0.5)
[2024-08-22 13:57] LABS: HCV Log PCR <1.18 NOT DETECTED Log IU/mL (NOT DETECTED); HepC Viral Load <15 NOT DETECTED IU/mL (NOT DETECTED)
[2024-08-22 14:19] LABS: HIV RNA PCR Qn Copies NOT DETECTED copies/mL (NOT DETECTED); HIV RNA PCR Qn Log Copies NOT DETECTED (NOT DETECTED)
== END 2024-08-21 14:30 | disposition home or self-care (01) ==
LOC: HO.LAB 14:29
PROVIDERS: PCP Nurse Practitioner Family; Visit Provider Internal Medicine
DX: B20 Human immunodeficiency virus [HIV] disease (principal)
CPT/HCPCS: 36415; 80048; 80076; 85025; 87522; 87536

== ENCOUNTER 2024-09-14 13:34 | Outpatient (AMB) | payer MEDICARE, SELFPAY ==
--- OUTSIDE RECORDS SUMMARY | 2024-09-14 13:55 | XMS_ITS | Encounter Summary ---
Author Organization [facility] [place] [address] Care Team Providers Care Winery Worker Name Role Phone Unavailable Primary Care Provider Unavailabl e Encounter Details Date Type Department Care Team (Late st Contact Info) Description 03/13/2024 3:53 PM EDT Hospital Encounter TH HISTORIC ENCOUNTERS EASTERN CONVERSION ONLY Garret Interiano NP [address] [place], [place] Social History Tobacco Use Types Packs/Day [...]
--- OUTSIDE RECORDS SUMMARY | 2024-09-14 13:55 | XMS_ITS | Clinical Summary ---
Author Organization [facility] [place] [address] Care Team Providers Care Supervisor Molding Name Role Phone Unavailable Primary Care Provider [...] - 2023-2 5 season) 2024 Influenza Vaccine (Season Ended) 2025 RSV Immunization Adult Patie nts (1 - 1-dose 75+ series) 2030 HIB [...] age to complete this topic Meningococcal B Vaccine Aged Out No l onger eligible based on patient's age to complete this topic RSV Immunization Patients Un jessika 20 months Aged Out No longer eligible b ased on patient's age to complete this topic Varicella Vaccines Aged Out No longer eligible based on patient's age to complete this topic
[2024-09-14 14:20] VITALS: PULSE 59; O2SAT 92
--- NOTE | 2024-09-14 14:20 | MHC.OFFVIS ---
Vital Signs 09/14/24 14:20 Pulse 59 Pulse Oximetry (%) 92 Oxygen Delivery Method Room Air Intake Visit Reasons: 6 mth. f/u,LAb Allergies Horse/Equine Containing Products [Horse/Equine Product Derivatives] Allergy (Intermediate, Verified 09/14/24 14:21) SWELLING Cephalosporins Allergy (Unknown, Verified 09/14/24 14:21) Unknown Iodinated Contrast Media [IV CONTRAST] Allergy (Unknown, Verified 09/14/24 14:21) HIVES HPI HPI 6 mth. f/u,LAb: Details: She has viral load undetectable and CD4 count 495 on 08/21. She has arthritis and has fallen. Otherwise no change in her healthcare. She is on a statin. [facility] Medical History Multinodular goiter Venous insufficiency of both lower extremities Oxygen dependent Respiratory failure with hypoxia and hypercapnia Eosinophilia Bronchitis Other instability, right shoulder Retinopathy Methadone use Morbid obesity HIV (human immunodeficiency virus infection) Rhinitis Hypoventilation associated with obesity COPD (chronic obstructive pulmonary disease) HIV (human immunodeficiency virus infection) Smoker Morbid obesity Aortic dilatation Hypoventilation syndrome LAURENCE (obstructive sleep apnea) Respiratory failure with hypoxia Lower extremity edema Diastolic heart failure Hyperlipidemia Surgical History History of colonoscopy History of tonsillectomy Family History Father No problems noted. Mother No problems noted. Brother Asthma Maternal Grandfather No problems noted. Maternal Grandmother No problems noted. Paternal Grandfather No problems noted. Paternal Grandmother No problems noted. Brother No problems noted. Brother Substance use disorder Social History Housing: House Unable to assess alcohol history related to: Unknown Alcohol intake: never Comment: dc'd from ed Patient Tobacco Use Status: Current someday Tobacco user Tobacco use type: Cigarette Cigarette Packs Per Day: 0.5 Cigarettes Per Day: 4 Years Smoked: 30 +/- e-Cigarette/Vaping Use: Never Used Second Hand Smoke Exposure: Yes service: No Current occupational status: disabled Current occupation: rt hand Cognitive needs: No Hearing needs: No Vision needs: Yes Review of Systems Const All systems reviewed & are unremarkable except as noted in HPI and below Physical Exam Vital Signs: Last Vital Signs Pulse 59 09/14/24 14:20 Pulse Ox 92 09/14/24 14:20 Oxygen Delivery Method Room Air 09/14/24 14:20 Const General: cooperative Orientation/consciousness: patient oriented x3 HEENT Head: Yes normal to inspection Mouth: Normal oral and palatal mucosa present Eyes General: appearance normal, both eyes and all related structures Pupils: Equal, round and reactive pupils present Resp Effort & Inspection: normal respiratory effort Cardio Rate: regular rate Rhythm: regular rhythm GI Palpation (GI): Soft to palpation and nontender General: Yes no CVA tenderness Back/Spine/Pelvis Back: no CVA tenderness Skin General skin exam: no rashes or lesions noted Neuro General: patient oriented x3 Cranial nerves: Yes CN's II-XII intact bilaterally and Yes Equal, round and reactive pupils present Extrem Other: swelling bilateral lower extremities General: Yes normal to inspection Psych Appearance: grossly normal Assessment & Plan Assessment & Plan (1) HIV (human immunodeficiency virus infection): Comment: She is doing well She has viral load undetectable and CD4 count 495 on 08/21. Would continue Biktarvy Check CD4 count and viral load in February and see in March via phone visit. Code(s): B20 - Human immunodeficiency virus [HIV] disease Category: Medical Plan: na Orders: Orders Complete Blood Count Auto Diff 5 Months B20 - Human immunodeficiency virus [HIV] disease Liver Panel 5 Months B20 - Human immunodeficiency virus [HIV] disease Basic Metabolic Panel 5 Months B20 - Human immunodeficiency virus [HIV] disease Hepatitis C Viral Load 5 Months B20 - Human immunodeficiency virus [HIV] disease Lymphocyte Subset Panel 3 5 Months B20 - Human immunodeficiency virus [HIV] disease Medications: Refilled nwzyyotfo-lfchpjuv-qzaxiie ala 50-200-25 mg (Biktarvy) 1 tab PO DAILY 30 days 30 tabs 5RF Coding Level of Care Code Est Pt Level 4 (13286) Diagnoses HIV (human immunodeficiency virus infection) B20
== END 2024-09-14 14:52 | disposition home or self-care (01) ==
LOC: HO.HID 13:34
PROVIDERS: PCP Nurse Practitioner Family; Visit Provider Internal Medicine
DX: B20 Human immunodeficiency virus [HIV] disease (principal)
CPT/HCPCS: 99214

== ENCOUNTER → 2024-09-14 13:34 | Outpatient (BNVA) | payer MEDICARE, SELFPAY | PROVIDERS: PCP Nurse Practitioner Family; Visit Provider Internal Medicine | DX: B20 Human immunodeficiency virus [HIV] disease (principal) | CPT/HCPCS: 99212 ==

== ENCOUNTER 2024-09-19 09:30 | Outpatient (REF) | payer MEDICARE, SELFPAY ==
--- OUTSIDE RECORDS SUMMARY | 2024-09-19 12:40 | XMS_ITS | Encounter Summary ---
Author Organization [facility] [place] [address] Care Team Providers Care Optical Mechanic Apprentice Name Role Phone Unavailable Primary Care Provider Unavailabl e Encounter Details Date Type Department Care Team (Late st Contact Info) Description 03/13/2024 3:53 PM EDT Hospital Encounter TH HISTORIC ENCOUNTERS EASTERN CONVERSION ONLY Garret Interiano NP [address], [place] Social History Tobacco Use Types Packs/Day [...]
--- OUTSIDE RECORDS SUMMARY | 2024-09-19 12:40 | XMS_ITS | Clinical Summary ---
Author Organization [facility] [place] [address] Care Team Providers Care Assembly Line Machine Operator Name Role Phone Unavailable Primary Care [...]
[2024-09-19 13:24] LABS: MANUAL DIFF FLAG NO
[2024-09-19 13:32] LABS: Basophils Percent Auto 0.4 % (0-2); Eosinophils Absolute Auto 0.3 X10*3/uL (0.0-0.4); Eosinophils Percent Auto 4.4 % (0-4); Hematocrit 43.8 % (37.0-47.0); Hemoglobin 13.4 g/dl (12.0-16.0); Imm Gran Abs Auto 0.02 X10*3/uL (0.00-0.03); Imm Gran Pct Auto 0.3 % (0.0-0.4); Lymphocytes Absolute Auto 1.6 X10*3/uL (1.2-4.9); Lymphocytes Percent Auto 21.1 % (20-40); Mean Corpuscular HGB Conc 30.6 g/dl (31.0-35.0); Mean Corpuscular Hemoglobin 30.8 pg (27.0-33.0); Mean Corpuscular Volume 100.7 fL (80.0-98.0); Mean Platelet Volume 10.3 fL (9.4-12.3); Monocytes Absolute Auto 0.9 X10*3/uL (0.1-1.2); Monocytes Percent Auto 11.3 % (2-11); Neutrophils Absolute Auto 4.8 x10*3/uL (2.0-8.3); Neutrophils Percent Auto 62.5 % (45-73); Platelet Count 318 X10*3/uL (160-400); Red Blood Count 4.35 X10*6/uL (4.20-5.50); Red Cell Distribution Width 16.6 % (11.0-16.0); White Blood Count 7.7 X10*3/uL (4.8-10.8)
[2024-09-19 13:48] LABS: Alanine Aminotransferase 10 U/L (0-31); Albumin Level 3.3 g/dL (3.5-5.0); Alkaline Phosphatase 99 U/L (39-117); Anion Gap 11 (12-20); Aspartate Amino Transferase 17 U/L (5-31); Bilirubin Total 0.4 mg/dL (0.0-1.0); Blood Urea Nitrogen 23 mg/dL (9-16); Calcium 8.6 mg/dL (8.4-10.2); Carbon Dioxide 31 mmol/L (22-29); Chloride 104 mmol/L (96-108); Cholesterol 105 mg/dL (<200); Estimated Glomerular Filt Rate > 60; Glucose Random 135 mg/dL (60-115); HDL Cholesterol 47 mg/dL (>40); LDL Cholesterol Calculated 47 mg/dL (<100); Potassium 4.8 mmol/L (3.3-5.1); Sodium 141 mmol/L (135-145); Total Protein 6.7 g/dL (6.5-8.0); Triglycerides 57 mg/dL (<150)
== END 2024-09-19 09:31 | disposition home or self-care (01) ==
LOC: HO.HVNA 09:30
PROVIDERS: PCP Nurse Practitioner Family; Visit Provider Nurse Practitioner Family
DX: I10 Essential (primary) hypertension (principal); J44.9 Chronic obstructive pulmonary disease, unspecified
CPT/HCPCS: 36415; 80053; 80061; 85025

== ENCOUNTER 2024-09-25 15:21 | Outpatient (AMB) | payer MEDICARE, SELFPAY ==
--- NOTE | 2024-09-25 15:23 | A.OFFPC_ITS ---
Vital Signs 09/25/24 15:24 Height 5 ft 9 in BMI Reason not done Patient refused/unable BP 130/82 Blood Pressure Location Lt brachial Position Sitting Pulse 80 Pulse Source Pulse Oximeter Temp 98.1 F Temp Source Oral Pulse Oximetry (%) 93 Oxygen Delivery Method Nasal Cannula Intake Visit Reasons: 4 months f/up Allergies Horse/Equine Containing Products [Horse/Equine Product Derivatives] Allergy (Intermediate, Verified 09/25/24 16:04) SWELLING Cephalosporins Allergy (Unknown, Verified 09/25/24 16:04) Unknown Iodinated Contrast Media [IV CONTRAST] Allergy (Unknown, Verified 09/25/24 16:04) HIVES Medication List - Last Reconciled 09/25/24 by Garret Interiano, HUMAN RESOURCES BENEFITS COORDINATOR- albuterol sulfate 2.5 mg (3 mL) inhalation Q4-6H PRN 30 days albuterol sulfate 90 mcg/actuation 2 puffs inhalation Q4-6H PRN 30 days Anoro Ellipta 62.5-25 mcg/actuation (umeclidinium-vilanterol) 1 ea PO DAILY NS atorvastatin 40 mg PO DAILY okwjcrvvu-mhqoesyv-oycmjgv ala 50-200-25 mg (Biktarvy) 1 tab PO DAILY 30 days fluticasone propionate 50 mcg/actuation 2 sprays intranasal DAILY gabapentin 100 mg PO TID PRN 30 days hydrochlorothiazide 12.5 mg PO DAILY ibuprofen 800 mg PO TID PRN 30 days lisinopril 40 mg PO DAILY meloxicam 15 mg PO DAILY PRN 30 days methadone 75 mg PO Q12H Oxygen Home Use 2lpm via NC at night and PRN sob [Scooter-motorized As directed] Tobacco use date assessed: 09/25/24 Fall risk assessment: No Falls in past year Last assessed Fall Risk: 09/25/24 Dental Screening Dental Screen Date: 09/25/24 Did you have a dental visit in the last 12 months?: Yes Did you have a dental problem in the last 6 months where you did not have access to dental care?: No Was dental information given to patient?: Patient has dentist HPI 4 months f/up HPI Details Chief Complaint Ongoing management of lower extremity wounds and associated lymphedema. History of Present Illness The patient is a 69-year-old female presenting with ongoing management for bilateral lower extremity wounds. These chronic wounds, complicated by associated lymphedema, require interdisciplinary care, including regular wound care visits and support from a visiting nurse agency for dressing management. The patient's lymphedema and wounds have a variable course, contributing to fluctuating wound conditions. She was previously on a self-reported effective treatment, which has since been altered by her wound care provider. In addition to wound care, the patient manages comorbid conditions, including diabetes mellitus and morbid obesity. Current laboratory findings reveal good kidney and liver function, with LDL cholesterol at a desirable level. Though currently utilizing a wheelchair, she maintains some independent mobility through the use of a rolling walker at home. The patient denies recent fevers or exacerbations of respiratory symptoms and reports being in relatively good spirits during the visit. Social History - Mobility: Primarily uses a wheelchair but utilizes a rolling walker for mobility at home. - Functional Status: The patient's mobil ity is compromised, likely contributing to her comorbid conditions. Health Maintenance - Laboratory workup recently conducted w ith results showing no anemia, excellent kidney and liver function, and a favorable LDL cholesterol level of 47 mg/dL. Review of Systems - General: Denies chills or fever. - Respiratory: Denies increased shortnes s of breath. - Cardiovascular: Denies additional comp laints. - Extremities: Reports ongoing managemen t of bilateral lower extremity wounds with associated lymphedema. Physical Exam General: Cooperative, healthy appearing, comfortable, no acute distress and well developed, morbidly obese, in a wheelchair currently but uses a walker at home Orientation: Patient oriented x3 Limitations: No limitations Head: Normal to inspection Ears: Hearing grossly normal bilaterally Nose: Normal external nose present Face and sinus: Normal facial exam Eyes: Appearance normal, both eyes and all related structures Neck: Normal visual inspection and Yes full ROM Respiratory: Normal respiratory effort and able to speak in complete sentences. Lungs are diminished bilaterally Cardiovascular: Regular rate and rhythm. Normal S1 and S2 GI: Normal to inspection. Soft to palpation and nontender Skin: No rashes or lesions noted Neuro: Patient oriented x3 Extremities: Ongoing wounds and lymphedema to bilateral lower extremity. Dorsalis pedis pulse felt bilaterally, left is a little weaker than the right. sensation to bilateral feet. Results - Labs: No anemia noted. Optimal kidney and liver function tests. LDL cholesterol at 47 mg/dL. Low albumin level noted. Plan The patient will continue receiving regular support from wound care specialists and the visiting nurse agency for her bilateral lower extremity wounds and lymphedema management. The patient's diabetes management is adequate per recent labs, with vitamin supplementation being initiated. Her morbid obesity and limited mobility require careful encouragement of activity with the rolling walker at home to prevent further health complications. Regular follow-up with wound care in two days for ongoing management consistency and evaluation of the new treatment protocol adjustments. Pt did not want me to undress her leg dressings, they just wrapped them Discussion Notes I discussed with the patient her current management for bilateral lower extremity wounds, emphasizing the importance of regular wound care and ongoing VNA support. The adjustments made by her wound care provider were briefly reviewed, and the necessity of vitamin D supplementation was acknowledged, considering normal kidney and liver functions and favorable LDL cholesterol levels. Mobility recommendations were reinforced, particularly safe utilization of her rolling walker at home. I explained the importance of upcoming wound care follow-ups and encouraged ongoing compliance with diabetes management to ensure stability in light of her ideal lab results. Patient Instructions - Continue with VNA assistance for dress ing changes as scheduled. - Attend the upcoming wound care appoint ment in two days. - Use the rolling walker at home for inc reased mobility as tolerated. - Take prescribed vitamin D as advised. - Monitor for any signs of fever or incr eased shortness of breath and seek care if these occur. - Maintain regular follow-ups for ongoin g care and management. [facility] Medical History (Updated 09/25/24 @ 16:38 by Garret Interiano, [facility]) Multinodular goiter Venous insufficiency of both lower extremities Oxygen dependent Respiratory failure with hypoxia and hypercapnia Eosinophilia Bronchitis Other instability, right shoulder Retinopathy Methadone use Morbid obesity HIV (human immunodeficiency virus infection) Rhinitis Hypoventilation associated with obesity COPD (chronic obstructive pulmonary disease) HIV (human immunodeficiency virus infection) Smoker Morbid obesity Aortic dilatation Hypoventilation syndrome LAURENCE (obstructive sleep apnea) Respiratory failure with hypoxia Lower extremity edema Diastolic heart failure Hyperlipidemia Surgical History History of colonoscopy History of tonsillectomy Family History Father No problems noted. Mother No problems noted. Brother Asthma Maternal Grandfather No problems noted. Maternal Grandmother No problems noted. Paternal Grandfather No problems noted. Paternal Grandmother No problems noted. Brother No problems noted. Brother Substance use disorder Social History Housing: House Unable to assess alcohol history related to: Unknown Alcohol intake: never Comment: dc'd from ed Patient Tobacco Use Status: Current someday Tobacco user Tobacco use type: Cigarette Cigarette Packs Per Day: 0.5 Cigarettes Per Day: 4 Years Smoked: 30 +/- e-Cigarette/Vaping Use: Never Used Second Hand Smoke Exposure: Yes service: No Current occupational status: disabled Current occupation: rt hand Cognitive needs: No Hearing needs: No Vision needs: Yes Questionnaire PHQ-9 Over the last 2 weeks, how often have you been bothered by any of the following problems? 1. Little interest or pleasure in doing things: nearly every day 2. Feeling down, depressed, or hopeless: nearly every day 3. Trouble falling or staying asleep, or sleeping too much: more than half the days 4. Feeling tired or having little energy: nearly every day 5. Poor appetite or overeating: several days 6. Feeling bad about yourself - or that you are a failure or have let yourself or your family down: not at all 7. Trouble concentrating on things, such as reading the newspaper or watching television: not at all 8. Moving or speaking so slowly that other people could have noticed. Or the opposite - being so fidgety or restless that you have been moving around a lot more than usual: not at all 9. Thoughts that you would be better off or of hurting yourself in some way: not at all Total score: 12 Depression Screening Interpretation: Positive (declined therapist currently, has close friends) Depression Screening Follow-up: Existing condition Depression Screening Done: Yes 44377 - PHQ-9 Billing: Yes Source: Developed by Drs. Artem Juarez, Aishwarya Voss, Jorge Schilling and colleagues, with an educational shawn from [employer]. Thrive Questionnaire Date Thrive assessed: 09/25/24 I am a: Patient What is your living situation today?: I have a steady place to live Within the past 12 months, did the food you bought not last and you didn't have the money to get more?: Never true Within the past 12 months, did you worry whether your food would run out before you got money to buy more?: Never true Do you have trouble paying for medicines?: No Do you have trouble getting transportation to medical appointments?: No Do you have trouble paying your heating and electricity bill?: No Do you have trouble taking care of your child, family member or friend?: No Do you have trouble with day-to-day activities such as bathing, preparing meals, shopping, managing finances, etc.?: Yes Are you currently unemployed and looking for a job?: I choose not to answer this question Are you interested in more education?: No Please select the resources that you would like help with: Daily support Currently or been in a relationship where the following occur: No concerns reported THRIVE Score: 0 JAJA-7 AMB Questionnaire JAJA-7 Date JAJA - 7 assessed: 09/25/24 Feeling nervous, anxious, or on edge: 0 = Not at all Not being able to stop or control worryin = Not at all Worrying too much about different things: 0 = Not at all Trouble relaxin = Not at all Being so restless that it is hard to sit still: 0 = Not at all Becoming easily annoyed or irritable: 0 = Not at all Feeling afraid as if something awful might happen: 0 = Not at all Total JAJA-7 score (0-4 normal; 5-9 mild; 10-14 moderate; 15-21 severe): 0 Source: Developed by Drs. Artem Juarez, Aishwarya Voss, Jorge Schilling and colleagues, with an educational shawn from [employer]. JAJA-7 Assessment Billing JAJA-7 Assessment Tool: JAJA-7 Assessment 58656 Physical exam (Primary Care) Vital Signs: Last Vital Signs Temp 98.1 F 09/25/24 15:24 Pulse 80 09/25/24 15:24 BP 130/82 09/25/24 15:24 Pulse Ox 93 09/25/24 15:24 Oxygen Delivery Method Nasal Cannula 09/25/24 15:24 Tobacco/Smoking Status: Tobacco use Status Tobacco use date assessed 09/25/24 09/25/24 15:35 Patient Tobacco Use Status Current someday Tobacco 09/25/24 15:23 Tobacco use type Cigarette 09/25/24 15:23 e-Cigarette/Vaping Use Never Used 09/25/24 15:23 PHQ-9: PHQ-9 Score PHQ-9: Total score 12 09/25/24 15:35 Depression Screening Interpretation: Positive (declined therapist currently, has close friends) Depression Screening Follow-up: Existing condition Thrive Assessment: Date of Thrive Assessment Date Thrive assessed 09/25/24 09/25/24 15:35 Currently or been in a relationship where the following occur: No concerns reported Results AMB Hemoglobin A1c AMB Hemoglobin A1c 5.5 % Last Edit by RACHEL Nieves on 09/25/24 16:2 6 Coding Level of Care Code Est Pt Level 3 (02635) Diagnoses Diabetes E11.9 Lower extremity edema R60.0 Leg wound, left S81.802A Leg wound, right S81.801A Additional Codes JAJA-7 Assessment Billing - JAJA-7 Assessment Tool: JAJA-7 Assessment 70468 ([id number]) PHQ-9 - 84727 - PHQ-9 Billing: Yes ([id number]) Assessment & Plan Assessment & Plan (1) Diabetes: Code(s): E11.9 - Type 2 diabetes mellitus without complications Category: Medical (2) Lower extremity edema: Comment: lymph edema Code(s): R60.0 - Localized edema Category: Medical (3) Leg wound, left: Code(s): S81.802A - Unspecified open wound, left lower leg, initial encounter Category: Medical (4) Leg wound, right: Code(s): S81.801A - Unspecified open wound, right lower leg, initial encounter Category: Medical Plan . Orders: Orders AMB Hemoglobin A1c Today E11.9 - Type 2 diabetes mellitus without complications Medications: New cholecalciferol (vitamin D3) 50 mcg PO DAILY 90 caps 0RF
[2024-09-25 15:24] VITALS: BP 130/82; PULSE 80; TEMP 36.7; O2SAT 93
--- OUTSIDE RECORDS SUMMARY | 2024-09-25 18:15 | XMS_ITS | Encounter Summary ---
Author Organization [facility] [place] [place] [address] Care Team Providers Care Strategy Associate Name Role Phone Unavailable Primary Care Provider Unavailabl e Encounter Details Date Type Department Care Team (Late st Contact Info) Description 03/13/2024 3:53 PM EDT Hospital Encounter TH HISTORIC ENCOUNTERS EASTERN CONVERSION ONLY Garret Interiano NP [address], [place] Social History Tobacco Use Types Packs/Day [...]
--- OUTSIDE RECORDS SUMMARY | 2024-09-25 18:15 | XMS_ITS | Clinical Summary ---
Author Organization [facility] [place] [address] Care Team Providers Care Commercial Production Editor Name Role Phone Unavailable Primary Care Provider [...]
== END 2024-09-25 16:38 | disposition home or self-care (01) ==
LOC: HO.HMCC 15:22
PROVIDERS: PCP Nurse Practitioner Family; Visit Provider Nurse Practitioner Family
DX: E11.9 Type 2 diabetes mellitus without complications (principal); R60.0 Localized edema; S81.802A Unspecified open wound, left lower leg, initial encounter; S81.801A Unspecified open wound, right lower leg, initial encounter

== ENCOUNTER → 2024-09-25 15:21 | Outpatient (BNVA) | payer MEDICARE, SELFPAY | PROVIDERS: PCP Nurse Practitioner Family; Visit Provider Nurse Practitioner Family | DX: E11.9 Type 2 diabetes mellitus without complications (principal); R60.0 Localized edema; S81.802D Unspecified open wound, left lower leg, subsequent encounter; S81.801D Unspecified open wound, right lower leg, subsequent encounter | CPT/HCPCS: 83036; 96127; 99212 ==

== ENCOUNTER 2024-10-18 10:16 | Outpatient (AMB) | payer MEDICARE, SELFPAY ==
[2024-10-18 10:21] VITALS: BP 138/70; PULSE 70; O2SAT 91
--- NOTE | 2024-10-18 10:21 | A.OFFVIS_ITS ---
Vital Signs 10/18/24 10:21 Height 5 ft 9 in BMI Reason not done Patient refused/unable BP 138/70 Blood Pressure Location Lt brachial Position Sitting Pulse 70 Pulse Source Pulse Oximeter Pulse Oximetry (%) 91 L Oxygen Delivery Method Nasal Cannula Oxygen Flow Rate 4 Intake Visit Reasons: copd Intake Note: pt is here for follow up and states her breathing is not as good without the prednisone 5mg daily, can she have refills? Residence Life Director Required: No Allergies Horse/Equine Containing Products [Horse/Equine Product Derivatives] Allergy (Intermediate, Verified 10/18/24 10:59) SWELLING Cephalosporins Allergy (Unknown, Verified 10/18/24 10:59) Unknown Iodinated Contrast Media [IV CONTRAST] Allergy (Unknown, Verified 10/18/24 10:59) HIVES Medication List - Last Reconciled 10/18/24 by Judy Sheridan MD albuterol sulfate 2.5 mg (3 mL) inhalation Q4-6H PRN 30 days albuterol sulfate 90 mcg/actuation 2 puffs inhalation Q4-6H PRN 30 days Anoro Ellipta 62.5-25 mcg/actuation (umeclidinium-vilanterol) 1 ea PO DAILY NS atorvastatin 40 mg PO DAILY exmotfzwv-ffqqtguy-ltgtcrx ala 50-200-25 mg (Biktarvy) 1 tab PO DAILY 30 days cholecalciferol (vitamin D3) 50 mcg PO DAILY fluticasone propionate 50 mcg/actuation (Flonase Allergy Relief) 2 sprays intranasal DAILY 30 days gabapentin 100 mg PO TID PRN 30 days hydrochlorothiazide 12.5 mg PO DAILY ibuprofen 800 mg PO TID PRN 30 days lisinopril 40 mg PO DAILY meloxicam 15 mg PO DAILY PRN 30 days methadone 75 mg PO Q12H Oxygen Home Use 2lpm via NC at night and PRN sob [Scooter-motorized As directed] Do you need a note to return to daycare/school/sports/work: No HPI HPI copd: Details: THIS 69 YEARS OLD FEMALE WITH MORBID OBESITY AND ADVANCED COPD IS HERE FOR FOLLOW-UP AFTER 3 MONTHS. SHE HAS STAYED STABLE EXCEPT THAT IT IS BECOMING HARDER AND HARDER FOR HER TO BREATHE. SHE HAS INCREASED THE O2 TO 4 L/MINUTE WHEN SHE COMES OUTDOORS AND. 3 L/MINUTE AT HOME SHE FEELS CONGESTED QUITE FREQUENTLY AND IN THE PAST HAS HAD COURSES OF PREDNISONE, NOW HOPING THAT WE COULD PUT HER ON MAINTENANCE DOSE OF PREDNISONE. SHE IS SMOKING UP TO 3 CIGARETTES A DAY HAS NOT BEEN ABLE TO QUIT COMPLETELY. IN THE PAST 3 MONTHS HAS NOT HAD ANY ACUTE INFECTION OR EXACERBATION. SHE SPENDS MOST OF THE TIME IN WHEELCHAIR. [facility] Medical History (Updated 10/18/24 @ 11:11 by Judy Sheridan MD) Multinodular goiter Venous insufficiency of both lower extremities Oxygen dependent Respiratory failure with hypoxia and hypercapnia Eosinophilia Bronchitis Other instability, right shoulder Retinopathy Methadone use Morbid obesity HIV (human immunodeficiency virus infection) Rhinitis Hypoventilation associated with obesity COPD (chronic obstructive pulmonary disease) HIV (human immunodeficiency virus infection) Smoker Morbid obesity Aortic dilatation Hypoventilation syndrome LAURENCE (obstructive sleep apnea) Respiratory failure with hypoxia Lower extremity edema Diastolic heart failure Hyperlipidemia Surgical History History of colonoscopy History of tonsillectomy Family History Father No problems noted. Mother No problems noted. Brother Asthma Maternal Grandfather No problems noted. Maternal Grandmother No problems noted. Paternal Grandfather No problems noted. Paternal Grandmother No problems noted. Brother No problems noted. Brother Substance use disorder Social History (Updated 10/18/24 @ 10:30 by Karey Singleton Trung) Housing: House Unable to assess alcohol history related to: Unknown Alcohol intake: never Comment: dc'd from ed Patient Tobacco Use Status: Current someday Tobacco user Tobacco use type: Cigarette Cigarette Packs Per Day: 0.5 Cigarettes Per Day: 3 Years Smoked: 30 +/- e-Cigarette/Vaping Use: Never Used Second Hand Smoke Exposure: Yes service: No Current occupational status: disabled Current occupation: rt hand Cognitive needs: No Hearing needs: No Vision needs: Yes Review of Systems Const All systems reviewed & are unremarkable except as noted in HPI and below Eyes Reports no additional complaints ENT Reports no additional complaints and Reports nasal congestion (OFF AND ON) Card Denies chest pain, Reports leg edema and Reports dyspnea on exertion Resp Reports as per HPI and Reports dyspnea on exertion GI Reports no additional complaints Reports nocturia Musc Reports back pain and Reports arthralgias (BOTH KNEES) Skin/Breast Reports system reviewed and no additional complaints, except as documented Neuro Reports no additional complaints Psych Reports no additional complaints Physical Exam Vital Signs: Last Vital Signs Pulse 70 10/18/24 10:21 BP 138/70 10/18/24 10:21 Pulse Ox 91 L 10/18/24 10:21 Oxygen Delivery Method Nasal Cannula 10/18/24 10:21 Oxygen Flow Rate 4 10/18/24 10:21 Const General: comfortable (BUT SLOW IN WALKING), no acute distress, alert and awake Orientation/consciousness: patient oriented x3 HEENT Head: Yes normal to inspection General nose exam: No nasal polyps present and No nasal discharge present Face and sinus: Yes sinuses nontender Mouth: oropharynx abnormals (OROPHARYNX IS EXTREMELY CROWDED MALLAMPATI SCALE 4) Eyes General: appearance normal, both eyes and all related structures Neck Neck: Yes normal visual inspection, Yes no lymphadenopathy, Yes trachea midline and Yes no JVD Thyroid: Thyroid normal Chest Chest palpation & inspection: normal inspection of the chest, normal palpation of entire chest wall and no tenderness Resp Other: HER BREATH SOUNDS ARE DISTANT, WITH PROLONGED EXPIRATORY PHASE. THERE ARE NO WHEEZES OR CREPITATIONS. TODAY . Cardio Palpation: PMI not normal (NOT PALPABLE) Rate: regular rate Rhythm: regular rhythm Heart sounds: no gallops and no murmurs GI Palpation (GI): Soft to palpation, nontender, No hepatosplenomegaly present, Hernia present (VENTRAL HERNIATION), no masses and Other GI palpation findings present (ABDOMEN IS OBESE AND PROTUBERANT) Auscultation: normal bowel sounds Back/Spine/Pelvis Thoracic/Lumbar Spine: thoracic and lumbar spine normal to inspection and thoraco-lumbar ROM limited Skin General skin exam: no rashes or lesions noted Neuro General: patient oriented x3 and No gait normal (Non ambulatory, uses a scooter.) Cranial nerves: Yes CN's II-XII intact bilaterally Extrem General: Yes normal to inspection, Yes no calf tenderness and Yes edema (1+ EDEMA AROUND THE ANKLES, SUPERFICIAL ULCERATIONS) Psych Appearance: grossly normal Speech and movement: Normal speech and movement present Assessment & Plan Assessment & Plan (1) COPD (chronic obstructive pulmonary disease): Comment: Patient has chronic and advanced obstructive pulmonary disease. She seems to be at her baseline at this time. Code(s): J44.9 - Chronic obstructive pulmonary disease, unspecified Category: Medical Plan: CONTINUE TO USE ANORO ELLIPTA 1 INHALATION DAILY ALBUTEROL SOLUTION 2.5 MG IN THE NEBULIZER Q 4-6 HOURS P.R.N. PATIENT WAS EDUCATED THAT TO KEEP HER ON MAINTENANCE DOSE OF PREDNISONE IS NOT A GOOD IDEA. SHE MAY NEED INTERMITTENT SHORT COURSES OF PREDNISONE FOR ACUTE EXACERBATIONS. (2) Respiratory failure with hypoxia and hypercapnia: Comment: SHE HAS CHRONIC HYPERCAPNIA AND HYPOXEMIA. HYPOXEMIA IS CORRECTED. WITH USE OF O2 Code(s): J96.91 - Respiratory failure, unspecified with hypoxia; J96.92 - Respiratory failure, unspecified with hypercapnia Category: Medical Plan: ADVISED TO USE O2, 2 L/MINUTE MOST OF THE TIME AT REST. AT NIGHT MAY NEED. TO INCREASE IT TO 3 L/MINUTE AND IF SHE HAS AN ACUTE EXACERBATION AND THEN SHE MAY INCREASE IT TO 4 L/MINUTE. SHE HAS TO BE CAREFUL BECAUSE IF SHE USES OXYGEN EXCESSIVELY THEN SHE MAY GET WORSENING OF HYPERCAPNIA. ONCE AGAIN SHE IS ADVISED TO DO DEEP BREATHING EXERCISES WITH INCENTIVE S PIROMETER. AND ALSO WITH PURSED LIP TECHNIQUE SHE SHOULD DO THE EXERCISES EVERY 2 HOURS DURING THE DAYTIME (3) Morbid obesity: Comment: same as before , No scope of loosing weight . Code(s): E66.01 - Morbid (severe) obesity due to excess calories Category: Medical Plan: TOLD HER THAT THE MORBID OBESITY IS CONTRIBUTING TO HER RESPIRATORY FAILURE. SHE NEEDS TO LOSE WEIGHT. BUT NOTED ABOVE IN PRACTICAL TERMS IT IS DIFFICULT FOR HER TO LOSE WEIGHT. (4) Rhinitis: Comment: Has ongoing nasal congestion especially at nights , probably Allergic Rhinitis . Code(s): J31.0 - Chronic rhinitis Category: Medical Plan: Advised to use Flonase 2 sprays in each nostril daily , Coding Level of Care Code Est Pt Level 4 (89435) Diagnoses COPD (chronic obstructive pulmonary disease) J44.9 Respiratory failure with hypoxia and hypercapnia J96.91; J96.92 Morbid obesity E66.01 Rhinitis J31.0
--- OUTSIDE RECORDS SUMMARY | 2024-10-18 11:17 | XMS_ITS | Encounter Summary ---
Author Organization [facility] [place] [address] Care Team Providers Care Anesthesiologist Physician Name Role Phone Unavailable Primary Care Provider Unavailabl e Encounter Details Date Type Department Care Team (Late st Contact Info) Description 03/13/2024 3:53 PM EDT Hospital Encounter TH HISTORIC ENCOUNTERS [facility]AST[facility] CONVERSION ONLY Garret Interiano NP [address], [place] Social History Tobacco Use Types Packs/Day [...]
--- OUTSIDE RECORDS SUMMARY | 2024-10-18 11:17 | XMS_ITS | Clinical Summary ---
Author Organization [facility] [place] [address] Care Team Providers Care Plain Goods Hemmer Name Role Phone Unavailable Primary Care Provider [...]
== END 2024-10-18 11:07 | disposition home or self-care (01) ==
LOC: HO.HPS 10:17
PROVIDERS: PCP Nurse Practitioner Family; Visit Provider Internal Medicine
DX: J44.9 Chronic obstructive pulmonary disease, unspecified (principal); J96.91 Respiratory failure, unspecified with hypoxia; J96.92 Respiratory failure, unspecified with hypercapnia; E66.01 Morbid (severe) obesity due to excess calories; J31.0 Chronic rhinitis
CPT/HCPCS: 99214

== ENCOUNTER → 2024-10-18 10:16 | Outpatient (BNVA) | payer MEDICARE, SELFPAY | PROVIDERS: PCP Nurse Practitioner Family; Visit Provider Internal Medicine | DX: J44.9 Chronic obstructive pulmonary disease, unspecified (principal); J96.91 Respiratory failure, unspecified with hypoxia; J96.92 Respiratory failure, unspecified with hypercapnia; E66.01 Morbid (severe) obesity due to excess calories; J31.0 Chronic rhinitis; F17.210 Nicotine dependence, cigarettes, uncomplicated; Z99.81 Dependence on supplemental oxygen | CPT/HCPCS: 99212 ==

== ENCOUNTER 2024-10-25 13:32 | Outpatient (RCR) | payer MEDICARE, SELFPAY | END 2024-11-22 11:55 | disposition home or self-care (01) | LOC: HO.WCC 13:32 | PROVIDERS: PCP Nurse Practitioner Family; Visit Provider Surgery | DX: L97.812 Non-pressure chronic ulcer of other part of right lower leg with fat layer exposed (principal); L97.822 Non-pressure chronic ulcer of other part of left lower leg with fat layer exposed; L50.0 Allergic urticaria; L03.115 Cellulitis of right lower limb; R21 Rash and other nonspecific skin eruption; L85.3 Xerosis cutis; B20 Human immunodeficiency virus [HIV] disease; Z79.2 Long term (current) use of antibiotics; Z79.891 Long term (current) use of opiate analgesic; Z79.52 Long term (current) use of systemic steroids; Z79.899 Other long term (current) drug therapy | CPT/HCPCS: 11042; 11045; 87070; 87077; 87186; 87205; 97597; 97598; 99212; 99213; 99214 ==

== ENCOUNTER 2025-01-29 15:52 | Outpatient (AMB) | payer MEDICARE, SELFPAY ==
--- OUTSIDE RECORDS SUMMARY | 2024-03-13 15:53 | XMS_ITS | Encounter Summary ---
Author Organization [facility] [place] [address] Care Team Providers Care Edge Bander Hand Name Role Phone Unavailable Primary Care Provider Unavailabl e Encounter Details Date Type Department Care Team (Late st Contact Info) Description 03/13/2024 3:53 PM EDT Hospital Encounter [facility]NC[facility] CONVERSION ONLY Garret Interiano NP [address] [place], [place] Social History Tobacco Use Types Packs/Day [...]
[2025-01-29 15:59] VITALS: BP 130/92; PULSE 68; RESP 16; TEMP 37.2; O2SAT 94
--- NOTE | 2025-01-29 15:59 | MHC.PC.OV ---
Vital Signs 01/29/25 15:59 Height 5 ft 9 in BP 130/92 H Blood Pressure Location Lt brachial Position Sitting Respiration 16 Pulse 68 Pulse Source Pulse Oximeter Temp 99.0 F Temp Source Oral Pulse Oximetry (%) 94 Oxygen Delivery Method Nasal Cannula Intake Visit Reasons: 4m follow up Printed Circuit Board Assembly Repairer Required: No Accompanied by: Self / Same As Patient Allergies Horse/Equine Containing Products (Horse/Equine Product Derivatives) Allergy (Intermediate, Verified 01/29/25 16:01) SWELLING Cephalosporins Allergy (Unknown, Verified 01/29/25 16:01) Unknown Iodinated Contrast Media (IV CONTRAST) Allergy (Unknown, Verified 01/29/25 16:01) HIVES Medication List - Last Reconciled 01/29/25 by WALESKA RicoP- albuterol sulfate 2.5 mg (3 mL) inhalation Q4-6H PRN 30 days albuterol sulfate 90 mcg/actuation 2 puffs inhalation Q4-6H PRN 30 days Anoro Ellipta 62.5-25 mcg/actuation (umeclidinium-vilanterol) 1 ea PO DAILY NS atorvastatin 40 mg PO DAILY azithromycin For 250 mg dose pack: take 500 mg today (day 1), then 250 mg for 4 days (days 2-5) PO hxpwzyhsi-cgkturfj-brxwccg ala 50-200-25 mg (Biktarvy) 1 tab PO DAILY 30 days blood pressure kit-extra large As directed cholecalciferol (vitamin D3) 50 mcg PO DAILY fluticasone propionate 50 mcg/actuation (Flonase Allergy Relief) 2 sprays intranasal DAILY 30 days gabapentin 100 mg PO TID PRN 30 days hydrochlorothiazide 12.5 mg PO DAILY ibuprofen 800 mg PO TID PRN 30 days ketoconazole 2% 1 appl topical BID lisinopril 40 mg PO DAILY meloxicam 15 mg PO DAILY PRN 30 days methadone 75 mg PO Q12H Oxygen Home Use 2lpm via NC at night and PRN sob [Scooter-motorized As directed] [wheelchair- with foot rests As directed] Tobacco use date assessed: 01/29/25 Fall risk assessment: No Falls in past year Last assessed Fall Risk: 01/29/25 Dental Screening Dental Screen Date: 01/29/25 Did you have a dental visit in the last 12 months?: Yes Did you have a dental problem in the last 6 months where you did not have access to dental care?: No Was dental information given to patient?: Patient has dentist HPI 4m follow up HPI Details Chief Complaint The patient presents for a follow-up for diabetes management and evaluation of neuropathy. History of Present Illness The patient is a 69-year-old female presenting with a follow-up for diabetes management. Her hemoglobin A1c is currently 5.8%, and she experiences neuropathy in her bilateral lower extremities, with minimal sensation noted during monofilament testing. She has a history of lymphedema, was receiving care at a wound clinic, with daily wrapping of her lower extremities, has a caregiver at home and a VNA provider. There has been improvement in the swelling, now noted as +1 pitting edema, previously +2 to +3. The patient is permanently on oxygen therapy and denies any chest pain or increased SOB. She is obese and awaiting a new wheelchair due to bilateral extremity weakness and limited range of motion. The patient has urinary incontinent and uses double XL briefs and truck pads. HTN: pt reports her BP at home is much better, the nurse checks it all the time, it's fine . pt follows up with vascular Social History - Functional status: Patient requires a wheelchair due to bilateral extremity weakness and limited range of motion. - Substance use: Attends methadone clinic regularly. Health Maintenance - Oxygen therapy: Patient is on continuous oxygen therapy 27/12. Review of Systems - Cardiovascular: Denies chest pain. - Respiratory: Denies increased abdominal girth, uses oxygen therapy continuously. - Neurological: Reports neuropathy in bilateral lower extremities. Physical Exam General: Cooperative, healthy appearing, comfortable, no acute distress and well developed, using wheelchair, morbidly obese Orientation: Patient oriented x3 Limitations: Very limited range of motion, especially to bilateral lower extremities Head: Normal to inspection Ears: Hearing grossly normal bilaterally Nose: Normal external nose present Face and sinus: Normal facial exam Eyes: Appearance normal, both eyes and all related structures Neck: Normal visual inspection and Yes full ROM Respiratory: Diminished lung sounds, moving air bilaterally. Patient wears oxygen permanently 24/ Cardiovascular: Regular rate and rhythm. Normal S1 and S2 GI: Normal to inspection. Soft to palpation and nontender Skin: faint erythematous BLE, +cap refill, + DP left, weak to right Neuro: Patient oriented x3 Extremities: Minimal sensation with the use of monofilament of bilateral feet. Onychomycosis noted to bilateral toenails. Pitting edema in bilateral lower extremities, +1. Legs wrapped daily for lymphedema. Incontinent, uses double XL briefs and truck pads. Results - Labs: Hemoglobin A1c is 5.8%. - Tests: EKG planned for today. Plan 1. Diabetes Mellitus With Neuropathy The patient's diabetes is currently well-managed with an A1c of 5.8%. Neuropathy is present in the bilateral lower extremities, and sensation is minimal with monofilament testing. Continued monitoring of blood glucose levels and neuropathy symptoms is recommended. 2. Lymphedema The patient is receiving care at a wound clinic for lymphedema, with daily wrapping of the lower extremities. There has been improvement in swelling, now noted as +1 pitting edema, previously +2 to +3. Continued management with compression therapy is advised. 3. Obesity The patient is obese and awaiting a new wheelchair due to bilateral extremity weakness and limited range of motion. Weight management strategies should be discussed in future visits. 4. Incontinence The patient is incontinent and uses double XL briefs and truck pads. Consideration for further evaluation and management of incontinence is recommended. 5. HTN: stable at home. VNA involved for readings Discussion Notes We discussed the current management of the patient's diabetes, noting the well-controlled A1c level. We also reviewed the ongoing care for her lymphedema, including daily wrapping and the improvement in edema. The need for a new wheelchair due to obesity and extremity weakness was addressed, Hx of incontinence. An EKG was planned to monitor her cardiac status, given her attendance at the methadone clinic. Patient Instructions - Continue monitoring blood glucose levels and report any changes in neuropathy symptoms. - Maintain daily wrapping of lower extremities for lymphedema management. - Follow up on obtaining a new wheelchair. - Use double XL briefs and truck pads as needed for incontinence. [facility] Medical History Multinodular goiter Venous insufficiency of both lower extremities Oxygen dependent Respiratory failure with hypoxia and hypercapnia Eosinophilia Bronchitis Other instability, right shoulder Retinopathy Methadone use Morbid obesity HIV (human immunodeficiency virus infection) Rhinitis Hypoventilation associated with obesity COPD (chronic obstructive pulmonary disease) HIV (human immunodeficiency virus infection) Smoker Morbid obesity Aortic dilatation Hypoventilation syndrome LAURENCE (obstructive sleep apnea) Respiratory failure with hypoxia Lower extremity edema Diastolic heart failure Hyperlipidemia Surgical History History of colonoscopy History of tonsillectomy Family History Father No problems noted. Mother No problems noted. Brother Asthma Maternal Grandfather No problems noted. Maternal Grandmother No problems noted. Paternal Grandfather No problems noted. Paternal Grandmother No problems noted. Brother No problems noted. Brother Substance use disorder Social History Housing: House Unable to assess alcohol history related to: Unknown Alcohol intake: never Comment: dc'd from ed Patient Tobacco Use Status: Current someday Tobacco user Tobacco use type: Cigarette Cigarette Packs Per Day: 0.5 Cigarettes Per Day: 3 Years Smoked: 30 +/- e-Cigarette/Vaping Use: Never Used Second Hand Smoke Exposure: Yes service: No Current occupational status: disabled Current occupation: rt hand Cognitive needs: No Hearing needs: No Vision needs: Yes Questionnaire PHQ-9 Over the last 2 weeks, how often have you been bothered by any of the following problems? 1. Little interest or pleasure in doing things: not at all 2. Feeling down, depressed, or hopeless: not at all 3. Trouble falling or staying asleep, or sleeping too much: not at all 4. Feeling tired or having little energy: not at all 5. Poor appetite or overeating: not at all 6. Feeling bad about yourself - or that you are a failure or have let yourself or your family down: not at all 7. Trouble concentrating on things, such as reading the newspaper or watching television: not at all 8. Moving or speaking so slowly that other people could have noticed. Or the opposite - being so fidgety or restless that you have been moving around a lot more than usual: not at all 9. Thoughts that you would be better off or of hurting yourself in some way: not at all Total score: 0 Depression Screening Interpretation: Positive (declined therapist currently, has close friends) Depression Screening Follow-up: Existing condition Depression Screening Done: Yes 41894 - PHQ-9 Billing: Yes Source: Developed by Drs. Artem Juarez, Aishwarya oVss, Jorge Schilling and colleagues, with an educational shawn from [employer]. Thrive Questionnaire Date Thrive assessed: 05/28/24 I am a: Patient What is your living situation today?: I have a steady place to live Within the past 12 months, did the food you bought not last and you didn't have the money to get more?: Never true Within the past 12 months, did you worry whether your food would run out before you got money to buy more?: Never true Do you have trouble paying for medicines?: No Do you have trouble getting transportation to medical appointments?: No Do you have trouble paying your heating and electricity bill?: No Do you have trouble taking care of your child, family member or friend?: No Do you have trouble with day-to-day activities such as bathing, preparing meals, shopping, managing finances, etc.?: Yes Are you currently unemployed and looking for a job?: I choose not to answer this question Are you interested in more education?: No Please select the resources that you would like help with: Daily support Currently or been in a relationship where the following occur: No concerns reported THRIVE Score: 0 JAJA-7 AMB Questionnaire JAJA-7 Date JAJA - 7 assessed: 01/29/25 Source: Developed by Drs. Artem Juarez, Aishwarya Voss, Jorge Schilling and colleagues, with an educational shawn from [employer]. Physical exam (Primary Care) Vital Signs: Last Vital Signs Temp 99.0 F 01/29/25 15:59 Pulse 68 01/29/25 15:59 Resp 16 01/29/25 15:59 BP 130/92 H 01/29/25 15:59 Pulse Ox 94 01/29/25 15:59 Oxygen Delivery Method Nasal Cannula 01/29/25 15:59 Tobacco/Smoking Status: Tobacco use Status Tobacco use date assessed 01/29/25 01/29/25 16:06 Patient Tobacco Use Status Current someday Tobacco 01/29/25 16:06 Tobacco use type Cigarette 01/29/25 16:06 e-Cigarette/Vaping Use Never Used 01/29/25 16:06 PHQ-9: PHQ-9 Score PHQ-9: Total score 0 01/29/25 16:06 Depression Screening Interpretation: Positive (declined therapist currently, has close friends) Depression Screening Follow-up: Existing condition Thrive Assessment: Date of Thrive Assessment Date Thrive assessed 05/28/24 01/29/25 16:06 Currently or been in a relationship where the following occur: No concerns reported Results AMB Hemoglobin A1c AMB Hemoglobin A1c 5.8 % Last Edit by Tracy Gary MA on 01/29/25 16:20 Results Reviewed Results Reviewed: Laboratory Last Values Hgb A1c (Clinic) 5.8 % (4.0-6.0) 01/29/25 16:19 Coding Level of Care Code Est Pt Level 4 (73377) Diagnoses Smoker F17.200 Diabetes E11.9 Vitamin D deficiency E55.9 Morbid obesity E66.01 Lymphedema I89.0 HTN (hypertension) I10 Postmenopausal Z78.0 Osteopenia M85.80 Additional Codes PHQ-9 - 59554 - PHQ-9 Billing: Yes ([id number]) Assessment & Plan Assessment & Plan (1) Smoker: Comment: Continues to smoke, currently bouts 3-4 cigarettes a day. Code(s): F17.200 - Nicotine dependence, unspecified, uncomplicated Category: Social Hx (2) Diabetes: Code(s): E11.9 - Type 2 diabetes mellitus without complications Category: Medical (3) Vitamin D deficiency: Code(s): E55.9 - Vitamin D deficiency, unspecified Category: Medical (4) Morbid obesity: Comment: same as before , No scope of loosing weight . Code(s): E66.01 - Morbid (severe) obesity due to excess calories Category: Medical (5) Lymphedema: Code(s): I89.0 - Lymphedema, not elsewhere classified Category: Medical (6) HTN (hypertension): Code(s): I10 - Essential (primary) hypertension Category: Medical (7) Postmenopausal: Code(s): Z78.0 - Asymptomatic menopausal state Category: Medical (8) Osteopenia: Code(s): M85.80 - Other specified disorders of bone density and structure, unspecified site Category: Medical Plan . Orders: Orders AMB Hemoglobin A1c Today Z13.9 - Encounter for screening, unspecified Complete Blood Count Auto Diff Today E11.9 - Type 2 diabetes mellitus without complications Comprehensive [place]. Panel Fast Today E11.9 - Type 2 diabetes mellitus without complications TSH reflex Free T4 Today E11.9 - Type 2 diabetes mellitus without complications XR DEXA axial skeleton Today M85.80 - Other specified disorders of bone density and structure, unspecified site, Z78.0 - Asymptomatic menopausal state Microalbumin, Random (w Creat) Today E11.9 - Type 2 diabetes mellitus without complications UA CC w/rflx Micro + Cult Today E11.9 - Type 2 diabetes mellitus without complications Lipid Panel Today E11.9 - Type 2 diabetes mellitus without complications Vitamin D 25-OH Total Today E11.9 - Type 2 diabetes mellitus without complications, E55.9 - Vitamin D deficiency, unspecified AMB EKG-In Office Today E66.01 - Morbid (severe) obesity due to excess calories, I10 - Essential (primary) hypertension, I89.0 - Lymphedema, not elsewhere classified MM screening mammo BI Today Z12.31 - Encounter for screening mammogram for malignant neoplasm of breast Referrals Lung Cancer Screening Referral F17.200 - Nicotine dependence, unspecified, uncomplicated Medications: New ketoconazole 2% 1 appl topical BID 60 grams 2RF
--- OUTSIDE RECORDS SUMMARY | 2025-01-29 16:39 | XMS_ITS | Clinical Summary ---
Author Organization [facility] [place] [address] Care Team Providers Care Sourcing Manager Name Role Phone Unavailable Primary Care Provider [...] 2) 2005 Colorectal Cancer Screening: Colonoscopy 07/01/2023 Falls Risk Assessment 07/01/2023 Hepatitis C Screening 07/01/2023 Osteoporosis Screening (Bone Density Screening) 07/01/2023 Social Influencers of Health Screening 07/01/2023 COVID-19 Vaccine ( - 2023-2 5 season) 2024 Depression Screening 06/06/2024 Influenza Vaccine (#1) 2025 RSV Immunization Adult Patie nts (1 [...]
== END 2025-01-29 17:00 | disposition home or self-care (01) ==
LOC: HO.HMCC 15:53
PROVIDERS: PCP Nurse Practitioner Family; Visit Provider Nurse Practitioner Family
DX: E11.9 Type 2 diabetes mellitus without complications (principal); E66.01 Morbid (severe) obesity due to excess calories; F17.200 Nicotine dependence, unspecified, uncomplicated; E55.9 Vitamin D deficiency, unspecified; I89.0 Lymphedema, not elsewhere classified; I10 Essential (primary) hypertension; Z78.0 Asymptomatic menopausal state; M85.80 Other specified disorders of bone density and structure, unspecified site

== ENCOUNTER → 2025-01-29 15:52 | Outpatient (BNVA) | payer MEDICARE, SELFPAY | PROVIDERS: PCP Nurse Practitioner Family; Visit Provider Nurse Practitioner Family | DX: E11.9 Type 2 diabetes mellitus without complications (principal); E55.9 Vitamin D deficiency, unspecified; I89.0 Lymphedema, not elsewhere classified; I10 Essential (primary) hypertension; M85.80 Other specified disorders of bone density and structure, unspecified site; Z78.0 Asymptomatic menopausal state; E66.01 Morbid (severe) obesity due to excess calories; F17.200 Nicotine dependence, unspecified, uncomplicated; Z71.3 Dietary counseling and surveillance; Z71.6 Tobacco abuse counseling | CPT/HCPCS: 83036; 96127; 99212 ==

== ENCOUNTER 2025-03-04 14:19 | Outpatient (REF) | payer MEDICARE, SELFPAY ==
--- OUTSIDE RECORDS SUMMARY | 2024-03-13 15:53 | XMS_ITS | Encounter Summary ---
Author Organization [facility] [place] [address] Care Team Providers Care Can Solderer Name Role Phone Unavailable Primary Care Provider Unavailabl e Encounter Details Date Type Department Care Team (Late st Contact Info) Description 03/13/2024 3:53 PM EDT Hospital Encounter [facility]NC[facility] CONVERSION ONLY Garret Interiano NP [address] [place], [place] Social History Tobacco Use Types Packs/Day [...]
[2025-03-04 15:51] LABS: Hematocrit 38.4 % (37.0-47.0); Hemoglobin 12.6 g/dl (12.0-16.0); Imm Gran Abs Auto 0.04 X10*3/uL (0.00-0.03); Imm Gran Pct Auto 0.5 % (0.0-0.4); Lymphocytes Absolute Auto 1.4 X10*3/uL (1.2-4.9); MANUAL DIFF FLAG SCAN; Mean Corpuscular HGB Conc 32.8 g/dl (31.0-35.0); Mean Corpuscular Hemoglobin 33.2 pg (27.0-33.0); Mean Corpuscular Volume 101.3 fL (80.0-98.0); NRBC Abs Auto 0.000 X10*3/uL (0.0-0.012); NRBC Pct Auto 0.0 /100WBC (0.0-0.2); PLT CLUMP 1; Red Blood Count 3.79 X10*6/uL (4.20-5.50); SCAN SMEAR FLAG 1
[2025-03-04 15:52] LABS: White Blood Count 8.6 X10*3/uL (4.8-10.8)
--- OUTSIDE RECORDS SUMMARY | 2025-03-04 16:08 | XMS_ITS | Clinical Summary ---
Author Organization [facility] [place] [address] Care Team Providers Care Bituminous Distributor Operator Name Role Phone Unavailable Primary Care [...] Last Done Comments Breast Cancer Screening 1955 Colorectal Cancer Screening: Colonoscopy 1955 DTaP,Tdap,and Td Vaccines (1 - Tdap) 1974 Pneumococcal Vaccine: 50+ Ye ars (1 of 1 - PCV) 2005 Zoster Vaccines (1 of 2) 2005 Falls Risk Assessment 07/01/2023 Hepatitis C Screening 07/01/2023 Osteoporosis Screening (Bone Density Screening) 07/01/2023 Social Influencers of Health Screening 07/01/2023 Depression Screening 06/06/2024 COVID-19 Vaccine ( - 2023-2 5 season) 2025 Influenza Vaccine (#1) 2025 RSV Immunization Adult [...]
[2025-03-04 16:47] LABS: Alanine Aminotransferase 11 U/L (0-31); Albumin Level 3.6 g/dL (3.5-5.0); Alkaline Phosphatase 83 U/L (39-117); Anion Gap 10 (12-20); Aspartate Amino Transferase 22 U/L (5-31); Blood Urea Nitrogen 17 mg/dL (9-16); Calcium 8.9 mg/dL (8.4-10.2); Carbon Dioxide 37 mmol/L (22-29); Chloride 100 mmol/L (96-108); Estimated Glomerular Filt Rate > 60; Potassium 4.5 mmol/L (3.3-5.1); Sodium 142 mmol/L (135-145); Total Protein 7.4 g/dL (6.5-8.0)
[2025-03-06 05:13] LABS: HCV Log PCR <1.18 NOT DETECTED Log IU/mL (NOT DETECTED); HepC Viral Load <15 NOT DETECTED IU/mL (NOT DETECTED)
[2025-03-06 06:54] LABS: HIV RNA PCR Qn Copies <20 DETECTED copies/mL (NOT DETECTED); HIV RNA PCR Qn Log Copies <1.30 DETECTED (NOT DETECTED)
[2025-03-08 17:08] LABS: Absolute CD3 Count 1169 cells/uL (840-3060); Absolute CD8 Count 680 cells/uL (180-1170); Percent CD3 Cells 75 % (57-85); Percent CD8 Cells 44 % (12-42)
== END 2025-03-04 14:20 | disposition home or self-care (01) ==
LOC: HO.LAB 14:19
PROVIDERS: Absent Provider Internal Medicine; PCP Nurse Practitioner Family; Visit Provider Nurse Practitioner Family
DX: B20 Human immunodeficiency virus [HIV] disease (principal); Z11.59 Encounter for screening for other viral diseases
CPT/HCPCS: 36415; 80048; 80076; 85025; 86359; 86360; 87522; 87536

== ENCOUNTER 2025-03-15 15:49 | Outpatient (AMB) | payer MEDICARE, SELFPAY ==
[2025-03-15 16:02] VITALS: PULSE 79; O2SAT 94
--- NOTE | 2025-03-15 16:02 | MHC.OFFVIS ---
Vital Signs 03/15/25 16:02 Pulse 79 Pulse Source Pulse Oximeter Pulse Oximetry (%) 94 Intake Visit Reasons: 6 month hiv labs ok per Allergies Horse/Equine Containing Products (Horse/Equine Product Derivatives) Allergy (Intermediate, Verified 03/15/25 16:02) SWELLING Cephalosporins Allergy (Unknown, Verified 03/15/25 16:02) Unknown Iodinated Contrast Media (IV CONTRAST) Allergy (Unknown, Verified 03/15/25 16:02) HIVES HPI Comments Details: History of Present Illness The patient is a 69-year-old female presenting for follow-up related to her HIV infection. She is currently on Biktarvy, which she states is well-tolerated and effectively managing her condition, with an undetectable viral load and a CD4 count of 530 as of the last testing in late February. The patient has experienced difficulties walking, attributed to severe mobility restrictions, but has maintained stability without falls. She continues to use supplemental oxygen without issue, and her sister supports her with transportation and bill management. While her depression screening reflects elevated concerns, the patient opts against pursuing therapy at this time, and she denies suicidal thoughts. Lifestyle factors include past tobacco use, and she avoids alcohol and illicit drug use. Review of Systems - Cardiovascular: Denies chest pain. - Respiratory: Denies dyspnea, but requires supplemental oxygen. - Neurologic: Reports difficulties walking; denies falls. - Psychiatric: Reports feelings consistent with depression; denies suicidal ideations. - Social: Denies alcohol or current drug use; past history of smoking. Physical Exam - Vitals- Stable. - Oropharynx- Clear. - Ears- Clear. - Lungs- Clear. - Cardiovascular- Regular rhythm. - Abdomen- Soft and non-tender. - Extremities- Non-tender. - Neurologic- No focal deficits. Results - Labs: - Viral Load (March 04): Undetectable. - CD4 Count: 530. Plan Patient was informed and verbally consented to the use of an ambient scribe for clinic note documentation during this visit. 1. Human immunodeficiency virus [HIV] disease B20 HCC 1 The patient is stable on Biktarvy, has an undetectable viral load, and a CD4 count of 530. Continue current medication regimen with a prescription for Biktarvy, one month with five refills. Schedule follow-up lab tests for viral load and CD4 count in five and six months. 2. Other reduced mobility Z74.09 Although patient reports difficulties with walking, she has not experienced falls. Continue supportive measures and maintain appropriate oxygen use. 3. Dependence on supplemental oxygen Z99.81 Continue oxygen therapy as necessary to support respiratory function without complications. 4. Depression, unspecified F32.A The patient expresses symptoms of depression with a score indicative of this condition. She is currently unwilling to pursue therapy, so continue observation and provide support. 5. Personal history of nicotine dependence Z87.891 The patient has discontinued smoking, reducing related risks; continue to support avoidance of tobacco. Discussion Notes I discussed the management plan, continuation of Biktarvy, and the importance of adherence to medication. The patient was informed about the schedule for future viral load and CD4 testing, to monitor her HIV status. We reviewed her mobility concerns and the ongoing use of supplemental oxygen. The patient understands the importance of monitoring her depression and maintaining engagement with support structures. I emphasized avoiding tobacco and substance use, given her history. The patient agreed with the outlined plan and continues to benefit from her sister's support in attending visits and managing her care. Medical Decision Making This patient demonstrates effective management of her HIV with Biktarvy, evident from her undetectable viral load and stable CD4 count. Continuing this regimen is critical to her ongoing stabilization. Her mobility restrictions do not currently pose an immediate risk of falls, and her use of supplemental oxygen appears well-managed, with no reported respiratory complaints. While her depression screening is high, she has opted not to pursue therapy, warranting continued support and monitoring of her psychological health. Ongoing monitoring of these issues, particularly HIV status and mental health, remains a priority, accounting for her expressed preferences and current health status. Patient Instructions - Continue taking Biktarvy as prescribed. - Attend scheduled lab tests for viral load and CD4 monitoring. - Use supplemental oxygen as directed. - Monitor mood and report any changes or concerns. - Avoid smoking and substance use. - Continue with current supportive arrangements with your sister. - Report any new or worsening symptoms to your healthcare provider promptly. [facility] Medical History (Updated 03/15/25 @ 17:11 by Palak Escobedo MD) Incontinence of urine Multinodular goiter Venous insufficiency of both lower extremities Oxygen dependent Respiratory failure with hypoxia and hypercapnia Eosinophilia Bronchitis Other instability, right shoulder Retinopathy Methadone use Morbid obesity HIV (human immunodeficiency virus infection) Rhinitis Hypoventilation associated with obesity COPD (chronic obstructive pulmonary disease) HIV (human immunodeficiency virus infection) Smoker Morbid obesity Aortic dilatation Hypoventilation syndrome LAURENCE (obstructive sleep apnea) Respiratory failure with hypoxia Lower extremity edema Diastolic heart failure Hyperlipidemia Surgical History History of colonoscopy History of tonsillectomy Family History Father No problems noted. Mother No problems noted. Brother Asthma Maternal Grandfather No problems noted. Maternal Grandmother No problems noted. Paternal Grandfather No problems noted. Paternal Grandmother No problems noted. Brother No problems noted. Brother Substance use disorder Social History Housing: House Alcohol intake: never Comment: dc'd from ed Patient Tobacco Use Status: Current someday Tobacco user Tobacco use type: Cigarette Cigarette Packs Per Day: 0.5 Cigarettes Per Day: 3 Years Smoked: 30 +/- e-Cigarette/Vaping Use: Never Used Second Hand Smoke Exposure: Yes service: No Current occupational status: disabled Current occupation: rt hand Cognitive needs: No Hearing needs: No Vision needs: Yes Physical Exam Vital Signs: Last Vital Signs Pulse 79 03/15/25 16:02 Pulse Ox 94 03/15/25 16:02 Assessment & Plan Assessment & Plan (1) HIV (human immunodeficiency virus infection): Code(s): B20 - Human immunodeficiency virus [HIV] disease Category: Medical Plan: as above Orders: Orders HIV-1 RNA QN PCR Expanded 5 Months B20 - Human immunodeficiency virus [HIV] disease Lymphocyte Subset Panel 3 5 Months B20 - Human immunodeficiency virus [HIV] disease Medications: Refilled pxkafnfwi-jgnbrhjr-xtspumt ala 50-200-25 mg (Biktarvy) 1 tab PO DAILY 30 tabs 5RF 30 days Coding Level of Care Code Est Pt Level 4 (00182) Diagnoses HIV (human immunodeficiency virus infection) B20 Additional Codes PHQ-9 - 38083 - PHQ-9 Billing: Yes ([id number]) PHQ-9 Over the last 2 weeks, how often have you been bothered by any of the following problems? 1. Little interest or pleasure in doing things: more than half the days 2. Feeling down, depressed, or hopeless: several days 3. Trouble falling or staying asleep, or sleeping too much: nearly every day 4. Feeling tired or having little energy: more than half the days 5. Poor appetite or overeating: several days 6. Feeling bad about yourself - or that you are a failure or have let yourself or your family down: more than half the days 7. Trouble concentrating on things, such as reading the newspaper or watching television: more than half the days 8. Moving or speaking so slowly that other people could have noticed. Or the opposite - being so fidgety or restless that you have been moving around a lot more than usual: more than half the days 9. Thoughts that you would be better off or of hurting yourself in some way: more than half the days Total score: 17 96080 - PHQ-9 Billing: Yes Source: Developed by Drs. Artem Juarez, Aishwarya Voss, Jorge Schilling and colleagues, with an educational shawn from [employer]
== END 2025-03-19 11:39 | disposition home or self-care (01) ==
LOC: HO.HID 15:49
PROVIDERS: PCP Nurse Practitioner Family; Visit Provider Internal Medicine
DX: B20 Human immunodeficiency virus [HIV] disease (principal)
CPT/HCPCS: 99214

== ENCOUNTER → 2025-03-15 15:49 | Outpatient (BNVA) | payer MEDICARE, SELFPAY | PROVIDERS: PCP Nurse Practitioner Family; Visit Provider Internal Medicine | DX: B20 Human immunodeficiency virus [HIV] disease (principal); Z74.09 Other reduced mobility; Z99.81 Dependence on supplemental oxygen; F32.A Depression, unspecified; Z87.891 Personal history of nicotine dependence; Z79.899 Other long term (current) drug therapy; Z13.31 Encounter for screening for depression | CPT/HCPCS: 96127; 99212 ==

== ENCOUNTER 2025-04-02 14:10 | Outpatient (AMB) | payer MEDICARE, SELFPAY ==
--- OUTSIDE RECORDS SUMMARY | 2024-03-13 15:53 | XMS_ITS | Encounter Summary ---
Author Organization [facility] [place] [address] Care Team Providers Care Regulator Operator Name Role Phone Unavailable Primary Care Provider Unavailabl e Encounter Details Date Type Department Care Team (Late st Contact Info) Description 03/13/2024 3:53 PM EDT Hospital Encounter [facility]NCOUN[facility] CONVERSION ONLY Garret Interiano NP [address] [place], [place] Social History Tobacco Use Types Packs/Day [...]
--- OUTSIDE RECORDS SUMMARY | 2025-03-06 10:00 | XMS_ITS ---
Author Organization [facility] Address [address] [place] [address] Care Team Providers Care Fisheries Officer Name Role Phone Garret Cobb Primary Care Provider Unav ailKatya Fan Unavailable [phone] Preston Encounters Encounter Location Date Provider Diagnosis [address] [address] 03/06/2025 Katya So Plan Of Treatment Next Appt Details Provider Name:Katya Brandi frank, 04/04/2025 02:00:00 PM, [address] [place], [address], Progress Notes * Dalia BARRYOB:1955 (69 yo F)Acc No.[id number]:03/06/2025 Progress Notes Patient: Elida CLINE Provider: Fang So DPM :1955 A ge:69 Y S ex:Female Date:03/06/2025 Address:[address] [place] [phone] Pcp:BENNY Hahn Subjective: * Chief Complaints: * [...] Date: 1 Generated for Rigo banerjee/Rosalino/Merlene on: 01:48 PM EDT
[2025-04-02 14:19] VITALS: BP 140/70; PULSE 79; O2SAT 92
--- NOTE | 2025-04-02 14:19 | A.OFFVIS_ITS ---
Vital Signs 04/02/25 14:19 Height 5 ft 9 in BP 140/70 H Blood Pressure Location Lt brachial Position Sitting Pulse 79 Pulse Source Pulse Oximeter Pulse Oximetry (%) 92 Oxygen Delivery Method Nasal Cannula Oxygen Flow Rate 5 Intake Visit Reasons: COPD Intake Note: pt is here for follow up and states her breathing is not good lately, she has been using nebulizer 3 -4 times a day, using incentive spirometry with less results than a few weeks ago. Appeals Analyst Required: No Allergies Horse/Equine Containing Products (Horse/Equine Product Derivatives) Allergy (Intermediate, Verified 04/02/25 14:37) SWELLING Cephalosporins Allergy (Unknown, Verified 04/02/25 14:37) Unknown Iodinated Contrast Media (IV CONTRAST) Allergy (Unknown, Verified 04/02/25 14:37) HIVES Medication List - Last Reconciled 04/02/25 by Judy Sheridan MD [Adult pull up diapers Uses 3 per day] albuterol sulfate 2.5 mg (3 mL) inhalation Q4-6H PRN albuterol sulfate 90 mcg/actuation 2 puffs inhalation Q4-6H PRN 30 days Anoro Ellipta 62.5-25 mcg/actuation (umeclidinium-vilanterol) 1 ea PO DAILY NS atorvastatin 40 mg PO DAILY yvoomwqov-mssrffxa-zvbwggf ala 50-200-25 mg (Biktarvy) 1 tab PO DAILY 30 days blood pressure kit-extra large As directed cholecalciferol (vitamin D3) 50 mcg PO DAILY [Disposable bed pads Uses 2 per day] fluticasone propionate 50 mcg/actuation (Flonase Allergy Relief) 2 sprays intranasal DAILY PRN gabapentin 100 mg PO TID PRN 30 days hydrochlorothiazide 12.5 mg PO DAILY ibuprofen 800 mg PO TID PRN 30 days ketoconazole 2% 1 appl topical BID lisinopril 40 mg PO DAILY methadone 75 mg PO Q12H Oxygen Home Use 2lpm via NC at night and PRN sob [purewick catheter system and supplies For use at bedtime every day] [Scooter-motorized As directed] [wheelchair- with foot rests As directed] Do you need a note to return to daycare/school/sports/work: No HPI HPI COPD: Details: BREE 69 YEARS OLD FEMALE WITH MORBID OBESITY, OBSTRUCTIVE SLEEP APNEA /HYPOVENTILATION SYNDROME AND CHRONIC OBSTRUCTIVE PULMONARY DISEASE, ALLERGIC RHINITIS, WHEELCHAIR-BOUND, HAS CHRONIC STASIS EDEMA AND DERMATITIS OF THE LEGS. REMAINS SEDENTARY AND MOSTLY IN THE WHEELCHAIR DURING DAYTIME. COMPLAINS OF MILD NASAL CONGESTION AND POSTNASAL DISCHARGE OFF AND ON. COMPLAINS OF INCREASED SHORTNESS OF BREATH OFF AND ON, AND A FEELING OF CHEST CONGESTION. HAS NOT USE PREDNISONE RECENTLY. SHE HAS HAD NO RESPIRATORY INFECTION. SMOKES A FEW CIGARETTES PER DAY., CONTINUES TO USE ANORO ELLIPTA 1 INHALATION DAILY AND ALBUTEROL SOLUTION IN THE NEBULIZER 4 TIMES A DAY IN ADDITION TO ALBUTEROL HFA 2 PUFFS Q 6 HOURS P.R.N. SHE IS HERE TODAY FOR HER ROUTINE FOLLOW-UP, AND BASICALLY HER RESPIRATORY STATUS IS SAME USUAL. [facility] Medical History (Updated 04/02/25 @ 14:59 by Judy Sheridan MD) Incontinence of urine Multinodular goiter Venous insufficiency of both lower extremities Oxygen dependent Respiratory failure with hypoxia and hypercapnia Eosinophilia Bronchitis Other instability, right shoulder Retinopathy Methadone use Morbid obesity HIV (human immunodeficiency virus infection) Rhinitis Hypoventilation associated with obesity COPD (chronic obstructive pulmonary disease) HIV (human immunodeficiency virus infection) Smoker Morbid obesity Aortic dilatation Hypoventilation syndrome LAURENCE (obstructive sleep apnea) Respiratory failure with hypoxia Lower extremity edema Diastolic heart failure Hyperlipidemia Surgical History History of colonoscopy History of tonsillectomy Family History Father No problems noted. Mother No problems noted. Brother Asthma Maternal Grandfather No problems noted. Maternal Grandmother No problems noted. Paternal Grandfather No problems noted. Paternal Grandmother No problems noted. Brother No problems noted. Brother Substance use disorder Social History Housing: House Alcohol intake: never Comment: dc'd from ed Patient Tobacco Use Status: Current someday Tobacco user Tobacco use type: Cigarette Cigarette Packs Per Day: 0.5 Cigarettes Per Day: 1 Years Smoked: 30 +/- e-Cigarette/Vaping Use: Never Used Second Hand Smoke Exposure: Yes service: No Current occupational status: disabled Current occupation: rt hand Cognitive needs: No Hearing needs: No Vision needs: Yes Review of Systems Const All systems reviewed & are unremarkable except as noted in HPI and below Eyes Reports no additional complaints ENT Reports no additional complaints and Reports nasal congestion (OFF AND ON) Card Denies chest pain, Reports leg edema and Reports dyspnea on exertion Resp Reports as per HPI and Reports dyspnea on exertion GI Reports no additional complaints Reports nocturia Musc Reports back pain and Reports arthralgias (BOTH KNEES) Skin/Breast Reports system reviewed and no additional complaints, except as documented Neuro Reports no additional complaints Psych Reports no additional complaints Physical Exam Vital Signs: Last Vital Signs Pulse 79 04/02/25 14:19 BP 140/70 H 04/02/25 14:19 Pulse Ox 92 04/02/25 14:19 Oxygen Delivery Method Nasal Cannula 04/02/25 14:19 Oxygen Flow Rate 5 04/02/25 14:19 Const General: comfortable (BUT SLOW IN WALKING), no acute distress, alert and awake Orientation/consciousness: patient oriented x3 HEENT Head: Yes normal to inspection General nose exam: No nasal polyps present and No nasal discharge present Face and sinus: Yes sinuses nontender Mouth: oropharynx abnormals (OROPHARYNX IS EXTREMELY CROWDED MALLAMPATI SCALE 4) Eyes General: appearance normal, both eyes and all related structures Neck Neck: Yes normal visual inspection, Yes no lymphadenopathy, Yes trachea midline and Yes no JVD Thyroid: Thyroid normal Chest Chest palpation & inspection: normal inspection of the chest, normal palpation of entire chest wall and no tenderness Resp Other: HER BREATH SOUNDS ARE DISTANT, WITH PROLONGED EXPIRATORY PHASE. THERE ARE NO WHEEZES OR CREPITATIONS. TODAY . Cardio Palpation: PMI not normal (NOT PALPABLE) Rate: regular rate Rhythm: regular rhythm Heart sounds: no gallops and no murmurs GI Palpation (GI): Soft to palpation, nontender, No hepatosplenomegaly present, Hernia present (VENTRAL HERNIATION), no masses and Other GI palpation findings present (ABDOMEN IS OBESE AND PROTUBERANT) Auscultation: normal bowel sounds Back/Spine/Pelvis Thoracic/Lumbar Spine: thoracic and lumbar spine normal to inspection and thoraco-lumbar ROM limited Skin General skin exam: no rashes or lesions noted Neuro General: patient oriented x3 and No gait normal (Non ambulatory, uses a scooter.) Cranial nerves: Yes CN's II-XII intact bilaterally Extrem General: Yes normal to inspection, Yes no calf tenderness and Yes edema (1+ EDEMA AROUND THE ANKLES, SUPERFICIAL ULCERATIONS) Psych Appearance: grossly normal Speech and movement: Normal speech and movement present Assessment & Plan Assessment & Plan (1) COPD (chronic obstructive pulmonary disease): Comment: Patient has chronic and advanced obstructive pulmonary disease. She seems to be at her baseline at this time. Code(s): J44.9 - Chronic obstructive pulmonary disease, unspecified Category: Medical Plan: CONTINUE TO USE ANORO ELLIPTA 1 INHALATION DAILY, ALBUTEROL HFA 2 PUFFS Q 6 HOURS P.R.N., OR ALTERNATIVELY ALBUTEROL SOLUTION IN THE NEBULIZER Q 4 HOURS P.R.N. NO NEED OF ANY PREDNISONE (2) LAURENCE (obstructive sleep apnea): Comment: Known to have LAURENCE but unfortunately she has not been able to use CPAP/BIPAP Uses oxygen 2 L/minute at .night Code(s): G47.33 - Obstructive sleep apnea (adult) (pediatric) Category: Medical Plan: TALKED ABOUT LOSING WEIGHT BUT THIS IS NOT EXPECTED IN HER CASE. CONTINUE USING O2 2 L/MINUTE AT NIGHT (3) Hypoventilation syndrome: Comment: This is in relation to untreated LAURENCE and continued morbid obesity. Code(s): R06.89 - Other abnormalities of breathing Category: Medical Plan: Avoid using any extra conc. of oxygen. Avoid using any narcotic meds. ( EXCEPT THE DAILY DOSE OF METHADONE ) and do deep breathing exercises with pursed lip technique 4 to 5 times a day. (4) Smoker: Comment: Continues to smoke, currently bouts 3-4 cigarettes a day. Code(s): F17.200 - Nicotine dependence, unspecified, uncomplicated Category: Social Hx Plan: I TOLD HER THAT HER PERSISTENT COUGH AND CHEST CONGESTION IS DEFINITELY RELATED TO CONTINUED SMOKING. SHE IS NOT EXPECTED TO STOP SMOKING COMPLETELY. Medications: Changed From fluticasone propionate 50 mcg/actuation (Flonase Allergy Relief) administer into each nostril 2 sprays intranasal DAILY 30 days 16 grams 3RF allergic Rhinitis To fluticasone propionate 50 mcg/actuation (Flonase Allergy Relief) administer into each nostril 2 sprays intranasal DAILY PRN allergic Rhinitis Coding Level of Care Code Est Pt Level 3 (73197) Diagnoses COPD (chronic obstructive pulmonary disease) J44.9 LAURENCE (obstructive sleep apnea) G47.33 Hypoventilation syndrome R06.89 Smoker F17.200
--- OUTSIDE RECORDS SUMMARY | 2025-04-02 18:34 | XMS_ITS | Clinical Summary ---
Author Organization [facility] [place] [address] Care Team Providers Care Tobacco Flavorer Name Role Phone Unavailable Primary Care Provider [...]
--- OUTSIDE RECORDS SUMMARY | 2025-04-02 18:34 | XMS_ITS | Patient Health Record ---
Author Organization [facility] Chelsie joanna Hayti Address [address] [place] [address] Care Team Providers Care Dimensional Engineer Name Role Phone Garret Cobb Primary Care Provider Katya Roblero Unavailable [phone] Reason For Referral No Information Social History Tobacco Use: Social History Observation Description Date Details (start date - stop date) Current Smoker 02/04/1985 - NA Tobacco use other than smoking: Question Answer Notes Are you an other tobacco user? No Tobacco Control (Standard) Question Answer Notes Tobacco use: Current smoker When did you start smoking? 02/04/1985 How often do you smoke cigarettes? Every day How many cigarettes a day do you smoke? 11-20 How soon after you wake up do you smoke your fir st cigarette? 6-30 minutes Are you interested in quitting? Not ready to doron t AUDIT-C (Standard) Question Answer Notes Did you have a drink containing alcohol in the p ast year? No Points 0 Interpretation Negative Encounters Encounter Location Date Provider Diagnosis [facility] [address] [place] [address] 12/13/2024 Katya So Plan Of Treatment Next Appt Details Provider Name:Katya frank, 04/04/2025 02:00:00 PM, [address] [place], [address], Insurance Providers Payer Name Payer Address Payer Phone Subscriber Number Group Number Insured Name Patient Relationship to Insured Coverage Start Date Coverage End Date Medicare [employer] [address] [place] [address] [id number] Elida Barry Self - patient is the insured [facility] [address] [place] [address] [phone] [id number] Elida Barry Self - patient is the insured Medical (General) History Medical History History ICD Code Arthritis Back,Hip,and Knee pain Chicken pox HIV
== END 2025-04-02 14:51 | disposition home or self-care (01) ==
LOC: HO.HPS 14:11
PROVIDERS: PCP Nurse Practitioner Family; Visit Provider Internal Medicine
DX: J44.9 Chronic obstructive pulmonary disease, unspecified (principal); G47.33 Obstructive sleep apnea (adult) (pediatric); R06.89 Other abnormalities of breathing; F17.200 Nicotine dependence, unspecified, uncomplicated
CPT/HCPCS: 99213

== ENCOUNTER → 2025-04-02 14:10 | Outpatient (BNVA) | payer MEDICARE, SELFPAY | PROVIDERS: PCP Nurse Practitioner Family; Visit Provider Internal Medicine | DX: J44.9 Chronic obstructive pulmonary disease, unspecified (principal); G47.33 Obstructive sleep apnea (adult) (pediatric); R06.89 Other abnormalities of breathing; F17.200 Nicotine dependence, unspecified, uncomplicated; E66.01 Morbid (severe) obesity due to excess calories | CPT/HCPCS: 99212 ==

== ENCOUNTER 2025-04-29 14:09 | Outpatient (AMB) | payer MEDICARE, SELFPAY ==
--- OUTSIDE RECORDS SUMMARY | 2024-03-13 14:53 | XMS_ITS | Encounter Summary ---
Author Organization [facility] [place] [address] Care Team Providers Care Social Insurance Analyst Name Role Phone Unavailable Primary Care Provider Unavailabl e Encounter Details Date Type Department Care Team (Late st Contact Info) Description 03/13/2024 3:53 PM EDT Hospital Encounter [facility] CONVERSION ONLY Garret Interiano NP [address], [place] Social History Tobacco Use Types Packs/Day [...]
--- NOTE | 2025-04-29 14:12 | MHC.OFFVIS ---
Vital Signs 04/29/25 14:18 Height 5 ft 9 in Weight 260 lb BMI 38.4 BP 132/78 Blood Pressure Location Rt brachial Position Sitting Pulse 68 Pulse Source Pulse Oximeter Pulse Oximetry (%) 90 L Oxygen Delivery Method Nasal Cannula Oxygen Flow Rate 3 Intake Visit Reasons: KNEE AND SHOULDER PAIN Intake Note: Pain today 03/15 Electronic News Gathering Editor Required: No Accompanied by: Friend Allergies Horse/Equine Containing Products (Horse/Equine Product Derivatives) Allergy (Intermediate, Verified 04/29/25 14:19) SWELLING Cephalosporins Allergy (Unknown, Verified 04/29/25 14:19) Unknown Iodinated Contrast Media (IV CONTRAST) Allergy (Unknown, Verified 04/29/25 14:19) HIVES HPI Comments Details: The patient is a 69 year old female presenting for management of bilateral shoulder pain. The patient reports pain in both shoulders, which radiates down the arm into the muscle and back into the neck. The patient has limited range of motion, is unable to perform an overhead reach, and has difficulty placing the arms behind the back. The patient's history is significant for a right shoulder X-ray last March which showed a possible anterior dislocation and a possible nondisplaced fracture of the right humeral head. The patient also has a known history of a right rotator cuff tear. The patient last saw an alignment specialist, Dr. Weber, in May 2024 and received bilateral shoulder injections which provided at least three months of pain relief. The patient was told she is not a candidate for shoulder or knee surgery. Regarding the patient's knees, the patient was seen in 2023 for bilateral knee pain and underwent genicular nerve blocks with 90-100% pain relief for up to 3 days. A subsequent genicular nerve radiofrequency ablation was planned but was postponed due to the patient developing bilateral leg cellulitis. The cellulitis is now almost resolved, and the patient is currently taking antibiotics. The patient's medical history includes chronic pain managed with methadone 75 mg every 12 hours, gabapentin, and as-needed ibuprofen. The patient uses supplemental oxygen at home, typically 2 liters, but has recently increased it to 3 liters due to feeling increased shortness of breath, which the patient relates to pain. The patient denies being diabetic and is not taking any blood thinners. - Location: The patient experiences pain in both shoulders. Chronic bilateral knee pain. - Radiation: The pain radiates down the arms into the muscle and into the neck. - Severity and Character: The patient describes being in so much pain every day all the time, which makes the patient want to cry. - Interference with Function: Pain limits the patient's ability to perform overhead reaching and to place the arms behind the back. - Relieving Factors: A prior shoulder injection provided at least 3 months of relief. - Analgesia: The patient is on methadone 75 mg every 12 hours, and takes gabapentin and ibuprofen as needed for pain. - Despite medications, the patient reports being in significant pain daily. - Activities of Daily Living: Daily pain interferes with activities, causing limited range of motion in the shoulders, including an inability to perform overhead reach. - Affect: The patient reports significant emotional distress due to pain, stating it makes the patient want to cry. - Adverse Effects: The patient reports not breathing well lately and increased oxygen use, which is possibly related to the pain. - Aberrant Drug-Related Behaviors: The patient's methadone dose has remained unchanged since the last visit. Past Procedures: 10/28/23: Left Diagnostic GNB-100% pain relief, ongoing 10/24/23: Right Diagnostic GNB-90% pain relief for > 3 days 02/03/22: PNS Trial ? Failed trial due to inadvertent lead removal. 10/21/21: Left Diagnostic Saphenous Nerve Block ? 70% relief. 09/02/21: Right Diagnostic NB at Adductor Canal (lido 1%) ? 80% relief that is ongoing. [facility] Medical History Incontinence of urine Multinodular goiter Venous insufficiency of both lower extremities Oxygen dependent Respiratory failure with hypoxia and hypercapnia Eosinophilia Bronchitis Other instability, right shoulder Retinopathy Methadone use Morbid obesity HIV (human immunodeficiency virus infection) Rhinitis Hypoventilation associated with obesity COPD (chronic obstructive pulmonary disease) HIV (human immunodeficiency virus infection) Smoker Morbid obesity Aortic dilatation Hypoventilation syndrome LAURENCE (obstructive sleep apnea) Respiratory failure with hypoxia Lower extremity edema Diastolic heart failure Hyperlipidemia Surgical History History of colonoscopy History of tonsillectomy Family History Father No problems noted. Mother No problems noted. Brother Asthma Maternal Grandfather No problems noted. Maternal Grandmother No problems noted. Paternal Grandfather No problems noted. Paternal Grandmother No problems noted. Brother No problems noted. Brother Substance use disorder Social History Housing: House Alcohol intake: never Comment: dc'd from ed Patient Tobacco Use Status: Current someday Tobacco user Tobacco use type: Cigarette Cigarette Packs Per Day: 0.5 Cigarettes Per Day: 1 Years Smoked: 30 +/- e-Cigarette/Vaping Use: Never Used Second Hand Smoke Exposure: Yes service: No Current occupational status: disabled Current occupation: rt hand Cognitive needs: No Hearing needs: No Vision needs: Yes Review of Systems Const All systems reviewed & are unremarkable except as noted in HPI and below Physical Exam Vital Signs: Last Vital Signs Pulse 68 04/29/25 14:18 BP 132/78 04/29/25 14:18 Pulse Ox 90 L 04/29/25 14:18 Oxygen Delivery Method Nasal Cannula 04/29/25 14:18 Oxygen Flow Rate 3 04/29/25 14:18 BMI result Body Mass Index 38.4 General: Appears afebrile. No acute distress. Alert and oriented. Mood and affect appropriate. Follows and participates in conversation appropriately. Respiratory effort is unlabored. No cough. Able to transition from sit to stand with assistance of walker. O2 dependant @2-3L Arrived in wheelchair, able to walk short distances with assistive devices, antalgic, slow gait. Reports bilateral knee buckling and imbalance. Extrem General: Yes capillary refill normal and Yes edema (BLE nonpitting edema, compression stockings and knee braces are present) Right upper extremity: shoulder/upper arm (Limited ROM due to pain with I/E rotations) Details: normal to inspection, tenderness Location: of the A-C joint and over the subacromial bursa and crepitus; no swelling, no ecchymosis, no deformity and no unusual warmth Left upper extremity: shoulder/upper arm (Limited ROM due to pain with I/E rotations) Details: inspection abnormal, tenderness Location: of the A-C joint, over the subacromial bursa and over the deltoid bursa and crepitus; no swelling, no ecchymosis, no deformity and no unsual warmth Right lower extremity: knee (limited ROM due to pain) Details: tenderness Location: of the medial joint line and crepitus; no swelling, no ecchymosis and no unusual warmth Left lower extremity: knee (limited ROM due to pain) Details: tenderness Location: of the medial joint line and crepitus; no swelling, no ecchymosis and no unusual warmth Results Reviewed Results Reviewed: BILATERAL KNEE X-RAY 07/21/21 COMPARISON: Previous x-rays most recent November 2020 FINDINGS: Right: There is varus angulation. Bone alignment is otherwise normal. No fracture or dislocation is seen. There is arthritis at the medial femoral tibial and patellofemoral joints. There is a large joint effusion. Left: There is varus angulation. Bone alignment is otherwise normal. No fracture or dislocation is seen. There is arthritis at the femoral tibial and patellofemoral joints. There is a small joint effusion. IMPRESSION: Bilateral varus angulation and arthritis. Large right joint effusion. Small left joint effusion. XR SHOULDER, RIGHT 03/14/24 CLINICAL INFORMATION: Dislocation COMPARISON: None available. TECHNIQUE: AP and transscapular radiographs of the right shoulder FINDINGS: Anterior dislocation of the right humeral head is identified. Images are suboptimally oriented/penetrated. Curvilinear, crescentic ossific density is noted along the humeral head may represent partial visualization of minimally displaced fractures. The glenoid is suboptimally visualized. No gross fractures of the glenoid noted. Visualized right ribs and lung are grossly normal. IMPRESSION: *Anterior dislocation of the right shoulder. *Possible nondisplaced fractures of the right humeral head. Images are technically suboptimal and the humeral head and glenoid are suboptimally visualized. XRAY shoulder RT min 2V 11/26/23 IMPRESSION: No acute fracture or dislocation. Abnormal alignment with anterior subluxation of the humeral head with respect to the glenoid and severe arthritis, probably not appreciably changed from February [address]23 CT exam. XR shoulder RT min 2V, XR shoulder LT min 2V 09/11/22 CLINICAL INFORMATION: Reason for Exam M25.511 - Pain in right shoulder COMPARISON: None. TECHNIQUE: Two views of the bilateral shoulders FINDINGS/IMPRESSION: * No acute fracture or dislocation. * Mild bilateral degenerative changes of the acromioclavicular joints. * No soft tissue abnormality. Assessment & Plan Assessment & Plan (1) Bilateral knee pain: Code(s): M25.561 - Pain in right knee; M25.562 - Pain in left knee Category: Medical (2) Bilateral shoulder pain: Code(s): M25.511 - Pain in right shoulder; M25.512 - Pain in left shoulder Category: Medical (3) Morbid obesity: Comment: THIS IS A CHRONIC PROBLEM, SHE IS NOT VERY MOBILE, IT IS ON EXPECTED IN HER CASE TO LOSE WEIGHT. Code(s): E66.01 - Morbid (severe) obesity due to excess calories Category: Medical (4) Bilateral primary osteoarthritis of knee: Code(s): M17.0 - Bilateral primary osteoarthritis of knee Category: Medical (5) Chronic pain syndrome: Code(s): G89.4 - Chronic pain syndrome Category: Medical (6) Osteoarthritis of shoulders, bilateral: Code(s): M19.011 - Primary osteoarthritis, right shoulder; M19.012 - Primary osteoarthritis, left shoulder Category: Medical Plan The plan is to schedule bilateral shoulder steroid injections to be performed under fluoroscopic guidance with Dr. Aguirre. The patient does not take any blood thinners and denies diabetes. Most recent A1C=5.8. The patient will continue the current pain medication regimen, including methadone 75 mg every 12 hours per Methadone clinic, and PRN gabapentin and Ibuprofen as needed. The previously planned genicular nerve radiofrequency ablation for the knees will remain on hold at this time as shoulder pain has been more bothersome and function limiting. All questions and concerns have been answered and patient agreed with the treatment plan. Follow up after injections and sooner as needed. Patient was informed and verbally consented to the use of an ambient scribe for clinic note documentation during this visit. Coding Level of Care Code Est Pt Level 4 (43163) Complex visit Add On G2211 Diagnoses Bilateral knee pain M25.561; M25.562 Bilateral shoulder pain M25.511; M25.512 Morbid obesity E66.01 Bilateral primary osteoarthritis of knee M17.0 Chronic pain syndrome G89.4 Osteoarthritis of shoulders, bilateral M19.011; M19.012
[2025-04-29 14:18] VITALS: BP 132/78; PULSE 68; O2SAT 90; BMI 38.4
--- OUTSIDE RECORDS SUMMARY | 2025-04-29 19:08 | XMS_ITS | Clinical Summary ---
Author Organization [facility] [place] [address] Care Team Providers Care Social Media Executive Name Role Phone Unavailable Primary Care Provider [...] Screening 07/01/2023 Depression Screening 06/06/2024 COVID-19 Vaccine (1 - 2024-2 6 season) 2025 Influenza Vaccine (#1) 2025 RSV [...]
== END 2025-04-29 14:29 | disposition home or self-care (01) ==
LOC: HO.PMC 14:10
PROVIDERS: PCP Nurse Practitioner Family; Visit Provider Nurse Practitioner Family
DX: M25.561 Pain in right knee (principal); M25.562 Pain in left knee; M25.511 Pain in right shoulder; M25.512 Pain in left shoulder; E66.01 Morbid (severe) obesity due to excess calories; M17.0 Bilateral primary osteoarthritis of knee; G89.4 Chronic pain syndrome; M19.011 Primary osteoarthritis, right shoulder; M19.012 Primary osteoarthritis, left shoulder
CPT/HCPCS: 99214; G2211

== ENCOUNTER → 2025-04-29 14:09 | Outpatient (BNVA) | payer MEDICARE, SELFPAY | PROVIDERS: PCP Nurse Practitioner Family; Visit Provider Nurse Practitioner Family | DX: M25.511 Pain in right shoulder (principal); M25.512 Pain in left shoulder; M25.561 Pain in right knee; M25.562 Pain in left knee; M17.0 Bilateral primary osteoarthritis of knee; M19.011 Primary osteoarthritis, right shoulder; M19.012 Primary osteoarthritis, left shoulder; E66.01 Morbid (severe) obesity due to excess calories; Z68.38 Body mass index [BMI] 38.0-38.9, adult; Z72.0 Tobacco use; Z99.81 Dependence on supplemental oxygen | CPT/HCPCS: 99212 ==

== ENCOUNTER 2025-05-14 16:42 | Inpatient (IN) | payer MEDICARE, SELFPAY ==
--- OUTSIDE RECORDS SUMMARY | 2024-03-13 14:53 | XMS_ITS | Encounter Summary ---
Author Organization [facility] [place] [address] Care Team Providers Care Needle Polisher Name Role Phone Unavailable Primary Care Provider Unavailabl e Encounter Details Date Type Department Care Team (Late st Contact Info) Description 03/13/2024 3:53 PM EDT Hospital Encounter [facility] CON[facility] ONLY Garret Interiano NP [address] [place], [place] Social History Tobacco Use Types Packs/Day Years Used Date Smoking Tobacco: Never Assessed Comments Unknown Sex and Gender Information Value Date Recorded Sex Assigned at Not on file Legal Sex Female 8:38 PM EST Gender Identity Not on file Sexual Orientation Not on file documented as of this encounter Plan of Treatment Not on file documented as of this encounter Visit Diagnoses Not on filedocumented in this encounter
--- OUTSIDE RECORDS SUMMARY | 2025-03-06 09:00 | XMS_ITS ---
Author Organization [facility] Address [address] [place] [address] Care Team Providers Care Attendance Officer Name Role Phone Garret Cobb Primary Care Provider Unav ailKatya Fan Unavailable [phone] Preston Encounters Encounter Location Date Provider Diagnosis [address] [address] 03/06/2025 Katya So Plan Of Treatment Next Appt Details Provider Name:Katya frank, 07/15/2025 02:45:00 PM, [address] [place], [address], Progress Notes * Dalia BARRYOB:1955 (69 yo F)Acc No.[id number]:03/06/2025 Progress Notes Patient: Elida CLINE Provider: Fang So DPM :1955 A ge:69 Y S ex:Female Date:03/06/2025 Address:[address] [place] [id number] Pcp:BENNY Hahn Subjective: * Chief Complaints: * [...] 1 Generated for Rigo banerjee/Rosalino/Merlene on: 1 07/15/2024 10:38 AM EST
--- NOTE | ~2025-05-14 | XR_ITS ---
CLINICAL HISTORY: SOB 1 view chest x-ray Comparison: CR/SR - XR CHEST 2 VIEWS - 11/26/23 08:50 EDT Findings: Patient rotated to the right. Heart size is stable. Bilateral interstitial changes appear stable. No consolidation, significant pleural effusion or pneumothorax. No acute fracture. IMPRESSION: 1. No acute findings. 2. Stable nonacute findings as described. This document has been electronically signed by: Ashley Lauren MD on 05/14/2025 18:19:18
--- NOTE | ~2025-05-14 | US_ITS ---
CLINICAL HISTORY: Swelling, Pain Venous duplex ultrasound bilateral lower extremity Comparison: US/SR - US LOWER EXTREMITY VEINS BILATERAL - 01/04/2024 12:57 PM EDT Findings: The visualized bilateral lower extremity deep veins are fully compressible with normal Doppler color flow and spectral tracings. No popliteal cyst. Bilateral labeled greater saphenous veins demonstrate at least partial patency and positive Doppler flow. IMPRESSION: Negative for bilateral lower extremity deep vein thrombosis. This document has been electronically signed by: Mary Patel MD on 05/14/2025 19:08:08
[2025-05-14 17:13] VITALS: BP 208/98; PULSE 85; RESP 18; TEMP 36.8; O2SAT 93; BMI 42.2
--- NOTE | 2025-05-14 17:16 | ECG_ITS ---
Test Reason : SOB Blood Pressure : */* mmHG Vent. Rate : 73 BPM Atrial Rate : 73 BPM P-R Int : 196 ms QRS Dur : 94 ms QT Int : 394 ms P-R-T Axes : 82 -15 61 degrees QTcB Int : 434 ms Normal sinus rhythm Septal infarct (cited on or before 26-Nov-2023) Abnormal ECG When compared with ECG of 26-Nov-2023 08:41, Criteria for Inferior infarct are no longer Present Questionable change in initial forces of Anterior leads ST now depressed in Lateral leads Referred By: Sherie Amador Electronically Signed By: JOSÉ DINH MD
[2025-05-14 17:17] VITALS: BP 176/100; PULSE 80; O2SAT 92
--- NOTE | 2025-05-14 17:40 | ED.GENADULT ---
HPI - General Adult General Chief complaint: General Medical Stated complaint: ?leg infection,pain,SOB 92% nc 2l Time Seen by Provider: 05/14/25 17:04 History of Present Illness ED Provider: Sherie Amador NP HPI narrative: 69-year-old female medical history significant for multinodular goiter, thyroiditis, hypertension uncontrolled despite medications, respiratory failure with hypoxia and hypercapnia at baseline, diabetes, lymphedema, left ventricular hypertrophy, mild ascending aorta dilation, diastolic dysfunction, osteopenia, methadone use, HIV, COPD on baseline 2-3 L nasal cannula oxygen at home 27/12, chronic nicotine dependence smoker, LAURENCE, lower extremity edema and diastolic heart failure, recent right lower leg cellulitis completed a course of doxycycline for greater than 10 days presents to the ED be EMS reporting worsening and progressive lower extremity cellulitis and lymphedema. She also feels that she is more short of breath. She has been increasing her oxygen at home due to this complaint. Reports that the lower wounds on the legs do not have any active drainage, but the visiting nurse has been wrapping them with David bandages given the swelling, which is causing some pain. Patient is not on anticoagulants. She denies any chest pain or pressure. Denies any fever, chills. No abdominal pain, nausea or vomiting. Does report urinary frequency with and without medications, without dysuria, hematuria. Shortness of breath is progressively worse, cough is nonproductive. Patient reports living at home with her son, who is able to help her with ADLs as needed. Related Data Home Medications ?Medication ?Instructions ?Recorded ?Confirmed methadone 10 mg/mL oral concentrate 75 mg PO Q12H 08/17/21 04/02/25 Oxygen Home Use 10/28/22 04/02/25 fluticasone propionate 50 2 spray intranasal DAILY PRN 04/02/25 04/02/25 mcg/actuation nasal allergic Rhinitis spray,suspension (Flonase Allergy Relief) Previous Rx's ?Medication ?Instructions ?Recorded Scooter-motorized #1 ea 04/13/23 albuterol sulfate 90 mcg/actuation 2 puff inhalation Q4-6H PRN 04/05/24 aerosol inhaler shortness of breath or wheezing 30 days #8.5 grams gabapentin 100 mg capsule 100 mg PO TID PRN for pain 30 days 06/18/24 #90 caps blood pressure kit-extra large #1 ea 11/22/24 wheelchair- with foot rests #1 ea 11/22/24 lisinopril 40 mg tablet 40 mg PO DAILY #90 tabs 12/12/24 atorvastatin 40 mg tablet 40 mg PO DAILY #90 tabs 12/23/24 cholecalciferol (vitamin D3) 50 50 mcg PO DAILY #90 caps 12/23/24 mcg (2,000 unit) capsule ketoconazole 2 % topical cream 1 appl topical BID #60 grams 01/29/25 Adult pull up diapers #100 ea 01/30/25 Disposable bed pads #60 ea 01/30/25 purewick catheter system and #1 ea 01/30/25 supplies bictegravir 50 mg-emtricitabine 1 tab PO DAILY 30 days #30 tabs 03/15/25 200 mg-tenofovir alafenam 25 mg tablet (Biktarvy) albuterol sulfate 2.5 mg/3 mL 2.5 mg (3 mL) inhalation Q4-6H PRN 03/20/25 (0.083 %) solution for nebulization for wheezing #180 mL Anoro Ellipta 62.5 mcg-25 1 ea PO DAILY #180 ea 03/26/25 mcg/actuation powder for inhalation (umeclidinium-vilanterol) ibuprofen 800 mg tablet 800 mg PO TID PRN pain 30 days #90 04/16/25 tabs hydrochlorothiazide 12.5 mg tablet 12.5 mg PO DAILY #90 tabs 04/23/25 doxycycline hyclate 100 mg tablet 100 mg PO BID #20 tabs 05/05/25 Allergies Allergy/AdvReac Type Severity Reaction Status Date / Time Horse/Equine Containing Allergy Intermediate SWELLING Verified 05/14/25 17:15 Products (Horse/Equine Product Derivatives) Cephalosporins Allergy Unknown Unknown Verified 05/14/25 17:15 Iodinated Contrast Media (IV Allergy Unknown HIVES Verified 05/14/25 17:15 CONTRAST) Review of Systems Review of Systems: ROS is otherwise negative unless mentioned in HPI. [facility] Past Medical History Medical History Incontinence of urine Multinodular goiter Venous insufficiency of both lower extremities Oxygen dependent Respiratory failure with hypoxia and hypercapnia Eosinophilia Bronchitis Other instability, right shoulder Retinopathy Methadone use Morbid obesity HIV (human immunodeficiency virus infection) Rhinitis Hypoventilation associated with obesity COPD (chronic obstructive pulmonary disease) HIV (human immunodeficiency virus infection) Smoker Morbid obesity Aortic dilatation Hypoventilation syndrome LAURENCE (obstructive sleep apnea) Respiratory failure with hypoxia Lower extremity edema Diastolic heart failure Hyperlipidemia Surgical History History of colonoscopy History of tonsillectomy Family History Family History Father No problems noted. Mother No problems noted. Brother Asthma Maternal Grandfather No problems noted. Maternal Grandmother No problems noted. Paternal Grandfather No problems noted. Paternal Grandmother No problems noted. Brother No problems noted. Brother Substance use disorder Social History Social History Housing: House Alcohol intake: never Comment: dc'd from ed Patient Tobacco Use Status: Current someday Tobacco user Tobacco use type: Cigarette Cigarette Packs Per Day: 0.5 Cigarettes Per Day: 1 Years Smoked: 30 +/- Smoked in Last 30 Days: No e-Cigarette/Vaping Use: Never Used Second Hand Smoke Exposure: Yes Use of substances other than those prescribed or required for medical reasons: No Advance Directives: No Advance Directives Information Provided: Yes Do you have a plan to hurt others: No Plan service: No Current occupational status: disabled Current occupation: rt hand Cognitive needs: No Hearing needs: No Vision needs: Yes Physical Exam ED Exam Exam: Nursing notes and vital signs reviewed. Constitutional: Well-appearing, NAD. Alert. Oriented X3. Eyes: EOMI. ENT: Pharynx normal. Neck: Normal inspection. Neck supple. CVS: Normal heart rate and rhythm. Pulses normal. Respiratory: No respiratory distress. Breath sounds diminished. No wheezing. Abdomen: Soft and nontender, nondistended. Skin: Skin warm and dry. Normal skin color. Extremities: Nonpitting lower extremity edema bilaterally. Both of the lower legs are erythematous, warm to the touch. Neuro: Oriented X 3. No motor deficit. Vital Signs: Vital Signs - 24 hr 05/14/25 17:13 05/14/25 18:34 05/14/25 20:57 Temperature 98.3 F 98.7 F Pulse Rate 85 70 68 Respiratory Rate 18 18 16 Blood Pressure 208/98 H 162/87 H Pulse Oximetry 93 93 Oxygen Delivery Method Nasal Cannula Nasal Cannula Oxygen Flow Rate 2 BMI result Body Mass Index 42.2 Medications Administered Discontinued Medications Generic Name Dose Route Start Last Admin Trade Name Lamin PRN Reason Stop Dose Admin Albuterol Sulfate 2.5 mg/ 5 mg 05/14/25 20:54 05/14/25 20:56 Albuterol Sulfate 2.5 mg INHALE 05/14/25 20:55 5 mg ONCE ONE Administration Ceftriaxone Sodium 1 gm/ 50 mls @ 100 mls/hr 05/14/25 17:17 05/14/25 19:05 Sodium Chloride IV 05/14/25 17:46 Infused ONCE ONE Infusion Methylprednisolone Sodium Succinate 125 mg 05/14/25 19:21 05/14/25 19:43 Methylprednisolone Sod Succ 125 Mg/2 Ml Vial IVPUSH 05/14/25 19:22 125 mg ONCE ONE Administration Medical Decision Making Medical Decision Making MDM Narrative: 5:15 PM 05/14/2025 (Sherie Amador NP): Upon my initial assessment of this patient, she arrives mildly hypertensive (with a known history of uncontrolled hypertension), without tachycardia, and without hypoxia on nasal cannula oxygen. She is on her baseline 2 L nasal cannula and oxygen level is 93%. The lower extremities are red, warm to the touch, and painful. I have ordered for her to get a bilateral venous duplex with concern for underlying DVT, given she is not very active, and not on anticoagulants. Plan to empirically treat with Rocephin given the significant redness and warmth to the lower legs, as this appears to be bilateral cellulitis failing now two cycles of oral outpatient antibiotics. Additionally, I have also ordered a chest x-ray to rule underlying pneumonia as she reports that the doxycycline helped her coughing and shortness of breath when she was on it for her legs. I have also ordered basic labs, and a urinalysis to rule out UTI given the frequency of urination. We will also obtain bladder scan. She may have underlying COPD exacerbation due to viral illness, therefore serology is pending. We will reassess. At this time I do not have concern for sepsis. 7:15 PM -- upon reassessment, she has been moved into a room and is on the pure wick. The urinalysis shows no signs of infection. Serologies negative for COVID, flu, RSV. Her BMP does show evidence of an increased carbon dioxide level at 43, this is the highest in her labwork, but in the setting of COPD given she has been increasing her oxygen at home is not overly concerning. First troponin is flat, we will repeat a 2nd one. I have added on a VBG for further assessment. However, she is resting comfortably and has no acute distress. We will administer a dose of steroids, as well as a nebulizer for a mild COPD exacerbation. The venous duplex study shows no evidence of DVT. 7:23 PM -- VBG shows a pH of 7.47, a CO2 of 62 which is around her baseline, and a bicarbonate of 46, showing metabolic alkalosis. This is not driven by a respiratory cause. She is not in any acute distress. She does not need BIPAP. 8:30 PM -- she does report improvement with the steroids. She is still currently pending nebulizer treatments. We discussed that she could not continue to increase her oxygen nasal cannula at home, as it will create negative affects. Here on 2 L nasal cannula, she is around her baseline. Plan to admit the admission to the medicine service for further management. Pending CXR read for admission. 9:25 PM-- x-ray of the chest with no evidence of acute findings, stable nonacute findings as described. We will plan to admit the patient for failure of outpatient antibiotics for the lower leg cellulitis, as well as a COPD exacerbation. She is agreeable to the admission plan. Signed out to hospitalist. Differential Diagnosis Differential Diagnoses: The differential diagnosis associated with the presentation includes Cellulitis, DVT, UTI, PNA, failure of outpatient antibiotics Admission/Observation Consideration of admission/observation: Escalation of care including admission/observation considered (Yes, indicated) Consult Healthcare Provider Management of the patient was discussed with: Hospitalist Lab Data MDM Lab Attestation statement: I reviewed the patient's lab results. (Overall reassuring.) 05/14/25 18:26 05/14/25 18: Labs: Lab Results 05/14/25 05/14/25 05/14/25 Range/Units 18: 18: 19:16 WBC 8.3 (4.8-10.8) X10*3/uL RBC 3.72 L (4.20-5.50) X10*6/uL Hgb 12.3 (12.0-16.0) g/dl Hct 38.4 (37.0-47.0) % MCV 103.2 H (80.0-98.0) fL MCH 33.1 H (27.0-33.0) pg MCHC 32.0 (31.0-35.0) g/dl RDW 13.1 (11.0-16.0) % Plt Count 222 D (160-400) X10*3/uL MPV 9.5 (9.4-12.3) fL Immature Gran % (Auto) 0.4 (0.0-0.4) % Neut % (Auto) 70.0 (45-73) % Lymph % (Auto) 14.7 L (20-40) % [place] % (Auto) 8.7 (2-11) % Eos % (Auto) 5.7 H (0-4) % Baso % (Auto) 0.5 (0-2) % Lymph # (Auto) 1.2 (1.2-4.9) X10*3/uL [place] # (Auto) 0.7 (0.1-1.2) X10*3/uL Eos # (Auto) 0.5 H (0.0-0.4) X10*3/uL Baso # (Auto) 0.0 (0.0-0.2) X10*3/uL Abs Immat Gran (auto) 0.03 (0.00-0.03) X10*3/uL Absolute Neuts (auto) 5.8 (2.0-8.3) x10*3/uL Absolute Nucleated RBC 0.000 (0.0-0.012) X10*3/uL Nucleated RBC % (auto) 0.0 (0.0-0.2) /100WBC PT 12.1 (11.2-13.5) SEC INR 1.0 (0.9-1.1) VBG pH 7.47 H (7.32-7.43) VBG pCO2 62 mmHg VBG pO2 58 mmHg VBG HCO3 46 H (22-26) mmol/L VBG O2 Saturation 88.0 % VBG Base Excess 18.9 mmol/L Sodium 141 (135-145) mmol/L Potassium 3.9 (3.3-5.1) mmol/L Chloride 97 (96-108) mmol/L Carbon Dioxide 43 H* (22-29) mmol/L Anion Gap 5 L (12-20) BUN 17 H (9-16) mg/dL Creatinine 0.62 (0.5-1.4) mg/dL Estim Creat Clear Calc 97.2 Estimated GFR > 60 Random Glucose 117 H (60-115) mg/dL Calcium 9.0 (8.4-10.2) mg/dL Magnesium 1.9 (1.6-2.6) mg/dL Total Bilirubin 0.3 (0.0-1.0) mg/dL AST 18 (5-31) U/L ALT 13 (0-31) U/L Alkaline Phosphatase 81 (39-117) U/L Troponin I High Sens 3.5 D (<3.5-17.0) ng/L NT-Pro-B Natriuret Pep 465.6 H (<300) pg/mL Total Protein 7.2 (6.5-8.0) g/dL Albumin 3.7 (3.5-5.0) g/dL Urine Color Yellow Urine Appearance Clear Urine pH 7.5 (5.0-9.0) Ur Specific [place] 1.010 (1.005-1.025) Urine Protein Trace (Neg-Trace) mg/dL Urine Glucose (UA) Negative (Negative) mg/dL Urine Ketones Negative (Negative) mg/dL Urine Blood Negative (Negative) Urine Nitrite Negative (Negative) Ur Leukocyte Esterase Negative (Negative) Influenza Type A (PCR) NEGATIVE (Negative) Influenza Type B (PCR) NEGATIVE (Negative) RSV RNA Qual (PCR) NEGATIVE (Negative) SARS-CoV-2 RNA (RT-PCR) NEGATIVE (Negative) 05/14/25 Range/Units 19:48 WBC (4.8-10.8) X10*3/uL RBC (4.20-5.50) X10*6/uL Hgb (12.0-16.0) g/dl Hct (37.0-47.0) % MCV (80.0-98.0) fL MCH (27.0-33.0) pg MCHC (31.0-35.0) g/dl RDW (11.0-16.0) % Plt Count (160-400) X10*3/uL MPV (9.4-12.3) fL Immature Gran % (Auto) (0.0-0.4) % Neut % (Auto) (45-73) % Lymph % (Auto) (20-40) % [place] % (Auto) (2-11) % Eos % (Auto) (0-4) % Baso % (Auto) (0-2) % Lymph # (Auto) (1.2-4.9) X10*3/uL [place] # (Auto) (0.1-1.2) X10*3/uL Eos # (Auto) (0.0-0.4) X10*3/uL Baso # (Auto) (0.0-0.2) X10*3/uL Abs Immat Gran (auto) (0.00-0.03) X10*3/uL Absolute Neuts (auto) (2.0-8.3) x10*3/uL Absolute Nucleated RBC (0.0-0.012) X10*3/uL Nucleated RBC % (auto) (0.0-0.2) /100WBC PT (11.2-13.5) SEC INR (0.9-1.1) VBG pH (7.32-7.43) VBG pCO2 mmHg VBG pO2 mmHg VBG HCO3 (22-26) mmol/L VBG O2 Saturation % VBG Base Excess mmol/L Sodium (135-145) mmol/L Potassium (3.3-5.1) mmol/L Chloride (96-108) mmol/L Carbon Dioxide (22-29) mmol/L Anion Gap (12-20) BUN (9-16) mg/dL Creatinine (0.5-1.4) mg/dL Estim Creat Clear Calc Estimated GFR Random Glucose (60-115) mg/dL Calcium (8.4-10.2) mg/dL Magnesium (1.6-2.6) mg/dL Total Bilirubin (0.0-1.0) mg/dL AST (5-31) U/L ALT (0-31) U/L Alkaline Phosphatase (39-117) U/L Troponin I High Sens 4.9 (<3.5-17.0) ng/L NT-Pro-B Natriuret Pep (<300) pg/mL Total Protein (6.5-8.0) g/dL Albumin (3.5-5.0) g/dL Urine Color Urine Appearance Urine pH (5.0-9.0) Ur Specific [place] (1.005-1.025) Urine Protein (Neg-Trace) mg/dL Urine Glucose (UA) (Negative) mg/dL Urine Ketones (Negative) mg/dL Urine Blood (Negative) Urine Nitrite (Negative) Ur Leukocyte Esterase (Negative) Influenza Type A (PCR) (Negative) Influenza Type B (PCR) (Negative) RSV RNA Qual (PCR) (Negative) SARS-CoV-2 RNA (RT-PCR) (Negative) Independent Interpretation I performed an independent interpretation of an: EKG and Plain X-Ray Interpretation: Rate: 73 Rhythm: NSR [place]: 82/-15/61 Normal P waves. Normal SRIRAM. Normal QRS complex. ST T wave : no dep, elev qTC: 434 prior studies: similar The study has been interpreted contemporaneously by me. I have reviewed the patient's imaging and agree with the radiologist's findings. Radiology Impression Discussion of test interpretation with radiology: I have reviewed the radiologist's reading. Radiologist Impression: IMPRESSION: Negative for bilateral lower extremity deep vein thrombosis. CXR IMPRESSION No acute findings, stable nonacute findings as described. Independent Historian Clinical information obtained from an independent historian. History obtained from or confirmed by: EMS External Record Review External record reviewed: Inpatient record, Office record and Outpatient record Chronic Conditions Patient?s care impacted by: Diabetes, Hypertension and Other (COPD) Social Determinants Patient?s care significantly limited by Social Determinants of Health including: Problems related to primary support group Discharge Plan Discharge Clinical Impression: Cellulitis of anterior lower leg, Acute exacerbation of chronic obstructive pulmonary disease Patient Disposition: Admitted As Inpatient Print Language: Belarusian
[2025-05-14 18:32] LABS: MANUAL DIFF FLAG NO
[2025-05-14 18:34] VITALS: BP 162/87; PULSE 70; RESP 18; TEMP 37.1; O2SAT 93
[2025-05-14 18:34] LABS: Hematocrit 38.4 % (37.0-47.0); Hemoglobin 12.3 g/dl (12.0-16.0); Imm Gran Abs Auto 0.03 X10*3/uL (0.00-0.03); Imm Gran Pct Auto 0.4 % (0.0-0.4); Lymphocytes Absolute Auto 1.2 X10*3/uL (1.2-4.9); Mean Corpuscular HGB Conc 32.0 g/dl (31.0-35.0); Mean Corpuscular Hemoglobin 33.1 pg (27.0-33.0); Mean Corpuscular Volume 103.2 fL (80.0-98.0); NRBC Abs Auto 0.000 X10*3/uL (0.0-0.012); NRBC Pct Auto 0.0 /100WBC (0.0-0.2); Platelet Count 222 X10*3/uL (160-400); Red Blood Count 3.72 X10*6/uL (4.20-5.50); White Blood Count 8.3 X10*3/uL (4.8-10.8)
[2025-05-14 18:35] LABS: Appearance Urine Clear; Glucose Urine UA Negative (Negative); PH 7.5 (5.0-9.0); Specific Gravity - Urine 1.010 (1.005-1.025)
--- NOTE | 2025-05-14 18:37 | PC.NURSE ---
Per DANYELLE Rehman- no blood cultures needed before abx.
[2025-05-14 18:51] LABS: INTERNATIONAL NORM RATIO 1.0 (0.9-1.1); Prothrombin Time 12.1 SEC (11.2-13.5)
[2025-05-14 18:55] LABS: NT Pro B Type Natriuretic Pept 465.6 pg/mL (<300)
[2025-05-14 18:55] LABS: Troponin-I High Sensitivity 3.5 ng/L (<3.5-17.0)
[2025-05-14 18:57] LABS: Alanine Aminotransferase 13 U/L (0-31); Albumin Level 3.7 g/dL (3.5-5.0); Alkaline Phosphatase 81 U/L (39-117); Anion Gap 5 (12-20); Aspartate Amino Transferase 18 U/L (5-31); Blood Urea Nitrogen 17 mg/dL (9-16); Calcium 9.0 mg/dL (8.4-10.2); Carbon Dioxide 43 mmol/L (22-29); Chloride 97 mmol/L (96-108); Creatinine Clr Calc Pharmacy 97.2; Estimated Glomerular Filt Rate > 60; Magnesium 1.9 mg/dL (1.6-2.6); Potassium 3.9 mmol/L (3.3-5.1); Sodium 141 mmol/L (135-145); Total Protein 7.2 g/dL (6.5-8.0)
[2025-05-14 19:10] LABS: Resp Syncy Virus RNA Qual PCR NEGATIVE (Negative); SARS COV2 PCR INHOUSE NEGATIVE (Negative)
[2025-05-14 19:20] LABS: VBG HCO3 46 mmol/L (22-26); VBG O2 % Saturation 88.0 %
[2025-05-14 19:20] LABS: Venous Blood Gas Refer to POC result
[2025-05-14 20:11] LABS: Troponin-I High Sensitivity 4.9 ng/L (<3.5-17.0)
[2025-05-14] MEDS: Albuterol Sulfate 2.5 MG, Albuterol Sulfate (0.083%) 2.5 MG 5 MG INHALE (20:56)
[2025-05-14 20:57] VITALS: PULSE 68; RESP 16; O2SAT 94
--- NOTE | 2025-05-14 21:57 | PHA.MEDREC ---
Pharmacy Consult ? Medication Reconciliation Pharmacy has completed the medication reconciliation. Pt has stopped taking hctz 12.5 mg for the past 4 months
--- NOTE | 2025-05-14 22:04 | PM.IMHP ---
History of Present Illness Date of Service: 05/14/25 Chief Complaint: lower extremity erythema, sob 69F PMH opiate dependence, HIV, chronic hypoxic and hypercapnic respiratory failure due to COPD on 2-3 L home O2, morbid obesity, hyperlipidemia, chronic lymphedema, hypertension, chronic diastolic CHF, LAURENCE presented with lower extremity erythema and edema and shortness of breath. Patient reports for about 2 weeks prior to presentation has been having increasing lower extremity swelling and erythema. She follows regularly with wound care for chronic lymphedema and was given doxycycline for cellulitis with no improvement. Has also noticed in the seen by the time worsening of her shortness of breath, hypoxia requiring 4 L, orthopnea, wheezing. In ED VBG with chronic hypercapnia and metabolic alkalosis, BNP elevated 465, venous Doppler negative, chest x-ray with some interstitial prominence Review of Systems Review of Systems: Yes all other systems are reviewed and are negative [facility] Medical History Incontinence of urine Multinodular goiter Venous insufficiency of both lower extremities Oxygen dependent Respiratory failure with hypoxia and hypercapnia Eosinophilia Bronchitis Other instability, right shoulder Retinopathy Methadone use Morbid obesity HIV (human immunodeficiency virus infection) Rhinitis Hypoventilation associated with obesity COPD (chronic obstructive pulmonary disease) HIV (human immunodeficiency virus infection) Smoker Morbid obesity Aortic dilatation Hypoventilation syndrome LAURENCE (obstructive sleep apnea) Respiratory failure with hypoxia Lower extremity edema Diastolic heart failure Hyperlipidemia Family History Father No problems noted. Mother No problems noted. Brother Asthma Maternal Grandfather No problems noted. Maternal Grandmother No problems noted. Paternal Grandfather No problems noted. Paternal Grandmother No problems noted. Brother No problems noted. Brother Substance use disorder Surgical History History of colonoscopy History of tonsillectomy Social History Housing: House Alcohol intake: never Comment: dc'd from ed Patient Tobacco Use Status: Current someday Tobacco user Tobacco use type: Cigarette Cigarette Packs Per Day: 0.5 Cigarettes Per Day: 1 Years Smoked: 30 +/- Smoked in Last 30 Days: No e-Cigarette/Vaping Use: Never Used Second Hand Smoke Exposure: Yes Use of substances other than those prescribed or required for medical reasons: No Advance Directives: No Advance Directives Information Provided: Yes Do you have a plan to hurt others: No Plan service: No Current occupational status: disabled Current occupation: rt hand Cognitive needs: No Hearing needs: No Vision needs: Yes Meds Allergies Allergy/AdvReac Type Severity Reaction Status Date / Time Horse/Equine Containing Allergy Intermediate SWELLING Verified 05/14/25 17:15 Products (Horse/Equine Product Derivatives) Cephalosporins Allergy Unknown Unknown Verified 05/14/25 17:15 Iodinated Contrast Media (IV Allergy Unknown HIVES Verified 05/14/25 17:15 CONTRAST) Active Medications: Current Medications Acetaminophen (Acetaminophen 325 Mg Tablet) 650 mg PO Q6H PRN PRN Reason: Pain, Mild 1-3,fever,headache Acetazolamide (Acetazolamide Sodium 500 Mg Vial) 500 mg IVPUSH Q12H [facility] Stop: 05/15/25 22:01 Albuterol/Ipratropium (Albuterol/Iprat 2.5/0.5mg 3 Ml Ampul.Neb) 3 ml INHALE RQ4H WHILE AWAKE PRN PRN Reason: sob Calcium Carbonate (Calcium Carbonate 750 Mg Tab.Chew) 750 mg PO Q4H PRN PRN Reason: Heartburn Enoxaparin Sodium (Enoxaparin Sodium 40 Mg/0.4 Ml Syringe) 40 mg SUBCUT Q24H [facility] Furosemide (Furosemide 40 Mg/4 Ml Vial) 40 mg IVPUSH BID@0900,1800 [facility]; Protocol Vancomycin HCl 1,000 mg/ (Sodium Chloride) 270 mls @ 270 mls/hr IV Q12H [facility] Vancomycin HCl (Vancomycin/Ns) 2,000 mg in 500 mls @ 250 mls/hr IV ONCE ONE Stop: 05/15/25 00:14 Magnesium Hydroxide (Milk Of Magnesia 30 Ml Oral.Susp) 30 ml PO DAILY PRN PRN Reason: Constipation Melatonin (Melatonin 3 Mg Tablet) 6 mg PO BEDTIME PRN PRN Reason: Insomnia Methylprednisolone Sodium Succinate (Methylprednisolone Sod Succ 40 Mg/Ml Vial) 40 mg IVPUSH Q12H [facility] Pharmacy Consult (Consult Rx Vancomycin Dosing) 1 each MISCELLANE DAILY PRN PRN Reason: Consult order Sodium Chloride (0.9 % Sodium Chloride Flush 3 Ml Syringe) 3 ml IVFLUSH QSHIFT [facility] Home Medications ?Medication ?Instructions ?Recorded ?Confirmed ?Last Taken ?Type methadone 10 mg/mL oral concentrate 75 mg PO BID 08/17/21 05/14/25 05/14/25 History Oxygen Home Use 10/28/22 04/02/25 Unknown History fluticasone propionate 50 2 spray intranasal DAILY PRN 04/02/25 05/14/25 Unknown History mcg/actuation nasal allergic Rhinitis spray,suspension (Flonase Allergy Relief) albuterol sulfate 2.5 mg/3 mL 2.5 mg inhalation Q4H PRN for 05/14/25 05/14/25 05/14/25 History (0.083 %) solution for nebulization wheezing albuterol sulfate 90 mcg/actuation 2 puff inhalation Q4H PRN 05/14/25 05/14/25 Unknown History aerosol inhaler shortness of breath or wheezing atorvastatin 40 mg tablet 40 mg PO BEDTIME 05/14/25 05/14/25 05/13/25 History umeclidinium 62.5 mcg-vilanterol 1 inh PO DAILY 05/14/25 05/14/25 05/14/25 History 25 mcg/actuation powdr for inhalation (Anoro Ellipta) Physical Exam Vital Signs and Narrative: Vital Signs: Last Vital Signs Temp 98.7 F 05/14/25 18:34 Pulse 68 05/14/25 20:57 Resp 16 05/14/25 20:57 BP 162/87 H 05/14/25 18:34 Pulse Ox 93 05/14/25 18:34 O2 Del Method Nasal Cannula 05/14/25 18:34 O2 Flow Rate 2 05/14/25 18:34 Oxygen Flow Rate 3 05/14/25 17:13 BMI result Body Mass Index 42.2 General: AO X 3, dyspneic Resp: Diminished in wheezing bilateral, accessory muscles used CVS: S1,S2,RRR GI: soft, non tender, non distended Neuro: motor grossly intact, alert Psych: appropriate affect, appropriate insight Two to 3+ edema bilaterally with erythema Results Labs 05/14/25 18:26 05/14/25 18:26 Labs: Laboratory Results - last 24 hr 05/14/25 05/14/25 05/14/25 18:25 18:26 19:16 MCV 103.2 H MCH 33.1 H MCHC 32.0 RDW 13.1 Plt Count 222 D MPV 9.5 Immature Gran % (Auto) 0.4 Neut % (Auto) 70.0 Lymph % (Auto) 14.7 L [place] % (Auto) 8.7 Eos % (Auto) 5.7 H Baso % (Auto) 0.5 Lymph # (Auto) 1.2 [place] # (Auto) 0.7 Eos # (Auto) 0.5 H Baso # (Auto) 0.0 Abs Immat Gran (auto) 0.03 Absolute Neuts (auto) 5.8 Absolute Nucleated RBC 0.000 Nucleated RBC % (auto) 0.0 PT 12.1 INR 1.0 VBG pH 7.47 H VBG pCO2 62 VBG pO2 58 VBG HCO3 46 H VBG O2 Saturation 88.0 VBG Base Excess 18.9 Anion Gap 5 L Estim Creat Clear Calc 97.2 Estimated GFR > 60 Random Glucose 117 H Calcium 9.0 Magnesium 1.9 Total Bilirubin 0.3 AST 18 ALT 13 Alkaline Phosphatase 81 Troponin I High Sens 3.5 D NT-Pro-B Natriuret Pep 465.6 H Total Protein 7.2 Albumin 3.7 Urine Color Yellow Urine Appearance Clear Urine pH 7.5 Ur Specific [place] 1.010 Urine Protein Trace Urine Glucose (UA) Negative Urine Ketones Negative Urine Blood Negative Urine Nitrite Negative Ur Leukocyte Esterase Negative Influenza Type A (PCR) NEGATIVE Influenza Type B (PCR) NEGATIVE RSV RNA Qual (PCR) NEGATIVE SARS-CoV-2 RNA (RT-PCR) NEGATIVE 05/14/25 19:48 MCV MCH MCHC RDW Plt Count MPV Immature Gran % (Auto) Neut % (Auto) Lymph % (Auto) [place] % (Auto) Eos % (Auto) Baso % (Auto) Lymph # (Auto) [place] # (Auto) Eos # (Auto) Baso # (Auto) Abs Immat Gran (auto) Absolute Neuts (auto) Absolute Nucleated RBC Nucleated RBC % (auto) PT INR VBG pH VBG pCO2 VBG pO2 VBG HCO3 VBG O2 Saturation VBG Base Excess Anion Gap Estim Creat Clear Calc Estimated GFR Random Glucose Calcium Magnesium Total Bilirubin AST ALT Alkaline Phosphatase Troponin I High Sens 4.9 NT-Pro-B Natriuret Pep Total Protein Albumin Urine Color Urine Appearance Urine pH Ur Specific [place] Urine Protein Urine Glucose (UA) Urine Ketones Urine Blood Urine Nitrite Ur Leukocyte Esterase Influenza Type A (PCR) Influenza Type B (PCR) RSV RNA Qual (PCR) SARS-CoV-2 RNA (RT-PCR) Assessment and Plan (1) LVH (left ventricular hypertrophy): Status: Acute Plan 69F PMH opiate dependence, HIV, chronic hypoxic and hypercapnic respiratory failure due to COPD on 2-3 L home O2, morbid obesity, hyperlipidemia, chronic lymphedema, hypertension, chronic diastolic CHF, LAURENCE presented with lower extremity erythema and edema and shortness of breath Chronic hypoxic and hypercapnic respiratory failure due to COPD, OHS with acute decompensation IV Solu-Medrol, DuoNebs Acute on chronic diastolic CHF IV Lasix, 3 doses IV Diamox for metabolic alkalosis Check echo Monitor electrolytes Acute on chronic stasis dermatitis due to chronic lymphedema with superimposed cellulitis IV diuresis, continue local care, IV vancomycin Opiate dependence Methadone Morbid obesity Weight loss LAURENCE CPAP at night HIV Biktarvy Hypertension Lisinopril DVT prophylaxis with Lovenox Full code Given signs of fluid overload and requiring IV diuresis as well as significant shortness breath requiring IV steroids and failure of outpatient antibiotics for cellulitis expected require at least 2 midnights inpatient Quality Stroke Does the patient have a stroke diagnosis?: No VTE Prior VTE?: No VTE Risk Level:: Medical - moderate - high VTE Device Contraindication: Treatment Not Indicated VTE Drug Contraindication: N/A - Med Ordered
--- NOTE | 2025-05-14 22:11 | PHA.PROG ---
Admission Date/Time: May 14, 2025 21:46 Indication: SSTI Weight in k.6 kg Adjusted body weight in K.9 KG [place] body weight in K.1 KG Obesity Dosing Indication % IBW: Serum Creatinine - Last 168 Hours 05/14/25 18:26 Creatinine 0.62 Estimated CrCl and GFR - Last 168 Hours 05/14/25 18:26 Estim Creat Clear Calc 97.2 Estimated GFR > 60 Vancomycin Loading Dose: 2000 MGX1 Current Vancomycin Dosing Regimen: 1000 MG Q12H Vancomycin Monitoring using AUC goal of 400 - 600 range with trough as surrogate marker: PREDICTED AUC 548 Date and Time for next Vancomycin Level to be drawn: BEFORE 3RD DOSE 05/15/25 @2100 Pharmacist Comments on Vancomycin Plan: BMI 42.2. Vancomycin dosing will take advantage of [employer] as a clinical decision support tool that uses Bayesian modeling to calculate individual patient's pharmacokinetic parameters and forecast the patient's drug concentration time course with the target goal AUC 24 range of 400 - 600 mg/L/hr.
[2025-05-14] MEDS: vancomycin/NS 2,000 MG/500 ML PLAST..BAG 250 MG IV (22:38)
--- OUTSIDE RECORDS SUMMARY | 2025-05-14 23:08 | XMS_ITS | Patient Health Record ---
Author Organization [facility] Tanner joanna Browne Address [address] [place] [address] Care Team Providers Care Credit Review Analyst Name Role Phone Garret Cobb Primary Care Provider Unav Katya Enamorado Unavailable [phone] Allergies No Known Allergies Reason For Referral No Information Medications Medication SIG (Take, Route, Frequency, Duration) Notes Start Date End Date Status Lisinopril 40 MG 1 tablet Orally Once a day Active Anoro Ellipta Active Vitamin D Active Methadone HCl 75mgx2/day Activ e Orthopedic Extra Depth Shoes With Custom Heat Molded Multidensity Innersoles 1 Pair shoes with 3 Pair custom heat molded innersoles Wear Daily; Duration: 365 days 04/04/2025 Active Social History Tobacco Use: Social History Observation [...] ast year? No Points 0 Interpretation Negative Problems Problem Type SNOMED Code ICD Code Onset Dates Problem Status W/U Status Risk Notes Problem Acquired hammer toe of right foot (4771416380487 105) Other hammer toe(s) (acquired), right foot (M20.41) Active confirmed Problem Acquired hammer toe of left foot (3243053601151 103) Other hammer toe(s) (acquired), left foot (M20.42) Active confirmed Vital Signs Height 5ft 8in in 04/04/2025 Weight 250 lbs 04/04/2025 BMI 38.01 kg/m2 04/04/2025 Procedures Procedure Date Ordered Date Performed Result Body Sit e 71099-BYMAIFB NAIL, 6 OR MORE 04/04/2025 N/A Encounters Encounter Location Date Provider Diagnosis [facility] [address] [address] 04/04/2025 Katya So Other hammer toe(s) (acquired), right foot M20.41 ; Other hammer toe(s) (acquired), left foot M20.42 ; Pain in right toe(s) M79.674 ; Onychomycosis B35.1 and Pain in left toe(s) M79.675 [facility] [address] [address] 12/13/2024 Katya So Assessments Encounter Date Diagnosis (ICD Code) Assessment Notes Treatment Notes Treatment Clinical Notes Section Notes 04/04/2025 Other hammer toe(s) (acquired), right foot (ICD-10 - M20.41) Patient Educated with: DIABETIC FOOT CARE INSTRUCTIONS.p df (DIABETIC FOOT CARE INSTRUCTIONS.p df) 04/04/2025 Other hammer toe(s) (acquired), left foot (ICD-10 - M20.42) 04/04/2025 Pain in right toe(s) (ICD-10 - M79.674) 04/04/2025 Onychomycosis (ICD-10 - B35.1) 04/04/2025 Pain in left toe(s) (ICD-10 - M79.675) Plan Of Treatment Pending Test Test Name Order Date [id number]-[id number] NAIL, 6 OR MORE 04/04/2025 Next Appt Details Provider Name:Katya frank, 07/15/2025 02:45:00 PM, [address] [place] [address], [id number], Insurance Providers Payer Name Payer Address Payer Phone Subscriber Number Group Number Insured Name Patient Relationship to Insured Coverage Start Date Coverage End Date Medicare National Govt [facility] [address] [place] [address] [id number] Elida Barry Self - patient is the insured 8 [facility] [address] [place] [address] [phone] [id number] Elida Barry Self - patient is the insured Medical (General) History Medical History History ICD Code Arthritis Back,Hip,and Knee pain Chicken pox HIV
--- OUTSIDE RECORDS SUMMARY | 2025-05-14 23:08 | XMS_ITS | Clinical Summary ---
Author Organization [facility] [place] [address] Care Team Providers Care Vp Ad Sales West Name Role Phone Unavailable Primary Care Provider [...]
[2025-05-14 23:18] VITALS: BP 164/94; PULSE 88; RESP 18; TEMP 36.9; O2SAT 92
[2025-05-15] VITALS (11 sets, daily range): BP systolic 136–184; BP diastolic 71–96; PULSE 61–98; RESP 14–22; TEMP 36.3–36.9; O2SAT 3–95; BMI 40.4
[2025-05-15 03:58] LABS: Hematocrit 37.9 % (37.0-47.0); Hemoglobin 12.2 g/dl (12.0-16.0); Mean Corpuscular HGB Conc 32.2 g/dl (31.0-35.0); Mean Corpuscular Hemoglobin 33.1 pg (27.0-33.0); Mean Corpuscular Volume 102.7 fL (80.0-98.0); NRBC Abs Auto 0.000 X10*3/uL (0.0-0.012); NRBC Pct Auto 0.0 /100WBC (0.0-0.2); Platelet Count 223 X10*3/uL (160-400); Red Blood Count 3.69 X10*6/uL (4.20-5.50); White Blood Count 8.0 X10*3/uL (4.8-10.8)
[2025-05-15 04:27] LABS: Anion Gap 11 (12-20); Blood Urea Nitrogen 17 mg/dL (9-16); Calcium 9.1 mg/dL (8.4-10.2); Carbon Dioxide 31 mmol/L (22-29); Chloride 101 mmol/L (96-108); Creatinine Clr Calc Pharmacy 89.9; Estimated Glomerular Filt Rate > 60; Magnesium 1.9 mg/dL (1.6-2.6); Potassium 3.9 mmol/L (3.3-5.1); Sodium 139 mmol/L (135-145)
[2025-05-15] MEDS: 0.9 % Sodium Chloride Flush 3 ML SYRINGE IVFLUSH ×3 (07:42→23:07)
[2025-05-15] MEDS: Umeclidinium/Vilanterol 62.5/25 BLST.W.DEV 1 PUFF INHALE (08:20)
--- NOTE | 2025-05-15 08:24 | PC.RT ---
pt refuses to wear cpap. last sleep study was negative. therfoe order will be dc's per policy
[2025-05-15] MEDS: Furosemide 40 MG/4 ML VIAL IVPUSH ×2 (09:24→17:53)
[2025-05-15] MEDS: Bictegrav/Emtricit/Tenofov Ala TABLET 1 TAB PO (09:26)
--- NOTE | 2025-05-15 10:17 | PC.NURSE ---
Pt had her own methadone bottle (take home, 75 mg), brought to pharmacy by this RN
--- NOTE | 2025-05-15 11:25 | MHC.CM.PN ---
IMM 05/15/25 Pt. lives with others, she has [facility] 22 hrs per week, She did have [facility] for wound care, not currently receiving their services, she goes to [facility] [place] [facility]. Pt. has home O2 from [facility], and goes to [facility] in [place] for Methadone. PCP is confirmed: MARK Hahn. HCP discussed, she declined to complete form. Pt. can arrange a ride home at [place], DCP: home, with services, CM to follow for DC needs.
--- NOTE | 2025-05-15 12:05 | PC.NURSE ---
This RN called [facility] and verified methadone dose with RN. Split dose 75 mg in morning and 75 mg in evening. Last was at clinic 05/08 with 27 take home bottles
--- NOTE | 2025-05-15 12:10 | HE.PHANOTE ---
METHADONE: Dose: 75mg BID per TERI Johnson at [facility]. Last dose 05/08 and given 27 take home bottles.
[2025-05-15] MEDS: methADONE HCl 20 MG/2 ML ORAL.CONC 75 MG PO ×2 (12:28→23:06)
--- NOTE | 2025-05-15 13:47 | HO.PM.IMPN ---
Subjective Subjective Date of Service: 05/15/25 Interval History: f/u on copd exacerbation still sob but better Heart failure with exacerbation Review of Systems ROS is otherwise negative unless mentioned in HPI. Physical Exam Exam: Exam: General: AO X 3, dyspneic Resp: Diminished in wheezing bilateral, accessory muscles used CVS: S1,S2,RRR GI: soft, non tender, non distended Neuro: motor grossly intact, alert skin: see pic in H and P Psych: appropriate affect, appropriate insight Two to 3+ edema bilaterally with erythema Vital Signs: Vital Signs: Last Vital Signs Temp 97.4 F 05/15/25 09:23 Pulse 76 05/15/25 10:02 Resp 16 05/15/25 10:02 BP 136/78 05/15/25 10:02 Pulse Ox 92 05/15/25 10:02 O2 Del Method Nasal Cannula 05/15/25 10:02 O2 Flow Rate 3 05/15/25 10:02 Oxygen Flow Rate 3 05/14/25 17:13 BMI result Body Mass Index 42.2 Objective Data Active Medications Acetaminophen (Acetaminophen 325 Mg Tablet) 650 mg PO Q6H PRN PRN Reason: Pain, Mild 1-3,fever,headache Last Admin: 05/15/25 09:26 Dose: 650 mg Documented By: LEXIE Acetazolamide (Acetazolamide Sodium 500 Mg Vial) 500 mg IVPUSH Q12H [facility] Stop: 05/15/25 22:01 Last Admin: 05/15/25 09:28 Dose: 500 mg Documented By: LEXIE Albuterol/Ipratropium (Albuterol/Iprat 2.5/0.5mg 3 Ml Ampul.Neb) 3 ml INHALE RQ4H WHILE AWAKE PRN PRN Reason: sob Atorvastatin Calcium (Atorvastatin Calcium 40 Mg Tablet) 40 mg PO BEDTIME [facility] Last Admin: 05/14/25 22:38 Dose: 40 mg Documented By: DANICA Bictegravir/Emtricitabine/Tenofovir (Bictegrav/Emtricit/Tenofov Ala Tablet) 1 tab PO DAILY [facility] Last Admin: 05/15/25 09:26 Dose: 1 tab Documented By: LEXIE Calcium Carbonate (Calcium Carbonate 750 Mg Tab.Chew) 750 mg PO Q4H PRN PRN Reason: Heartburn Enoxaparin Sodium (Enoxaparin Sodium 40 Mg/0.4 Ml Syringe) 40 mg SUBCUT Q24H [facility] Last Admin: 05/15/25 09:31 Dose: 40 mg Documented By: LEXIE Furosemide (Furosemide 40 Mg/4 Ml Vial) 40 mg IVPUSH BID@0900,1800 [facility]; Protocol Last Admin: 05/15/25 09:24 Dose: 40 mg Documented By: LEXIE Gabapentin (Gabapentin 100 Mg Capsule) 100 mg PO TID PRN PRN Reason: Pain, Moderate(Pain Scale 4-6) Vancomycin HCl 1,000 mg/ (Sodium Chloride) 270 mls @ 270 mls/hr IV Q12H [facility] Last Infusion: 05/15/25 11:56 Dose: Infused Documented By: LEXIE Lisinopril (Lisinopril 40 Mg Tablet) 40 mg PO DAILY [facility]; Protocol Last Admin: 05/15/25 09:26 Dose: 40 mg Documented By: LEXIE Magnesium Hydroxide (Milk Of Magnesia 30 Ml Oral.Susp) 30 ml PO DAILY PRN PRN Reason: Constipation Melatonin (Melatonin 3 Mg Tablet) 6 mg PO BEDTIME PRN PRN Reason: Insomnia Methadone HCl (Methadone Hcl 20 Mg/2 Ml Oral.Conc) 75 mg PO BID [facility] Last Admin: 05/15/25 12:28 Dose: 75 mg Documented By: LEXIE Co-signed By: ISABELLA Methylprednisolone Sodium Succinate (Methylprednisolone Sod Succ 40 Mg/Ml Vial) 40 mg IVPUSH Q12H [facility] Last Admin: 05/15/25 07:40 Dose: 40 mg Documented By: LEXIE Pharmacy Consult (Consult Rx Vancomycin Dosing) 1 each MISCELLANE DAILY PRN PRN Reason: Consult order Sodium Chloride (0.9 % Sodium Chloride Flush 3 Ml Syringe) 3 ml IVFLUSH QSHIFT [facility] Last Admin: 05/15/25 07:42 Dose: 3 ml Documented By: LEXIE Vitamin D (Cholecalciferol (Vitamin D3) 25 Mcg Tablet) 50 mcg PO DAILY [facility] Last Admin: 05/15/25 09:27 Dose: 50 mcg Documented By: LEXIE Labs 05/15/25 03:43 05/15/25 03:43 Labs: Laboratory Results - last 24 hr 1205/14/25 05/14/25 18:25 18:26 19:16 MCV 103.2 H MCH 33.1 H MCHC 32.0 RDW 13.1 Plt Count 222 D MPV 9.5 Immature Gran % (Auto) 0.4 Neut % (Auto) 70.0 Lymph % (Auto) 14.7 L [place] % (Auto) 8.7 Eos % (Auto) 5.7 H Baso % (Auto) 0.5 Lymph # (Auto) 1.2 [place] # (Auto) 0.7 Eos # (Auto) 0.5 H Baso # (Auto) 0.0 Abs Immat Gran (auto) 0.03 Absolute Neuts (auto) 5.8 Absolute Nucleated RBC 0.000 Nucleated RBC % (auto) 0.0 PT 12.1 INR 1.0 VBG pH 7.47 H VBG pCO2 62 VBG pO2 58 VBG HCO3 46 H VBG O2 Saturation 88.0 VBG Base Excess 18.9 Anion Gap 5 L Estim Creat Clear Calc 97.2 Estimated GFR > 60 Random Glucose 117 H Calcium 9.0 Magnesium 1.9 Total Bilirubin 0.3 AST 18 ALT 13 Alkaline Phosphatase 81 Troponin I High Sens 3.5 D NT-Pro-B Natriuret Pep 465.6 H Total Protein 7.2 Albumin 3.7 Urine Color Yellow Urine Appearance Clear Urine pH 7.5 Ur Specific [place] 1.010 Urine Protein Trace Urine Glucose (UA) Negative Urine Ketones Negative Urine Blood Negative Urine Nitrite Negative Ur Leukocyte Esterase Negative Influenza Type A (PCR) NEGATIVE Influenza Type B (PCR) NEGATIVE RSV RNA Qual (PCR) NEGATIVE SARS-CoV-2 RNA (RT-PCR) NEGATIVE 05/14/25 05/15/25 19:48 03:43 MCV 102.7 H MCH 33.1 H MCHC 32.2 RDW 13.0 Plt Count 223 MPV 9.6 Immature Gran % (Auto) Neut % (Auto) Lymph % (Auto) [place] % (Auto) Eos % (Auto) Baso % (Auto) Lymph # (Auto) [place] # (Auto) Eos # (Auto) Baso # (Auto) Abs Immat Gran (auto) Absolute Neuts (auto) Absolute Nucleated RBC 0.000 Nucleated RBC % (auto) 0.0 PT INR VBG pH VBG pCO2 VBG pO2 VBG HCO3 VBG O2 Saturation VBG Base Excess Anion Gap 11 L Estim Creat Clear Calc 89.9 Estimated GFR > 60 Random Glucose 193 H Calcium 9.1 Magnesium 1.9 Total Bilirubin AST ALT Alkaline Phosphatase Troponin I High Sens 4.9 NT-Pro-B Natriuret Pep Total Protein Albumin Urine Color Urine Appearance Urine pH Ur Specific [place] Urine Protein Urine Glucose (UA) Urine Ketones Urine Blood Urine Nitrite Ur Leukocyte Esterase Influenza Type A (PCR) Influenza Type B (PCR) RSV RNA Qual (PCR) SARS-CoV-2 RNA (RT-PCR) Assessment and Plan (1) Diastolic heart failure: Status: Acute (2) COPD (chronic obstructive pulmonary disease): Status: Acute (3) Respiratory failure with hypoxia: Status: Acute Plan 69F PMH opiate dependence, HIV, chronic hypoxic and hypercapnic respiratory failure due to COPD on 2-3 L home O2, morbid obesity, hyperlipidemia, chronic lymphedema, hypertension, chronic diastolic CHF, LAURENCE presented with lower extremity erythema and edema and shortness of breath Chronic hypoxic and hypercapnic respiratory failure due to COPD, OHS with acute decompensation IV Solu-Medrol, DuoNebs, change to PO prednisone tomorrow Acute on chronic diastolic CHF IV Lasix, 3 doses IV Diamox for metabolic alkalosis Check echo Monitor electrolytes Acute on chronic stasis dermatitis due to chronic lymphedema with superimposed cellulitis IV diuresis, continue local care, IV vancomycin--to PO doxy at discharge Opiate dependence Methadone Morbid obesity Weight loss advised LAURENCE CPAP at night HIV Biktarvy Hypertension Lisinopril DVT prophylaxis with Lovenox Full code Given signs of fluid overload and requiring IV diuresis as well as significant shortness breath requiring IV steroids and failure of outpatient antibiotics for cellulitis expected require at least 2 midnights inpatient Quality Stroke Does the patient have a stroke diagnosis?: No VTE Prior VTE?: No VTE Risk Level:: Medical - moderate - high VTE Device Contraindication: Treatment Not Indicated VTE Drug Contraindication: N/A - Med Ordered
--- NOTE | 2025-05-15 14:50 | HO.NURTONUR ---
PER RN: Admit: Hypoxia, resp failure, COPD, CHF Plan: IV steroids, diuresis, echo O2: 2L NC IV: 20G in right forearm Alert and oriented, stays in bed Pure[place] for urine Pills whole Reg diet, eats independently PER MD: 69F PMH opiate dependence, HIV, chronic hypoxic and hypercapnic respiratory failure due to COPD on 2-3 L home O2, morbid obesity, hyperlipidemia, chronic lymphedema, hypertension, chronic diastolic CHF, LAURENCE presented with lower extremity erythema and edema and shortness of breath. Patient reports for about 2 weeks prior to presentation has been having increasing lower extremity swelling and erythema. She follows regularly with wound care for chronic lymphedema and was given doxycycline for cellulitis with no improvement. Has also noticed in the seen by the time worsening of her shortness of breath, hypoxia requiring 4 L, orthopnea, wheezing. In ED VBG with chronic hypercapnia and metabolic alkalosis, BNP elevated 465, venous Doppler negative, chest x-ray with some interstitial prominence
[2025-05-16 03:32] VITALS: BP 153/74; PULSE 62; RESP 16; TEMP 36.3; O2SAT 90
--- NOTE | 2025-05-16 07:00 | CA_ITS ---
Transthoracic Echocardiogram Patient (Last, First, Middle): Elida Barry, Gender: F Date of : 1955 Age: 69 Procedure Date: 05/16/2025 Procedure Type: Transthoracic Echocardiogram Location: [facility] [place] Height: 157.48 cm Weight: 104.33 kg BSA: 2.03 m2 Heart Rate: 65 bpm BP: 163 / 96 mmHg Corporate Coordinator: SB Referring MD: Abe Wells MD Hearth Feeder: Rick Tran MD Symptoms: chf Study Quality: Fair ECG Rhythm: Sinus Conclusions: - 1. Technically difficult study despite use of contrast agent 2. Normal LV ejection fraction 55-60% with moderate asymmetric septal hypertrophy with grade 1 diastolic dysfunction 3. Limited evaluation of cardiac valves 4. Limited visualization of ascending aorta in 1 week appears to be at least moderately dilated. Findings Procedure Information Contrast agent, definity, is being given per protocol without apparent complications. The quality of the study was technically difficult. The study quality is limited by patients body habitus. Left Ventricle Normal left ventricular size, thickness, and systolic function. The visually estimated ejection fraction is between 55-60%. Spectral Doppler is indicative of an impaired relaxation filling pattern. E/E prime ratio is <8, consistent with normal filling pressures. There is moderate septal asymmetric hypertrophy. Right Ventricle The right ventricle was not well visualized. Atria The left atrium was not well visualized. The right atrium was not well visualized. Aortic Valve The aortic valve was not well visualized. There is no aortic valve stenosis. There is no aortic valve regurgitation. Mitral Valve The mitral valve was not well visualized. There is no mitral valve regurgitation. There is no mitral valve stenosis. Pulmonic Valve The pulmonic valve was not well visualized. Tricuspid Valve The tricuspid valve was not well visualized. Tricuspid regurgitation envelope is inadequate for calculation of right ventricular systolic pressure. Great Vessels The aorta was not well visualized. The pulmonary artery was not well visualized. There is moderate dilatation of the ascending aorta measuring 4.50 cm. Venous The inferior vena cava was not well visualized. Pericardium/Pleural The pericardium was not well visualized. Measurements 2D Linear Measurements LVIDd: 5.32 3.9-5.3/4.2-5.9 cm LVIDd Index: 2.62 2.4-3.2/2.2-3.1 cm/m2 LVIDs: 3.75 2.0-3.6 cm LVOT Diam: 2.20 3.0+(-)1.3 cm Mitral Valve MV Pk E: 0.61 MV PK A: 1.13 MV Decel Time: 291.00 E/A: 0.50 E'Lateral: 7.93 E'Medial: 5.11 E/E' Med: 11.90 E/E' Lat: 7.70 PHT: 85.00 MVA PHT: 2.59 Decel [place]: 2.09 Aortic Valve AoV Pk [place]: 1.66 AoV Mn [place]: 1.07 AoV VTI: 0.26 AoV Pk Grad: 11.00 Aov Mn Grad: 5.00 ANSHUL Cont.VTI: 3.38 LVOT LVOT Pk [place]: 1.28 LVOT Mn [place]: 0.85 LVOT VTI: 0.23 LVOT Pk Grad: 7.00 LVOT Mn Grad: 4.00 LVOT Diam: 2.20 LVOT Area: 3.80 Diastolic Function MV Pk E: 0.61 MV Pk A: 1.13 E/A: 0.50 E'Medial: 5.11 E/E' Med: 11.90 E' Laterial: 7.93 E/E' Lat: 7.70 Right Ventricle TAPSE (mm): 27.00 TVS' Rashaun: 18.50 Tricuspid Valve RA Press: 3.00 Great Vessels Aorta Sinus of Valsalva: 3.10 2.0-3.5 cm Ao Asc: 4.50 2.1-3.4 cm Ao Arch: 4.20 Pulmonary Valve PV Pk Rashaun: 1.11 Peak PV Grad: 5.00 Updated in Other Vendor System with Status of Final Rick Tran MD electronically signed on 05/16/2025 1:08:10 PM with status of Final
[2025-05-16 07:01] LABS: Creatinine Clr Calc Pharmacy 81.7; Estimated Glomerular Filt Rate > 60
[2025-05-16] MEDS: Umeclidinium/Vilanterol 62.5/25 BLST.W.DEV 1 PUFF INHALE (07:58)
[2025-05-16 08:00] VITALS: BP 161/78; PULSE 62; RESP 16; RESP 20; TEMP 36.7; O2SAT 94
[2025-05-16] MEDS: 0.9 % Sodium Chloride Flush 3 ML SYRINGE IVFLUSH ×3 (08:53→19:45)
[2025-05-16] MEDS: Flu Vacc TS2025-26(6mo up)/PF 0.5 ML SYRINGE IM (08:55)
[2025-05-16] MEDS: methADONE HCl 20 MG/2 ML ORAL.CONC 75 MG PO ×2 (08:56→19:39)
[2025-05-16] MEDS: Bictegrav/Emtricit/Tenofov Ala TABLET 1 TAB PO (08:58)
[2025-05-16] MEDS: Furosemide 40 MG/4 ML VIAL IVPUSH ×2 (08:58→17:42)
[2025-05-16 11:58] LABS: MANUAL DIFF FLAG NO
[2025-05-16 12:00] VITALS: BP 143/71; PULSE 57; RESP 20; TEMP 36.4; O2SAT 93
[2025-05-16 12:01] LABS: Hematocrit 40.1 % (37.0-47.0); Hemoglobin 12.7 g/dl (12.0-16.0); Imm Gran Abs Auto 0.03 X10*3/uL (0.00-0.03); Imm Gran Pct Auto 0.3 % (0.0-0.4); Lymphocytes Absolute Auto 0.8 X10*3/uL (1.2-4.9); Mean Corpuscular HGB Conc 31.7 g/dl (31.0-35.0); Mean Corpuscular Hemoglobin 33.2 pg (27.0-33.0); Mean Corpuscular Volume 105.0 fL (80.0-98.0); NRBC Abs Auto 0.000 X10*3/uL (0.0-0.012); NRBC Pct Auto 0.0 /100WBC (0.0-0.2); Platelet Count 234 X10*3/uL (160-400); Red Blood Count 3.82 X10*6/uL (4.20-5.50); White Blood Count 9.9 X10*3/uL (4.8-10.8)
[2025-05-16 12:12] LABS: Anion Gap 11 (12-20); Blood Urea Nitrogen 27 mg/dL (9-16); Calcium 9.0 mg/dL (8.4-10.2); Carbon Dioxide 31 mmol/L (22-29); Chloride 101 mmol/L (96-108); Magnesium 2.1 mg/dL (1.6-2.6); Potassium 3.9 mmol/L (3.3-5.1); Sodium 139 mmol/L (135-145)
[2025-05-16 12:19] LABS: NT Pro B Type Natriuretic Pept 246.8 pg/mL (<300)
--- NOTE | 2025-05-16 13:44 | P.PNIM_ITS ---
Subjective Subjective Date of Service: 05/16/25 Interval History: f/u on copd exacerbation still sob but better redness is better Review of Systems ROS is otherwise negative unless mentioned in HPI. Physical Exam 2 Exam: Exam: General: AO X 3, dyspneic Resp: Diminished in wheezing bilateral, accessory muscles used CVS: S1,S2,RRR GI: soft, non tender, non distended Neuro: motor grossly intact, alert skin: see pic in H and P Psych: appropriate affect, appropriate insight Two to 3+ edema bilaterally with erythema Vital Signs: Vital Signs: Last Vital Signs Temp 97.6 F 05/16/25 12:00 Pulse 57 05/16/25 12:00 Resp 20 05/16/25 12:00 BP 143/71 H 05/16/25 12:00 Pulse Ox 93 05/16/25 12:00 O2 Del Method Nasal Cannula 05/16/25 12:00 O2 Flow Rate 2.5 05/16/25 12:00 Oxygen Flow Rate 3 05/14/25 17:13 BMI result Body Mass Index 40.4 Objective Data Active Medications Acetaminophen (Acetaminophen 325 Mg Tablet) 650 mg PO Q6H PRN PRN Reason: Pain, Mild 1-3,fever,headache Last Admin: 05/16/25 12:33 Dose: 650 mg Documented By: DANIELLE Albuterol/Ipratropium (Albuterol/Iprat 2.5/0.5mg 3 Ml Ampul.Neb) 3 ml INHALE RQ4H WHILE AWAKE PRN PRN Reason: sob Atorvastatin Calcium (Atorvastatin Calcium 40 Mg Tablet) 40 mg PO BEDTIME [facility] Last Admin: 05/15/25 23:06 Dose: 40 mg Documented By: KEITH Bictegravir/Emtricitabine/Tenofovir (Bictegrav/Emtricit/Tenofov Ala Tablet) 1 tab PO DAILY [facility] Last Admin: 05/16/25 08:58 Dose: 1 tab Documented By: IRAIS Calcium Carbonate (Calcium Carbonate 750 Mg Tab.Chew) 750 mg PO Q4H PRN PRN Reason: Heartburn Enoxaparin Sodium (Enoxaparin Sodium 40 Mg/0.4 Ml Syringe) 40 mg SUBCUT Q24H [facility] Last Admin: 05/16/25 08:54 Dose: 40 mg Documented By: IRAIS Furosemide (Furosemide 40 Mg/4 Ml Vial) 40 mg IVPUSH BID@0900,1800 [facility]; Protocol Last Admin: 05/16/25 08:58 Dose: 40 mg Documented By: IRAIS Gabapentin (Gabapentin 100 Mg Capsule) 100 mg PO TID PRN PRN Reason: Pain, Moderate(Pain Scale 4-6) Last Admin: 05/15/25 15:32 Dose: 100 mg Documented By: JEANAKSantiago Vancomycin HCl 750 mg/ Sodium (Chloride) 265 mls @ 265 mls/hr IV Q12H [facility] Last Admin: 05/16/25 12:32 Dose: 265 mls/hr Documented By: DANIELLE Lisinopril (Lisinopril 40 Mg Tablet) 40 mg PO DAILY [facility]; Protocol Last Admin: 05/16/25 08:57 Dose: 40 mg Documented By: IRAIS Magnesium Hydroxide (Milk Of Magnesia 30 Ml Oral.Susp) 30 ml PO DAILY PRN PRN Reason: Constipation Melatonin (Melatonin 3 Mg Tablet) 6 mg PO BEDTIME PRN PRN Reason: Insomnia Methadone HCl (Methadone Hcl 20 Mg/2 Ml Oral.Conc) 75 mg PO BID [facility] Last Admin: 05/16/25 08:56 Dose: 75 mg Documented By: IRAIS Co-signed By: DANIELLE Methylprednisolone Sodium Succinate (Methylprednisolone Sod Succ 40 Mg/Ml Vial) 40 mg IVPUSH Q12H [facility] Last Admin: 05/16/25 06:31 Dose: 40 mg Documented By: KEITH Pharmacy Consult (Consult Rx Vancomycin Dosing) 1 each MISCELLANE DAILY PRN PRN Reason: Consult order Sodium Chloride (0.9 % Sodium Chloride Flush 3 Ml Syringe) 3 ml IVFLUSH QSHIFT [facility] Last Admin: 05/16/25 08:53 Dose: 3 ml Documented By: IRAIS Vitamin D (Cholecalciferol (Vitamin D3) 25 Mcg Tablet) 50 mcg PO DAILY [facility] Last Admin: 05/16/25 08:57 Dose: 50 mcg Documented By: IRAIS Labs 05/16/25 06:30 05/16/25 06:30 Labs: Laboratory Results - last 24 hr 05/15/25 05/16/25 21:13 06:30 MCV 105.0 H MCH 33.2 H MCHC 31.7 RDW 13.3 Plt Count 234 MPV 10.5 Immature Gran % (Auto) 0.3 Neut % (Auto) 87.8 H Lymph % (Auto) 8.0 L [place] % (Auto) 3.6 Eos % (Auto) 0.1 Baso % (Auto) 0.2 Lymph # (Auto) 0.8 L [place] # (Auto) 0.4 Eos # (Auto) 0.0 Baso # (Auto) 0.0 Abs Immat Gran (auto) 0.03 Absolute Neuts (auto) 8.7 H Absolute Nucleated RBC 0.000 Nucleated RBC % (auto) 0.0 Hold Purple Top SEE NOTE Anion Gap 11 L Estim Creat Clear Calc 81.7 Estimated GFR > 60 Random Glucose 126 H Calcium 9.0 Magnesium 2.1 NT-Pro-B Natriuret Pep 246.8 Random Vancomycin 13.5 L Assessment and Plan (1) Diastolic heart failure: Status: Acute (2) COPD (chronic obstructive pulmonary disease): Status: Acute (3) Respiratory failure with hypoxia: Status: Acute Plan 69F PMH opiate dependence, HIV, chronic hypoxic and hypercapnic respiratory failure due to COPD on 2-3 L home O2, morbid obesity, hyperlipidemia, chronic lymphedema, hypertension, chronic diastolic CHF, LAURENCE presented with lower extremity erythema and edema and shortness of breath Chronic hypoxic and hypercapnic respiratory failure due to COPD, OHS with acute decompensation IV Solu-Medrol, DuoNebs, change to PO prednisone tomorrow Acute on chronic diastolic CHF IV Lasix, 3 doses IV Diamox for metabolic alkalosis, change to PO Lasix tomorrow Check echo Monitor electrolytes Acute on chronic stasis dermatitis due to chronic lymphedema with superimposed cellulitis IV diuresis, continue local care, IV vancomycin--to PO doxy tomorrow Opiate dependence Methadone Morbid obesity Weight loss advised LAURENCE CPAP at night HIV Biktarvy Hypertension Lisinopril DVT prophylaxis with Lovenox Full code Given signs of fluid overload and requiring IV diuresis as well as significant shortness breath requiring IV steroids and failure of outpatient antibiotics for cellulitis expected require at least 2 midnights inpatient Quality Stroke Does the patient have a stroke diagnosis?: No VTE Prior VTE?: No VTE Risk Level:: Medical - moderate - high VTE Device Contraindication: Treatment Not Indicated VTE Drug Contraindication: N/A - Med Ordered
[2025-05-16 16:00] VITALS: BP 134/77; PULSE 87; RESP 14; TEMP 36.6; O2SAT 93
[2025-05-16 20:00] VITALS: BP 160/88; PULSE 88; RESP 14; TEMP 36.8; O2SAT 92
--- NOTE | 2025-05-16 21:47 | HE.PHANOTE ---
Re: Vanco Renal is flutuating. Trough returned at 16.5. Reduced dosing to 1250mg q24h with predicted AUC 402, predicted trough 10.5. Next trough 05/18 @ 2100.
[2025-05-17] VITALS: BP 122/60; PULSE 57; RESP 18; TEMP 36.2; O2SAT 91
[2025-05-17 03:34] VITALS: BP 147/83; PULSE 55; RESP 18; TEMP 36.4; O2SAT 94
[2025-05-17 07:26] LABS: Creatinine Clr Calc Pharmacy 75.4; Estimated Glomerular Filt Rate > 60
[2025-05-17 07:39] LABS: NT Pro B Type Natriuretic Pept 128.5 pg/mL (<300)
[2025-05-17 08:00] VITALS: BP 153/81; PULSE 57; RESP 20; TEMP 36.6; O2SAT 93
[2025-05-17] MEDS: Umeclidinium/Vilanterol 62.5/25 BLST.W.DEV 1 PUFF INHALE (08:13)
[2025-05-17 08:16] VITALS: PULSE 78; RESP 18; O2SAT 95
[2025-05-17] MEDS: Bictegrav/Emtricit/Tenofov Ala TABLET 1 TAB PO (08:52)
[2025-05-17] MEDS: methADONE HCl 20 MG/2 ML ORAL.CONC 75 MG PO (08:53)
[2025-05-17 12:00] VITALS: BP 130/81; PULSE 72; RESP 20; TEMP 36.5
--- NOTE | 2025-05-17 12:26 | P.DS_ITS ---
DS: Providers Provider Date of admission: 05/14/25 21:46 Date of discharge: 05/17/25 Primary care physician: Garret Interiano, [facility] DS: Diagnosis Discharge Diagnosis (1) Diastolic heart failure: Status: Acute (2) COPD (chronic obstructive pulmonary disease): Status: Acute (3) Respiratory failure with hypoxia: Status: Acute DS: Summary Hospital Course Hospital Course: Chief Complaint: lower extremity erythema, sob 69F PMH opiate dependence, HIV, chronic hypoxic and hypercapnic respiratory failure due to COPD on 2-3 L home O2, morbid obesity, hyperlipidemia, chronic lymphedema, hypertension, chronic diastolic CHF, LAURENCE presented with lower extremity erythema and edema and shortness of breath. Patient reports for about 2 weeks prior to presentation has been having increasing lower extremity swelling and erythema. She follows regularly with wound care for chronic lymphedema and was given doxycycline for cellulitis with no improvement. Has also noticed in the seen by the time worsening of her shortness of breath, hypoxia requiring 4 L, orthopnea, wheezing. In ED VBG with chronic hypercapnia and metabolic alkalosis, BNP elevated 465, venous Doppler negative, chest x-ray with some interstitial prominence Hospital course: 69F PMH opiate dependence, HIV, chronic hypoxic and hypercapnic respiratory failure due to COPD on 2-3 L home O2, morbid obesity, hyperlipidemia, chronic lymphedema, hypertension, chronic diastolic CHF, LAURENCE presented with lower extremity erythema and edema and shortness of breath. She was admitted for acute hypoxic respiratory failure due to copd, heart failure and also had cellulitis of the legs Chronic hypoxic and hypercapnic respiratory failure due to COPD, OHS with acute decompensation, treted with IV steroid and bronchodiltors by Neb. She is feeling better, will change to PO prednisone for 5 days and to continue usual inhalers Acute on chronic diastolic CHF Treated with IV Lasix, 3 doses IV Diamox for metabolic alkalosis, clinically better, negative 3940, echo EF 55 to 60, changing to PO Lasix at discharge Acute on chronic stasis dermatitis due to chronic lymphedema with superimposed cellulitis Treat with diuretics as above, vanco was given for cellulitis and changing to PO for 4 more days for 7 days of Abx Opiate dependence Methadone Morbid obesity Weight loss advised LAURENCE CPAP at night HIV Biktarvy Hypertension Lisinopril Time Attestation Discharge Coordination Time (in mins): 40 Quality: Safe Use of Opioids Does Pt have an Active Cancer Diagnosis on the Problem List?: No Quality: Stroke Does the patient have a stroke diagnosis?: No Physical Exam Vital Signs: Vital Signs: Last Vital Signs Temp 97.7 F 05/17/25 12:00 Pulse 72 05/17/25 12:00 Resp 20 05/17/25 12:00 BP 130/81 05/17/25 12:00 Pulse Ox 93 05/17/25 08:00 O2 Del Method Room Air 05/17/25 12:00 O2 Flow Rate 3 05/17/25 08:00 Oxygen Flow Rate 3 05/14/25 17:13 BMI result Body Mass Index 40.4 DS: Data Data Completed and Pending Labs on day of discharge: Laboratory Results - last 24 hr 05/16/25 05/17/25 21:04 06:23 Creatinine 0.78 Estim Creat Clear Calc 75.4 Estimated GFR > 60 NT-Pro-B Natriuret Pep 128.5 Random Vancomycin 16.5 Discharge Plan Discharge Anticipated Discharge Date/Time: 05/17/25 12:27 Patient Disposition: Home Health Service Discharge Diagnosis: COPD exacerbation and heart failure Referrals: Joao EDMONDSON [Other] - 1 Week Garret Interiano FNP- [Primary Care Provider, Internal Medicine] - 1 Week Discharge Medications: New doxycycline monohydrate 100 mg Capsule 100 mg PO BID Qty: 9 0RF prednisone 20 mg tablet 40 mg PO DAILY Qty: 6 0RF furosemide 40 mg Tablet 40 mg PO DAILY Qty: 90 0RF Protocol: Hold for SBP< HOLD for SBP < : 90 Continued (DME) Scooter-motorized 0 .Route .MEDSUPPLY Qty: 1 0RF Rx Instructions: As directed gabapentin 100 mg capsule 100 mg PO TID PRN (Reason: for pain) 30 Days Qty: 90 6RF (DME) wheelchair- with foot rests Large See Rx Instructions .Route .MEDSUPPLY Qty: 1 0RF Rx Instructions: As directed (DME) blood pressure kit-extra large Kit See Rx Instructions .Route Qty: 1 0RF Rx Instructions: As directed lisinopril 40 mg tablet 40 mg PO DAILY Qty: 90 1RF cholecalciferol (vitamin D3) 50 mcg (2,000 unit) capsule 50 mcg PO DAILY Qty: 90 1RF (DME) Adult pull up diapers 2 XL See Rx Instructions .Route .MEDSUPPLY Qty: 100 11RF Rx Instructions: Uses 3 per day (DME) Disposable bed pads See Rx Instructions .Route .MEDSUPPLY Qty: 60 11RF Rx Instructions: Uses 2 per day (DME) purewick catheter system and supplies See Rx Instructions .Route .MEDSUPPLY Qty: 1 0RF Rx Instructions: For use at bedtime every day ibuprofen 800 mg tablet 800 mg PO TID PRN (Reason: pain) 30 Days Qty: 90 0RF Rx Instructions: cannot take concurrently with meloxicam.. Please use med sparingly doxycycline hyclate 100 mg tablet 100 mg PO BID Qty: 20 0RF atorvastatin 40 mg tablet 40 mg PO BEDTIME albuterol sulfate 2.5 mg /3 mL (0.083 %) solution for nebulization 2.5 mg inhalation Q4H PRN (Reason: for wheezing) albuterol sulfate 90 mcg/actuation HFA aerosol inhaler 2 puff inhalation Q4H PRN (Reason: shortness of breath or wheezing) umeclidinium-vilanterol [Anoro Ellipta] 62.5-25 mcg/actuation blister with device 1 inh PO DAILY (DME) Oxygen Home Use Kit See Rx Instructions .Route Rx Instructions: 2lpm via NC at night and PRN sob methadone 10 mg/mL concentrate 75 mg PO BID Biktarvy 50-200-25 mg tablet 1 tab PO DAILY 30 Days Qty: 30 5RF fluticasone propionate [Flonase Allergy Relief] 50 mcg/actuation spray,suspension 2 spray intranasal DAILY PRN (Reason: allergic Rhinitis) Rx Instructions: administer into each nostril Discharge Orders: Discharge Order (Routine); Ordered 05/17/25 Ordered By: Hussain Moraes Diet: Advance to usual diet Activity on Discharge: As tolerated Stand Alone Forms: Patient Portal Discharge page Print Language: Slovak Care Plan Goals: recovery from copd exacerbation and cellulitis of leg Health Concerns: cellulitis of the legs copd exacerbation Plan of Treatment: take doxycycline for cellulitis take prednisone and inhalers for copd exacerbation Assessment: see above Discharge Date/Time: 05/17/25 15:51
--- NOTE | 2025-05-17 12:55 | P.F2F_ITS ---
Service Date Service Date: 05/17/25 Encounter Date of encounter: 05/17/25 Reasons for Services Signs and symptoms assessed: heart failure, copd exacerbation and cellulitis of the legs Reason for residential: medication management, medication treatment and teach disease management Homebound: Leaving the home is medically contraindicated at this time without the asist of a device and/or another person due th the listed conditions above and below. Reason homebound: shortness of breath with minimal effort and weakness related to hospital stay Homebound supporting statement: homebound due to weakness from hospitalization, sob with minimal effort from heart failure, copd and therefore needs the assistance of another person Certification: Based on the above findings, I certify that this patient is confined to the home and needs intermittent residential care, physical therapy and/or speech therapy, or continues to need occupational therapy. The patient is under my care, and I have initiated the establishment of the plan of care. The patient will be followed by a physician who will periodically review the plan of care. Time Spent With Patient Time: Total time managing care of this patient today ____ minutes.
[2025-05-17 13:17] LABS: Anion Gap 15 (12-20); Carbon Dioxide 31 mmol/L (22-29); Chloride 98 mmol/L (96-108); Potassium 3.8 mmol/L (3.3-5.1); Sodium 140 mmol/L (135-145)
--- NOTE | 2025-05-17 14:40 | MHC.CM.PN ---
PATIENT IS MEDICALLY CLEARED FOR DISCHARGE HOME WITH [facility], SHE WILL ARRANGE HER OWN TRANSPORT HOME TODAY.
== END 2025-05-17 15:51 | disposition home health service (06) | DRG 190 ==
LOC: HO.ED 21:31 → HO.EDOVER 21:51 → HO.IMC 05-15 17:10
PROVIDERS: Nurse Practitioner; Admitting Provider Internal Medicine; Emergency Provider Emergency Medicine; PCP Nurse Practitioner Family; Visit Provider Internal Medicine
DX: J44.1 Chronic obstructive pulmonary disease with (acute) exacerbation (principal); I50.33 Acute on chronic diastolic (congestive) heart failure; J96.21 Acute and chronic respiratory failure with hypoxia; J96.22 Acute and chronic respiratory failure with hypercapnia; F11.20 Opioid dependence, uncomplicated; E66.2 Morbid (severe) obesity with alveolar hypoventilation; Z68.41 Body mass index [BMI] 40.0-44.9, adult; L03.115 Cellulitis of right lower limb; I11.0 Hypertensive heart disease with heart failure; I89.0 Lymphedema, not elsewhere classified; I87.2 Venous insufficiency (chronic) (peripheral); Z21 Asymptomatic human immunodeficiency virus [HIV] infection status; Z71.3 Dietary counseling and surveillance; Z20.822 Contact with and (suspected) exposure to COVID-19; Z23 Encounter for immunization; Z99.81 Dependence on supplemental oxygen; Z79.899 Other long term (current) drug therapy
CPT/HCPCS: 36415; 71045; 80048; 80051; 80053; 80202; 81003; 82565; 82803; 83735; 83880; 84484; 85025; 85027; 85610; 87637; 90656; 93005; 93306; 93970; 94640; 99285; J0696; J1120; J1650; J1938; J2919; J3373; J3374; Q9957

== ENCOUNTER → 2025-05-14 17:16 | Outpatient (BNV) | payer MEDICARE, SELFPAY | PROVIDERS: Admitting Provider Internal Medicine; Emergency Provider Emergency Medicine; PCP Nurse Practitioner Family; Visit Provider Internal Medicine Cardiovascular Disease | DX: I25.2 Old myocardial infarction (principal) | CPT/HCPCS: 93010 ==

== ENCOUNTER → 2025-05-14 17:17 | Outpatient (BNV) | payer MEDICARE, SELFPAY | PROVIDERS: PCP Nurse Practitioner Family; Visit Provider Student in an Organized Health Care Education/Training Program | DX: R22.43 Localized swelling, mass and lump, lower limb, bilateral (principal); M79.661 Pain in right lower leg; M79.662 Pain in left lower leg; R06.02 Shortness of breath | CPT/HCPCS: 71045 ==

== ENCOUNTER 2025-05-14 21:46 | Outpatient (BNV) | payer MEDICARE, SELFPAY | END 2025-05-16 07:00 | PROVIDERS: Admitting Provider Internal Medicine; Emergency Provider Emergency Medicine; PCP Nurse Practitioner Family; Visit Provider Internal Medicine Cardiovascular Disease | DX: I42.2 Other hypertrophic cardiomyopathy (principal); I51.7 Cardiomegaly | CPT/HCPCS: 93306 ==

== ENCOUNTER → 2025-05-14 21:46 | Outpatient (BNV) | payer MEDICARE, SELFPAY | PROVIDERS: Admitting Provider Internal Medicine; Emergency Provider Emergency Medicine; PCP Nurse Practitioner Family; Visit Provider Internal Medicine | DX: I50.30 Unspecified diastolic (congestive) heart failure (principal); J44.9 Chronic obstructive pulmonary disease, unspecified; J96.91 Respiratory failure, unspecified with hypoxia | CPT/HCPCS: 99232 ==

== ENCOUNTER 2025-05-23 | Outpatient (REF) | payer MEDICARE, SELFPAY | END 2025-05-23 00:01 | disposition home or self-care (01) | LOC: CF | PROVIDERS: PCP Nurse Practitioner Family; Visit Provider Physician Assistant | DX: E04.2 Nontoxic multinodular goiter (principal); F11.20 Opioid dependence, uncomplicated; J44.9 Chronic obstructive pulmonary disease, unspecified; E66.01 Morbid (severe) obesity due to excess calories; E78.5 Hyperlipidemia, unspecified; I89.0 Lymphedema, not elsewhere classified; I10 Essential (primary) hypertension; I50.32 Chronic diastolic (congestive) heart failure; G47.33 Obstructive sleep apnea (adult) (pediatric); N39.44 Nocturnal enuresis; J18.9 Pneumonia, unspecified organism; Z51.89 Encounter for other specified aftercare; Z99.81 Dependence on supplemental oxygen; Z68.41 Body mass index [BMI] 40.0-44.9, adult | CPT/HCPCS: 99496 ==

== ENCOUNTER 2025-05-23 10:47 | Outpatient (AMB) | payer MEDICARE, SELFPAY ==
--- OUTSIDE RECORDS SUMMARY | 2024-03-13 14:53 | XMS_ITS | Encounter Summary ---
Author Organization [facility] [place] [address] Care Team Providers Care Electrical Equipment Tester Name Role Phone Unavailable Primary Care Provider Unavailabl e Encounter Details Date Type Department Care Team (Late st Contact Info) Description 03/13/2024 3:53 PM EDT Hospital Encounter [facility]NC[facility] CONVERSION ONLY Garret Interiano NP [address] [place], [place] Social History Tobacco Use Types Packs/Day [...]
--- OUTSIDE RECORDS SUMMARY | 2025-03-06 09:00 | XMS_ITS ---
Author Organization [facility] Address [address] [place] [address] Care Team Providers Care Machine Stapler Name Role Phone Garret Cobb Primary Care Provider Unav ailKatya Fan Unavailable [phone] Preston Encounters Encounter Location Date Provider Diagnosis [address] [address] 03/06/2025 Katya So Plan Of Treatment Next Appt Details Provider Name:Katya frank, 07/15/2025 02:45:00 PM, [address] [place], [address], Progress Notes * Dalia BARRYOB:1955 (70 yo F)Acc No.[id number]:03/06/2025 Progress Notes Patient: Elida CLINE Provider: Fang So DPM :1955 A ge:69 Y S ex:Female Date:03/06/2025 Address:[address] [place] [id number] Pcp:BENNY Hahn Subjective: * Chief Complaints: * [address] Preston[address] * Medical History: Objective: * Vitals: Assessment: Plan: * Treatment: * Images: * The named appointment provid er may or may not be the originator of this progress note, and it is not deemed complete until electronically signed by the appointment provider. Sign off status: Pending * Provider: Fang So DPM Date: 1 Generated for Rigo banerjee/Rosalino/Merlene on: 1 07/24/2024 09:01 AM EST
--- NOTE | 2025-05-23 10:49 | A.OFFPC_ITS ---
Vital Signs 05/23/25 10:50 Height 5 ft 2 in Weight 220 lb BMI 40.2 BP 120/76 Blood Pressure Location Lt brachial Position Sitting Pulse 73 Pulse Source Pulse Oximeter Temp 98.4 F Temp Source Oral Pulse Oximetry (%) 96 Oxygen Delivery Method Room Air Intake Visit Reasons: TCM Wildlife Technician Required: No Accompanied by: Self / Same As Patient Allergies Horse/Equine Containing Products (Horse/Equine Product Derivatives) Allergy (Intermediate, Verified 05/23/25 10:50) SWELLING Cephalosporins Allergy (Unknown, Verified 05/23/25 10:50) Unknown Iodinated Contrast Media (IV CONTRAST) Allergy (Unknown, Verified 05/23/25 10:50) HIVES Tobacco use date assessed: 01/29/25 Fall risk assessment: No Falls in past year Last assessed Fall Risk: 05/23/25 Dental Screening Dental Screen Date: 01/29/25 HPI TCM TCM Information Date of Discharge 05/17/25 Discharged From [facility] [place] Interactive Contact Date (Reference documentation from this date) 05/20/25 HPI Comments History of Present Illness Details History - The patient is a 70-year-old female pr esenting for a hospital discharge follow-up. - Her past medical history includes opia te dependence, HIV, chronic hypoxic and hypercapnic respiratory failure secondary to COPD requiring 2-3L of home O2, morbid obesity, hyperlipidemia, chronic lymphedema, hypertension, chronic diastolic congestive heart failure, and obstructive sleep apnea. - She was recently hospitalized at [facility] from May 14 for an admission related to a two-week history of increased lower extremity swelling and redness, as well as worsening respiratory symptoms including increased shortness of breath, hypoxia requiring an increase to 4 liters of oxygen, and wheezing. - Prior to admission, she was treated doxycycline for suspected cellulitis without improvement. - Workup in the emergency department rev ealed chronic hypercapnia and metabolic alkalosis on VBG, a lower extremity Doppler negative for DVT, and a chest x-ray showing some interstitial prominence. - She was admitted for acute hypoxic res piratory failure secondary to a COPD and CHF exacerbation, along with cellulitis of the lower extremities. - Her hospital treatment involved IV palak roids, nebulized bronchodilators, and IV Diamox; an echocardiogram showed an ejection fraction of 55-60%. - She was discharged on May 17 instructions to complete a five-day course of oral prednisone, Doxycycline and continue home meds, CPAP, and methadone. - Since her discharge, the patient's ursula athing is slightly improved, but she has developed a new productive cough with sputum that is difficult to expectorate. She denies fevers, sinus pain or ear pain. Has been taking the Doxycycline but no other OTC meds for her symptoms. Feels short of breath and wheezing. - She reports that her lower extremity s welling has decreased, but the redness persists along with new mild pain, although she denies any warmth in the area. - She has completed her prescribed cours es of doxycycline and prednisone, completed Doxy today and pred last week. - Uses an incentive spirometer that is 5 years old. - She also has a history of urinary inco ntinence with frequency and urgency that disrupts her sleep and she often doesn't make it to the toilet in time. She often wets herself and uses a pullup but is seeking a PureWick system as it allows her to sleep and stay dry. -She is also asking if Weygovy is contra indicated with her medications. Can't exercise. Review of Systems - Constitutional: Reports feeling sick s dory her hospital discharge. Denies fever. - Respiratory: Reports her breathing is a little better but has a new productive cough. - Integumentary: Reports persistent redn ess of the lower extremities. - Musculoskeletal/Extremities: Reports d ecreased swelling but new mild pain in the lower extremities. Denies warmth. - Genitourinary: Reports urinary inconti nence with urgency and frequency, which disrupts her sleep. All systems reviewed and are unremarkable except as noted in HPI Physical Exam General: Cooperative, healthy appearing, comfortable and no acute distress Orientation/consciousness: Patient oriented x3 Limitations: uses wheelchair Head: Normal to inspection Ears: Hearing grossly normal bilaterally, external ears normal Nose: Normal external nose present, Normal nares present and No nasal discharge present Face and sinus: Normal facial exam Eyes: Appearance normal, both eyes and all related structures Neck: Normal visual inspection, full ROM Respiratory: Exp wheezing throughout with slight rhonchi in bilateral lower lobes. Normal respiratory effort, able to speak in complete sentences, actively coughing, no respiratory distress, not tachypneic, no tripod positioning and no use of accessory muscles Cardiovascular: Regular rate and rhythm. Normal S1 and S2 Skin: No rashes or lesions noted Neuro: Patient oriented x3 Extremities: Trace edema bilaterally, blanching erythema, no warmth or ecchymosis noted. [facility] Medical History (Updated 05/23/25 @ 11:39 by Bell Jaquez PA-C) CAP (community acquired pneumonia) Incontinence of urine Multinodular goiter Venous insufficiency of both lower extremities Oxygen dependent Respiratory failure with hypoxia and hypercapnia Eosinophilia Bronchitis Other instability, right shoulder Retinopathy Methadone use Morbid obesity HIV (human immunodeficiency virus infection) Rhinitis Hypoventilation associated with obesity COPD (chronic obstructive pulmonary disease) HIV (human immunodeficiency virus infection) Smoker Morbid obesity Aortic dilatation Hypoventilation syndrome LAURENCE (obstructive sleep apnea) Respiratory failure with hypoxia Lower extremity edema Diastolic heart failure Hyperlipidemia Surgical History History of colonoscopy History of tonsillectomy Family History Father No problems noted. Mother No problems noted. Brother Asthma Maternal Grandfather No problems noted. Maternal Grandmother No problems noted. Paternal Grandfather No problems noted. Paternal Grandmother No problems noted. Brother No problems noted. Brother Substance use disorder Social History Household Members: Family Housing: House Alcohol intake: never Comment: dc'd from ed Patient Tobacco Use Status: Former Tobacco user Tobacco use type: Cigarette Cigarette Packs Per Day: 0.5 Cigarettes Per Day: 1 Years Smoked: 30 +/- Packs Per Year: 0 Packs per year/per ci.00 e-Cigarette/Vaping Use: Never Used Second Hand Smoke Exposure: Yes service: No Current occupational status: disabled Current occupation: rt hand Cognitive needs: No Hearing needs: No Vision needs: Yes Questionnaire Thrive Questionnaire Date Thrive assessed: 05/15/25 I am a: Patient What is your living situation today?: I have a steady place to live Within the past 12 months, did the food you bought not last and you didn't have the money to get more?: Never true Within the past 12 months, did you worry whether your food would run out before you got money to buy more?: Never true Do you have trouble paying for medicines?: No Do you have trouble getting transportation to medical appointments?: No Do you have trouble paying your heating and electricity bill?: No Do you have trouble taking care of your child, family member or friend?: No Do you have trouble with day-to-day activities such as bathing, preparing meals, shopping, managing finances, etc.?: Yes Are you currently unemployed and looking for a job?: I choose not to answer this question Are you interested in more education?: No Please select the resources that you would like help with: Daily support Currently or been in a relationship where the following occur: No concerns reported THRIVE Score: 0 AUDIT C Alcohol Use Questionnaire (AUDIT-C) 1. How often do you have a drink containing alcohol?: Never 3. How often do you have six or more drinks on one occasion?: Never Total Score: 0 Score Reviewed/Action Taken: Yes JAJA-7 AMB Questionnaire JAJA-7 Date JAJA - 7 assessed: 01/29/25 Source: Developed by Drs. Artem Juarez, Aishwarya Voss, Jorge Shcilling and colleagues, with an educational shawn from [employer]. Review of Systems Const All systems reviewed & are unremarkable except as noted in HPI and below Physical exam (Primary Care) Vital Signs: Last Vital Signs Temp 98.4 F 05/23/25 10:50 Pulse 73 05/23/25 10:50 BP 120/76 05/23/25 10:50 Pulse Ox 96 05/23/25 10:50 Oxygen Delivery Method Room Air 05/23/25 10:50 BMI result Body Mass Index 40.2 Tobacco/Smoking Status: Tobacco use Status Tobacco use date assessed 01/29/25 05/23/25 10:51 Patient Tobacco Use Status Former Tobacco user 05/23/25 10:51 Tobacco use type Cigarette 05/23/25 10:51 e-Cigarette/Vaping Use Never Used 05/23/25 10:51 Thrive Assessment: Date of Thrive Assessment Date Thrive assessed 05/15/25 05/23/25 10:51 Currently or been in a relationship where the following occur: No concerns reported Coding Level of Care Code TCM High MDM <= 7 Days Diagnoses Nocturnal enuresis N39.44 Urinary Incontinence type: nocturnal enuresis Community acquired pneumonia, unspecified laterality J18.9 Laterality: unspecified laterality Hospital discharge follow-up Z51.89 Morbid obesity E66.01 Assessment & Plan Assessment & Plan (1) Incontinence of urine: Code(s): R32 - Unspecified urinary incontinence Category: Medical Qualifiers: Urinary Incontinence type: nocturnal enuresis Qualified Code(s): N39.44 - Nocturnal enuresis Plan: Urinary Incontinence - The patient reports significant urinary incontinence that disrupts her sleep. - Following the patient's inquiry about a PureWick system, a message has been sent to her primary care provider's nurse to determine the next steps for obtaining a Pure Wick system for at home. (2) CAP (community acquired pneumonia): Code(s): J18.9 - Pneumonia, unspecified organism Category: Medical Qualifiers: Laterality: unspecified laterality Qualified Code(s): J18.9 - Pneumonia, unspecified organism Plan: - VSS, pt well appearing and PE remarkable for significant wheezing and rhonchi. Presumed/clincial dx of CAP. - Augmentin is prescribed to complement the recently completed course of doxycyc line, as the initially considered azithromycin (Z-Atif) is contraindicated with the patient's methadone. - Despite a history of an allergy to cephalosporins, Augmentin is prescribed, as the chance of cross-reactivity is 2%. - A 5-day course of prednisone 50 mg daily is prescribed due to significant wheezing. - Tessalon Perles are prescribed for cough to be taken at night. - Sent generic Cary-D to pharmacy as per pt request. - The patient was provided with an incentive spirometer and counseled on its frequent use to improve lung function. - A chest x-ray is deferred at this time as it would not change the current treatment plan, but the patient is advised to return to the walk-in clinic if symptoms worsen. (3) Hospital discharge follow-up: Code(s): Z51.89 - Encounter for other specified aftercare Plan: Patient was informed and verbally consented to the use of an ambient scribe for clinic note documentation during this visit. - Cellulitis appears cleared up. - The patient is advised to continue taking furosemide 40 mg daily for management of edema. - She is counseled to continue elevating her legs and to use her compression garments more faithfully to control swelling. (4) Morbid obesity: Comment: looking for [place] Code(s): E66.01 - Morbid (severe) obesity due to excess calories Category: Medical Plan: - In response to the patient's inquiry about weight loss medication ([place]), it was determined that there are no contraindications with her current medications. - She was advised to discuss a prescription for this medication with her primary care provider at her next appointment in 2 weeks. Medications: New amoxicillin-pot clavulanate 875-125 mg 1 tab PO Q12H 14 tabs 0RF fexofenadine-pseudoephedrine 180-240 mg ER 1 tab PO QAM PRN 20 tabs 0RF nasal congestion benzonatate DO NOT ALLOW CHILDREN TO HAVE ACCESS TO THIS MEDICATION IT IS DANGEROUS FOR CHILDREN. 200 mg PO BEDTIME PRN 10 caps 0RF cough prednisone 50 mg PO QAM 5 tabs 0RF
[2025-05-23 10:50] VITALS: BP 120/76; PULSE 73; TEMP 36.9; O2SAT 96; BMI 40.2
--- OUTSIDE RECORDS SUMMARY | 2025-05-23 13:49 | XMS_ITS | Patient Health Record ---
Author Organization [facility] Tanner joanna Browne Address [address] [place] [address] Care Team Providers Care Casino Floor Walker Name Role Phone Garret Cobb Primary Care Provider Unav Katya Enamorado Unavailable [phone] Allergies No Known Allergies Reason For Referral [...] Problem Acquired hammer toe of right foot (1064031586615 105) Other hammer toe(s) (acquired), right foot (M20.41) Active confirmed Problem Acquired hammer toe of left foot (4669481423628 103) Other hammer toe(s) (acquired), left foot (M20.42) Active confirmed Vital Signs Height 5ft 8in in 04/04/2025 Weight 250 lbs 04/04/2025 BMI 38.01 kg/m2 04/04/2025 Procedures Procedure Date Ordered Date Performed Result Body Sit e [id number] NAIL, 6 OR MORE 04/04/2025 N/A Encounters Encounter Location Date Provider Diagnosis [facility] [address] [address] 04/04/2025 Katya So Other hammer toe(s) (acquired), right foot M20.41 ; Other hammer toe(s) (acquired), left foot M20.42 ; Pain in right toe(s) M79.674 ; Onychomycosis B35.1 and Pain in left toe(s) M79.675 [facility] [address] [address] 12/13/2024 Katya So Assessments Encounter Date Diagnosis [...] Treatment Pending Test Test Name Order Date [id number] NAIL, 6 OR MORE 04/04/2025 Next Appt Details Provider Name:Katya frank, 07/15/2025 02:45:00 PM, [address] [place] [address], [id number], Insurance Providers Payer Name Payer Address Payer Phone Subscriber Number Group Number Insured Name Patient Relationship to Insured Coverage Start Date Coverage End Date Medicare National Govt [facility] [address] [place] [address] [id number] Elida Barry Self - patient is the insured [facility] [address] [place] [address] [phone] [id number] Elida Barry Self - patient is the insured Medical (General) History Medical History History ICD Code Arthritis Back,Hip,and Knee pain Chicken pox HIV
--- OUTSIDE RECORDS SUMMARY | 2025-05-23 13:49 | XMS_ITS | Clinical Summary ---
Author Organization [facility] [place] [address] Care Team Providers Care Time Piece Repairer Name Role Phone Unavailable Primary Care Provider [...]
== END 2025-05-23 11:22 | disposition home or self-care (01) ==
LOC: HO.HMCC 10:48
PROVIDERS: PCP Nurse Practitioner Family; Visit Provider Physician Assistant
DX: N39.44 Nocturnal enuresis (principal); J18.9 Pneumonia, unspecified organism; E66.01 Morbid (severe) obesity due to excess calories; Z68.41 Body mass index [BMI] 40.0-44.9, adult; Z51.89 Encounter for other specified aftercare